=== PATIENT | male | born 1970 | race Caucasian/White ===

== ENCOUNTER 2018-01-11 11:47 | Emergency (ER) | payer SELFPAY ==
[2018-01-11] MEDS ORDERED: METHYLPREDNISOLONE INJ 125 MG/2 ML SDV IV ONE (12:13)
[2018-01-11] MEDS ORDERED: IPRATROPIUM/ALBUTEROL 0.5-2.5 MG/3 ML AMPUL NEB ONE (12:13)
--- NOTE | 2018-01-11 12:19 | ER Document Report ---
ED General - General Chief Complaint: Breathing Difficulty Stated Complaint: DIFFICULTY BREATHING Time Seen by Provider: 01/11/18 12:01 Mode of Arrival: Ambulatory Information source: Patient Notes: 47-year-old male presents emergency department with complaints of shortness of breath. Patient has a history of COPD. Patient states that he just moved here from [place]. He states that the humidity has been causing his COPD to flareup. She does not have home oxygen. He states that his tank ran out and he was never able to get it refilled. Patient states that he was just discharged from the hospital 3 days ago after being admitted for respiratory failure and pneumonia. Patient states that he was intubated at the hospital. Patient was supposed to be taking Augmentin and doxycycline. Patient states that he did not fill his prescriptions. He states that he did fly from [place] to [place] yesterday and then drove from [place] to [place]. He states that he is not on any anticoagulants. TRAVEL OUTSIDE OF THE [place] IN LAST 30 DAYS: No - HPI Onset: Just prior to arrival Onset/Duration: Sudden Quality of pain: No pain Severity: None Pain Level: Denies Associated symptoms: Shortness of breath Exacerbated by: Denies Relieved by: Denies Similar symptoms previously: Yes Recently seen / treated by doctor: Yes - Related Data Allergies/Adverse Reactions: No Known Allergies Allergy (Verified 01/11/18 11:59) Past Medical History - General Information source: Patient - Social History Smoking Status: Former Smoker Family History: Reviewed & Not Pertinent Review of Systems - Review of Systems Constitutional: No symptoms reported EENT: No symptoms reported Cardiovascular: No symptoms reported Respiratory: Short of breath Gastrointestinal: No symptoms reported Genitourinary: No symptoms reported Male Genitourinary: No symptoms reported Skin: No symptoms reported Hematologic/Lymphatic: No symptoms reported Neurological/Psychological: No symptoms reported -: Yes All other systems reviewed and negative Physical Exam - Vital signs Vitals: Temp Pulse BP Pulse Ox 98.1 F 117 H 150/92 H 83 L 01/11/18 11:53 01/11/18 11:53 01/11/18 11:53 01/11/18 11:53 - Notes Notes: PHYSICAL EXAMINATION: GENERAL: Well-appearing, well-nourished and in no acute distress. HEAD: Atraumatic, normocephalic. EYES: Pupils equal round and reactive to light, extraocular movements intact, sclera anicteric, conjunctiva are normal. ENT: Nares patent, oropharynx clear without exudates. Moist mucous membranes. NECK: Normal range of motion, supple without lymphadenopathy LUNGS: Decreased air movement diffusely. Mild wheezing appreciated. HEART: Regular rate and rhythm without murmurs ABDOMEN: Soft, nontender, nondistended abdomen. No guarding, no rebound. No masses appreciated. Musculoskeletal: Normal range of motion, 1+ lower extremity pitting edema bilaterally. No cyanosis. NEUROLOGICAL: Cranial nerves grossly intact. Normal speech, normal gait. Normal sensory, motor exams PSYCH: Normal mood, normal affect. SKIN: Warm, Dry, normal turgor, no rashes or lesions noted. Course - Re-evaluation Re-evalutation: 01/11/18 12:17 Patient has an oxygen saturation at 81% on room air on arrival. He is tachycardic. Recent travel from [place] to [place]. He is not on any blood thinners. CTA of the chest ordered to rule out PE. Patient started on BiPAP. Albuterol and Solu-Medrol ordered. 01/11/18 12:19 EKG: Ventricular rate 110, IA interval 144, castration 98, QTc 455, sinus tachycardia, no ischemic changes. 01/11/18 14:45 CTA of the chest was done. No pulmonary embolism was seen. No pneumonia. No effusion. Patient's troponin is elevated. I discussed admission with the patient. He refuses admission. He understands he may or his condition may worsen by leaving against medical advice. He also does not have home oxygen. Currently he's requiring 4L NC to keep his O2 saturation above 90%. We're unable to provide home O2. He understands the risks of leaving without home O2. Patient continues to decline admission. - Vital Signs Vital signs: Temp Pulse Resp BP Pulse Ox 98.1 F 117 H 31 H 150/92 H 96 01/11/18 11:53 01/11/18 11:53 01/11/18 12:20 01/11/18 11:53 01/11/18 12:20 - Laboratory Result Diagrams: 01/11/18 12:00 01/11/18 12:00 Laboratory results interpreted by me: 01/11/18 01/11/18 01/11/18 12:00 12:00 12:20 WBC 11.0 H Hgb 18.0 H Hct 54.0 H MCV 99 H RDW 15.5 H Plt Count 117 L Absolute Neutrophils 8.4 H Carbonic Acid 2.04 H ABG pCO2 67.8 H ABG pO2 64.8 L ABG HCO3 39.1 H ABG Total CO2 41.2 H ABG O2 Saturation 91.6 L Chloride 90 L Carbon Dioxide 42 H* BUN 29 H ALT 86 H Discharge - Discharge Clinical Impression: Hypoxia, Elevated troponin COPD (chronic obstructive pulmonary disease) Qualifiers: COPD type: COPD with acute exacerbation Qualified Code(s): J44.1 - Chronic obstructive pulmonary disease with (acute) exacerbation Condition: Serious Disposition: AGAINST MEDICAL ADVICE
[2018-01-11 12:34] LABS: ABSOLUTE EOSINOPHILS # (AUTO) 0.1 10^3/uL (0.0-0.6); ABSOLUTE LYMPHOCYTES (AUTO) 1.5 10^3/uL (0.5-4.7); ABSOLUTE MONOCYTES (AUTO) 0.9 10^3/uL (0.1-1.4); ABSOLUTE NEUT (AUTO) 8.4 10^3/uL (1.7-8.2); BASOPHILS % (AUTO) 0.3 % (0-2); EOSINOPHILS % (AUTO) 0.8 % (0-6); LYMPHOCYTES % (AUTO) 13.6 % (13-45); MEAN CORPUSCULAR HEMOGLOBIN 32.7 pg (27.0-33.4); MEAN CORPUSCULAR HGB CONC 33.2 g/dL (32.0-36.0); MEAN CORPUSCULAR VOLUME 99 fl (80-97); MONOCYTES % (AUTO) 8.6 % (3-13); PLATELET COUNT 117 10^3/uL (150-450); RED BLOOD COUNT 5.49 10^6/uL (4.35-5.55); RED CELL DISTRIBUTION WIDTH 15.5 % (11.5-14.0); SEGMENTED NEUTROPHILS % (AUTO) 76.7 % (42-78); TOTAL CELLS COUNTED % (AUTO) 100 %
[2018-01-11 12:36] LABS: ARTERIAL BLOOD BASE EXCESS 10.5 mmol/L; ARTERIAL BLOOD H2CO3 2.04 mmol/L (1.05-1.35); ARTERIAL BLOOD HCO3 39.1 mmol/L (20-24); ARTERIAL BLOOD O2 SATURATION 91.6 % (94-98); ARTERIAL BLOOD PCO2 67.8 mmHg (35-45); ARTERIAL BLOOD PH 7.38 (7.35-7.45); ARTERIAL BLOOD PO2 64.8 mmHg (80-100); ARTERIAL BLOOD TOTAL CO2 41.2 mmol/L (23-27)
[2018-01-11 12:39] LABS: ARTERIAL BLOOD FIO2 100%
[2018-01-11 13:27] LABS: BLOOD UREA NITROGEN 29 mg/dL (7-20); CHLORIDE 90 mmol/L (98-107); GLUCOSE 93 mg/dL (75-110); POTASSIUM 4.1 mmol/L (3.6-5.0)
[2018-01-11 13:28] LABS: ALANINE AMINOTRANSFERASE 86 U/L (21-72); ALBUMIN 4.2 g/dL (3.5-5.0); ALKALINE PHOSPHATASE 114 U/L (38-126); ANION GAP 10 (5-19); ASPARTATE AMINO TRANSFERASE 48 U/L (17-59); CARBON DIOXIDE 42 mmol/L (22-30); SODIUM 141.7 mmol/L (137-145)
[2018-01-11 13:29] LABS: BILIRUBIN,DIRECT 0.3 mg/dL (0.0-0.4); TOTAL PROTEIN 7.8 g/dL (6.3-8.2)
--- NOTE | 2018-01-11 14:00 | RADIOLOGY REPORT (SQ) ---
EXAM DESCRIPTION: CHEST SINGLE VIEW COMPLETED DATE/TIME: 01/11/2018 1:42 pm REASON FOR STUDY: shortness of breath COMPARISON: None. EXAM PARAMETERS: NUMBER OF VIEWS: One view. TECHNIQUE: Single frontal radiographic view of the chest acquired. RADIATION DOSE: NA LIMITATIONS: None. FINDINGS: LUNGS AND PLEURA: Hyperexpansion of the lungs with flattening of the diaphragms. MEDIASTINUM AND HILAR STRUCTURES: No masses. Contour normal. HEART AND VASCULAR STRUCTURES: Cardiomegaly with no pulmonary edema. BONES: No acute findings. HARDWARE: None in the chest. OTHER: No other significant finding. IMPRESSION: Cardiomegaly without CHF. Chronic lung changes. TECHNICAL DOCUMENTATION: JOB ID: [id number] [employer]- All Rights Reserved Reading location - IP/workstation name: [email or web address]
--- NOTE | 2018-01-11 14:15 | RADIOLOGY REPORT (SQ) ---
EXAM DESCRIPTION: CTA CHEST COMPLETED DATE/TIME: 01/11/2018 1:57 pm REASON FOR STUDY: shortness of breath COMPARISON: None. TECHNIQUE: CT scan of the chest performed using helical scanning technique with dynamic intravenous contrast injection. Images reviewed with lung, soft tissue and bone windows. Reconstructed coronal and sagittal MPR images reviewed. Additional 3 dimensional post-processing performed to develop Maximal Intensity Projection images (TX P). All images stored on PACS. All CT scanners at this facility use dose modulation, iterative reconstruction, and/or weight based d osing when appropriate to reduce radiation dose to as low as reasonably achievable (ALARA). [facility]: Dose Right [facility]: CareDose [facility]: Dose Right [facility]: Teradose 4D [facility]: Alea CONTRAST TYPE AND DOSE: contrast/concentration: Isovue 350.00 mg/ml; Total Contrast Delivered: 70.0 ml; Total Saline Delivered: 90.0 ml Contrast bolus optimized for the pulmonary arteries. Not diagnostic for the aorta. RENAL FUNCTION: None required. The patient is less than 50 years old. RADIATION DOSE: CT Rad equipment meets quality standard of care and radiation dose reduction techniq ues were employed. CTDIvol: 14.3 - 46.3 mGy. DLP: 656 mGy-cm. . LIMITATIONS: None. FINDINGS: LUNGS AND PLEURA: No masses, infiltrates, or pneumothorax. No pleural effusions or pleura l calcifications. Emphysematous and bullous changes are identified. AORTA AND GREAT VESSELS: No aneurysm. Contrast bolus not optimized for the aorta. HEART: No pericardial effusion. No significant coronary artery calcifications. PULMONARY ARTERIES: No emboli visualized in the main pulmonary arteries or the segmental branches. HILAR AND MEDIASTINAL STRUCTURES: No identified masses. Calcified left hilar nodes are identified. HARDWARE: None in the chest. UPPER ABDOMEN: No significant findings. Limited exam. THYROID AND OTHER SOFT TISSUES: No masses. No adenopathy. BONES: No acute or significant finding. 3D MIPS: Confirm above findings. OTHER: No other significant finding. IMPRESSION: No evidence for pulmonary embolic disease. No acute consolidations or pleural effusions are identified. Emphysematous and bullous changes are identified. Other findings as noted above COMMENT: Quality ID # [id number]: Final reports with documentation of one or more dose reduction techniques (e.g., Automated exposure control, adjustment of the mA and/or kV according to patient size, use of iterative reconstruction technique) TECHNICAL DOCUMENTATION: JOB ID: [id number] [employer]- All Rights Reserved Reading location - IP/workstation name: [email or web address]
--- NOTE | 2018-01-11 14:39 | EKG REPORT ---
SEVERITY:- ABNORMAL ECG - SINUS TACHYCARDIA CONSIDER RIGHT VENTRICULAR HYPERTROPHY NONSPECIFIC T ABNORMALITIES, INFERIOR LEADS : Confirmed by: Renetta Roth MD 11-Jan-2018 14:38:56
[2018-01-11 16:11] VITALS: BP 148/72
--- NOTE | 2018-01-11 17:40 | Progress Note ---
Provider Note Provider Note: HPI: Mr. Dean is a 47-year-old male with history of COPD. He was recently hospitalized in [place] for severe COPD exacerbation. He was intubated and was recently discharged 3 days ago. He moved to [place] yesterday. He says he was supposed to be on home O2 but there has been a delay procuring home oxygen. He says that he has been having increasing shortness of breath at home. He was given steroids and breathing treatments in the ER. Called by ER physician for admission. Upon encounter, patient is not in acute distress and is saturating at 94% on 2L of NC. Explained that this provider will be admitting him for his COPD exacerbation and he verbalized there is no reason for him to stay here. Patient inquired about his cardiac enzymes. Physical Exam: Patient not in acute distress on 2L of NC. Regular rhythm, no audible murmur. Symmetrical chest expansion. Occasional mild wheezes and rhonchi on the bases. No crackles. Soft abdomen, no palpable masses or tenderness. Grossly normal extremities. Unremarkable neuro exam. Assessment: Reviewed recent course and hospital notes from [facility]. Explained that he did have slightly elevated troponin at 0.12 last week which was deemed to be from demand ischemia. Explained that his troponin today is 0.118 and that although this could be from demand ischemia from his COPD exacerbation, I strongly recommended admission for appropriate treatment of his COPD exacerbation and reassessment of elevated troponin. Patient is coherent and verbalized that he is having his birthday in 2 days and that he has no plans of staying in the hospital for his birthday. Also offered social contact worker/ case management assistance to procure his home O2 but patient continues to refuse admission. He says he has already a pending script for oral steroids at home and that he will be fine. He says "You'll likely see me here again in the ER in the next few days or weeks". He says he appreciates the doctors' opinion and input but he is definitely going home soon. Discussed risks of going AMA including further morbidity. He verbalized understanding.
== END 2018-01-11 16:10 | disposition left against medical advice (07) ==
LOC: ER 11:47
DX: J44.1 Chronic obstructive pulmonary disease with (acute) exacerbation (principal); T41.5X6A Underdosing of therapeutic gases, initial encounter; Z91.128 Patient's intentional underdosing of medication regimen for other reason; Z91.14 Patient's other noncompliance with medication regimen; R09.02 Hypoxemia; R74.8 Abnormal levels of other serum enzymes; R06.02 Shortness of breath; R60.0 Localized edema; R00.0 Tachycardia, unspecified; Z53.20 Procedure and treatment not carried out because of patient's decision for unspecified reasons; Z87.891 Personal history of nicotine dependence
CPT/HCPCS: 93005; 94640; 99285; 96374; 36415; 82803; 85025; 80053; 84484; 71045; 71275; 93010; 36600; 94660; J2930; J7620

== ENCOUNTER 2018-01-14 | Observation (INO) | payer SELFPAY ==
[2018-01-14] MEDS ORDERED: ALBUTEROL SULFATE 0.083% NEB 2.5 MG/3 ML AMPUL NEB ONE (00:11)
--- NOTE | 2018-01-14 00:11 | ER Document Report ---
ED General - General Stated Complaint: SHORTNESS OF BREATH Time Seen by Provider: 01/14/18 00:10 Notes: Patient is a 48-year-old male who presents with complaint of difficulty breathing. He has history of COPD. He continues to smoke. She recently moved here from [place]. He did not bring any oxygen with him. Paramedics said they been called to his house several times over the last several days due to him feeling short of breath. At those times he just request oxygen but refuses to come to the hospital and eventually they leave and they have to come back again because he is short of breath again. This time he agreed to come to the hospital. He is out of his nebulizer treatments. Denies any fevers. No infections. He says he used to be on blood thinners for some sort of "clot. He thinks the clot was in his leg. Is not no other blood thinner was. He denies any chest pain. No fevers. He says in the past she has been seen at [facility] in [place] as well as at [facility] in [facility]. He says he feels much better after receiving the treatments and a months. In the ambulance he received several DuoNeb treatments, SoluMedrol, magnesium. TRAVEL OUTSIDE OF THE [place] IN LAST 30 DAYS: No - Related Data Allergies/Adverse Reactions: No Known Allergies Allergy (Verified 01/11/18 11:59) Past Medical History - Social History Smoking Status: Current Every Day Smoker Frequency of alcohol use: None Drug Abuse: None Family History: Reviewed & Not Pertinent Pulmonary Medical History: Reports: Hx Bronchitis, Hx COPD, Hx Pneumonia Renal/ Medical History: Denies: Hx Peritoneal Dialysis Musculoskeletal Medical History: Reports Hx Arthritis Past Surgical History: Reports: Hx Abdominal Surgery - peptic ulcer, unknown abd surgery Review of Systems - Review of Systems Notes: My Normal Review Basic REVIEW OF SYSTEMS: CONSTITUTIONAL : Denies fever, chills, or sweats. Denies recent illness. EENT: Denies eye, ear, throat, or mouth pain or symptoms. Denies nasal or sinus congestion. CARDIOVASCULAR: Denies chest pain. RESPIRATORY: Difficulty breathing GASTROINTESTINAL: Denies abdominal pain. Denies nausea, vomiting, or diarrhea. MUSCULOSKELETAL: Denies neck or back pain or joint pain or swelling. SKIN: Denies rash or skin lesions. NEUROLOGICAL: Denies altered mental status or loss of consciousness. Denies headache. Denies weakness or paralysis or loss of use of either side. Denies problems with gait or speech. Denies sensory or motor loss. ALL OTHER SYSTEMS REVIEWED AND NEGATIVE. Physical Exam - Notes Notes: General Appearance: Well nourished, alert, cooperative, no acute distress, no obvious discomfort. Vitals: reviewed, See vital signs table. Head: no swelling or tenderness to the head Eyes: PERRL, EOMI, Conjuctiva clear Mouth: No decreasd moisture Lungs: Scattered wheezing, No rales, No rhonci, No accessory muscle use, fair air exchange bilaterally. Heart: Normal rate, Regular rythm, No murmur, no rub Abdomen: Normal BS, soft, No rigidity, No abdominal tenderness, No guarding, no rebound, no abdominal masses, no organomegaly. Multiple subcutaneous bruises on abdomen. Extremities: strength 5/5 in all extremities, good pulses in all extremities, no swelling or tenderness in the extremities, 2+ edema bilateral lower extremities. Skin: warm, dry, appropriate color, no rash Neuro: speech clear, oriented x 3, normal affect, responds appropriately to questions. Course - Re-evaluation Re-evalutation: 01/14/18 01:26 Patient has hypercapnia with hypoxemia. His blood gas shows evidence of hypercapnia with respiratory acidosis. I therefore placed on the BiPAP. The history of whether or not he is post and blood thinners is unclear. I have requested records from [facility] which is where he said he was last seen and was placed on these medications. Currently his EKG looks okay. He is very comfortable on the BiPAP with only requiring an FiO2 of 35%. I did speak with the hospitalist, Dr. Hadley, who agrees to admit the patient. Dictation of this chart was performed using voice recognition software; therefore, there may be some unintended grammatical errors. - Laboratory Result Diagrams: 01/14/18 00:15 01/14/18 00:15 Laboratory results interpreted by me: 01/14/18 01/14/18 01/14/18 00:15 00:15 00:15 MCV 98 H RDW 15.4 H VBG pH 7.25 L VBG pCO2 99.1 H* VBG HCO3 42.4 H Chloride 91 L Carbon Dioxide 45 H* Anion Gap 2 L BUN 32 H Glucose 114 H ALT 87 H - EKG Interpretation by Me Additional EKG results interpreted by me: 01/14/18 00:22 EKG is reviewed and interpreted by me. EKG shows sinus tachycardia with a rate of [address] segment elevation or depression. No ischemic T wave inversions. [place] interval, QRS duration are within normal range. QT interval is borderline.
[2018-01-14 00:31] LABS: VENOUS BLOOD BASE EXCESS 10.1 mmol/L; VENOUS BLOOD HCO3 42.4 mmol/L (20-32); VENOUS BLOOD PH 7.25 (7.30-7.42)
[2018-01-14 00:33] LABS: ABSOLUTE LYMPHOCYTES (AUTO) 2.7 10^3/uL (0.5-4.7); ABSOLUTE MONOCYTES (AUTO) 1.2 10^3/uL (0.1-1.4); ABSOLUTE NEUT (AUTO) 6.2 10^3/uL (1.7-8.2); BASOPHILS % (AUTO) 0.4 % (0-2); EOSINOPHILS % (AUTO) 0.4 % (0-6); HEMATOCRIT 48.4 % (37.9-51.0); HEMOGLOBIN 16.3 g/dL (13.5-17.0); LYMPHOCYTES % (AUTO) 26.7 % (13-45); MEAN CORPUSCULAR HGB CONC 33.6 g/dL (32.0-36.0); MEAN CORPUSCULAR VOLUME 98 fl (80-97); MONOCYTES % (AUTO) 12.1 % (3-13); PLATELET COUNT 154 10^3/uL (150-450); RED BLOOD COUNT 4.94 10^6/uL (4.35-5.55); RED CELL DISTRIBUTION WIDTH 15.4 % (11.5-14.0); SEGMENTED NEUTROPHILS % (AUTO) 60.4 % (42-78); TOTAL CELLS COUNTED % (AUTO) 100 %; WHITE BLOOD COUNT 10.2 10^3/uL (4.0-10.5)
--- NOTE | 2018-01-14 00:44 | RADIOLOGY REPORT (SQ) ---
EXAM DESCRIPTION: XR CHEST 1 VIEW COMPLETED DATE/TME: 01/14/2018 00:10 CLINICAL HISTORY: 48 years Male, dyspnea COMPARISON: 3 days prior. NUMBER OF VIEWS/TECHNIQUE: 1/AP FINDINGS: Small bilateral costophrenic opacity-effusion, increased lung volume, normal cardiac silhouette. No pneumothorax. Stable bony thorax. IMPRESSION: No significant change.
[2018-01-14 00:49] LABS: ALANINE AMINOTRANSFERASE 87 U/L (21-72); ALBUMIN 3.8 g/dL (3.5-5.0); ALKALINE PHOSPHATASE 80 U/L (38-126); ASPARTATE AMINO TRANSFERASE 47 U/L (17-59); BILIRUBIN,DIRECT 0.4 mg/dL (0.0-0.4); BILIRUBIN,TOTAL 0.9 mg/dL (0.2-1.3); BLOOD UREA NITROGEN 32 mg/dL (7-20); CALCIUM 8.6 mg/dL (8.4-10.2); CHLORIDE 91 mmol/L (98-107); GLUCOSE 114 mg/dL (75-110); TOTAL PROTEIN 6.6 g/dL (6.3-8.2)
[2018-01-14 01:00] LABS: ANION GAP 2 (5-19); CARBON DIOXIDE 45 mmol/L (22-30); VENOUS BLOOD PCO2 99.1 mmHg (35-63)
[2018-01-14] MEDS ORDERED: HYDRALAZINE HCL INJ/PF 20 MG/1 ML SDV IV PRN (02:02)
[2018-01-14] MEDS ORDERED: IPRATROPIUM/ALBUTEROL 0.5-2.5 MG/3 ML AMPUL NEB PRN (02:03)
[2018-01-14] MEDS ORDERED: ACETAMINOPHEN 325 MG TABLET PO PRN (02:03)
[2018-01-14] MEDS ORDERED: GUAIFENESIN SYRP 200 MG/10 ML UDC PO PRN (02:03)
[2018-01-14] MEDS ORDERED: FLUTICASONE NASAL SPRAY 50 MCG/SPRY 120 SPRAY/16 GM NASL ONE (02:15)
[2018-01-14] MEDS ORDERED: METHYLPREDNISOLONE INJ 125 MG/2 ML SDV IV ONE (02:15)
[2018-01-14 02:56] LABS: CREATINE KINASE MB 8.45 ng/mL (<4.55)
[2018-01-14 02:59] LABS: TROPONIN I 0.077 ng/mL
[2018-01-14] MEDS ORDERED: LEVOFLOXACIN 750 MG/D5W RTU 750 MG/150 ML RTUPB IV ONE (03:00)
[2018-01-14 03:30] LABS: APPEARANCE,URINE SLIGHTLY-CLOUDY; BILIRUBIN,URINE NEGATIVE (NEGATIVE); COLOR,URINE AMBER; GLUCOSE, URINE NEGATIVE (NEGATIVE); KETONES,URINE NEGATIVE (NEGATIVE); LEUKOCYTE ESTERASE,URINE NEGATIVE (NEGATIVE); NITRITE,URINE NEGATIVE (NEGATIVE); PROTEIN,URINE >=500 mg/dL (NEGATIVE); URINE SPECIFIC GRAVITY 1.028
[2018-01-14 04:14] LABS: URINE BARBITURATES SCREEN NEGATIVE; URINE BENZODIAZEPINES SCREEN NEGATIVE; URINE COCAINE SCREEN NEGATIVE; URINE MARIJUANA (THC) SCREEN UNCONFIRMED POSITIVE; URINE METHADONE SCREEN NEGATIVE; URINE PHENCYCLIDINE SCREEN NEGATIVE
--- NOTE | 2018-01-14 04:27 | RADIOLOGY REPORT (SQ) ---
EXAM DESCRIPTION: CT CHEST ANGIOGRAPHY WITHOUT THEN WITH IV CONTRAST COMPLETED DATE/TME: 01/14/2018 00:00 CLINICAL HISTORY: 48 years, Male, r/o pe COMPARISON: 01/11/2018 TECHNIQUE: Axial CT images of the chest were obtained after the administration of IV contrast. MPR and MIP reconstructions were performed. DLP 587 Images stored on PACS. All CT scanners at this facility use dose modulation, iterative reconstruction, and/or weight based dosing when appropriate to reduce radiation dose to as low as reasonably achievable (ALARA). [facility]: Dose Right [facility]: CareDose [facility]: Dose Right [facility]: Teradose 4D [facility]: ReviewZAP LIMITATIONS: None. FINDINGS: Upper abdomen: Partially imaged. Thoracic aorta: Bovine arch Heart: No right atrial thrombus. RV/LV ratio: Within normal limits. Pulmonary arteries: Technical: Adequate opacification to the level of the segmental vessels. Pulmonary embolus: No low-density filling defect to suggest acute PE. Overall embolic burden: None. Mediastinum: No pathologic sized middle mediastinal lymphadenopathy. Tracheobronchial tree: Unremarkable. Lungs: Lobar consolidation: Negative. Pleural effusion: Negative. Pneumothorax: Negative. Other: Severe centrilobular emphysema particularly of the left upper lobe. Bones: Unremarkable. IMPRESSION: No CT evidence of acute PE. Severe emphysema. TECHNICAL DOCUMENTATION: Quality ID # [id number]: Final reports with documentation of one or more dose reduction techniques (e.g., Automated exposure control, adjustment of the mA and/or kV according to patient size, use of iterative reconstruction technique) 2010 [employer]- All Rights Reserved
[2018-01-14] MEDS ORDERED: HEPARIN SOD (PORCINE) 5,000 UNIT/ML 1 ML SYRINGE SUBCUT SCH (06:00)
[2018-01-14 06:17] LABS: CREATINE KINASE MB 8.22 ng/mL (<4.55)
[2018-01-14 06:21] LABS: TROPONIN I 0.061 ng/mL
--- NOTE | 2018-01-14 06:30 | PDOC H&P ---
History of Present Illness Admission Date/PCP: 01/14/18 01:44 Patient complains of: Shortness of breath History of Present Illness: SHARLENE LYNN is a 48 year old male with a past medical history of end-stage emphysema, recurrent pneumonia, deep vein thrombosis, congestive heart failure, hypertension, tobacco, chronic hypercapnic, hypoxic respiratory failure with recent intubation. Patient was discharged from [facility], 01/01/2018. Relocated to [facility] within that time, without discharge medications or supplemental oxygen. He presented 4 days ago with an acute exacerbation of respiratory failure however left the emergency room AGAINST MEDICAL ADVICE and returns in severe respiratory distress. He is found to have an angry affect, myoclonus and a PCO2 of 99. He started on BiPAP and referred to the hospitalist for admission. Patient admits to smoking, noncompliance with medication and lifestyle, denies chest pain nausea or vomiting. Past Medical History Cardiac Medical History: Reports: Congestive Heart Failure Pulmonary Medical History: Reports: Bronchitis, Chronic Obstructive Pulmonary Disease (COPD), Pneumonia Musculoskeltal Medical History: Reports: Arthritis Psychiatric Medical History: Reports: Substance Abuse, Tobacco Dependency Past Surgical History Past Surgical History: Reports: Other - Posttraumatic abdominal surgery remotely. Social History Information Source: Patient, Emergency Med Personnel, Outside Facility Records Smoking Status: Current Every Day Smoker Drugs: Marijuana Family History Family History: COPD Parental Family History Reviewed: Yes Children Family History Reviewed: Yes Sibling(s) Family History Reviewed.: Yes Medication/Allergy Home Medications: Albuterol Sulfate [Albuterol Sulfate 2.5mg/3 mL] 2.5 mg IH PRN PRN 01/14/18 Albuterol Sulfate [Proair HFA] 1 - 2 puff IH Q4 PRN 01/14/18 Furosemide [Lasix 40 mg Tablet] 40 mg PO QAM 01/14/18 Ipratropium [place] [Atrovent 0.02% Neb 0.5 mg/2.5 ml Ampul] 0.5 mg NEB PRN PRN 01/14/18 Prednisone 10 mg PO PRN PRN 01/14/18 Allergies/Adverse Reactions: No Known Allergies Allergy (Verified 01/11/18 11:59) Review of Systems Constitutional: PRESENT: as per HPI, fatigue, fever(s) Eyes: ABSENT: visual disturbances Ears: ABSENT: hearing changes Cardiovascular: PRESENT: dyspnea on exertion. ABSENT: chest pain, edema, orthropnea, palpitations Respiratory: PRESENT: as per HPI, cough, dyspnea. ABSENT: sputum Gastrointestinal: ABSENT: abdominal pain, constipation, diarrhea, hematemesis, hematochezia, nausea, vomiting Genitourinary: ABSENT: dysuria, hematuria Musculoskeletal: ABSENT: joint swelling Integumentary: ABSENT: rash, wounds Neurological: ABSENT: abnormal gait, abnormal speech, confusion, dizziness, focal weakness, syncope Psychiatric: ABSENT: anxiety, depression, homidical ideation, suicidal ideation Endocrine: ABSENT: cold intolerance, heat intolerance, polydipsia, polyuria Hematologic/Lymphatic: ABSENT: easy bleeding, easy bruising Physical Exam Vital Signs: Temp Pulse Resp BP Pulse Ox 97.3 F 87 19 131/90 H 100 01/14/18 05:38 01/14/18 05:38 01/14/18 05:38 01/14/18 05:38 01/14/18 05:38 Intake & Output 01/12/18 01/13/18 01/14/18 11:59 11:59 11:59 Intake Total 150 Balance 150 General appearance: PRESENT: disheveled, severe distress, thin. ABSENT: cooperative Head exam: PRESENT: atraumatic, normocephalic Eye exam: PRESENT: conjunctiva pink, EOMI, PERRLA. ABSENT: scleral icterus Ear exam: PRESENT: normal external ear exam Mouth exam: PRESENT: moist, tongue midline Neck exam: ABSENT: carotid bruit, JVD, lymphadenopathy, thyromegaly Respiratory exam: PRESENT: accessory muscle use, crackles, prolonged expiratory phas, retraction, symmetrical, tachypnea. ABSENT: rhonchi, stridor Cardiovascular exam: PRESENT: gallop, RRR, +S1, +S2, tachycardia Pulses: PRESENT: normal dorsalis pedis pul Vascular exam: PRESENT: normal capillary refill GI/Abdominal exam: PRESENT: normal bowel sounds, soft. ABSENT: distended, guarding, mass, organolmegaly, rebound, tenderness Rectal exam: PRESENT: deferred Extremities exam: PRESENT: +1 edema Neurological exam: PRESENT: alert, awake, oriented to person, oriented to place , oriented to time, oriented to situation, CN II-XII grossly intact. ABSENT: motor sensory deficit Psychiatric exam: PRESENT: agitated Skin exam: PRESENT: dry, erythema - Bilateral lower extremity dermatitis Results Laboratory Results: 01/14/18 03:16 Urine Color CORA Urine Appearance SLIGHTLY-CLOUDY Urine pH 5.0 Ur Specific [place] 1.028 Urine Protein >=500 H Urine Glucose (UA) NEGATIVE Urine Ketones NEGATIVE Urine Blood NEGATIVE Urine Nitrite NEGATIVE Ur Leukocyte Esterase NEGATIVE Urine WBC (Auto) 2 Urine RBC (Auto) 1 Impressions: Chest/Abdomen CTA 01/14/18 00:00 IMPRESSION: No CT evidence of acute PE. Severe emphysema. TECHNICAL DOCUMENTATION: Quality ID # 436: Final reports with documentation of one or more dose reduction techniques (e.g., Automated exposure control, adjustment of the mA and/or kV according to patient size, use of iterative reconstruction technique) 2010 [employer]- All Rights Reserved Chest X-Ray 01/14/18 00:10 IMPRESSION: No significant change. Assessment & Plan - Diagnosis (1) Acute and chronic respiratory failure Is this a current diagnosis for this admission?: Yes Plan: Complicated by history of end-stage emphysema, medication and lifestyle noncompliance. Supplemental oxygen, BiPAP, incentive spirometry, flutter valve , steroids. Recent hospitalization records requested, discharge planning consult, consider hospice consult (2) Pneumonia Is this a current diagnosis for this admission?: Yes Plan: Patient is diaphoretic, likely recurrent pneumonia, empiric antibiotics initiated. (3) Congestive heart failure Is this a current diagnosis for this admission?: Yes Plan: Unclear ejection fraction 2D echo ordered though likely increased pulmonary hypertension, prerenal at presentation, optimize vitals and oxygenation BiPAP support, (4) Tobacco abuse Is this a current diagnosis for this admission?: Yes Plan: Tobacco Dependence patient received tobacco cessation counseling and offered nicotine replacement options (5) DVT (deep venous thrombosis) Is this a current diagnosis for this admission?: Yes Plan: Eliquis - Time Time Spent: 30 to 50 Minutes - Inpatient Certification Medical Necessity: Need Close Monitoring Due to Risk of Patient Decompensation
[2018-01-14] MEDS ORDERED: IPRATROPIUM/ALBUTEROL 0.5-2.5 MG/3 ML AMPUL NEB SCH (08:00)
[2018-01-14 08:50] VITALS: BP 135/95
[2018-01-14] MEDS ORDERED: FLUTICASONE NASAL SPRAY 50 MCG/SPRY 120 SPRAY/16 GM NASL SCH (10:00)
[2018-01-14] MEDS ORDERED: APIXABAN 5 MG TABLET PO SCH (10:00)
[2018-01-14] MEDS ORDERED: METHYLPREDNISOLONE INJ 125 MG/2 ML SDV IV SCH (14:00)
--- NOTE | 2018-01-14 14:07 | PDOC DISCHARGE SUMMARY ---
General - Admit/Disc Date/PCP Admission Date/Primary Care Provider: 01/14/18 01:44 Discharge Date: 01/14/18 - Discharge Diagnosis (1) Acute and chronic respiratory failure Is this a current diagnosis for this admission?: Yes (3) DVT (deep venous thrombosis) Is this a current diagnosis for this admission?: Yes - Additional Information Home Medications: Albuterol Sulfate [Albuterol Sulfate 2.5mg/3 mL] 2.5 mg IH PRN PRN 01/14/18 Albuterol Sulfate [Proair HFA] 1 - 2 puff IH Q4 PRN 01/14/18 Furosemide [Lasix 40 mg Tablet] 40 mg PO QAM 01/14/18 Ipratropium [place] [Atrovent 0.02% Neb 0.5 mg/2.5 ml Ampul] 0.5 mg NEB PRN PRN 01/14/18 Prednisone 10 mg PO PRN PRN 01/14/18 History of Present Illness History of Present Illness: SHARLENE LYNN is a 48 year old male with a past medical history of end-stage emphysema, recurrent pneumonia, deep vein thrombosis, congestive heart failure, hypertension, tobacco, chronic hypercapnic, hypoxic respiratory failure with recent intubation. Patient was discharged from [facility], 01/01/2018. Relocated to [facility] within that time, without discharge medications or supplemental oxygen. He presented 4 days ago with an acute exacerbation of respiratory failure however left the emergency room AGAINST MEDICAL ADVICE and returns in severe respiratory distress. He is found to have an angry affect, myoclonus and a PCO2 of 99. He started on BiPAP and referred to the hospitalist for admission. Patient admits to smoking, noncompliance with medication and lifestyle, denies chest pain nausea or vomiting. Hospital Course Hospital Course: Patient was admitted placed on BiPAP. He weaned off BiPAP during the evening. The following morning patient stated he would sign out AMA. He was reminded that he does not have access to oxygen at home he said that he was meeting someone from a pharmacy who was going to deliver oxygen. It seems unlikely since patient has [place] Medicaid and not [place]. traffic and transport planner was consulted and discussed with patient that he needs to get into [place] Medicaid in order to get oxygen therapy. He has been borrowing tanks from the fire department and other sources. Patient additionally admits that he has been on and off his Eliquis since his diagnosis of DVT was made in [place]. He was vague as to whether he was taking it currently but he was told it is important that he comply with that or he could have a blood clot that goes to his lung and end his life. In the end the patient decided that he would leave AGAINST MEDICAL ADVICE and promptly left the hospital Physical Exam Vital Signs: Temp Pulse Resp BP Pulse Ox 98.2 F 99 19 135/95 H 93 01/14/18 08:22 01/14/18 08:22 01/14/18 08:22 01/14/18 08:22 01/14/18 08:22 Intake & Output 01/13/18 01/14/18 01/15/18 06:59 06:59 06:59 Intake Total 350 Output Total 400 Balance -50 Weight 83.9 kg Results Laboratory Results: 01/14/18 03:16 Urine Color CORA Urine Appearance SLIGHTLY-CLOUDY Urine pH 5.0 Ur Specific [place] 1.028 Urine Protein >=500 H Urine Glucose (UA) NEGATIVE Urine Ketones NEGATIVE Urine Blood NEGATIVE Urine Nitrite NEGATIVE Ur Leukocyte Esterase NEGATIVE Urine WBC (Auto) 2 Urine RBC (Auto) 1 01/14/18 01/14/18 05:45 05:45 Creatine Kinase 62 CK-MB (CK-2) 8.22 H Troponin I 0.061 Impressions: Chest/Abdomen CTA 01/14/18 00:00 IMPRESSION: No CT evidence of acute PE. Severe emphysema. TECHNICAL DOCUMENTATION: Quality ID # 436: Final reports with documentation of one or more dose reduction techniques (e.g., Automated exposure control, adjustment of the mA and/or kV according to patient size, use of iterative reconstruction technique) 2010 [employer]- All Rights Reserved Chest X-Ray 01/14/18 00:10 IMPRESSION: No significant change. Qualifiers - * PATIENT BEING DISCHARGED WITH ANY OF THE FOLLOWING DIAGNOSIS: No
--- NOTE | 2018-01-14 16:57 | EKG REPORT ---
SEVERITY:- ABNORMAL ECG - SINUS TACHYCARDIA PROBABLE RIGHT VENTRICULAR HYPERTROPHY BORDERLINE T ABNORMALITIES, INFERIOR LEADS BORDERLINE PROLONGED QT INTERVAL : Confirmed by: Renetta Roth MD 14-Jan-2018 16:57:04
[2018-01-14] MEDS ORDERED: LEVOFLOXACIN 750 MG/D5W RTU 750 MG/150 ML RTUPB IV SCH (22:00)
== END 2018-01-14 10:32 | disposition left against medical advice (07) ==
LOC: ER → EH 01:44 → INTOOBSV 01:44 → 5 05:09
PROVIDERS: ADMIT Internal Medicine; ATTEND Internal Medicine
DX: J96.21 Acute and chronic respiratory failure with hypoxia (principal); J96.22 Acute and chronic respiratory failure with hypercapnia; I82.409 Acute embolism and thrombosis of unspecified deep veins of unspecified lower extremity; J43.8 Other emphysema; J18.9 Pneumonia, unspecified organism; F17.200 Nicotine dependence, unspecified, uncomplicated; R45.1 Restlessness and agitation; L30.9 Dermatitis, unspecified; R00.0 Tachycardia, unspecified; I11.0 Hypertensive heart disease with heart failure; I50.9 Heart failure, unspecified; E87.2 Acidosis; Z53.21 Procedure and treatment not carried out due to patient leaving prior to being seen by health care provider; Z91.14 Patient's other noncompliance with medication regimen; Z82.5 Family history of asthma and other chronic lower respiratory diseases; Z87.01 Personal history of pneumonia (recurrent)
CPT/HCPCS: 93005; 99285; 36415; 87040; 82553; 82550; 85025; 80053; 81001; 84484; 80307; 82803; 83880; 71045; 71275; 94799; 93010; 94660; 94667; 94640; G0378 ×2; J1644; J1956; J7620

== ENCOUNTER 2018-01-16 13:11 | Emergency (ER) | payer SELFPAY ==
[2018-01-16] MEDS ORDERED: MAGNESIUM SULFATE/D5W 1 GM/100 ML RTUPB IV ONE (14:42)
[2018-01-16 14:56] LABS: VENOUS BLOOD BASE EXCESS 10.9 mmol/L; VENOUS BLOOD HCO3 42.6 mmol/L (20-32); VENOUS BLOOD PH 7.27 (7.30-7.42)
[2018-01-16 14:58] LABS: ABSOLUTE LYMPHOCYTES (AUTO) 0.8 10^3/uL (0.5-4.7); ABSOLUTE MONOCYTES (AUTO) 0.5 10^3/uL (0.1-1.4); ABSOLUTE NEUT (AUTO) 5.3 10^3/uL (1.7-8.2); BASOPHILS % (AUTO) 0.3 % (0-2); EOSINOPHILS % (AUTO) 0.3 % (0-6); HEMATOCRIT 45.2 % (37.9-51.0); HEMOGLOBIN 15.1 g/dL (13.5-17.0); LYMPHOCYTES % (AUTO) 11.8 % (13-45); MEAN CORPUSCULAR HEMOGLOBIN 32.8 pg (27.0-33.4); MEAN CORPUSCULAR HGB CONC 33.5 g/dL (32.0-36.0); MEAN CORPUSCULAR VOLUME 98 fl (80-97); MONOCYTES % (AUTO) 7.4 % (3-13); PLATELET COUNT 156 10^3/uL (150-450); RED BLOOD COUNT 4.61 10^6/uL (4.35-5.55); RED CELL DISTRIBUTION WIDTH 14.9 % (11.5-14.0); SEGMENTED NEUTROPHILS % (AUTO) 80.2 % (42-78); TOTAL CELLS COUNTED % (AUTO) 100 %; WHITE BLOOD COUNT 6.6 10^3/uL (4.0-10.5)
[2018-01-16 14:59] LABS: VENOUS BLOOD PCO2 94.1 mmHg (35-63)
[2018-01-16] MEDS ORDERED: NICOTINE 14 MG/24 HR PATCH.TD24 TD ONE (15:03)
[2018-01-16 15:18] LABS: BLOOD UREA NITROGEN 26 mg/dL (7-20); CALCIUM 8.6 mg/dL (8.4-10.2); GLUCOSE 91 mg/dL (75-110)
--- NOTE | 2018-01-16 15:24 | RADIOLOGY REPORT (SQ) ---
EXAM DESCRIPTION: CHEST 2 VIEWS COMPLETED DATE/TIME: 01/16/2018 3:11 pm REASON FOR STUDY: sob COMPARISON: CT chest examination dated 01/14/2018 EXAM PARAMETERS: NUMBER OF VIEWS: two views TECHNIQUE: Digital Frontal and Lateral radiographic views of the chest acquired. RADIATION DOSE: NA LIMITATIONS: none FINDINGS: LUNGS AND PLEURA: Hyperinflation of the lungs, attenuation of the vessels and flattening of the diaphragms, findings suggest COPD. Bibasilar and mid lung scar or atelectasis. No acute pulm onary consolidation. No pneumothorax or pleural effusion. MEDIASTINUM AND HILAR STRUCTURES: No masses or contour abnormalities. HEART AND VASCULAR STRUCTURES: Cardiomegaly. No evidence for failure. BONES: No acute findings. HARDWARE: None in the chest. OTHER: No other significant finding. IMPRESSION: 1. Findings of COPD. Bibasilar and mid lung scar or atelectasis. No acute findings. 2. Cardiomegaly. TECHNICAL DOCUMENTATION: JOB ID: [id number] [email or web address]- All Rights Reserved Reading location - IP/workstation name: [email or web address]
[2018-01-16 15:43] LABS: CHLORIDE 92 mmol/L (98-107); POTASSIUM 4.3 mmol/L (3.6-5.0); SODIUM 138.1 mmol/L (137-145)
[2018-01-16 15:59] LABS: ANION GAP 4 (5-19)
[2018-01-16] MEDS ORDERED: ACETAMINOPHEN 325 MG TABLET PO ONE (16:04)
[2018-01-16] MEDS ORDERED: KETOROLAC TROMETHAMINE INJ/PF 30 MG/1 ML SDV IV ONE (16:04)
[2018-01-16 16:07] LABS: CARBON DIOXIDE 42 mmol/L (22-30)
[2018-01-16 16:44] VITALS: BP 141/96
--- NOTE | 2018-01-16 16:56 | ER Document Report ---
ED General - General Chief Complaint: Respiratory Distress Stated Complaint: DIFFICULTY BREATHING Time Seen by Provider: 01/16/18 14:20 TRAVEL OUTSIDE OF THE [place] IN LAST 30 DAYS: No - HPI Patient complains to provider of: Difficulty breathing Notes: Patient brought in by EMS for difficulty breathing. According to the patient's previous visits patient recently moved to the area has end-stage COPDrequiring oxygen constantly. Patient states that he ran out of his oxygen however has some things in the house family members and not switch to take therefore oxygenation dropped family members became concerned therefore he agreed to be transferred to the ER patient states that he only wants magnesium but more likely he would not stay here in the hospital. Patient's last visits does show patient signing out AGAINST MEDICAL ADVICE. Patient denies any fevers chills nausea vomiting patient also complains of some left shoulder pain that is chronic also is complains of pain at the top of his gluteal cleft ongoing for the last 24-48 hours. Patient otherwise is resting comfortably no signs of any obvious distress. - Related Data Allergies/Adverse Reactions: No Known Allergies Allergy (Verified 01/11/18 11:59) Past Medical History - Social History Smoking Status: Current Every Day Smoker Frequency of alcohol use: None Drug Abuse: Marijuana Family History: COPD Patient has suicidal ideation: No Patient has homicidal ideation: No - Past Medical History Cardiac Medical History: Reports: Hx Congestive Heart Failure Pulmonary Medical History: Reports: Hx Bronchitis, Hx COPD, Hx Pneumonia Renal/ Medical History: Denies: Hx Peritoneal Dialysis Musculoskeletal Medical History: Reports Hx Arthritis Past Surgical History: Reports: Hx Abdominal Surgery - peptic ulcer, unknown abd surgery, Other - Posttraumatic abdominal surgery remotely. Review of Systems - Review of Systems Constitutional: No symptoms reported EENT: No symptoms reported Cardiovascular: No symptoms reported Respiratory: Short of breath Gastrointestinal: No symptoms reported Genitourinary: No symptoms reported Male Genitourinary: No symptoms reported Musculoskeletal: Other - Left shoulder buttocks pain Skin: No symptoms reported Hematologic/Lymphatic: No symptoms reported Neurological/Psychological: No symptoms reported Physical Exam - Vital signs Vitals: Pulse Resp BP Pulse Ox 97 16 158/111 H 97 01/16/18 13:22 01/16/18 13:22 01/16/18 13:22 01/16/18 13:22 Interpretation: Normal - General General appearance: Appears well, Alert - HEENT Head: Normocephalic, Atraumatic Eyes: Normal Pupils: PERRL - Respiratory Respiratory status: No respiratory distress Chest status: Nontender Breath sounds: Normal Chest palpation: Normal - Cardiovascular Rhythm: Regular Heart sounds: Normal auscultation Murmur: No - Abdominal Inspection: Normal Distension: No distension Bowel sounds: Normal Tenderness: Nontender Organomegaly: No organomegaly - Rectal Notes: Patient with signs of a pilonidal cyst there is no fluctuance no signs of an infection no need to I&D at this time - Back Back: Normal, Nontender - Extremities General upper extremity: Normal inspection, Nontender, Normal color, Normal ROM , Normal temperature General lower extremity: Normal inspection, Nontender, Normal color, Normal ROM , Normal temperature, Normal weight bearing. No: Andre's sign - Neurological Neuro grossly intact: Yes Cognition: Normal Orientation: AAOx4 [place] Coma Scale Eye Opening: Spontaneous [place] Coma Scale Verbal: Oriented [place] Coma Scale Motor: Obeys Commands [place] Coma Scale Total: 15 Speech: Normal Motor strength normal: LUE, RUE, LLE, RLE Sensory: Normal - Psychological Associated symptoms: Normal affect, Normal mood - Skin Skin Temperature: Warm Skin Moisture: Dry Skin Color: Normal Course - Re-evaluation Re-evalutation: 01/16/18 21:05 Laboratory studies showed the patient to have hypercapnia slight acidosis however this is similar to the patient's previous presentations chronic with the patient signed out AGAINST MEDICAL ADVICE. Long discussion with the patient offered BiPAP however patient refused offered admission to the hospital however patient refused. Patient states he only wants magnesium now we will leave the patient is a no x3 understands the risk and benefits of leaving versus staying here in the hospital to be admitted. Patient states that he understands that leaving can result in and/or disability. Patient understands the risk. I will sign out AGAINST MEDICAL ADVICE. - Vital Signs Vital signs: Temp Pulse Resp BP Pulse Ox 97 9 L 141/96 H 69 L 01/16/18 13:22 01/16/18 15:36 01/16/18 16:01 01/16/18 17:01 - Laboratory Result Diagrams: 01/16/18 14:47 01/16/18 14:47 Laboratory results interpreted by me: 01/16/18 01/16/18 01/16/18 14:47 14:47 14:47 MCV 98 H RDW 14.9 H Seg Neutrophils % 80.2 H Lymphocytes % 11.8 L VBG pH 7.27 L VBG pCO2 94.1 H* VBG HCO3 42.6 H Chloride 92 L Carbon Dioxide 42 H* Anion Gap 4 L BUN 26 H Discharge - Discharge Clinical Impression: Tobacco abuse, Left against medical advice, Pilonidal cyst COPD (chronic obstructive pulmonary disease) Qualifiers: COPD type: unspecified COPD Qualified Code(s): J44.9 - Chronic obstructive pulmonary disease, unspecified Condition: Good Disposition: AGAINST MEDICAL ADVICE Instructions: Chronic Obstructive Lung Disease ([facility]), Stop Smoking ([facility]) Additional Instructions: Laboratory studies today show signs of COPD with slight rest or acidosis. Did recommend that we start you on BiPAP to help out with your breathing however you made your plan is clear that you only came to the ER for IV magnesium and that she refused admission at this time along with application of BiPAP. Otherwise rest your laboratory studies not show any critical pathology. You have decided at this time to sign out AGAINST MEDICAL ADVICE. Your alert understand why you are at understand the risk and benefits of being discharged versus admitted understanding likelihood of possible or disability and he has voiced understanding of this. I recommend to stop smoking he can return to the ER at any time to complete your treatment.
== END 2018-01-16 17:00 | disposition left against medical advice (07) ==
LOC: ER 13:11
DX: J44.9 Chronic obstructive pulmonary disease, unspecified (principal); L05.91 Pilonidal cyst without abscess; R06.00 Dyspnea, unspecified; F17.210 Nicotine dependence, cigarettes, uncomplicated; I50.9 Heart failure, unspecified
CPT/HCPCS: 99285; 96375; 96365; 36415; 85025; 80048; 84484; 82803; 71046; J1885; J3475

== ENCOUNTER 2018-01-22 12:58 | Inpatient (IN) | payer MEDICAID ==
[2018-01-22] MEDS ORDERED: ETOMIDATE INJ/PF 20 MG/10 ML SDV IV ONE ×2 (13:04→13:05)
[2018-01-22] MEDS ORDERED: ROCURONIUM BROMIDE INJ 50 MG/5 ML VIAL IV ONE ×2 (13:05→19:38)
[2018-01-22] MEDS: PROPOFOL 1,000 MG/100 ML INFUS..BTL IV PRN ×3 (13:10→20:08)
[2018-01-22] MEDS ORDERED: IPRATROPIUM/ALBUTEROL 0.5-2.5 MG/3 ML AMPUL NEB ONE (13:21)
[2018-01-22] MEDS ORDERED: FENTANYL CITRATE INJ/PF 100 MCG/2 ML AMPUL IV ONE (13:23)
[2018-01-22 13:25] LABS: ABSOLUTE LYMPHOCYTES (AUTO) 0.7 10^3/uL (0.5-4.7); ABSOLUTE MONOCYTES (AUTO) 1.1 10^3/uL (0.1-1.4); BASOPHILS % (AUTO) 0.2 % (0-2); HEMATOCRIT 49.9 % (37.9-51.0); HEMOGLOBIN 16.3 g/dL (13.5-17.0); LYMPHOCYTES % (AUTO) 6.9 % (13-45); MEAN CORPUSCULAR HGB CONC 32.7 g/dL (32.0-36.0); MEAN CORPUSCULAR VOLUME 101 fl (80-97); MONOCYTES % (AUTO) 11.2 % (3-13); PLATELET COUNT 137 10^3/uL (150-450); RED BLOOD COUNT 4.95 10^6/uL (4.35-5.55); RED CELL DISTRIBUTION WIDTH 16.2 % (11.5-14.0); SEGMENTED NEUTROPHILS % (AUTO) 81.7 % (42-78); TOTAL CELLS COUNTED % (AUTO) 100 %; WHITE BLOOD COUNT 9.8 10^3/uL (4.0-10.5)
[2018-01-22 13:34] LABS: INTERNATIONAL RATION (INR) 0.98; PROTHROMBIN TIME 13.5 SEC (11.4-15.4)
--- NOTE | 2018-01-22 14:04 | RADIOLOGY REPORT (SQ) ---
EXAM DESCRIPTION: CHEST SINGLE VIEW COMPLETED DATE/TIME: 01/22/2018 1:39 pm REASON FOR STUDY: hypoxia, post intubation COMPARISON: 10 to 18 EXAM PARAMETERS: NUMBER OF VIEWS: One view. TECHNIQUE: Single frontal radiographic view of the chest acquired. RADIATION DOSE: NA LIMITATIONS: None. FINDINGS: LUNGS AND PLEURA: No opacities, masses or pneumothorax. No pleural effusion. MEDIASTINUM AND HILAR STRUCTURES: No masses. Contour normal. HEART AND VASCULAR STRUCTURES: Cardiomegaly. No pulmonary edema. BONES: No acute findings. HARDWARE: Endotracheal tube has its tip 6 cm above the jsoué. An NG tube extends to the stomach. OTHER: No other significant finding. IMPRESSION: Tube placement as described. Cardiomegaly without mago pulmonary edema. TECHNICAL DOCUMENTATION: JOB ID: [id number] [employer]- All Rights Reserved Reading location - IP/workstation name: [email or web address]
--- NOTE | 2018-01-22 14:10 | ER Document Report ---
ED General - General Chief Complaint: Breathing Difficulty Stated Complaint: DIFFICULTY BREATHING Time Seen by Provider: 01/22/18 13:04 Notes: Patient is a 48-year-old male with COPD that presents to the emergency department for chief complaint of respiratory distress. History provided by EMS and the patient's father. According to EMS the patient was found altered, and in respiratory distress at his father's home, they had a pulse ox of 73% on room air, increased work of breathing. He did provide 2 albuterol treatments which briefly seem to help him, and they placed him on CPAP with a pressure of 8 , and then increase that to 10 because they could not get a pulse ox above 88%. Patient has a known history of COPD, and apparently has been out of his medications since he is moved from [place] to [place]. He has been out of his medication since then as well. EMS did give him 125 mg of IV Solu- Medrol as well. At this time the patient is not able or capable to provide any further information as he has an altered mental status, and is currently on CPAP. Past Medical History: COPD, CHF Past Surgical History: Not obtainable at this time Social History: Positive for tobacco use, unknown alcohol or illicit drug use. Currently living with his parents Family History: Reviewed and noncontributory for presenting illness Allergies: Reviewed, see documented allergy list. REVIEW OF SYSTEMS: Unless otherwise stated in this report the patient's positive and negative responses for review of systems for constitutional, eyes, ENT, cardiovascular, respiratory, gastrointestinal, neurological, genitourinary, musculoskeletal, and integumentary systems and related systems to the presenting problem are either as stated in the HPI or were not pertinent or were negative for the symptoms and/or complaints related to the presenting medical problem. PHYSICAL EXAMINATION: Vital signs reviewed, nursing noted reviewed. GENERAL: Patient is in severe respiratory distress, on CPAP, will respond to name only, GCS 14 HEAD: Atraumatic, normocephalic. EYES: Eyes appear normal, extraocular movements intact, sclera anicteric, conjunctiva are normal. ENT: nares patent, oropharynx clear without exudates. Moist mucous membranes. NECK: supple without lymphadenopathy LUNGS: Severely diminished lung sounds throughout, severe respiratory distress, tachypnea, accessory muscle use HEART: Heart rate tachycardic, regular rhythm ABDOMEN: Soft, nontender, normoactive bowel sounds. No rebound, guarding, or rigidity. No masses appreciated. EXTREMITIES: Nontender, good range of motion, 1+ pitting edema bilaterally to the proximal tibias NEUROLOGICAL: GCS: 14, confused, not following commands, patient will localize all limbs, with noxious stimuli PSYCH: Altered mental status SKIN: Warm, Dry, normal turgor, no rashes or lesions noted on exposed skin TRAVEL OUTSIDE OF THE [place] IN LAST 30 DAYS: No - Related Data Allergies/Adverse Reactions: No Known Allergies Allergy (Verified 01/11/18 11:59) Past Medical History - Social History Smoking Status: Current Every Day Smoker Lives with: Family Family History: COPD - Past Medical History Cardiac Medical History: Reports: Hx Congestive Heart Failure Pulmonary Medical History: Reports: Hx Bronchitis, Hx COPD, Hx Pneumonia Renal/ Medical History: Denies: Hx Peritoneal Dialysis Musculoskeletal Medical History: Reports Hx Arthritis Past Surgical History: Reports: Hx Abdominal Surgery - peptic ulcer, unknown abd surgery, Other - Posttraumatic abdominal surgery remotely. Physical Exam - Vital signs Vitals: Pulse Ox 93 01/22/18 13:04 Course - Re-evaluation Re-evalutation: Patient seen and examined vital signs reviewed. Laboratory data and imaging were ordered as appropriate for the patient's presenting symptoms and complaint, with consideration of any critical or life threatening conditions that may be associated with their obtained history and exam as noted above. Patient was in respiratory distress, and in impending respiratory failure, while on CPAP, therefore decision was made to intubate the patient for acute respiratory failure with hypoxia, this was done so as noted in intubation note, without complications Patient was treated with DuoNeb breathing treatments, had received IV Solu- Medrol by EMS, and maintained on propofol infusion for sedation Results were reviewed when available and demonstrated negative chest x-ray for infiltrate, ET tube 6 cm above the josué, this was advanced 2 cm after reviewing the chest x-ray, no leukocytosis, mild hyponatremia, otherwise no significant lecture light abnormality, the patient was noted to be in respiratory acidosis, with metabolic compensation Patient was maintained on the ventilator, weaning oxygen down to 60% FiO2, case was discussed with the admitting hospitalist who graciously accept the patient under their service to the ICU. For acute on chronic respiratory failure with hypoxia, requiring mechanical ventilation Patient peripheral access became limited, multiple attempts to obtain a good peripheral IV were attempted, without success, at this point given that the patient had borderline hypotension, as well, a right internal jugular triple- lumen catheter was placed as described in the note. The patient was re-evaluated multiiple times and was stable on the ventilator, and propofol infusion for sedation Laboratory 01/22/18 01/22/18 01/22/18 12:30 12:30 12:30 WBC 9.8 RBC 4.95 Hgb 16.3 Hct 49.9 MCV 101 H MCH 33.0 MCHC 32.7 RDW 16.2 H Plt Count 137 L Seg Neutrophils % 81.7 H Lymphocytes % 6.9 L Monocytes % 11.2 Eosinophils % 0.0 Basophils % 0.2 Absolute Neutrophils 8.0 Absolute Lymphocytes 0.7 Absolute Monocytes 1.1 Absolute Eosinophils 0.0 Absolute Basophils 0.0 PT 13.5 INR 0.98 Carbonic Acid HCO3/H2CO3 Ratio ABG pH ABG pCO2 ABG pO2 ABG HCO3 ABG Total CO2 ABG O2 Saturation ABG Base Excess FiO2 Sodium Cancelled Potassium Cancelled Chloride Cancelled Carbon Dioxide Cancelled Anion Gap Cancelled BUN Cancelled Creatinine Cancelled Est GFR ( Amer) Cancelled Est GFR (Non-Af Amer) Cancelled Glucose Cancelled Lactic Acid Calcium Cancelled Total Bilirubin Cancelled Direct Bilirubin Cancelled Neonat Total Bilirubin Cancelled Neonat Direct Bilirubin Cancelled Neonat Indirect Bili Cancelled AST Cancelled ALT Cancelled Alkaline Phosphatase Cancelled Creatine Kinase CK-MB (CK-2) Troponin I Total Protein Cancelled Albumin Cancelled Urine Color Urine Appearance Urine pH Ur Specific [place] Urine Protein Urine Glucose (UA) Urine Ketones Urine Blood Urine Nitrite Urine Bilirubin Urine Urobilinogen Ur Leukocyte Esterase Urine RBC Urine WBC Ur Squamous Epith Cells Hyaline Casts Urine Ascorbic Acid 01/22/18 01/22/18 01/22/18 14:04 15:07 15:08 WBC RBC Hgb Hct MCV MCH MCHC RDW Plt Count Seg Neutrophils % Lymphocytes % Monocytes % Eosinophils % Basophils % Absolute Neutrophils Absolute Lymphocytes Absolute Monocytes Absolute Eosinophils Absolute Basophils PT INR Carbonic Acid 2.30 H HCO3/H2CO3 Ratio 18:1 ABG pH 7.35 ABG pCO2 76.5 H* ABG pO2 179.2 H ABG HCO3 41.4 H ABG Total CO2 43.7 H ABG O2 Saturation 99.1 H ABG Base Excess 12.0 FiO2 60% Sodium Potassium Chloride Carbon Dioxide Anion Gap BUN Creatinine Est GFR ( Amer) Est GFR (Non-Af Amer) Glucose Lactic Acid 0.9 Calcium Total Bilirubin Direct Bilirubin Neonat Total Bilirubin Neonat Direct Bilirubin Neonat Indirect Bili AST ALT Alkaline Phosphatase Creatine Kinase CK-MB (CK-2) Troponin I Total Protein Albumin Urine Color DARK YELLOW Urine Appearance HAZY Urine pH 6.0 Ur Specific [place] 1.023 Urine Protein >=500 H Urine Glucose (UA) NEGATIVE Urine Ketones 25 H Urine Blood LARGE H Urine Nitrite NEGATIVE Urine Bilirubin SMALL H Urine Urobilinogen 2.0 H Ur Leukocyte Esterase NEGATIVE Urine RBC RARE Urine WBC 1-5 Ur Squamous Epith Cells FEW Hyaline Casts 20-30 Urine Ascorbic Acid NEGATIVE 01/22/18 01/22/18 01/22/18 15:08 15:08 15:08 WBC RBC Hgb Hct MCV MCH MCHC RDW Plt Count Seg Neutrophils % Lymphocytes % Monocytes % Eosinophils % Basophils % Absolute Neutrophils Absolute Lymphocytes Absolute Monocytes Absolute Eosinophils Absolute Basophils PT INR Carbonic Acid HCO3/H2CO3 Ratio ABG pH ABG pCO2 ABG pO2 ABG HCO3 ABG Total CO2 ABG O2 Saturation ABG Base Excess FiO2 Sodium 136.3 L Potassium 4.6 Chloride 92 L Carbon Dioxide 43 H* Anion Gap 1 L BUN 32 H Creatinine 0.65 Est GFR ( Amer) > 60 Est GFR (Non-Af Amer) > 60 Glucose 116 H Lactic Acid Calcium 8.0 L Total Bilirubin 1.6 H Direct Bilirubin 0.7 H Neonat Total Bilirubin Not Reportable Neonat Direct Bilirubin Not Reportable Neonat Indirect Bili Not Reportable AST 345 H ALT 329 H Alkaline Phosphatase 66 Creatine Kinase 102 CK-MB (CK-2) 11.00 H Troponin I 0.080 Total Protein 4.8 L Albumin 2.6 L Urine Color Urine Appearance Urine pH Ur Specific [place] Urine Protein Urine Glucose (UA) Urine Ketones Urine Blood Urine Nitrite Urine Bilirubin Urine Urobilinogen Ur Leukocyte Esterase Urine RBC Urine WBC Ur Squamous Epith Cells Hyaline Casts Urine Ascorbic Acid 01/22/18 19:00 WBC RBC Hgb Hct MCV MCH MCHC RDW Plt Count Seg Neutrophils % Lymphocytes % Monocytes % Eosinophils % Basophils % Absolute Neutrophils Absolute Lymphocytes Absolute Monocytes Absolute Eosinophils Absolute Basophils PT INR Carbonic Acid 2.19 H HCO3/H2CO3 Ratio 18:1 ABG pH 7.37 ABG pCO2 72.9 H* ABG pO2 72.7 L ABG HCO3 40.7 H ABG Total CO2 43.0 H ABG O2 Saturation 93.5 L ABG Base Excess 11.7 FiO2 40% Sodium Potassium Chloride Carbon Dioxide Anion Gap BUN Creatinine Est GFR ( Amer) Est GFR (Non-Af Amer) Glucose Lactic Acid Calcium Total Bilirubin Direct Bilirubin Neonat Total Bilirubin Neonat Direct Bilirubin Neonat Indirect Bili AST ALT Alkaline Phosphatase Creatine Kinase CK-MB (CK-2) Troponin I Total Protein Albumin Urine Color Urine Appearance Urine pH Ur Specific [place] Urine Protein Urine Glucose (UA) Urine Ketones Urine Blood Urine Nitrite Urine Bilirubin Urine Urobilinogen Ur Leukocyte Esterase Urine RBC Urine WBC Ur Squamous Epith Cells Hyaline Casts Urine Ascorbic Acid Laboratory 01/22/18 01/22/18 01/22/18 12:30 12:30 12:30 WBC 9.8 RBC 4.95 Hgb 16.3 Hct 49.9 MCV 101 H MCH 33.0 MCHC 32.7 RDW 16.2 H Plt Count 137 L Seg Neutrophils % 81.7 H Lymphocytes % 6.9 L Monocytes % 11.2 Eosinophils % 0.0 Basophils % 0.2 Absolute Neutrophils 8.0 Absolute Lymphocytes 0.7 Absolute Monocytes 1.1 Absolute Eosinophils 0.0 Absolute Basophils 0.0 PT 13.5 INR 0.98 Sodium Cancelled Potassium Cancelled Chloride Cancelled Carbon Dioxide Cancelled Anion Gap Cancelled BUN Cancelled Creatinine Cancelled Est GFR ( Amer) Cancelled Est GFR (Non-Af Amer) Cancelled Glucose Cancelled Calcium Cancelled Total Bilirubin Cancelled Direct Bilirubin Cancelled Neonat Total Bilirubin Cancelled Neonat Direct Bilirubin Cancelled Neonat Indirect Bili Cancelled AST Cancelled ALT Cancelled Alkaline Phosphatase Cancelled Total Protein Cancelled Albumin Cancelled Chest X-Ray 01/22/18 13:22 IMPRESSION: Tube placement as described. Cardiomegaly without mago pulmonary edema. *Note is created using voice recognition software and may contain spelling, syntax or grammatical errors. - Vital Signs Vital signs: Temp Pulse Resp BP Pulse Ox 97.7 F 76 12 108/73 100 01/22/18 20:00 01/22/18 17:22 01/22/18 18:00 01/22/18 17:56 01/22/18 18:20 - Laboratory Result Diagrams: 01/22/18 12:30 01/22/18 15:08 Laboratory results interpreted by me: 01/22/18 01/22/18 12:30 14:04 MCV 101 H RDW 16.2 H Plt Count 137 L Seg Neutrophils % 81.7 H Lymphocytes % 6.9 L Urine Protein >=500 H Urine Ketones 25 H Urine Blood LARGE H Urine Bilirubin SMALL H Urine Urobilinogen 2.0 H - EKG Interpretation by Me Additional EKG results interpreted by me: EKG demonstrates sinus rhythm with a ventricular rate of 93 bpm, normal axis, normal intervals, QTC 448 ms, there is slight T wave inversions in leads II, III and aVF, this compared with prior EKG from 01/14/2018, without significant change. Procedures - Central Line Right Internal jugular Consent obtained: No - emergency need Central line pre-insertion: Sterile PPE donned, Chloraprep applied, Sterile drapes applied Central line size (Fr.): 7 Central line lumen type: Triple Anesthetic type: 1% Lidocaine mL's of anesthesia: 3 Ultrasound guided: Yes Line secured with sutures: Yes Central line post-insertion: Blood return from lumens, Biopatch applied, Sutured , Sterile dressing applied, Position confirmed w/ CXR Number of attempts: 1 Complications: No - Intubation Orotracheal Airway evaluation: Normal anatomy Mallampati Classification: Class 1 Medications: Etomidate - 20mg, Other - Rocuronium 100mg Intubation method: Orotracheal Blade size: 4 Equipment used: Glidescope ETT size: 8.0 ETT secured at: Teeth ETT secured at (cm): 23 Breath Sounds after Intubation: Equal End tidal CO2 confirmed: Yes Ventilator settings: SIMV Tidal volume: 500 FiO2: 70 Respirations: 12 Pressure support: 10 PEEP: 5 Critical Care Note - Critical Care Note Total time excluding time spent on procedures (mins): 80 Comments: Critical care time 80 minutes exclusive from separate billable procedures for a patient requiring complex medical decision making, and high potential for clinical deterioration. In a patient requiring mechanical ventilation and intubation, and close monitoring and titration of sedative medications. Time spent obtaining history from patient or surrogate, discussions with consultants , development of treatment plan with patient or surrogate, evaluation of patient 's response to treatment, examination of patient, ordering and performing treatments and interventions, ordering and review of laboratory studies, re- evaluation of patient's condition, ordering and review of radiographic studies and review of old charts Discharge - Discharge Clinical Impression: Hypoxia, Tachycardia, Respiratory acidosis, Hyponatremia Acute respiratory failure Qualifiers: Respiratory failure complication: hypoxia Qualified Code(s): J96.01 - Acute respiratory failure with hypoxia Hypotension Qualifiers: Hypotension type: unspecified hypotension type Qualified Code(s): I95.9 - Hypotension, unspecified Condition: Critical Disposition: ADMITTED INPATIENT Admitting Provider: Hospitalist - Dr. Thompson Unit Admitted: ICU
[2018-01-22] MEDS ORDERED: ACETAMINOPHEN 650 MG SUPP.RECT PR PRN (14:25)
[2018-01-22] MEDS ORDERED: METHYLPREDNISOLONE INJ 125 MG/2 ML SDV IV ONE (15:00)
[2018-01-22 15:23] LABS: ADD MANUAL MICROSCOPIC YES; APPEARANCE,URINE HAZY; BILIRUBIN,URINE SMALL (NEGATIVE); COLOR,URINE DARK YELLOW; GLUCOSE, URINE NEGATIVE (NEGATIVE); KETONES,URINE 25 mg/dL (NEGATIVE); LEUKOCYTE ESTERASE,URINE NEGATIVE (NEGATIVE); NITRITE,URINE NEGATIVE (NEGATIVE); PROTEIN,URINE >=500 mg/dL (NEGATIVE); URINE SPECIFIC GRAVITY 1.023
[2018-01-22 15:24] LABS: HYALINE CASTS, URINE 20-30 /LPF; RBC,URINE RARE /HPF
[2018-01-22] MEDS ORDERED: PROPOFOL 1,000 MG/100 ML INFUS..BTL IV ONE (15:31)
[2018-01-22 15:34] LABS: ARTERIAL BLOOD HCO3 41.4 mmol/L (20-24); ARTERIAL BLOOD O2 SATURATION 99.1 % (94-98); ARTERIAL BLOOD PH 7.35 (7.35-7.45); ARTERIAL BLOOD PO2 179.2 mmHg (80-100); ARTERIAL BLOOD TOTAL CO2 43.7 mmol/L (23-27)
[2018-01-22 15:43] LABS: ARTERIAL BLOOD FIO2 60%
[2018-01-22 15:45] LABS: ARTERIAL BLOOD PCO2 76.5 mmHg (35-45)
[2018-01-22 15:54] LABS: ALANINE AMINOTRANSFERASE 329 U/L (21-72); ALBUMIN 2.6 g/dL (3.5-5.0); ALKALINE PHOSPHATASE 66 U/L (38-126); ASPARTATE AMINO TRANSFERASE 345 U/L (17-59); BILIRUBIN,DIRECT 0.7 mg/dL (0.0-0.4); BILIRUBIN,TOTAL 1.6 mg/dL (0.2-1.3); BLOOD UREA NITROGEN 32 mg/dL (7-20); GLUCOSE 116 mg/dL (75-110); TOTAL PROTEIN 4.8 g/dL (6.3-8.2)
[2018-01-22 16:11] LABS: CHLORIDE 92 mmol/L (98-107); POTASSIUM 4.6 mmol/L (3.6-5.0); SODIUM 136.3 mmol/L (137-145)
[2018-01-22 16:13] LABS: ANION GAP 1 (5-19)
[2018-01-22 16:15] LABS: CARBON DIOXIDE 43 mmol/L (22-30)
[2018-01-22 16:16] LABS: TROPONIN I 0.08 ng/mL
--- NOTE | 2018-01-22 16:44 | RADIOLOGY REPORT (SQ) ---
EXAM DESCRIPTION: CHEST SINGLE VIEW COMPLETED DATE/TIME: 01/22/2018 4:29 pm REASON FOR STUDY: central line placement. COMPARISON: Earlier the same day. NUMBER OF VIEWS: One view. TECHNIQUE: Single frontal radiographic image of the chest acquired. LIMITATIONS: None. FINDINGS: Interval placement of right IJ central line with tip overlying SVC. Nasogastric tube and endotracheal tube position not significantly changed. No pneumothorax. IMPRESSION: Right side central line placement. No pneumothorax. Reading location - IP/workstation name: [email or web address]
[2018-01-22] MEDS: LEVALBUTEROL HCL NEB 1.25 MG/3 ML AMPUL NEB SCH (16:45)
[2018-01-22] MEDS: IPRATROPIUM BROMIDE 0.02% NEB 0.5 MG/2.5 ML AMPUL NEB SCH (16:45)
[2018-01-22] MEDS ORDERED: LEVOFLOXACIN 750 MG/D5W RTU 750 MG/150 ML RTUPB IV ONE (17:00)
[2018-01-22] MEDS ORDERED: NOREPINEPHRINE BITARTRATE INJ/PF 4 MG/4 ML SDV IV ONE (17:00)
--- NOTE | 2018-01-22 17:50 | PDOC H&P ---
History of Present Illness Admission Date/PCP: 01/22/18 14:28 Patient complains of: Dyspnea History of Present Illness: CURT LYNN is a 48-year-old male who presented to the emergency department with respiratory distress worsening over the last 24 hours. All history was provided by ERP, EMS and the patient's father. EMS found Curt with altered mental status, and severe hypoxic (pulse ox of 73%) respiratory distress when they were summoned to his father's homethis morning. EMS also noted a markedly increased work of breathing, cyanosis and use of accessory muscles. EMS gave the patient 2 albuterol treatments which provided modest transient relief of his respiratory distress prior to placing him on CPAP with a pressure of 8. Despite this treatment the patient's O2 sat would not rise above 88% and therefore they increased his CPAP pressure to 10 and administered 125 mg of Solu -Medrol IV while they were in route to the emergency room. Mr. Lynn has a history of severe COPD and has recently moved from [place] to [facility] where he lives with his father. His father admits numerous similar episodes requiring hospitalization for chronic obstructive pulmonary disease exacerbations in the past. Additionally Curt did not bring any of his medication with him and has no oxygen for use at his current residence according to information provided by his father. Mr. Lynn is intubated and on a ventilator at the time of my evaluation and subsequently cannot provide any historical information. His father is able to provide only limited information about Curt's medical history. Upon arrival in the emergency room patient was noted to be in severe respiratory distress and was still not responding well to CPAP at the pressure of 10. The emergency room made the decision to intubate and ventilate the patient based on his poor response to CPAP therapy. After intubation and has been of ventilatory support the patient was turned over to the hospitalist service for further care in the ICU. 01/22/18: I personally reviewed the patient's EKG and it shows a normal sinus rhythm with a right bundle branch block. I have also personally reviewed the patient's chest x-ray which shows hyperinflation of the bilateral lung esteban with a normal-sized cardiac shadow however there is some prominence of the right ventricle, which may be due to positional/rotational distortion. No acute cardiopulmonary disease is identified. Patient is admitted to the intensive care unit where he will be continued on ventilatory support. Pulmonology consultation is obtained with Dr. Das. I have ordered propofol and midazolam for intravenous administration to maintain the patient's sedation on the ventilator. Additionally I have ordered IV fentanyl 100 mcg every 4 hours as needed agitation or anxiety that would be reflective of some breakthrough pain or discomfort. IV Solu-Medrol, scheduled albuterol and ipratropium nebulizers and as needed albuterol nebulizers are ordered as part of an aggressive pulmonary toilet. Budesonide will be given every 12 hours via nebulizer and he will be started on empiric antibiotic therapy utilizing Levaquin 750 mg daily. Daily chest x-rays, VBGs, CBCs, serum magnesium and BMPs have been ordered for ongoing monitoring of the patient's condition. Maintenance IV fluids, VT E prophylaxis and GI prophylaxis orders have been placed by myself. Past Medical History Past Medical History: Past medical history is obtained from available sources and may not be complete or reliable but it is the best that can be obtained at this time as the patient is intubated, sedated and ventilated Cardiac Medical History: Reports: Congestive Heart Failure, Pulmonary Embolism Pulmonary Medical History: Reports: Bronchitis, Chronic Obstructive Pulmonary Disease (COPD), Pneumonia, Respiratory Failure EENT Medical History: Reports: None Neurological Medical History: Reports: None Endocrine Medical History: Reports: None Renal/ Medical History: Reports: None Malignancy Medical History: Reports: None GI Medical History: Reports: Peptic Ulcer Disease Musculoskeltal Medical History: Reports: Arthritis Skin Medical History: Reports: None Psychiatric Medical History: Reports: Substance Abuse, Tobacco Dependency Traumatic Medical History: Reports: Other - Unknown trauma resulting in abdominal surgery in the remote past Hematology: Reports: None Infectious Medical History: Reports: None Past Surgical History Past Surgical History: Reports: Other - Posttraumatic abdominal surgery in remote past Social History Information Source: Relative, Emergency Med Personnel Lives with: Parents - Currently living with his father Smoking Status: Smoker,Current Status Unk Frequency of Alcohol Use: None Hx Recreational Drug Use: Yes Drugs: Marijuana Hx Prescription Drug Abuse: No - Advance Directive Resuscitation Status: Full Code Surrogate healthcare decision maker:: Father Family History Family History: COPD Parental Family History Reviewed: Yes Children Family History Reviewed: Yes Sibling(s) Family History Reviewed.: Yes Medication/Allergy Allergies/Adverse Reactions: No Known Allergies Allergy (Verified 01/11/18 11:59) Review of Systems ROS unobtainable: Due to endotracheal tube Physical Exam Vital Signs: Temp Pulse Resp BP Pulse Ox 100 01/22/18 13:32 General appearance: PRESENT: well-nourished, other - Patient is intubated and sedated for mechanical ventilation at the time my evaluation. Head exam: PRESENT: atraumatic, normocephalic Eye exam: PRESENT: conjunctiva pink. ABSENT: conjunctival injection, periorbital swelling, scleral icterus Ear exam: PRESENT: normal external ear exam. ABSENT: bleeding, drainage Mouth exam: PRESENT: neck supple, tongue midline Neck exam: ABSENT: JVD, thyromegaly, tracheal deviation Respiratory exam: PRESENT: decreased breath sounds, prolonged expiratory phas, symmetrical, other - Intubated sedated and ventilated with very poor air movement in the chest and a very prolonged expiratory phase with virtually no sound of air exchange Cardiovascular exam: PRESENT: RRR. ABSENT: clicks, diastolic murmur, gallop, rubs, systolic murmur Vascular exam: PRESENT: other - Poor capillary refill delayed to greater than 4 seconds, acrocyanosis noted, bilateral pretibial edema present. GI/Abdominal exam: PRESENT: normal bowel sounds, soft. ABSENT: organolmegaly Rectal exam: PRESENT: deferred Extremities exam: PRESENT: +2 edema - Bilateral pretibial. ABSENT: joint swelling Musculoskeletal exam: ABSENT: deformity, dislocation Neurological exam: PRESENT: other - Sedated and intubated for mechanical ventilation limiting exam Psychiatric exam: PRESENT: other - Sedated and intubated for mechanical ventilation precluding exam Skin exam: PRESENT: cyanosis - Bilateral acrocyanosis feet and hands, other - Feces noted on multiple skin surfaces during exam.. ABSENT: jaundice, rash, urticaria Results Impressions: Chest X-Ray 01/22/18 13:22 IMPRESSION: Tube placement as described. Cardiomegaly without mago pulmonary edema. Assessment & Plan - Diagnosis (1) Acute and chronic respiratory failure Qualifiers: Respiratory failure complication: hypoxia and hypercapnia Qualified Code(s) : J96.21 - Acute and chronic respiratory failure with hypoxia; J96.22 - Acute and chronic respiratory failure with hypercapnia; J96.22 - Acute and chronic respiratory failure with hypercapnia; J96.22 - Acute and chronic respiratory failure with hypercapnia Is this a current diagnosis for this admission?: Yes Plan: Mr. Lynn is admitted to the ICU. He was placed on mechanical ventilation in the emergency room and this is continued in the ICU however his FiO2 will be decreased to 40% by my order because his PO2 on his last blood gas at an FiO2 of 60% was 179 He is placed on aggressive pulmonary toilet utilizing Xopenex, Atrovent, Pulmicort, Mucomyst and as needed albuterol nebulizer treatments. He is started on scheduled Solu-Medrol 40 mg IV every 6 hours I have ordered intravenous propofol and midazolam infusions for sedation while he is ventilated and I have also included fentanyl 100 mcg IV push every 4 hours as needed agitation or apparent pain. Daily chest x-rays, CBCs, BMPs, VBG's/ABGs have been ordered to monitor therapy. (2) Chronic obstructive pulmonary disease with acute exacerbation Is this a current diagnosis for this admission?: Yes Plan: Intensive pulmonary toilet and IV steroids will be used as outlined in problem # 1. Patient will be empirically treated with Levaquin 750 mg IV daily to cover any community-acquired potential infectious etiology. (3) Congestive heart failure Qualifiers: Heart failure type: unspecified Heart failure chronicity: chronic Qualified Code(s): I50.9 - Heart failure, unspecified Is this a current diagnosis for this admission?: Yes Plan: The patient does have a history of congestive heart failure and is noted to have bilateral pretibial edema however this will be observed for any clinical change and due to his severe pulmonary problem and his requirement for mechanical ventilation at this time his cardiac status will need to be evaluated on an ongoing basis. (4) Hypotension Qualifiers: Hypotension type: unspecified hypotension type Qualified Code(s): I95.9 - Hypotension, unspecified Is this a current diagnosis for this admission?: Yes Plan: Patient was somewhat hypotensive in the emergency room after he shortly after he arrived and was intubated. The hypotension was transient and resolved with a brief treatment with Levophed and therefore was felt to be most likely due to a combination of hypovolemia and medications administered for sedation/ paralysis needed for endotracheal intubation. Patient's blood pressure be monitored closely throughout the remainder of his hospital course, especially the period of time in which he is on ventilatory support. - Time Time Spent: Greater than 70 Minutes Critical Time spent with patient: 35 or more minutes Medications reviewed and adjusted accordingly: Yes Anticipated discharge: Home
--- NOTE | 2018-01-22 18:11 | Progress Note ---
Provider Note Provider Note: Critical care note for 01/22/2018 Start time: 1658 History of critical problem: Mr. Hoffman was seen in his ICU room with due to reported hypotension upon his arrival in the ICU. He apparently had been given a bolus of propofol shortly before he left the emergency room and in the ICU his blood pressures have ranged in the 60-80 range systolic. Physical exam shows: Pulmonary: Patient is intubated and mechanically ventilated with minimal air movement/exchange in extremely decreased breath sounds in all peripheral esteban. Cardiovascular: Heart shows a regular rate and rhythm without murmurs clicks gallops or rubs on auscultation. Heart rate is in the 70s and is normal sinus on the pvc monitor. Peripheral vascular exam shows nonpalpable radial or brachial pulses bilaterally. Lower extremities show 2+ pretibial pitting edema bilaterally. There is significant acrocyanosis noted and a refill is greater than 5 seconds. Vital signs show a blood pressure of 60 /26 per mechanical cuff which is double checked by manual pressure and a systolic pressure of approximately 70 is noted. Assessment: Acute severe hypotension/shock probably secondary to medication. Plan: An IV fluid bolus of 1 L of normal saline will be given over approximately 1 hour. Levophed infusion will be initiated at 5 mcg/min and titrated to obtain a systolic blood pressure of greater than 90. Patient's urine output will be observed closely over the next 24-48 hours. Reevaluation: After initiation of Levophed drip patient's blood pressure responded well and at the time of this dictation his blood pressure is now 106/ 73. Heart rate remains regular at 79 and he continues to be intubated and ventilated on a Versed drip with his propofol currently being held. His respiratory rate is 12 on the ventilator and his FiO2 was decreased to 40% but he still continues to have a oxygen saturation of 100%. Plan: ABGs will be obtained and changes to the ventilator settings will be made as needed. Stop time: 1750 Total time spent in critical care: 52 minutes.
--- NOTE | 2018-01-22 18:11 | EKG REPORT ---
SEVERITY:- ABNORMAL ECG - SINUS RHYTHM NONSPECIFIC INTRAVENTRICULAR CONDUCTION DELAY : Confirmed by: Renetta Roth MD 22-Jan-2018 18:11:22
[2018-01-22] MEDS: POTASSI CL 20 MEQ/D5-1/2NS 1L 1,000 ML IV PRN (18:47)
[2018-01-22] MEDS: PANTOPRAZOLE SODIUM 40 MG VIAL IV SCH (18:47)
[2018-01-22] MEDS: DEXTROSE 5%-WATER 250 ML with NOREPINEPHRINE BITARTRATE 4 MG IV PRN ×4 (18:48→23:59)
[2018-01-22] MEDS: MIDAZOLAM HCL 50 MG/100 ML RTUINJ IV-INFUSE PRN ×2 (18:49→22:13)
[2018-01-22 19:07] LABS: ARTERIAL BLOOD BASE EXCESS 11.7 mmol/L; ARTERIAL BLOOD H2CO3 2.19 mmol/L (1.05-1.35); ARTERIAL BLOOD HCO3 40.7 mmol/L (20-24); ARTERIAL BLOOD O2 SATURATION 93.5 % (94-98); ARTERIAL BLOOD PH 7.37 (7.35-7.45); ARTERIAL BLOOD PO2 72.7 mmHg (80-100)
[2018-01-22 19:08] LABS: ARTERIAL BLOOD FIO2 40%
[2018-01-22 19:10] LABS: ARTERIAL BLOOD PCO2 72.9 mmHg (35-45)
[2018-01-22] MEDS: ALBUTEROL SULFATE 0.083% NEB 2.5 MG/3 ML AMPUL NEB PRN (20:28)
[2018-01-22] MEDS: BUDESONIDE NEB 0.5 MG/2 ML AMPUL NEB SCH (20:28)
[2018-01-22] MEDS: ACETYLCYSTEINE 20% SOLN 800 MG/4 ML VIAL.NEB NEB SCH ×2 (20:29→20:30)
[2018-01-22] MEDS: METHYLPREDNISOLONE INJ 40 MG/1 ML SDV IV SCH (22:14)
[2018-01-22 22:20] LABS: CREATINE KINASE MB 7.71 ng/mL (<4.55); TROPONIN I 0.062 ng/mL
[2018-01-23] MEDS: IPRATROPIUM BROMIDE 0.02% NEB 0.5 MG/2.5 ML AMPUL NEB SCH ×3 (00:43→16:10)
[2018-01-23] MEDS: LEVALBUTEROL HCL NEB 1.25 MG/3 ML AMPUL NEB SCH ×3 (00:43→16:10)
[2018-01-23] MEDS: PROPOFOL 1,000 MG/100 ML INFUS..BTL IV PRN ×4 (02:23→17:18)
[2018-01-23] MEDS: METHYLPREDNISOLONE INJ 40 MG/1 ML SDV IV SCH ×2 (02:59→08:39)
[2018-01-23 04:59] LABS: ARTERIAL BLOOD HCO3 41.4 mmol/L (20-24); ARTERIAL BLOOD PH 7.37 (7.35-7.45); ARTERIAL BLOOD PO2 64.1 mmHg (80-100); ARTERIAL BLOOD TOTAL CO2 43.6 mmol/L (23-27); HEMATOCRIT 41.4 % (37.9-51.0); MEAN CORPUSCULAR HEMOGLOBIN 32.8 pg (27.0-33.4); MEAN CORPUSCULAR HGB CONC 33.2 g/dL (32.0-36.0); MEAN CORPUSCULAR VOLUME 99 fl (80-97); PLATELET COUNT 100 10^3/uL (150-450); RED CELL DISTRIBUTION WIDTH 15.8 % (11.5-14.0); WHITE BLOOD COUNT 7.8 10^3/uL (4.0-10.5)
[2018-01-23 05:00] LABS: ARTERIAL BLOOD BASE EXCESS 12.5 mmol/L; ARTERIAL BLOOD FIO2 40%; ARTERIAL BLOOD O2 SATURATION 90.9 % (94-98)
[2018-01-23 05:02] LABS: ARTERIAL BLOOD PCO2 73.2 mmHg (35-45)
[2018-01-23 05:12] LABS: BLOOD UREA NITROGEN 32 mg/dL (7-20); CALCIUM 7.6 mg/dL (8.4-10.2); CHLORIDE 92 mmol/L (98-107); CREATINE KINASE 42 U/L (55-170); GLUCOSE 190 mg/dL (75-110); POTASSIUM 4.7 mmol/L (3.6-5.0); SODIUM 135.5 mmol/L (137-145)
[2018-01-23 05:14] LABS: HEMOGLOBIN 13.7 g/dL (13.5-17.0)
[2018-01-23 05:21] LABS: ABSOLUTE LYMPHOCYTES# (MANUAL) 0.6 10^3/uL (0.5-4.7); ABSOLUTE MONOCYTES # (MANUAL) 0.1 10^3/uL (0.1-1.4); ABSOLUTE NEUTROPHILS# (MANUAL) 7.1 10^3/uL (1.7-8.2); BASOPHILS % (MANUAL) 0 % (0-2); EOSINOPHILS % (MANUAL) 0 % (0-6); LYMPHOCYTES % (MANUAL) 6 % (13-45); MONOCYTES % (MANUAL) 1 % (3-13); SEGMENTED NEUTROPHILS % (MAN) 91 % (42-78); TOTAL CELLS COUNTED 100
[2018-01-23 05:22] LABS: POLYCHROMASIA SLIGHT
[2018-01-23 05:23] LABS: CARBON DIOXIDE 45 mmol/L (22-30); PLATELET CLUMPS PRESENT; PLATELET COMMENT DECREASED; POIKILOCYTOSIS SLIGHT; STOMATOCYTES SLIGHT
[2018-01-23 05:24] LABS: ANION GAP -2 (5-19); CREATINE KINASE MB 6.42 ng/mL (<4.55)
[2018-01-23] MEDS: MIDAZOLAM HCL 50 MG/100 ML RTUINJ IV-INFUSE PRN ×3 (05:36→22:33)
[2018-01-23] MEDS: PANTOPRAZOLE SODIUM 40 MG VIAL IV SCH ×2 (05:36→17:23)
[2018-01-23] MEDS: POTASSI CL 20 MEQ/D5-1/2NS 1L 1,000 ML IV PRN ×3 (05:37→22:31)
[2018-01-23 05:58] LABS: TROPONIN I 0.06 ng/mL
--- NOTE | 2018-01-23 06:20 | RADIOLOGY REPORT (SQ) ---
EXAM DESCRIPTION: XR CHEST 1 VIEW COMPLETED DATE/TME: 01/23/2018 06:00 CLINICAL HISTORY: 48 years Male, mech vent COMPARISON: One day prior. NUMBER OF VIEWS/TECHNIQUE: 1/AP FINDINGS: Prominent interstitium, mildly enlarged cardiac silhouette, tip of an endotracheal tube is 5.2 cm from the josué, likely adequate enteric tube obscured distally, right jugular central line tip at the SVC. No pneumothorax. Stable bony thorax. IMPRESSION: No significant change.
[2018-01-23] MEDS: BUDESONIDE NEB 0.5 MG/2 ML AMPUL NEB SCH ×2 (08:20→20:02)
[2018-01-23] MEDS: ACETYLCYSTEINE 20% SOLN 800 MG/4 ML VIAL.NEB NEB SCH ×2 (08:22→20:02)
[2018-01-23] MEDS ORDERED: ENOXAPARIN SODIUM INJ 40 MG/0.4 ML DISP.SYRIN SUBCUT SCH ×2 (10:00→22:00)
[2018-01-23] MEDS ORDERED: NORMAL SALINE 500 ML IV ONE (10:39)
[2018-01-23] MEDS: DEXTROSE 5%-WATER 250 ML with NOREPINEPHRINE BITARTRATE 4 MG IV PRN ×2 (11:20)
[2018-01-23] MEDS: ACETAZOLAMIDE SODIUM INJ 500 MG VIAL IV SCH ×2 (12:48→22:30)
--- NOTE | 2018-01-23 13:01 | PDOC CONSULTATION ---
Consultation Consult Date: 01/22/18 Attending physician:: HARJINDER HANDY Consult reason:: Acute/chronic respiratory failure History of Present Illness Admission Date/PCP: 01/22/18 14:28 History of Present Illness: SHARLENE LYNN is a 48 year old male To the emergency room by EMS where he after being found confused with altered mental status and hypoxic they were unable to raise his saturations despite CPAP and BiPAP and some intravenous Solu-Medrol and so he subsequently has been intubated and is currently in ICU he is a long history of COPD and multiple admissions in the past for this however he is recently moved to [place] from [facility] no additional history is available and no record of his current or past medications available apparently at one time he was on home oxygen but currently none at this time Past Medical History Cardiac Medical History: Reports: Congestive Heart Failure, Coronary Artery Disease, Pulmonary Embolism Denies: Atrial Fibrillation, DVT Pulmonary Medical History: Reports: Bronchitis, Chronic Obstructive Pulmonary Disease (COPD), Intubation, Pneumonia, Respiratory Failure EENT Medical History: Reports: None Neurological Medical History: Reports: None Denies: Hemorrhagic CVA, Ischemic CVA, Seizures Endocrine Medical History: Reports: None Denies: Diabetes Mellitus Type 1, Diabetes Mellitus Type 2 Renal/ Medical History: Reports: None Denies: Chronic Kidney Disease, Nephrolithiasis Malignancy Medical History: Reports: None GI Medical History: Reports: Peptic Ulcer Disease Denies: Crohn's Disease, Ulcerative Colitis Musculoskeltal Medical History: Reports: Arthritis Denies: Gout Skin Medical History: Reports: None Denies: Eczema, Psoriasis Psychiatric Medical History: Reports: Substance Abuse, Tobacco Dependency Denies: Alcohol Dependency Traumatic Medical History: Reports: Other - Unknown trauma resulting in abdominal surgery in the remote past Hematology: Reports: None Infectious Medical History: Reports: None Past Surgical History Past Surgical History: Reports: Other - Posttraumatic abdominal surgery remotely. Social History Information Source: [facility] Records Lives with: Family Smoking Status: Current Every Day Smoker Frequency of Alcohol Use: None Hx Recreational Drug Use: Yes Drugs: Marijuana Hx Prescription Drug Abuse: No - Advance Directive Resuscitation Status: Full Code Family History Family History: COPD Parental Family History Reviewed: No Children Family History Reviewed: No Sibling(s) Family History Reviewed.: No Medication/Allergy Home Medications: Albuterol Sulfate [Albuterol Sulfate 2.5mg/3 mL] 1 vial IH RTQ6HP PRN 10/08/18 Albuterol Sulfate [Ventolin Hfa] 2 puff IH Q4HP PRN 01/22/18 Fluticasone Propionate [Flonase Nasal Barton 50 Mcg/Barton 16 gm] 1 spray NAREB QHS 01/22/18 Furosemide [Lasix 20 mg Tablet] 20 mg PO QAM 01/22/18 Ipratropium/Albuterol Sulfate [Duoneb 3 ml Ampul] 3 ml NEB RTQ4HP PRN 01/22/18 Umeclidinium Wren [Incruse Ellipta] 1 puff IH DAILY 01/22/18 Allergies/Adverse Reactions: No Known Allergies Allergy (Verified 01/11/18 11:59) Review of Systems ROS unobtainable: Due to endotracheal tube, Due to mental status Physical Exam Vital Signs: Temp Pulse Resp BP Pulse Ox 97.0 F 69 7 L 102/72 96 01/23/18 10:00 01/23/18 10:30 01/23/18 10:26 01/23/18 10:26 01/23/18 12:36 Intake & Output 01/22/18 01/23/18 01/24/18 06:59 06:59 06:59 Intake Total 1527 1419 Output Total 655 145 Balance 872 1274 Weight 90.7 kg General appearance: PRESENT: no acute distress, disheveled, well-developed, well -nourished. ABSENT: cooperative Head exam: PRESENT: atraumatic, normocephalic Eye exam: PRESENT: conjunctiva pale. ABSENT: nystagmus, periorbital swelling, scleral icterus Mouth exam: PRESENT: dry mucosa, neck supple, tongue midline, other - ET tube Neck exam: ABSENT: carotid bruit, JVD, lymphadenopathy, thyromegaly, tracheal deviation, tracheostomy Respiratory exam: PRESENT: decreased breath sounds, prolonged expiratory phas, rales, rhonchi. ABSENT: retraction, stridor Cardiovascular exam: PRESENT: RRR, +S1, +S2 Pulses: PRESENT: normal radial pulses GI/Abdominal exam: PRESENT: soft. ABSENT: tenderness Extremities exam: PRESENT: pedal edema. ABSENT: calf tenderness, clubbing, joint swelling Musculoskeletal exam: ABSENT: deformity, dislocation Neurological exam: ABSENT: awake Skin exam: PRESENT: dry, warm Results Laboratory Results: 01/23/18 04:45 01/23/18 04:45 01/22/18 01/22/18 01/22/18 15:07 15:08 15:08 WBC RBC Hgb Hct MCV MCH MCHC RDW Plt Count Seg Neutrophils % Lymphocytes % Monocytes % Eosinophils % Basophils % Absolute Neutrophils Absolute Lymphocytes Absolute Monocytes Absolute Eosinophils Absolute Basophils Carbonic Acid 2.30 H HCO3/H2CO3 Ratio 18:1 ABG pH 7.35 ABG pCO2 76.5 H* ABG pO2 179.2 H ABG HCO3 41.4 H ABG O2 Saturation 99.1 H ABG Base Excess 12.0 FiO2 60% Sodium 136.3 L Potassium 4.6 Chloride 92 L Carbon Dioxide 43 H* Anion Gap 1 L BUN 32 H Creatinine 0.65 Est GFR ( Amer) > 60 Est GFR (Non-Af Amer) > 60 Glucose 116 H Lactic Acid 0.9 Calcium 8.0 L Magnesium Total Bilirubin 1.6 H AST 345 H ALT 329 H Alkaline Phosphatase 66 Total Protein 4.8 L Albumin 2.6 L TSH 01/22/18 01/23/18 01/23/18 19:00 04:45 04:45 WBC 7.8 RBC 4.20 L Hgb 13.7 D Hct 41.4 MCV 99 H MCH 32.8 MCHC 33.2 RDW 15.8 H Plt Count 100 L Seg Neutrophils % Not Reportable Lymphocytes % Not Reportable Monocytes % Not Reportable Eosinophils % Not Reportable Basophils % Not Reportable Absolute Neutrophils Not Reportable Absolute Lymphocytes Not Reportable Absolute Monocytes Not Reportable Absolute Eosinophils Not Reportable Absolute Basophils Not Reportable Carbonic Acid 2.19 H HCO3/H2CO3 Ratio 18:1 ABG pH 7.37 ABG pCO2 72.9 H* ABG pO2 72.7 L ABG HCO3 40.7 H ABG O2 Saturation 93.5 L ABG Base Excess 11.7 FiO2 40% Sodium 135.5 L Potassium 4.7 Chloride 92 L Carbon Dioxide 45 H* Anion Gap -2 L BUN 32 H Creatinine 0.75 Est GFR ( Amer) > 60 Est GFR (Non-Af Amer) > 60 Glucose 190 H Lactic Acid Calcium 7.6 L Magnesium 1.6 Total Bilirubin AST ALT Alkaline Phosphatase Total Protein Albumin TSH 01/23/18 01/23/18 04:45 04:45 WBC RBC Hgb Hct MCV MCH MCHC RDW Plt Count Seg Neutrophils % Lymphocytes % Monocytes % Eosinophils % Basophils % Absolute Neutrophils Absolute Lymphocytes Absolute Monocytes Absolute Eosinophils Absolute Basophils Carbonic Acid 2.20 H HCO3/H2CO3 Ratio 18:1 ABG pH 7.37 ABG pCO2 73.2 H* ABG pO2 64.1 L ABG HCO3 41.4 H ABG O2 Saturation 90.9 L ABG Base Excess 12.5 FiO2 40% Sodium Potassium Chloride Carbon Dioxide Anion Gap BUN Creatinine Est GFR ( Amer) Est GFR (Non-Af Amer) Glucose Lactic Acid Calcium Magnesium Total Bilirubin AST ALT Alkaline Phosphatase Total Protein Albumin TSH 0.67 01/22/18 01/22/18 01/22/18 15:08 15:08 21:50 Creatine Kinase 102 59 CK-MB (CK-2) 11.00 H Troponin I 0.080 01/22/18 01/23/18 01/23/18 21:50 04:45 04:45 Creatine Kinase 42 L CK-MB (CK-2) 7.71 H 6.42 H Troponin I 0.062 0.060 Impressions: Chest X-Ray 01/23/18 06:00 IMPRESSION: No significant change. Assessment & Plan - Diagnosis (1) Acute respiratory failure Qualifiers: Respiratory failure complication: hypoxia and hypercapnia Qualified Code(s) : J96.01 - Acute respiratory failure with hypoxia; J96.02 - Acute respiratory failure with hypercapnia; J96.02 - Acute respiratory failure with hypercapnia; J96.02 - Acute respiratory failure with hypercapnia Is this a current diagnosis for this admission?: Yes Plan: Maintain adequate minute ventilation to protect pH and adequate FiO2 to keep saturation between 90-94% (2) Chronic obstructive pulmonary disease with acute exacerbation Is this a current diagnosis for this admission?: Yes Plan: Plus long acting muscarinic agent plus inhaled corticosteroid (3) Acute and chronic respiratory failure Qualifiers: Respiratory failure complication: hypoxia and hypercapnia Qualified Code(s) : J96.21 - Acute and chronic respiratory failure with hypoxia; J96.22 - Acute and chronic respiratory failure with hypercapnia; J96.22 - Acute and chronic respiratory failure with hypercapnia; J96.22 - Acute and chronic respiratory failure with hypercapnia Is this a current diagnosis for this admission?: Yes Plan: Permissive hypercapnia and pH is acceptable at 7.37 despite PCO2 of 70s (4) Pneumonia Is this a current diagnosis for this admission?: Yes Plan: Empiric therapy for community-acquired pneumonia (5) Tobacco abuse Is this a current diagnosis for this admission?: Yes Plan: Smoking consider transdermal nicotine patch
--- NOTE | 2018-01-23 13:04 | PDOC PROGRESS REPORT ---
Subjective Progress Note for:: 01/23/18 Subjective:: intubated and sedated Reason For Visit: ACUTE ON CHRONIC RESPIRATORY FAILURE WITH HYPOXIA Physical Exam Vital Signs: Temp Pulse Resp BP Pulse Ox 97.2 F 70 12 106/74 100 01/23/18 08:00 01/23/18 08:20 01/23/18 08:20 01/23/18 08:11 01/23/18 08:20 Intake & Output 01/22/18 01/23/18 01/24/18 06:59 06:59 06:59 Intake Total 1527 Output Total 655 45 Balance 872 -45 Weight 90.7 kg General appearance: PRESENT: no acute distress, disheveled. ABSENT: cooperative Head exam: PRESENT: atraumatic, normocephalic Eye exam: PRESENT: conjunctiva pale. ABSENT: nystagmus, scleral icterus Mouth exam: PRESENT: dry mucosa, neck supple, tongue midline, other - ET tube in place Neck exam: ABSENT: carotid bruit, JVD, lymphadenopathy, thyromegaly, tracheal deviation, tracheostomy Respiratory exam: PRESENT: rales, rhonchi, unlabored, wheezes. ABSENT: retraction, stridor, tachypnea Cardiovascular exam: PRESENT: RRR, +S1, +S2 Pulses: PRESENT: normal radial pulses GI/Abdominal exam: PRESENT: soft. ABSENT: tenderness Gentrourinary exam: PRESENT: indwelling catheter Extremities exam: ABSENT: calf tenderness, clubbing, joint swelling Musculoskeletal exam: ABSENT: ambulatory, deformity, dislocation Neurological exam: ABSENT: awake Skin exam: PRESENT: dry, warm Results Laboratory Results: 01/23/18 04:45 01/23/18 04:45 01/22/18 01/22/18 01/22/18 15:07 15:08 15:08 WBC RBC Hgb Hct MCV MCH MCHC RDW Plt Count Seg Neutrophils % Lymphocytes % Monocytes % Eosinophils % Basophils % Absolute Neutrophils Absolute Lymphocytes Absolute Monocytes Absolute Eosinophils Absolute Basophils Carbonic Acid 2.30 H HCO3/H2CO3 Ratio 18:1 ABG pH 7.35 ABG pCO2 76.5 H* ABG pO2 179.2 H ABG HCO3 41.4 H ABG O2 Saturation 99.1 H ABG Base Excess 12.0 FiO2 60% Sodium 136.3 L Potassium 4.6 Chloride 92 L Carbon Dioxide 43 H* Anion Gap 1 L BUN 32 H Creatinine 0.65 Est GFR ( Amer) > 60 Est GFR (Non-Af Amer) > 60 Glucose 116 H Lactic Acid 0.9 Calcium 8.0 L Magnesium Total Bilirubin 1.6 H AST 345 H ALT 329 H Alkaline Phosphatase 66 Total Protein 4.8 L Albumin 2.6 L TSH 01/22/18 01/23/18 01/23/18 19:00 04:45 04:45 WBC 7.8 RBC 4.20 L Hgb 13.7 D Hct 41.4 MCV 99 H MCH 32.8 MCHC 33.2 RDW 15.8 H Plt Count 100 L Seg Neutrophils % Not Reportable Lymphocytes % Not Reportable Monocytes % Not Reportable Eosinophils % Not Reportable Basophils % Not Reportable Absolute Neutrophils Not Reportable Absolute Lymphocytes Not Reportable Absolute Monocytes Not Reportable Absolute Eosinophils Not Reportable Absolute Basophils Not Reportable Carbonic Acid 2.19 H HCO3/H2CO3 Ratio 18:1 ABG pH 7.37 ABG pCO2 72.9 H* ABG pO2 72.7 L ABG HCO3 40.7 H ABG O2 Saturation 93.5 L ABG Base Excess 11.7 FiO2 40% Sodium 135.5 L Potassium 4.7 Chloride 92 L Carbon Dioxide 45 H* Anion Gap -2 L BUN 32 H Creatinine 0.75 Est GFR ( Amer) > 60 Est GFR (Non-Af Amer) > 60 Glucose 190 H Lactic Acid Calcium 7.6 L Magnesium 1.6 Total Bilirubin AST ALT Alkaline Phosphatase Total Protein Albumin TSH 01/23/18 01/23/18 04:45 04:45 WBC RBC Hgb Hct MCV MCH MCHC RDW Plt Count Seg Neutrophils % Lymphocytes % Monocytes % Eosinophils % Basophils % Absolute Neutrophils Absolute Lymphocytes Absolute Monocytes Absolute Eosinophils Absolute Basophils Carbonic Acid 2.20 H HCO3/H2CO3 Ratio 18:1 ABG pH 7.37 ABG pCO2 73.2 H* ABG pO2 64.1 L ABG HCO3 41.4 H ABG O2 Saturation 90.9 L ABG Base Excess 12.5 FiO2 40% Sodium Potassium Chloride Carbon Dioxide Anion Gap BUN Creatinine Est GFR ( Amer) Est GFR (Non-Af Amer) Glucose Lactic Acid Calcium Magnesium Total Bilirubin AST ALT Alkaline Phosphatase Total Protein Albumin TSH 0.67 01/22/18 01/22/18 01/22/18 15:08 15:08 21:50 Creatine Kinase 102 59 CK-MB (CK-2) 11.00 H Troponin I 0.080 01/22/18 01/23/18 01/23/18 21:50 04:45 04:45 Creatine Kinase 42 L CK-MB (CK-2) 7.71 H 6.42 H Troponin I 0.062 0.060 Impressions: Chest X-Ray 01/23/18 06:00 IMPRESSION: No significant change. Assessment & Plan - Diagnosis (1) Chronic obstructive pulmonary disease with acute exacerbation Is this a current diagnosis for this admission?: Yes Plan: Plus long acting muscarinic agent plus inhaled corticosteroid (2) Acute and chronic respiratory failure Qualifiers: Respiratory failure complication: hypoxia and hypercapnia Qualified Code(s) : J96.21 - Acute and chronic respiratory failure with hypoxia; J96.22 - Acute and chronic respiratory failure with hypercapnia; J96.22 - Acute and chronic respiratory failure with hypercapnia; J96.22 - Acute and chronic respiratory failure with hypercapnia Is this a current diagnosis for this admission?: Yes Plan: Permissive hypercapnia and pH is acceptable at 7.37 despite PCO2 of 70s (3) Pneumonia Is this a current diagnosis for this admission?: Yes Plan: Empiric therapy for community-acquired pneumonia (4) Tobacco abuse Is this a current diagnosis for this admission?: Yes - Time Total Critical Time (Minutes): 40
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
[2018-01-23] MEDS: ENOXAPARIN SODIUM INJ 100 MG/1 ML DISP.SYRIN SUBCUT SCH (15:43)
[2018-01-23] MEDS: LEVOFLOXACIN 750 MG/D5W RTU 750 MG/150 ML RTUPB IV SCH (17:23)
--- NOTE | 2018-01-23 17:28 | RADIOLOGY REPORT (SQ) ---
EXAM DESCRIPTION: CTA CHEST COMPLETED DATE/TIME: 01/23/2018 5:11 pm REASON FOR STUDY: Hypoxia history of recent DVT COMPARISON: None. TECHNIQUE: CT scan of the chest performed using helical scanning technique with dynamic intravenous contrast injection. Images reviewed with lung, soft tissue and bone windows. Reconstructed coronal and sagittal MPR images reviewed. Additional 3 dimensional post-processing performed to develop Maximal Intensity Projection images (WI P). All images stored on PACS. All CT scanners at this facility use dose modulation, iterative reconstruction, and/or weight based d osing when appropriate to reduce radiation dose to as low as reasonably achievable (ALARA). [facility]: Dose Right [facility]: CareDose [facility]: Dose Right [facility]: Teradose 4D [facility]: ArmorText CONTRAST TYPE AND DOSE: contrast/concentration: Isovue 350.00 mg/ml; Total Contrast Delivered: 76.0 ml; Total Saline Delivered: 100.0 ml Contrast bolus optimized for the pulmonary arteries. Not diagnostic for the aorta. RENAL FUNCTION: BUN 32 creatinine 0.75 RADIATION DOSE: CT Rad equipment meets quality standard of care and radiation dose reduction techniq ues were employed. CTDIvol: 24.1 - 46.3 mGy. DLP: 979 mGy-cm. . LIMITATIONS: None. FINDINGS: LUNGS AND PLEURA: Marked emphysematous changes in the left upper lobe. Small bilateral pl eural effusions. Subsegmental dependent airspace disease right lower lobe. No pneumothorax. AORTA AND GREAT VESSELS: No aneurysm. Contrast bolus not optimized for the aorta. HEART: No pericardial effusion. No significant coronary artery calcifications. PULMONARY ARTERIES: No emboli visualized in the main pulmonary arteries or the segmental branches. HILAR AND MEDIASTINAL STRUCTURES: No identified masses or abnormal nodes. HARDWARE: None in the chest. UPPER ABDOMEN: Nasogastric tube in the stomach. THYROID AND OTHER SOFT TISSUES: Body wall edema. BONES: No acute or significant finding. 3D MIPS: Confirm above findings. OTHER: Endotracheal tube position appropriate. Right-sided central line tip in the SVC. IMPRESSION: 1. No evidence of pulmonary embolus. 2. COPD. Right lower lobe airspace disease consistent with atelectasis or pneumonia. Clinical corre lation is needed. COMMENT: Quality ID # [id number]: Final reports with documentation of one or more dose reduction techniques (e.g., Automated exposure control, adjustment of the mA and/or kV according to patient size, use of iterative reconstruction technique) TECHNICAL DOCUMENTATION: JOB ID: [id number] [employer]- All Rights Reserved Reading location - IP/workstation name: [email or web address]
--- NOTE | 2018-01-23 19:26 | XCELERA REPORT ---
[address] [facility] [address] Lower Extremity Venous Evaluation Procedure: Color flow and duplex imaging bilaterally of the veins of the lower extremities as well as the Common Femoral veins. Right Sided Venous Evaluation Normal vessel filling wall to wall, compression and augmentation as well as Colour flow down to the infrageniculate veins. Left Sided Venous Evaluation Normal vessel filling wall to wall, compression and augmentation as well as Colour flow down to the infrageniculate veins. Interpretation Summary No duplex evidence of DVT or obstruction in the bilateral lower extremities. Name: SHARLENE LYNN Age: 48 yrs Gender: Male : 1970 Patient Status: Inpatient Patient Location: ICU^[id number] Study Date: 01/23/2018 03:21 PM Reason For Study: DVT by history noncompliance Ordering Physician: ALEN LEHMAN Performed By: Lanre Newman : ALEN LEHMAN > Tavo Edge
[2018-01-23] MEDS: ALBUTEROL SULFATE 0.083% NEB 2.5 MG/3 ML AMPUL NEB PRN (20:02)
[2018-01-24] MEDS: IPRATROPIUM BROMIDE 0.02% NEB 0.5 MG/2.5 ML AMPUL NEB SCH ×3 (00:06→16:02)
[2018-01-24] MEDS: LEVALBUTEROL HCL NEB 1.25 MG/3 ML AMPUL NEB SCH ×3 (00:06→16:02)
[2018-01-24] MEDS: PROPOFOL 1,000 MG/100 ML INFUS..BTL IV PRN ×2 (01:59→07:55)
[2018-01-24] MEDS: DEXTROSE 5%-WATER 250 ML with NOREPINEPHRINE BITARTRATE 4 MG IV PRN ×2 (02:00)
[2018-01-24] MEDS: MIDAZOLAM HCL 50 MG/100 ML RTUINJ IV-INFUSE PRN ×2 (04:29→18:12)
[2018-01-24 06:13] LABS: ARTERIAL BLOOD BASE EXCESS 9.7 mmol/L; ARTERIAL BLOOD H2CO3 2.02 mmol/L (1.05-1.35); ARTERIAL BLOOD HCO3 37.8 mmol/L (20-24); ARTERIAL BLOOD O2 SATURATION 94.2 % (94-98); ARTERIAL BLOOD PCO2 67.1 mmHg (35-45); ARTERIAL BLOOD PH 7.37 (7.35-7.45); ARTERIAL BLOOD PO2 75.2 mmHg (80-100); ARTERIAL BLOOD TOTAL CO2 39.9 mmol/L (23-27)
[2018-01-24 06:16] LABS: ABSOLUTE LYMPHOCYTES (AUTO) 0.5 10^3/uL (0.5-4.7); ABSOLUTE MONOCYTES (AUTO) 0.9 10^3/uL (0.1-1.4); ABSOLUTE NEUT (AUTO) 8.5 10^3/uL (1.7-8.2); ARTERIAL BLOOD FIO2 40%; BASOPHILS % (AUTO) 0.2 % (0-2); HEMATOCRIT 40.6 % (37.9-51.0); HEMOGLOBIN 13.4 g/dL (13.5-17.0); LYMPHOCYTES % (AUTO) 5.3 % (13-45); MEAN CORPUSCULAR HEMOGLOBIN 32.7 pg (27.0-33.4); MEAN CORPUSCULAR HGB CONC 33.1 g/dL (32.0-36.0); MEAN CORPUSCULAR VOLUME 99 fl (80-97); MONOCYTES % (AUTO) 8.8 % (3-13); PLATELET COUNT 124 10^3/uL (150-450); RED CELL DISTRIBUTION WIDTH 16.2 % (11.5-14.0); SEGMENTED NEUTROPHILS % (AUTO) 85.7 % (42-78); TOTAL CELLS COUNTED % (AUTO) 100 %; WHITE BLOOD COUNT 9.9 10^3/uL (4.0-10.5)
[2018-01-24 06:25] LABS: BLOOD UREA NITROGEN 24 mg/dL (7-20); CALCIUM 7.9 mg/dL (8.4-10.2); CHLORIDE 94 mmol/L (98-107); GLUCOSE 138 mg/dL (75-110); POTASSIUM 4.6 mmol/L (3.6-5.0); SODIUM 135.8 mmol/L (137-145)
[2018-01-24] MEDS: ENOXAPARIN SODIUM INJ 100 MG/1 ML DISP.SYRIN SUBCUT SCH (06:28)
[2018-01-24] MEDS: PANTOPRAZOLE SODIUM 40 MG VIAL IV SCH ×2 (06:28→18:36)
--- NOTE | 2018-01-24 06:32 | RADIOLOGY REPORT (SQ) ---
EXAM DESCRIPTION: XR CHEST 1 VIEW COMPLETED DATE/TME: 01/24/2018 06:00 CLINICAL HISTORY: 48 years Male, resp failure COMPARISON: One day prior. NUMBER OF VIEWS/TECHNIQUE: 1/AP FINDINGS: Mild septal lines of the left lower lung field time, small right pleural effusion, small right medial basilar opacity, mildly enlarged cardiac silhouette, endotracheal tube tip is 5.3 cm from the josué, likely adequate enteric tube obscured distally, right jugular central line tip at the cavoatrial junction. No pneumothorax. Stable bony thorax. IMPRESSION: No significant change.
[2018-01-24 06:34] LABS: ANION GAP 3 (5-19); CARBON DIOXIDE 39 mmol/L (22-30)
[2018-01-24] MEDS: ACETYLCYSTEINE 20% SOLN 800 MG/4 ML VIAL.NEB NEB SCH ×2 (08:04→20:37)
[2018-01-24] MEDS: BUDESONIDE NEB 0.5 MG/2 ML AMPUL NEB SCH ×2 (08:04→20:30)
[2018-01-24] MEDS: POTASSI CL 20 MEQ/D5-1/2NS 1L 1,000 ML IV PRN ×2 (10:00→18:43)
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
[2018-01-24] MEDS: FENTANYL CITRATE INJ/PF 100 MCG/2 ML AMPUL IV PRN ×2 (11:44→16:24)
--- NOTE | 2018-01-24 18:13 | PDOC PROGRESS REPORT ---
Subjective Progress Note for:: 01/24/18 Subjective:: intubated and sedated Reason For Visit: ACUTE ON CHRONIC RESPIRATORY FAILURE WITH HYPOXIA Physical Exam Vital Signs: Temp Pulse Resp BP Pulse Ox 97.3 F 73 16 112/77 93 01/24/18 08:00 01/24/18 08:00 01/24/18 08:00 01/24/18 08:00 01/24/18 08:00 Intake & Output 01/23/18 01/24/18 01/25/18 06:59 06:59 06:59 Intake Total 1527 2947 135 Output Total 655 2095 400 Balance 872 852 -265 Weight 90.7 kg 95.3 kg General appearance: PRESENT: no acute distress, disheveled Head exam: PRESENT: atraumatic, normocephalic Eye exam: PRESENT: conjunctiva pale. ABSENT: nystagmus, scleral icterus Mouth exam: PRESENT: dry mucosa, neck supple, tongue midline, other - ET tube in place Neck exam: ABSENT: carotid bruit, JVD, lymphadenopathy, thyromegaly, tracheal deviation, tracheostomy Respiratory exam: PRESENT: decreased breath sounds, prolonged expiratory phas, rhonchi, unlabored, wheezes. ABSENT: retraction, stridor Cardiovascular exam: PRESENT: RRR, +S1, +S2 Pulses: PRESENT: normal radial pulses GI/Abdominal exam: PRESENT: soft. ABSENT: tenderness Gentrourinary exam: PRESENT: indwelling catheter Extremities exam: ABSENT: calf tenderness, clubbing, joint swelling Musculoskeletal exam: ABSENT: deformity, dislocation Neurological exam: ABSENT: awake Skin exam: PRESENT: dry, warm Results Laboratory Results: 01/24/18 06:05 01/24/18 06:05 01/24/18 01/24/18 01/24/18 06:05 06:05 06:05 WBC 9.9 RBC 4.10 L Hgb 13.4 L Hct 40.6 MCV 99 H MCH 32.7 MCHC 33.1 RDW 16.2 H Plt Count 124 L Seg Neutrophils % 85.7 H Lymphocytes % 5.3 L Monocytes % 8.8 Eosinophils % 0.0 Basophils % 0.2 Absolute Neutrophils 8.5 H Absolute Lymphocytes 0.5 Absolute Monocytes 0.9 Absolute Eosinophils 0.0 Absolute Basophils 0.0 Carbonic Acid 2.02 H HCO3/H2CO3 Ratio 18:1 ABG pH 7.37 ABG pCO2 67.1 H ABG pO2 75.2 L ABG HCO3 37.8 H ABG O2 Saturation 94.2 ABG Base Excess 9.7 FiO2 40% Sodium 135.8 L Potassium 4.6 Chloride 94 L Carbon Dioxide 39 H Anion Gap 3 L BUN 24 H Creatinine 0.81 Est GFR ( Amer) > 60 Est GFR (Non-Af Amer) > 60 Glucose 138 H Calcium 7.9 L Magnesium 1.6 01/22/18 01/22/18 01/22/18 15:08 15:08 21:50 Creatine Kinase 102 59 CK-MB (CK-2) 11.00 H Troponin I 0.080 01/22/18 01/23/18 01/23/18 21:50 04:45 04:45 Creatine Kinase 42 L CK-MB (CK-2) 7.71 H 6.42 H Troponin I 0.062 0.060 Impressions: Chest/Abdomen CTA 01/23/18 00:00 IMPRESSION: 1. No evidence of pulmonary embolus. 2. COPD. Right lower lobe airspace disease consistent with atelectasis or pneumonia. Clinical correlation is needed. Chest X-Ray 01/24/18 06:00 IMPRESSION: No significant change. Assessment & Plan - Diagnosis (1) Chronic obstructive pulmonary disease with acute exacerbation Is this a current diagnosis for this admission?: Yes (2) Acute and chronic respiratory failure Qualifiers: Respiratory failure complication: hypoxia and hypercapnia Qualified Code(s) : J96.21 - Acute and chronic respiratory failure with hypoxia; J96.22 - Acute and chronic respiratory failure with hypercapnia; J96.22 - Acute and chronic respiratory failure with hypercapnia; J96.22 - Acute and chronic respiratory failure with hypercapnia Is this a current diagnosis for this admission?: Yes Plan: Permissive hypercapnia and pH is acceptable at 7.37 despite PCO2 of 70s (3) Pneumonia Is this a current diagnosis for this admission?: Yes Plan: Empiric therapy for community-acquired pneumonia (4) Tobacco abuse Is this a current diagnosis for this admission?: Yes - Time Total Critical Time (Minutes): 45
--- NOTE | 2018-01-24 18:15 | XCELERA REPORT ---
[address] [address] Transthoracic Echocardiogram Report Name: SHARLENE LYNN Age: 48 yrs Gender: Male : 1970 Patient Status: Inpatient Patient Location: ICU^[id number]^A Study Date: 01/24/2018 03:30 PM Height: 71 in Weight: 210 lb BSA: 2.2 m2 Procedure: A complete two-dimensional transthoracic echocardiogram was performed (2D, M-mode, spectral and color flow Doppler). The study was technically adequate with some images being suboptimal in quality. Reason For Study: Elevated troponin history CHF Ordering Physician: ALEN LEHMAN Performed By: Celina Graham Interpretation Summary Borderline depressed LVEF with best estimate being at 50-55%. RV is moderately dilated. Moderate RVH noted. Severe pulmonary hypertension noted with best estimated RVSP at approximately 90 mmHg. Right atrium and left atrium are mildly dilated. Mild mitral regurgitation, mild tricuspid regurgitation noted. No aortic stenosis or aortic incompetence noted. MMode/2D Measurements & Calculations RVDd: 5.6 cm LVIDd: 4.1 cm FS: 32.4 % Ao root diam: 3.6 cm IVSd: 1.1 cm LVIDs: 2.8 cm EDV(Teich): 72.9 ml Ao root area: 10.2 cm2 LVPWd: 1.1 cm ESV(Teich): 28.3 ml EF(Teich): 61.2 % Doppler Measurements & Calculations MV E max naveen: MV dec slope: Ao V2 max: LV V1 max P.9 cm/sec 319.4 cm/sec2 94.6 cm/sec 2.0 mmHg MV A max naveen: MV dec time: 0.15 sec Ao max PG: LV V1 max: 61.5 cm/sec 3.6 mmHg 71.1 cm/sec MV E/A: 0.79 PA V2 max: TR max naveen: 91.6 cm/sec 483.5 cm/sec PA max P.4 mmHg TR max P.5 mmHg Left Ventricle The left ventricle is grossly normal size. There is mild concentric left ventricular hypertrophy. Left ventricular systolic function is borderline reduced. Doppler measurements suggest pseudonormalized left ventricular relaxation, which is associated with grade II/IV or mild to moderate diastolic dysfunction. There is borderline global hypokinesis of the left ventricle. Right Ventricle The right ventricle is moderately dilated. There is moderate right ventricular hypertrophy. The right ventricular systolic function is moderately reduced. Atria The right atrium is mildly dilated. The left atrium is mildly dilated. Interarterial septum not well visualized and not well dopplered. Cannot comment on ASD/PFO presence. Mitral Valve The mitral valve leaflets are sclerotic, but show no functional abnormalities. There is no mitral valve stenosis. There is a mild amount of mitral regurgitation. Aortic Valve The aortic valve is grossly normal. There is no aortic valve stenosis. No aortic regurgitation is present. Tricuspid Valve The tricuspid valve is not well visualized, but is grossly normal. There is no tricuspid stenosis. There is a mild amount of tricuspid regurgitation. There is servere pulmonary hypertension by echo. Best estimated RVSP is approximately Approximately 90 mm/Hg. Great Vessels The aortic root is not well visualized but is probably normal size. The inferior vena cava was not well visualized. Effusions Minimal pericardial effusion. : ALEN LEHMAN Shyamal
[2018-01-24] MEDS: LEVOFLOXACIN 750 MG/D5W RTU 750 MG/150 ML RTUPB IV SCH (18:41)
[2018-01-24] MEDS: ALBUTEROL SULFATE 0.083% NEB 2.5 MG/3 ML AMPUL NEB PRN (20:37)
[2018-01-25] MEDS: MIDAZOLAM HCL 50 MG/100 ML RTUINJ IV-INFUSE PRN (00:24)
[2018-01-25] MEDS: LEVALBUTEROL HCL NEB 1.25 MG/3 ML AMPUL NEB SCH ×3 (00:45→15:53)
[2018-01-25] MEDS: IPRATROPIUM BROMIDE 0.02% NEB 0.5 MG/2.5 ML AMPUL NEB SCH ×3 (00:45→15:54)
[2018-01-25] MEDS: PANTOPRAZOLE SODIUM 40 MG VIAL IV SCH (05:25)
[2018-01-25 05:27] LABS: ARTERIAL BLOOD BASE EXCESS 11.4 mmol/L; ARTERIAL BLOOD H2CO3 2.13 mmol/L (1.05-1.35); ARTERIAL BLOOD HCO3 39.8 mmol/L (20-24); ARTERIAL BLOOD O2 SATURATION 97.7 % (94-98); ARTERIAL BLOOD PH 7.37 (7.35-7.45); ARTERIAL BLOOD PO2 109.4 mmHg (80-100)
[2018-01-25 05:28] LABS: ARTERIAL BLOOD FIO2 45%
[2018-01-25 05:29] LABS: ARTERIAL BLOOD PCO2 70.6 mmHg (35-45)
[2018-01-25 05:38] LABS: ABSOLUTE LYMPHOCYTES (AUTO) 0.5 10^3/uL (0.5-4.7); ABSOLUTE MONOCYTES (AUTO) 0.6 10^3/uL (0.1-1.4); ABSOLUTE NEUT (AUTO) 3.4 10^3/uL (1.7-8.2); BASOPHILS % (AUTO) 0.2 % (0-2); EOSINOPHILS % (AUTO) 0.3 % (0-6); HEMATOCRIT 39.5 % (37.9-51.0); LYMPHOCYTES % (AUTO) 10.7 % (13-45); MEAN CORPUSCULAR HEMOGLOBIN 32.3 pg (27.0-33.4); MEAN CORPUSCULAR HGB CONC 32.9 g/dL (32.0-36.0); MEAN CORPUSCULAR VOLUME 98 fl (80-97); MONOCYTES % (AUTO) 14.1 % (3-13); RED BLOOD COUNT 4.03 10^6/uL (4.35-5.55); RED CELL DISTRIBUTION WIDTH 16.8 % (11.5-14.0); SEGMENTED NEUTROPHILS % (AUTO) 74.7 % (42-78); TOTAL CELLS COUNTED % (AUTO) 100 %; WHITE BLOOD COUNT 4.5 10^3/uL (4.0-10.5)
[2018-01-25 05:39] LABS: BLOOD UREA NITROGEN 18 mg/dL (7-20); CALCIUM 7.6 mg/dL (8.4-10.2); CARBON DIOXIDE 39 mmol/L (22-30); CHLORIDE 96 mmol/L (98-107); GLUCOSE 89 mg/dL (75-110); POTASSIUM 4.3 mmol/L (3.6-5.0)
[2018-01-25 05:44] LABS: SODIUM 134.6 mmol/L (137-145)
[2018-01-25 05:46] LABS: ANION GAP 0 (5-19)
[2018-01-25 05:54] LABS: PLATELET COUNT 98 10^3/uL (150-450)
[2018-01-25] MEDS: POTASSI CL 20 MEQ/D5-1/2NS 1L 1,000 ML IV PRN ×2 (06:26→17:45)
--- NOTE | 2018-01-25 06:29 | RADIOLOGY REPORT (SQ) ---
EXAM DESCRIPTION: XR CHEST 1 VIEW COMPLETED DATE/TME: 01/25/2018 06:00 CLINICAL HISTORY: 48 years Male, resp failure COMPARISON: One day prior. NUMBER OF VIEWS/TECHNIQUE: 1/AP FINDINGS: Small bibasilar effusion-opacity, small streaky and patchy opacity of bilateral lower lung esteban medially, prominent cardiac silhouette, likely adequate enteric tube obscured distally, endotracheal tube tip is 5.4 cm from the josué, right jugular central line tip at the cavoatrial junction. No pneumothorax. Stable bony thorax. IMPRESSION: No significant change.
[2018-01-25] MEDS: ACETYLCYSTEINE 20% SOLN 800 MG/4 ML VIAL.NEB NEB SCH ×2 (07:32→20:49)
[2018-01-25] MEDS: BUDESONIDE NEB 0.5 MG/2 ML AMPUL NEB SCH ×2 (07:32→20:49)
[2018-01-25] MEDS: ENOXAPARIN SODIUM INJ 40 MG/0.4 ML DISP.SYRIN SUBCUT SCH (10:02)
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
[2018-01-25] MEDS ORDERED: DEXAMETHASONE SOD PHOSPHATE INJ 4 MG/1 ML VIAL ONE (10:36)
--- NOTE | 2018-01-25 11:58 | PDOC PROGRESS REPORT ---
Subjective Progress Note for:: 01/25/18 Subjective:: intubated slightly arousable Reason For Visit: ACUTE ON CHRONIC RESPIRATORY FAILURE WITH HYPOXIA Physical Exam Vital Signs: Temp Pulse Resp BP Pulse Ox 97.5 F 82 13 101/69 96 01/25/18 05:00 01/25/18 07:37 01/25/18 07:37 01/25/18 06:07 01/25/18 07:37 Intake & Output 01/24/18 01/25/18 01/26/18 06:59 06:59 06:59 Intake Total 3097 3292 35 Output Total 2095 8495 250 Balance 1002 1017 -215 Weight 95.3 kg 94.6 kg General appearance: PRESENT: no acute distress, disheveled Head exam: PRESENT: atraumatic, normocephalic Eye exam: PRESENT: conjunctiva pale, EOMI. ABSENT: nystagmus, scleral icterus Mouth exam: PRESENT: dry mucosa, neck supple, tongue midline, other - ET tube in place Neck exam: ABSENT: carotid bruit, JVD, lymphadenopathy, thyromegaly, tracheal deviation, tracheostomy Respiratory exam: PRESENT: decreased breath sounds, prolonged expiratory phas, rhonchi, symmetrical, unlabored. ABSENT: retraction, stridor Cardiovascular exam: PRESENT: RRR, +S1, +S2 Pulses: PRESENT: normal radial pulses GI/Abdominal exam: PRESENT: soft. ABSENT: tenderness Gentrourinary exam: PRESENT: indwelling catheter Extremities exam: PRESENT: pedal edema. ABSENT: calf tenderness, clubbing, joint swelling Musculoskeletal exam: ABSENT: deformity, dislocation Neurological exam: PRESENT: awake Psychiatric exam: PRESENT: homicidal ideation Skin exam: PRESENT: dry, warm Results Laboratory Results: 01/25/18 05:20 01/25/18 05:20 01/24/18 01/25/18 01/25/18 08:09 05:20 05:20 WBC RBC Hgb Hct MCV MCH MCHC RDW Plt Count Seg Neutrophils % Lymphocytes % Monocytes % Eosinophils % Basophils % Absolute Neutrophils Absolute Lymphocytes Absolute Monocytes Absolute Eosinophils Absolute Basophils Carbonic Acid 2.13 H HCO3/H2CO3 Ratio 18:1 ABG pH 7.37 ABG pCO2 70.6 H* ABG pO2 109.4 H ABG HCO3 39.8 H ABG O2 Saturation 97.7 ABG Base Excess 11.4 FiO2 45% Sodium 134.6 L Potassium 4.3 Chloride 96 L Carbon Dioxide 39 H Anion Gap 0 L BUN 18 Creatinine 0.68 Est GFR ( Amer) > 60 Est GFR (Non-Af Amer) > 60 Glucose 89 Calcium 7.6 L Phosphorus 3.5 Magnesium 1.6 01/25/18 05:20 WBC 4.5 RBC 4.03 L Hgb 13.0 L Hct 39.5 MCV 98 H MCH 32.3 MCHC 32.9 RDW 16.8 H Plt Count 98 L Seg Neutrophils % 74.7 Lymphocytes % 10.7 L Monocytes % 14.1 H Eosinophils % 0.3 Basophils % 0.2 Absolute Neutrophils 3.4 Absolute Lymphocytes 0.5 Absolute Monocytes 0.6 Absolute Eosinophils 0.0 Absolute Basophils 0.0 Carbonic Acid HCO3/H2CO3 Ratio ABG pH ABG pCO2 ABG pO2 ABG HCO3 ABG O2 Saturation ABG Base Excess FiO2 Sodium Potassium Chloride Carbon Dioxide Anion Gap BUN Creatinine Est GFR ( Amer) Est GFR (Non-Af Amer) Glucose Calcium Phosphorus Magnesium 01/22/18 01/22/18 01/22/18 15:08 15:08 21:50 Creatine Kinase 102 59 CK-MB (CK-2) 11.00 H Troponin I 0.080 01/22/18 01/23/18 01/23/18 21:50 04:45 04:45 Creatine Kinase 42 L CK-MB (CK-2) 7.71 H 6.42 H Troponin I 0.062 0.060 Impressions: Chest/Abdomen CTA 01/23/18 00:00 IMPRESSION: 1. No evidence of pulmonary embolus. 2. COPD. Right lower lobe airspace disease consistent with atelectasis or pneumonia. Clinical correlation is needed. Chest X-Ray 01/25/18 06:00 IMPRESSION: No significant change. Assessment & Plan - Diagnosis (1) Chronic obstructive pulmonary disease with acute exacerbation Is this a current diagnosis for this admission?: Yes Plan: improving (2) Acute and chronic respiratory failure Qualifiers: Respiratory failure complication: hypoxia and hypercapnia Qualified Code(s) : J96.21 - Acute and chronic respiratory failure with hypoxia; J96.22 - Acute and chronic respiratory failure with hypercapnia; J96.22 - Acute and chronic respiratory failure with hypercapnia; J96.22 - Acute and chronic respiratory failure with hypercapnia Is this a current diagnosis for this admission?: Yes Plan: Volume, respiratory rate, FiO2, airway pressures all suggest successful extubation will proceed with extubation to BiPAP (3) Pneumonia Qualifiers: Pneumonia type: due to unspecified organism Laterality: right Lung location: lower lobe of lung Qualified Code(s): J18.1 - Lobar pneumonia, unspecified organism Is this a current diagnosis for this admission?: Yes Plan: Empiric therapy for community-acquired pneumonia (4) Tobacco abuse Is this a current diagnosis for this admission?: Yes - Time Total Critical Time (Minutes): 55
[2018-01-25 12:26] LABS: ARTERIAL BLOOD H2CO3 2.56 mmol/L (1.05-1.35); ARTERIAL BLOOD HCO3 39.4 mmol/L (20-24); ARTERIAL BLOOD O2 SATURATION 97.3 % (94-98); ARTERIAL BLOOD PH 7.28 (7.35-7.45); ARTERIAL BLOOD PO2 112.6 mmHg (80-100)
[2018-01-25 12:27] LABS: ARTERIAL BLOOD FIO2 50%; ARTERIAL BLOOD PCO2 85.1 mmHg (35-45)
[2018-01-25 13:52] LABS: ARTERIAL BLOOD BASE EXCESS 9.3 mmol/L; ARTERIAL BLOOD FIO2 30%; ARTERIAL BLOOD H2CO3 2.47 mmol/L (1.05-1.35); ARTERIAL BLOOD HCO3 39.4 mmol/L (20-24); ARTERIAL BLOOD O2 SATURATION 88.5 % (94-98); ARTERIAL BLOOD PO2 62.8 mmHg (80-100)
[2018-01-25] MEDS: LEVOFLOXACIN 750 MG/D5W RTU 750 MG/150 ML RTUPB IV SCH (17:44)
[2018-01-25] MEDS: FENTANYL CITRATE INJ/PF 100 MCG/2 ML AMPUL IV PRN ×2 (17:51→22:52)
[2018-01-25] MEDS: ALBUTEROL SULFATE 0.083% NEB 2.5 MG/3 ML AMPUL NEB PRN (20:49)
[2018-01-26] MEDS: LEVALBUTEROL HCL NEB 1.25 MG/3 ML AMPUL NEB SCH ×3 (00:41→16:55)
[2018-01-26] MEDS: IPRATROPIUM BROMIDE 0.02% NEB 0.5 MG/2.5 ML AMPUL NEB SCH ×3 (00:41→16:55)
[2018-01-26] MEDS: FENTANYL CITRATE INJ/PF 100 MCG/2 ML AMPUL IV PRN (02:57)
[2018-01-26] MEDS: POTASSI CL 20 MEQ/D5-1/2NS 1L 1,000 ML IV PRN (05:27)
--- NOTE | 2018-01-26 06:27 | RADIOLOGY REPORT (SQ) ---
EXAM DESCRIPTION: XR CHEST 1 VIEW COMPLETED DATE/TME: 01/26/2018 06:00 CLINICAL HISTORY: 48 years Male, resp failure COMPARISON: One day prior. NUMBER OF VIEWS/TECHNIQUE: 1/AP FINDINGS: Moderate hazy opacity-layered effusion of bilateral lower hemithoraces, right more than left, mildly enlarged cardiac silhouette. No pneumothorax. Stable bony thorax. IMPRESSION: Interval extubation.
[2018-01-26 06:29] LABS: ABSOLUTE LYMPHOCYTES (AUTO) 0.7 10^3/uL (0.5-4.7); ABSOLUTE MONOCYTES (AUTO) 0.7 10^3/uL (0.1-1.4); ABSOLUTE NEUT (AUTO) 3.6 10^3/uL (1.7-8.2); BASOPHILS % (AUTO) 0.3 % (0-2); HEMATOCRIT 45.7 % (37.9-51.0); HEMOGLOBIN 14.9 g/dL (13.5-17.0); LYMPHOCYTES % (AUTO) 14.8 % (13-45); MEAN CORPUSCULAR HEMOGLOBIN 32.5 pg (27.0-33.4); MEAN CORPUSCULAR HGB CONC 32.7 g/dL (32.0-36.0); MEAN CORPUSCULAR VOLUME 99 fl (80-97); MONOCYTES % (AUTO) 12.9 % (3-13); PLATELET COUNT 116 10^3/uL (150-450); TOTAL CELLS COUNTED % (AUTO) 100 %; WHITE BLOOD COUNT 5.1 10^3/uL (4.0-10.5)
[2018-01-26 06:32] LABS: ARTERIAL BLOOD BASE EXCESS 7.5 mmol/L; ARTERIAL BLOOD H2CO3 2.82 mmol/L (1.05-1.35); ARTERIAL BLOOD HCO3 39.3 mmol/L (20-24); ARTERIAL BLOOD O2 SATURATION 93.5 % (94-98); ARTERIAL BLOOD PH 7.24 (7.35-7.45); ARTERIAL BLOOD PO2 82.5 mmHg (80-100); ARTERIAL BLOOD TOTAL CO2 42.1 mmol/L (23-27)
[2018-01-26 06:33] LABS: ARTERIAL BLOOD FIO2 35%; ARTERIAL BLOOD PCO2 93.7 mmHg (35-45)
[2018-01-26 06:43] LABS: BLOOD UREA NITROGEN 15 mg/dL (7-20); CALCIUM 8.5 mg/dL (8.4-10.2); CHLORIDE 96 mmol/L (98-107); GLUCOSE 108 mg/dL (75-110); POTASSIUM 4.8 mmol/L (3.6-5.0)
[2018-01-26 06:49] LABS: SODIUM 136.7 mmol/L (137-145)
[2018-01-26 06:54] LABS: ANION GAP 2 (5-19); CARBON DIOXIDE 39 mmol/L (22-30)
[2018-01-26] MEDS: ACETYLCYSTEINE 20% SOLN 800 MG/4 ML VIAL.NEB NEB SCH ×2 (07:47→20:15)
[2018-01-26] MEDS: BUDESONIDE NEB 0.5 MG/2 ML AMPUL NEB SCH ×2 (07:47→20:16)
[2018-01-26] MEDS ORDERED: FUROSEMIDE INJ/PF 20 MG/2 ML SDV IV ONE (10:15)
[2018-01-26 10:16] LABS: ARTERIAL BLOOD BASE EXCESS 10.3 mmol/L; ARTERIAL BLOOD FIO2 35%; ARTERIAL BLOOD H2CO3 2.25 mmol/L (1.05-1.35); ARTERIAL BLOOD HCO3 39.4 mmol/L (20-24); ARTERIAL BLOOD O2 SATURATION 98.6 % (94-98); ARTERIAL BLOOD PH 7.34 (7.35-7.45); ARTERIAL BLOOD PO2 144.5 mmHg (80-100); ARTERIAL BLOOD TOTAL CO2 41.7 mmol/L (23-27)
[2018-01-26 10:19] LABS: ARTERIAL BLOOD PCO2 74.6 mmHg (35-45)
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
[2018-01-26] MEDS: ENOXAPARIN SODIUM INJ 40 MG/0.4 ML DISP.SYRIN SUBCUT SCH (12:26)
[2018-01-26] MEDS ORDERED: INSULIN LISPRO 100 UNIT/ML 3 ML VIAL ONE (16:55)
[2018-01-26] MEDS: LEVOFLOXACIN 750 MG/D5W RTU 750 MG/150 ML RTUPB IV SCH (17:33)
[2018-01-26] MEDS: ALBUTEROL SULFATE 0.083% NEB 2.5 MG/3 ML AMPUL NEB PRN (20:16)
[2018-01-26] MEDS: TRAMADOL HCL 50 MG TABLET PO PRN (20:54)
[2018-01-27] MEDS: IPRATROPIUM BROMIDE 0.02% NEB 0.5 MG/2.5 ML AMPUL NEB SCH ×3 (00:20→15:47)
[2018-01-27] MEDS: LEVALBUTEROL HCL NEB 1.25 MG/3 ML AMPUL NEB SCH ×3 (00:20→15:47)
[2018-01-27 05:48] LABS: ARTERIAL BLOOD BASE EXCESS 12.4 mmol/L; ARTERIAL BLOOD H2CO3 2.71 mmol/L (1.05-1.35); ARTERIAL BLOOD HCO3 43.1 mmol/L (20-24); ARTERIAL BLOOD O2 SATURATION 99.6 % (94-98); ARTERIAL BLOOD PO2 298.6 mmHg (80-100); ARTERIAL BLOOD TOTAL CO2 45.9 mmol/L (23-27)
[2018-01-27 05:49] LABS: ARTERIAL BLOOD FIO2 70%; ARTERIAL BLOOD PCO2 89.9 mmHg (35-45)
[2018-01-27 06:00] LABS: ALANINE AMINOTRANSFERASE 157 U/L (21-72); ALBUMIN 2.3 g/dL (3.5-5.0); ALKALINE PHOSPHATASE 69 U/L (38-126); ASPARTATE AMINO TRANSFERASE 49 U/L (17-59); BILIRUBIN,DIRECT 0.1 mg/dL (0.0-0.4); BILIRUBIN,TOTAL 0.5 mg/dL (0.2-1.3); BLOOD UREA NITROGEN 13 mg/dL (7-20); CALCIUM 8.5 mg/dL (8.4-10.2); CHLORIDE 94 mmol/L (98-107); GLUCOSE 78 mg/dL (75-110); POTASSIUM 4.2 mmol/L (3.6-5.0); SODIUM 138.4 mmol/L (137-145); TOTAL PROTEIN 4.4 g/dL (6.3-8.2)
[2018-01-27 06:02] LABS: ABSOLUTE LYMPHOCYTES (AUTO) 0.5 10^3/uL (0.5-4.7); ABSOLUTE MONOCYTES (AUTO) 0.6 10^3/uL (0.1-1.4); ABSOLUTE NEUT (AUTO) 2.5 10^3/uL (1.7-8.2); BASOPHILS % (AUTO) 0.1 % (0-2); EOSINOPHILS % (AUTO) 0.7 % (0-6); HEMATOCRIT 40.5 % (37.9-51.0); HEMOGLOBIN 13.3 g/dL (13.5-17.0); LYMPHOCYTES % (AUTO) 13.5 % (13-45); MEAN CORPUSCULAR HEMOGLOBIN 32.6 pg (27.0-33.4); MEAN CORPUSCULAR HGB CONC 32.9 g/dL (32.0-36.0); MEAN CORPUSCULAR VOLUME 99 fl (80-97); PLATELET COUNT 118 10^3/uL (150-450); RED BLOOD COUNT 4.09 10^6/uL (4.35-5.55); SEGMENTED NEUTROPHILS % (AUTO) 69.7 % (42-78); TOTAL CELLS COUNTED % (AUTO) 100 %; WHITE BLOOD COUNT 3.6 10^3/uL (4.0-10.5)
[2018-01-27] MEDS: POTASSI CL 20 MEQ/D5-1/2NS 1L 1,000 ML IV PRN (06:23)
[2018-01-27 06:35] LABS: ANION GAP 2 (5-19)
[2018-01-27 06:36] LABS: CARBON DIOXIDE 42 mmol/L (22-30)
--- NOTE | 2018-01-27 06:59 | RADIOLOGY REPORT (SQ) ---
EXAM DESCRIPTION: XR CHEST 1 VIEW COMPLETED DATE/TME: 01/27/2018 06:00 CLINICAL HISTORY: 48 years, Male, resp falure COMPARISON: 01/26/2018 NUMBER OF VIEWS: One TECHNIQUE: AP view the chest LIMITATIONS: None. FINDINGS: Lungs are hyperexpanded with flattening of the hemidiaphragms. There are bibasilar interstitial opacities. Blunting of the costophrenic angles be due to small effusions or pleural thickening. There is no pneumothorax. The right IJ line terminates within the SVC. IMPRESSION: No significant change compared to the prior exam. 2010 [employer]- All Rights Reserved
[2018-01-27] MEDS: ACETYLCYSTEINE 20% SOLN 800 MG/4 ML VIAL.NEB NEB SCH ×2 (07:24→20:32)
[2018-01-27] MEDS: BUDESONIDE NEB 0.5 MG/2 ML AMPUL NEB SCH ×2 (07:24→20:32)
[2018-01-27] MEDS: ENOXAPARIN SODIUM INJ 40 MG/0.4 ML DISP.SYRIN SUBCUT SCH (09:51)
[2018-01-27 10:41] LABS: ARTERIAL BLOOD BASE EXCESS 13.8 mmol/L; ARTERIAL BLOOD H2CO3 2.55 mmol/L (1.05-1.35); ARTERIAL BLOOD HCO3 44.1 mmol/L (20-24); ARTERIAL BLOOD O2 SATURATION 84.8 % (94-98); ARTERIAL BLOOD PH 7.34 (7.35-7.45); ARTERIAL BLOOD PO2 55.1 mmHg (80-100); ARTERIAL BLOOD TOTAL CO2 46.7 mmol/L (23-27)
[2018-01-27 10:42] LABS: ARTERIAL BLOOD FIO2 30%
[2018-01-27 10:43] LABS: ARTERIAL BLOOD PCO2 84.6 mmHg (35-45)
--- NOTE | 2018-01-27 13:17 | PDOC PROGRESS REPORT ---
Subjective Progress Note for:: 01/27/18 Subjective:: Patient has been off the vent for 48 hours. Had difficulty with his BiPAP night. CO2 is risen into the 80s. Patient still alert responsive to questions. Patient's PaO2 in excess of 200 contributing to worsening of his hypercapnia. Case discussed with Dr. Mccann and adjustments to his FiO2 and BiPAP are being made. No new complaints Reason For Visit: ACUTE ON CHRONIC RESPIRATORY FAILURE WITH HYPOXIA Physical Exam Vital Signs: Temp Pulse Resp BP Pulse Ox 98.1 F 121 H 22 H 113/71 92 01/27/18 12:00 01/27/18 12:00 01/27/18 12:00 01/27/18 12:00 01/27/18 12:00 Intake & Output 01/26/18 01/27/18 01/28/18 06:59 06:59 06:59 Intake Total 2185 1150 Output Total 4075 5600 970 Balance -1890 -4450 -970 Weight 90.8 kg 89.2 kg General appearance: PRESENT: no acute distress, well-developed, well-nourished Neck exam: PRESENT: other - Right IJ access. ABSENT: carotid bruit, JVD, lymphadenopathy, thyromegaly Respiratory exam: PRESENT: clear to auscultation kevon, decreased breath sounds. ABSENT: rales, rhonchi, wheezes Cardiovascular exam: PRESENT: RRR. ABSENT: diastolic murmur, rubs, systolic murmur GI/Abdominal exam: PRESENT: normal bowel sounds, soft. ABSENT: distended, guarding, mass, organolmegaly, rebound, tenderness Extremities exam: PRESENT: full ROM. ABSENT: calf tenderness, clubbing, pedal edema Psychiatric exam: PRESENT: anxious Skin exam: PRESENT: dry, intact, warm. ABSENT: cyanosis, rash Results Laboratory Results: 01/27/18 05:20 01/27/18 05:20 01/27/18 01/27/18 01/27/18 05:20 05:20 05:34 WBC 3.6 L RBC 4.09 L Hgb 13.3 L Hct 40.5 MCV 99 H MCH 32.6 MCHC 32.9 RDW 16.0 H Plt Count 118 L Seg Neutrophils % 69.7 Lymphocytes % 13.5 Monocytes % 16.0 H Eosinophils % 0.7 Basophils % 0.1 Absolute Neutrophils 2.5 Absolute Lymphocytes 0.5 Absolute Monocytes 0.6 Absolute Eosinophils 0.0 Absolute Basophils 0.0 Carbonic Acid 2.71 H HCO3/H2CO3 Ratio 15:1 ABG pH 7.30 L ABG pCO2 89.9 H* ABG pO2 298.6 H ABG HCO3 43.1 H ABG O2 Saturation 99.6 H ABG Base Excess 12.4 FiO2 70% Sodium 138.4 Potassium 4.2 Chloride 94 L Carbon Dioxide 42 H* Anion Gap 2 L BUN 13 Creatinine 0.67 Est GFR ( Amer) > 60 Est GFR (Non-Af Amer) > 60 Glucose 78 Calcium 8.5 Magnesium 1.5 L Total Bilirubin 0.5 AST 49 ALT 157 H Alkaline Phosphatase 69 Total Protein 4.4 L Albumin 2.3 L 01/27/18 10:25 WBC RBC Hgb Hct MCV MCH MCHC RDW Plt Count Seg Neutrophils % Lymphocytes % Monocytes % Eosinophils % Basophils % Absolute Neutrophils Absolute Lymphocytes Absolute Monocytes Absolute Eosinophils Absolute Basophils Carbonic Acid 2.55 H HCO3/H2CO3 Ratio 17:1 ABG pH 7.34 L ABG pCO2 84.6 H* ABG pO2 55.1 L ABG HCO3 44.1 H ABG O2 Saturation 84.8 L ABG Base Excess 13.8 FiO2 30% Sodium Potassium Chloride Carbon Dioxide Anion Gap BUN Creatinine Est GFR ( Amer) Est GFR (Non-Af Amer) Glucose Calcium Magnesium Total Bilirubin AST ALT Alkaline Phosphatase Total Protein Albumin 01/22/18 01/22/18 01/22/18 15:08 15:08 21:50 Creatine Kinase 102 59 CK-MB (CK-2) 11.00 H Troponin I 0.080 01/22/18 01/23/18 01/23/18 21:50 04:45 04:45 Creatine Kinase 42 L CK-MB (CK-2) 7.71 H 6.42 H Troponin I 0.062 0.060 Impressions: Chest/Abdomen CTA 01/23/18 00:00 IMPRESSION: 1. No evidence of pulmonary embolus. 2. COPD. Right lower lobe airspace disease consistent with atelectasis or pneumonia. Clinical correlation is needed. Chest X-Ray 01/27/18 06:00 IMPRESSION: No significant change compared to the prior exam. 2010 [employer]- All Rights Reserved Assessment & Plan - Diagnosis (1) Acute on chronic respiratory failure with hypoxia and hypercapnia Is this a current diagnosis for this admission?: Yes Plan: Patient with chronic hypoxemic hypercapnic respiratory failure who moved from [place] after being discharged from [facility] 01/01/2018. He has been in the ER and admitted to the hospital for exacerbations and pneumonia and he has signed out AGAINST MEDICAL ADVICE. He presents again with significant hypoxemia. As well as his chronic hypercapnia. Patient has significant pulmonary hypertension contributing to his hypoxemia. Suspect the severity has been exacerbated by his lack of oxygen. He is maintaining saturations on BiPAP he has some chronic retention still but overall improving clinically. We will continue to monitor continue current pulmonary treatment case discussed with Dr. Mccann. We will continue to adjust BiPAP to maintain minimal oxygenation in an effort to improve ventilation. (2) Chronic obstructive pulmonary disease with acute exacerbation Is this a current diagnosis for this admission?: Yes Plan: Oxygen dependent and extremely noncompliant and continues to smoke. Overall poor prognosis (3) DVT (deep venous thrombosis) Qualifiers: Affected thrombotic vein of extremity: femoral Laterality: left Is this a current diagnosis for this admission?: Yes Plan: Patient has a history of DVT during his last brief stay he admitted that he was diagnosed diagnosed September 2017. Patient completed 3-1/2 months of Eliquis. Both CTA and venous duplex failed to show pulmonary embolism or evidence of the left femoral DVT which was diagnosed. Patient to be weaned from the ventilator today. We will discontinue Lovenox. Resume DVT prophylaxis at 40 mg daily (4) Pneumonia Qualifiers: Pneumonia type: due to unspecified organism Laterality: right Lung location: lower lobe of lung Qualified Code(s): J18.1 - Lobar pneumonia, unspecified organism Is this a current diagnosis for this admission?: Yes Plan: Continue to treat for community-acquired pneumonia. Continue Levaquin on day 5. Plan 7 days of treatment cultures remain negative (5) Tobacco abuse Is this a current diagnosis for this admission?: Yes Plan: Patient continues to smoke despite being on oxygen therapy (6) Pulmonary hypertension Is this a current diagnosis for this admission?: Yes Plan: 90mmHg RVSP by echocardiography. Likely overstated due to the degree of hypercapnia the patient has had in his extended periods of oxygen deprivation due to his noncompliance since leaving [place]. Should be reassessed when patient achieves baseline and consideration for right heart cath should be made. - Time Time Spent with patient: 25-34 minutes
[2018-01-27] MEDS: ALBUTEROL SULFATE 0.083% NEB 2.5 MG/3 ML AMPUL NEB PRN ×2 (13:26→20:32)
[2018-01-27 13:43] LABS: ARTERIAL BLOOD BASE EXCESS 12.2 mmol/L; ARTERIAL BLOOD H2CO3 2.37 mmol/L (1.05-1.35); ARTERIAL BLOOD HCO3 41.8 mmol/L (20-24); ARTERIAL BLOOD O2 SATURATION 93.2 % (94-98); ARTERIAL BLOOD PH 7.34 (7.35-7.45); ARTERIAL BLOOD PO2 73.2 mmHg (80-100); ARTERIAL BLOOD TOTAL CO2 44.3 mmol/L (23-27)
[2018-01-27 13:45] LABS: ARTERIAL BLOOD FIO2 35%
[2018-01-27 13:47] LABS: ARTERIAL BLOOD PCO2 78.6 mmHg (35-45)
[2018-01-27] MEDS: LEVOFLOXACIN 750 MG/D5W RTU 750 MG/150 ML RTUPB IV SCH (17:13)
[2018-01-27] MEDS: TRAMADOL HCL 50 MG TABLET PO PRN ×2 (17:39→21:34)
[2018-01-28] MEDS: IPRATROPIUM BROMIDE 0.02% NEB 0.5 MG/2.5 ML AMPUL NEB SCH ×3 (00:01→15:18)
[2018-01-28] MEDS: LEVALBUTEROL HCL NEB 1.25 MG/3 ML AMPUL NEB SCH ×3 (00:01→15:18)
[2018-01-28 05:18] LABS: ARTERIAL BLOOD BASE EXCESS 16.1 mmol/L; ARTERIAL BLOOD H2CO3 2.76 mmol/L (1.05-1.35); ARTERIAL BLOOD HCO3 46.9 mmol/L (20-24); ARTERIAL BLOOD O2 SATURATION 91.6 % (94-98); ARTERIAL BLOOD PH 7.33 (7.35-7.45); ARTERIAL BLOOD PO2 70.1 mmHg (80-100); ARTERIAL BLOOD TOTAL CO2 49.7 mmol/L (23-27)
[2018-01-28 05:19] LABS: ARTERIAL BLOOD FIO2 35%
[2018-01-28 05:20] LABS: ARTERIAL BLOOD PCO2 91.8 mmHg (35-45)
[2018-01-28 05:35] LABS: ABSOLUTE LYMPHOCYTES (AUTO) 0.5 10^3/uL (0.5-4.7); ABSOLUTE MONOCYTES (AUTO) 0.7 10^3/uL (0.1-1.4); ABSOLUTE NEUT (AUTO) 2.8 10^3/uL (1.7-8.2); BASOPHILS % (AUTO) 0.3 % (0-2); EOSINOPHILS % (AUTO) 0.9 % (0-6); HEMATOCRIT 39.3 % (37.9-51.0); HEMOGLOBIN 13.2 g/dL (13.5-17.0); LYMPHOCYTES % (AUTO) 13.3 % (13-45); MEAN CORPUSCULAR HGB CONC 33.6 g/dL (32.0-36.0); MEAN CORPUSCULAR VOLUME 98 fl (80-97); MONOCYTES % (AUTO) 16.9 % (3-13); PLATELET COUNT 114 10^3/uL (150-450); RED BLOOD COUNT 4.01 10^6/uL (4.35-5.55); RED CELL DISTRIBUTION WIDTH 16.3 % (11.5-14.0); SEGMENTED NEUTROPHILS % (AUTO) 68.6 % (42-78); TOTAL CELLS COUNTED % (AUTO) 100 %; WHITE BLOOD COUNT 4.1 10^3/uL (4.0-10.5)
[2018-01-28 05:41] LABS: BLOOD UREA NITROGEN 10 mg/dL (7-20); CALCIUM 8.1 mg/dL (8.4-10.2); CHLORIDE 90 mmol/L (98-107); GLUCOSE 69 mg/dL (75-110); POTASSIUM 3.8 mmol/L (3.6-5.0)
[2018-01-28 06:16] LABS: SODIUM 135.7 mmol/L (137-145)
[2018-01-28 06:29] LABS: ANION GAP 4 (5-19)
[2018-01-28 06:30] LABS: CARBON DIOXIDE 42 mmol/L (22-30)
--- NOTE | 2018-01-28 06:49 | RADIOLOGY REPORT (SQ) ---
EXAM DESCRIPTION: XR CHEST 1 VIEW COMPLETED DATE/TME: 01/28/2018 06:00 CLINICAL HISTORY: 48 years, Male, resp failure COMPARISON: 01/27/2018 NUMBER OF VIEWS: One TECHNIQUE: AP view of the chest LIMITATIONS: None. FINDINGS: Lungs are emphysematous. There are right basilar interstitial opacities. Blunting of the costophrenic angles may be due to pleural thickening or small effusions. There is no pneumothorax. The heart size is stable. The right IJ line terminates within the SVC. IMPRESSION: Emphysematous lungs with right basilar interstitial opacities, similar to the prior 2010 [facility]- All Rights Reserved
[2018-01-28] MEDS: BUDESONIDE NEB 0.5 MG/2 ML AMPUL NEB SCH ×2 (07:13→20:49)
[2018-01-28] MEDS: ACETYLCYSTEINE 20% SOLN 800 MG/4 ML VIAL.NEB NEB SCH ×2 (07:13→20:49)
[2018-01-28] MEDS: ENOXAPARIN SODIUM INJ 40 MG/0.4 ML DISP.SYRIN SUBCUT SCH (09:57)
--- NOTE | 2018-01-28 12:30 | PDOC PROGRESS REPORT ---
Subjective Progress Note for:: 01/28/18 Subjective:: Patient has been off the vent for 48 hours. Had difficulty with his BiPAP night. CO2 is risen into the 80s. Patient still alert responsive to questions. Patient's PaO2 in excess of 200 contributing to worsening of his hypercapnia. Patient has completed his Levaquin for his right lower lobe pneumonia. Sitting in chair conversive on BiPAP CO2 90 on ABG Reason For Visit: ACUTE ON CHRONIC RESPIRATORY FAILURE WITH HYPOXIA Physical Exam Vital Signs: Temp Pulse Resp BP Pulse Ox 98.6 F 104 H 21 H 123/84 94 01/28/18 12:00 01/28/18 12:00 01/28/18 12:00 01/28/18 12:00 01/28/18 12:00 Intake & Output 01/27/18 01/28/18 01/29/18 06:59 06:59 06:59 Intake Total 1150 300 450 Output Total 5600 3405 1275 Balance -4450 -3105 -825 Weight 89.2 kg 91.2 kg General appearance: PRESENT: no acute distress, well-developed, well-nourished Neck exam: ABSENT: carotid bruit, JVD, lymphadenopathy, thyromegaly Respiratory exam: PRESENT: clear to auscultation kevon, decreased breath sounds. ABSENT: rales, rhonchi, wheezes Cardiovascular exam: PRESENT: RRR. ABSENT: diastolic murmur, rubs, systolic murmur GI/Abdominal exam: PRESENT: normal bowel sounds, soft. ABSENT: distended, guarding, mass, organolmegaly, rebound, tenderness Neurological exam: PRESENT: alert, awake, oriented to person, oriented to place , oriented to time, oriented to situation, CN II-XII grossly intact. ABSENT: motor sensory deficit Results Laboratory Results: 01/28/18 05:18 01/28/18 04:48 01/27/18 01/28/18 01/28/18 13:05 04:48 04:48 WBC RBC Hgb Hct MCV MCH MCHC RDW Plt Count Seg Neutrophils % Lymphocytes % Monocytes % Eosinophils % Basophils % Absolute Neutrophils Absolute Lymphocytes Absolute Monocytes Absolute Eosinophils Absolute Basophils Carbonic Acid 2.37 H 2.76 H HCO3/H2CO3 Ratio 17:1 16:1 ABG pH 7.34 L 7.33 L ABG pCO2 78.6 H* 91.8 H* ABG pO2 73.2 L 70.1 L ABG HCO3 41.8 H 46.9 H ABG O2 Saturation 93.2 L 91.6 L ABG Base Excess 12.2 16.1 FiO2 35% 35% Sodium 135.7 L Potassium 3.8 Chloride 90 L Carbon Dioxide 42 H* Anion Gap 4 L BUN 10 Creatinine 0.48 L Est GFR ( Amer) > 60 Est GFR (Non-Af Amer) > 60 Glucose 69 L Calcium 8.1 L Magnesium 1.4 L 01/28/18 05:18 WBC 4.1 RBC 4.01 L Hgb 13.2 L Hct 39.3 MCV 98 H MCH 33.0 MCHC 33.6 RDW 16.3 H Plt Count 114 L Seg Neutrophils % 68.6 Lymphocytes % 13.3 Monocytes % 16.9 H Eosinophils % 0.9 Basophils % 0.3 Absolute Neutrophils 2.8 Absolute Lymphocytes 0.5 Absolute Monocytes 0.7 Absolute Eosinophils 0.0 Absolute Basophils 0.0 Carbonic Acid HCO3/H2CO3 Ratio ABG pH ABG pCO2 ABG pO2 ABG HCO3 ABG O2 Saturation ABG Base Excess FiO2 Sodium Potassium Chloride Carbon Dioxide Anion Gap BUN Creatinine Est GFR ( Amer) Est GFR (Non-Af Amer) Glucose Calcium Magnesium 01/22/18 15:08 Blood Blood Culture - Final NO GROWTH IN 5 DAYS 01/22/18 01/22/18 01/22/18 15:08 15:08 21:50 Creatine Kinase 102 59 CK-MB (CK-2) 11.00 H Troponin I 0.080 01/22/18 01/23/18 01/23/18 21:50 04:45 04:45 Creatine Kinase 42 L CK-MB (CK-2) 7.71 H 6.42 H Troponin I 0.062 0.060 Impressions: Chest/Abdomen CTA 01/23/18 00:00 IMPRESSION: 1. No evidence of pulmonary embolus. 2. COPD. Right lower lobe airspace disease consistent with atelectasis or pneumonia. Clinical correlation is needed. Chest X-Ray 01/28/18 06:00 IMPRESSION: Emphysematous lungs with right basilar interstitial opacities, similar to the prior 2010 [employer]- All Rights Reserved Assessment & Plan - Diagnosis (1) Acute on chronic respiratory failure with hypoxia and hypercapnia Is this a current diagnosis for this admission?: Yes Plan: Persistent hypercapnia in the high 90s. This appears to be patient's baseline however he is unable to come off the BiPAP. Maintain on BiPAP for the present. Given the deteriorated state of patient's pulmonary status he may require tracheotomy and long-term ventilation if he is unable to wean from the BiPAP (2) Chronic obstructive pulmonary disease with acute exacerbation Is this a current diagnosis for this admission?: Yes (3) DVT (deep venous thrombosis) Qualifiers: Affected thrombotic vein of extremity: femoral Laterality: left Is this a current diagnosis for this admission?: Yes Plan: DVT ruled out as well as PE patient on prophylactic Lovenox Eliquis has been discontinued. (4) Pneumonia Qualifiers: Pneumonia type: due to unspecified organism Laterality: right Lung location: lower lobe of lung Qualified Code(s): J18.1 - Lobar pneumonia, unspecified organism Is this a current diagnosis for this admission?: Yes Plan: Completed Levaquin for 7 days no further antibiotics (5) Tobacco abuse Is this a current diagnosis for this admission?: Yes Plan: Patient states he has quit smoking (6) Pulmonary hypertension Is this a current diagnosis for this admission?: Yes Plan: 90 mmHg by echocardiography - Time Time Spent with patient: 25-34 minutes
[2018-01-28] MEDS: MAGNESIUM SULFATE/D5W 1 GM/100 ML RTUPB IV SCH ×3 (13:27→22:06)
[2018-01-28 14:10] LABS: ARTERIAL BLOOD BASE EXCESS 14.7 mmol/L; ARTERIAL BLOOD H2CO3 2.59 mmol/L (1.05-1.35); ARTERIAL BLOOD O2 SATURATION 83.7 % (94-98); ARTERIAL BLOOD PH 7.34 (7.35-7.45); ARTERIAL BLOOD PO2 53.6 mmHg (80-100); ARTERIAL BLOOD TOTAL CO2 47.7 mmol/L (23-27)
[2018-01-28 14:13] LABS: ARTERIAL BLOOD FIO2 30%
[2018-01-28 14:15] LABS: ARTERIAL BLOOD PCO2 86.2 mmHg (35-45)
[2018-01-28] MEDS: POTASSI CL 20 MEQ/D5-1/2NS 1L 1,000 ML IV PRN (16:54)
[2018-01-28] MEDS: TRAMADOL HCL 50 MG TABLET PO PRN (20:23)
[2018-01-28] MEDS: ALBUTEROL SULFATE 0.083% NEB 2.5 MG/3 ML AMPUL NEB PRN (20:49)
[2018-01-29] MEDS: IPRATROPIUM BROMIDE 0.02% NEB 0.5 MG/2.5 ML AMPUL NEB SCH ×4 (01:48→23:38)
[2018-01-29] MEDS: LEVALBUTEROL HCL NEB 1.25 MG/3 ML AMPUL NEB SCH ×4 (01:48→23:38)
[2018-01-29 05:20] LABS: ABSOLUTE LYMPHOCYTES (AUTO) 0.6 10^3/uL (0.5-4.7); ABSOLUTE MONOCYTES (AUTO) 0.7 10^3/uL (0.1-1.4); ABSOLUTE NEUT (AUTO) 2.7 10^3/uL (1.7-8.2); BASOPHILS % (AUTO) 0.2 % (0-2); EOSINOPHILS % (AUTO) 0.7 % (0-6); HEMATOCRIT 39.4 % (37.9-51.0); HEMOGLOBIN 13.1 g/dL (13.5-17.0); LYMPHOCYTES % (AUTO) 13.7 % (13-45); MEAN CORPUSCULAR HEMOGLOBIN 32.8 pg (27.0-33.4); MEAN CORPUSCULAR HGB CONC 33.3 g/dL (32.0-36.0); MEAN CORPUSCULAR VOLUME 99 fl (80-97); MONOCYTES % (AUTO) 17.6 % (3-13); PLATELET COUNT 128 10^3/uL (150-450); RED CELL DISTRIBUTION WIDTH 15.6 % (11.5-14.0); SEGMENTED NEUTROPHILS % (AUTO) 67.8 % (42-78); TOTAL CELLS COUNTED % (AUTO) 100 %
[2018-01-29 05:25] LABS: ARTERIAL BLOOD BASE EXCESS 19.7 mmol/L; ARTERIAL BLOOD H2CO3 2.48 mmol/L (1.05-1.35); ARTERIAL BLOOD HCO3 49.3 mmol/L (20-24); ARTERIAL BLOOD O2 SATURATION 95.1 % (94-98); ARTERIAL BLOOD TOTAL CO2 51.8 mmol/L (23-27)
[2018-01-29 05:28] LABS: ARTERIAL BLOOD FIO2 30%
[2018-01-29 05:30] LABS: ARTERIAL BLOOD PCO2 82.3 mmHg (35-45)
[2018-01-29 05:43] LABS: BLOOD UREA NITROGEN 7 mg/dL (7-20); CALCIUM 8.1 mg/dL (8.4-10.2); CHLORIDE 88 mmol/L (98-107); GLUCOSE 81 mg/dL (75-110); POTASSIUM 3.8 mmol/L (3.6-5.0); SODIUM 136.7 mmol/L (137-145)
[2018-01-29 06:35] LABS: ANION GAP 1 (5-19)
[2018-01-29 06:37] LABS: CARBON DIOXIDE 48 mmol/L (22-30)
--- NOTE | 2018-01-29 07:25 | RADIOLOGY REPORT (SQ) ---
EXAM DESCRIPTION: XR CHEST 1 VIEW COMPLETED DATE/TME: 01/29/2018 06:00 CLINICAL HISTORY: 48 years Male, resp failure COMPARISON: One day prior. NUMBER OF VIEWS/TECHNIQUE: 1/AP FINDINGS: Moderate bibasilar opacity-effusion, mild interstitial markings, increased lung volume, mildly enlarged cardiac silhouette, right jugular central line tip at the SVC. No pneumothorax. Stable bony thorax. IMPRESSION: No significant change.
[2018-01-29] MEDS: BUDESONIDE NEB 0.5 MG/2 ML AMPUL NEB SCH ×2 (08:13→20:08)
[2018-01-29] MEDS: ACETYLCYSTEINE 20% SOLN 800 MG/4 ML VIAL.NEB NEB SCH ×2 (08:13→20:08)
[2018-01-29] MEDS: TRAMADOL HCL 50 MG TABLET PO PRN ×3 (09:50→23:18)
[2018-01-29] MEDS: ENOXAPARIN SODIUM INJ 40 MG/0.4 ML DISP.SYRIN SUBCUT SCH (09:50)
--- NOTE | 2018-01-29 11:59 | PDOC PROGRESS REPORT ---
Subjective Progress Note for:: 01/26/18 Subjective:: intubated slightly arousable Reason For Visit: ACUTE ON CHRONIC RESPIRATORY FAILURE WITH HYPOXIA Physical Exam Vital Signs: Temp Pulse Resp BP Pulse Ox 97.5 F 73 16 128/81 H 100 01/26/18 08:00 01/26/18 08:00 01/26/18 08:00 01/26/18 08:00 01/26/18 08:00 Intake & Output 01/25/18 01/26/18 01/27/18 06:59 06:59 06:59 Intake Total 3442 2035 Output Total 2275 8795 150 Balance 1167 -2039 -150 Weight 94.6 kg 90.8 kg General appearance: PRESENT: no acute distress, disheveled, well-developed, well -nourished Head exam: PRESENT: atraumatic, normocephalic Eye exam: PRESENT: conjunctiva pale. ABSENT: nystagmus, periorbital swelling, scleral icterus Mouth exam: PRESENT: dry mucosa, neck supple, tongue midline, other - ET tube intact Neck exam: ABSENT: carotid bruit, JVD, lymphadenopathy, thyromegaly, tracheal deviation, tracheostomy Respiratory exam: PRESENT: decreased breath sounds, prolonged expiratory phas, rhonchi, unlabored, wheezes. ABSENT: retraction Cardiovascular exam: PRESENT: RRR, +S1, +S2 Pulses: PRESENT: normal radial pulses GI/Abdominal exam: PRESENT: soft. ABSENT: tenderness Gentrourinary exam: PRESENT: indwelling catheter Extremities exam: ABSENT: calf tenderness, clubbing, joint swelling Musculoskeletal exam: ABSENT: ambulatory, deformity, dislocation Neurological exam: ABSENT: awake Skin exam: PRESENT: dry, warm Results Laboratory Results: 01/26/18 06:20 01/26/18 06:20 01/25/18 01/25/18 01/26/18 12:00 13:35 06:20 WBC RBC Hgb Hct MCV MCH MCHC RDW Plt Count Seg Neutrophils % Lymphocytes % Monocytes % Eosinophils % Basophils % Absolute Neutrophils Absolute Lymphocytes Absolute Monocytes Absolute Eosinophils Absolute Basophils Carbonic Acid 2.56 H 2.47 H 2.82 H HCO3/H2CO3 Ratio 15:1 15:1 13:1 ABG pH 7.28 L 7.30 L 7.24 L ABG pCO2 85.1 H* 82.0 H* 93.7 H* ABG pO2 112.6 H 62.8 L 82.5 ABG HCO3 39.4 H 39.4 H 39.3 H ABG O2 Saturation 97.3 88.5 L 93.5 L ABG Base Excess 9.0 9.3 7.5 FiO2 50% 30% 35% Sodium Potassium Chloride Carbon Dioxide Anion Gap BUN Creatinine Est GFR ( Amer) Est GFR (Non-Af Amer) Glucose Calcium 01/26/18 01/26/18 06:20 06:20 WBC 5.1 RBC 4.60 Hgb 14.9 Hct 45.7 MCV 99 H MCH 32.5 MCHC 32.7 RDW 17.0 H Plt Count 116 L Seg Neutrophils % 72.0 Lymphocytes % 14.8 Monocytes % 12.9 Eosinophils % 0.0 Basophils % 0.3 Absolute Neutrophils 3.6 Absolute Lymphocytes 0.7 Absolute Monocytes 0.7 Absolute Eosinophils 0.0 Absolute Basophils 0.0 Carbonic Acid HCO3/H2CO3 Ratio ABG pH ABG pCO2 ABG pO2 ABG HCO3 ABG O2 Saturation ABG Base Excess FiO2 Sodium 136.7 L Potassium 4.8 Chloride 96 L Carbon Dioxide 39 H Anion Gap 2 L BUN 15 Creatinine 0.73 Est GFR ( Amer) > 60 Est GFR (Non-Af Amer) > 60 Glucose 108 Calcium 8.5 01/22/18 01/22/18 01/22/18 15:08 15:08 21:50 Creatine Kinase 102 59 CK-MB (CK-2) 11.00 H Troponin I 0.080 01/22/18 01/23/18 01/23/18 21:50 04:45 04:45 Creatine Kinase 42 L CK-MB (CK-2) 7.71 H 6.42 H Troponin I 0.062 0.060 Impressions: Chest/Abdomen CTA 01/23/18 00:00 IMPRESSION: 1. No evidence of pulmonary embolus. 2. COPD. Right lower lobe airspace disease consistent with atelectasis or pneumonia. Clinical correlation is needed. Chest X-Ray 01/26/18 06:00 IMPRESSION: Interval extubation. Assessment & Plan - Diagnosis (1) Chronic obstructive pulmonary disease with acute exacerbation Is this a current diagnosis for this admission?: Yes Plan: improving (2) Acute and chronic respiratory failure Qualifiers: Respiratory failure complication: hypoxia and hypercapnia Qualified Code(s) : J96.21 - Acute and chronic respiratory failure with hypoxia; J96.22 - Acute and chronic respiratory failure with hypercapnia; J96.22 - Acute and chronic respiratory failure with hypercapnia; J96.22 - Acute and chronic respiratory failure with hypercapnia Is this a current diagnosis for this admission?: Yes Plan: Volume, respiratory rate, FiO2, airway pressures all suggest successful extubation will proceed with extubation to BiPAP (3) Pneumonia Qualifiers: Pneumonia type: due to unspecified organism Laterality: right Lung location: lower lobe of lung Qualified Code(s): J18.1 - Lobar pneumonia, unspecified organism Is this a current diagnosis for this admission?: Yes Plan: Empiric therapy for community-acquired pneumonia - Time Total Critical Time (Minutes): 45
--- NOTE | 2018-01-29 12:03 | PDOC PROGRESS REPORT ---
Subjective Progress Note for:: 01/27/18 Subjective:: is post extubation confused Reason For Visit: ACUTE ON CHRONIC RESPIRATORY FAILURE WITH HYPOXIA Physical Exam Vital Signs: Temp Pulse Resp BP Pulse Ox 97.3 F 78 19 135/90 H 100 01/27/18 08:00 01/27/18 08:00 01/27/18 08:00 01/27/18 08:00 01/27/18 08:00 Intake & Output 01/26/18 01/27/18 01/28/18 06:59 06:59 06:59 Intake Total 2185 1150 Output Total 4075 5600 150 Balance -1890 -4450 -150 Weight 90.8 kg 89.2 kg General appearance: PRESENT: no acute distress, disheveled Head exam: PRESENT: atraumatic, normocephalic Eye exam: PRESENT: conjunctiva pale, EOMI. ABSENT: nystagmus, periorbital swelling, scleral icterus Mouth exam: PRESENT: dry mucosa, neck supple, tongue midline Neck exam: ABSENT: carotid bruit, JVD, lymphadenopathy, thyromegaly, tracheal deviation, tracheostomy Respiratory exam: PRESENT: decreased breath sounds, prolonged expiratory phas, rales, rhonchi, unlabored, wheezes. ABSENT: retraction, stridor Cardiovascular exam: PRESENT: RRR, +S1, +S2, tachycardia Pulses: PRESENT: normal radial pulses GI/Abdominal exam: PRESENT: soft. ABSENT: tenderness Gentrourinary exam: PRESENT: indwelling catheter Extremities exam: ABSENT: calf tenderness, clubbing, joint swelling, tenderness Musculoskeletal exam: ABSENT: deformity, dislocation Neurological exam: PRESENT: altered, awake Psychiatric exam: PRESENT: anxious Skin exam: PRESENT: dry, warm Results Laboratory Results: 01/27/18 05:20 01/27/18 05:20 01/26/18 01/27/18 01/27/18 08:13 05:20 05:20 WBC 3.6 L RBC 4.09 L Hgb 13.3 L Hct 40.5 MCV 99 H MCH 32.6 MCHC 32.9 RDW 16.0 H Plt Count 118 L Seg Neutrophils % 69.7 Lymphocytes % 13.5 Monocytes % 16.0 H Eosinophils % 0.7 Basophils % 0.1 Absolute Neutrophils 2.5 Absolute Lymphocytes 0.5 Absolute Monocytes 0.6 Absolute Eosinophils 0.0 Absolute Basophils 0.0 Carbonic Acid 2.25 H HCO3/H2CO3 Ratio 17:1 ABG pH 7.34 L ABG pCO2 74.6 H* ABG pO2 144.5 H ABG HCO3 39.4 H ABG O2 Saturation 98.6 H ABG Base Excess 10.3 FiO2 35% Sodium 138.4 Potassium 4.2 Chloride 94 L Carbon Dioxide 42 H* Anion Gap 2 L BUN 13 Creatinine 0.67 Est GFR ( Amer) > 60 Est GFR (Non-Af Amer) > 60 Glucose 78 Calcium 8.5 Magnesium 1.5 L Total Bilirubin 0.5 AST 49 ALT 157 H Alkaline Phosphatase 69 Total Protein 4.4 L Albumin 2.3 L 01/27/18 05:34 WBC RBC Hgb Hct MCV MCH MCHC RDW Plt Count Seg Neutrophils % Lymphocytes % Monocytes % Eosinophils % Basophils % Absolute Neutrophils Absolute Lymphocytes Absolute Monocytes Absolute Eosinophils Absolute Basophils Carbonic Acid 2.71 H HCO3/H2CO3 Ratio 15:1 ABG pH 7.30 L ABG pCO2 89.9 H* ABG pO2 298.6 H ABG HCO3 43.1 H ABG O2 Saturation 99.6 H ABG Base Excess 12.4 FiO2 70% Sodium Potassium Chloride Carbon Dioxide Anion Gap BUN Creatinine Est GFR ( Amer) Est GFR (Non-Af Amer) Glucose Calcium Magnesium Total Bilirubin AST ALT Alkaline Phosphatase Total Protein Albumin 01/22/18 01/22/18 01/22/18 15:08 15:08 21:50 Creatine Kinase 102 59 CK-MB (CK-2) 11.00 H Troponin I 0.080 01/22/18 01/23/18 01/23/18 21:50 04:45 04:45 Creatine Kinase 42 L CK-MB (CK-2) 7.71 H 6.42 H Troponin I 0.062 0.060 Impressions: Chest/Abdomen CTA 01/23/18 00:00 IMPRESSION: 1. No evidence of pulmonary embolus. 2. COPD. Right lower lobe airspace disease consistent with atelectasis or pneumonia. Clinical correlation is needed. Chest X-Ray 01/27/18 06:00 IMPRESSION: No significant change compared to the prior exam. 2010 [employer]- All Rights Reserved Assessment & Plan - Diagnosis (1) Chronic obstructive pulmonary disease with acute exacerbation Is this a current diagnosis for this admission?: Yes Plan: PCO2 remains variable based on respiratory effort and FiO2 (2) Acute and chronic respiratory failure Qualifiers: Respiratory failure complication: hypoxia and hypercapnia Qualified Code(s) : J96.21 - Acute and chronic respiratory failure with hypoxia; J96.22 - Acute and chronic respiratory failure with hypercapnia; J96.22 - Acute and chronic respiratory failure with hypercapnia; J96.22 - Acute and chronic respiratory failure with hypercapnia Is this a current diagnosis for this admission?: Yes Plan: successful extubation x24h (3) Pneumonia Qualifiers: Pneumonia type: due to unspecified organism Laterality: right Lung location: lower lobe of lung Qualified Code(s): J18.1 - Lobar pneumonia, unspecified organism Is this a current diagnosis for this admission?: Yes Plan: Empiric therapy for community-acquired pneumonia - Time Total Critical Time (Minutes): 50
--- NOTE | 2018-01-29 12:06 | PDOC PROGRESS REPORT ---
Subjective Progress Note for:: 01/28/18 Subjective:: intubated slightly arousable Reason For Visit: ACUTE ON CHRONIC RESPIRATORY FAILURE WITH HYPOXIA Physical Exam Vital Signs: Temp Pulse Resp BP Pulse Ox 98.6 F 110 H 22 H 137/91 H 92 01/28/18 10:00 01/28/18 10:00 01/28/18 11:30 01/28/18 10:00 01/28/18 11:30 Intake & Output 01/27/18 01/28/18 01/29/18 06:59 06:59 06:59 Intake Total 1150 300 450 Output Total 5600 3405 1000 Balance -4450 -3105 -550 Weight 89.2 kg 91.2 kg General appearance: PRESENT: no acute distress, cooperative, disheveled, well- developed, well-nourished Head exam: PRESENT: atraumatic, normocephalic Eye exam: PRESENT: conjunctiva pale, EOMI. ABSENT: nystagmus, periorbital swelling, PERRLA Mouth exam: PRESENT: dry mucosa, neck supple, tongue midline Neck exam: ABSENT: carotid bruit, JVD, lymphadenopathy, thyromegaly, tracheal deviation, tracheostomy Respiratory exam: PRESENT: decreased breath sounds, prolonged expiratory phas, rhonchi, unlabored, wheezes. ABSENT: retraction, stridor Cardiovascular exam: PRESENT: RRR, +S1, +S2 Pulses: PRESENT: normal radial pulses GI/Abdominal exam: PRESENT: soft. ABSENT: tenderness Gentrourinary exam: PRESENT: indwelling catheter Extremities exam: ABSENT: calf tenderness, clubbing, joint swelling Musculoskeletal exam: ABSENT: deformity, dislocation Neurological exam: PRESENT: awake, oriented to person, oriented to place Psychiatric exam: PRESENT: anxious Skin exam: PRESENT: dry, warm Results Laboratory Results: 01/28/18 05:18 01/28/18 04:48 01/27/18 01/28/18 01/28/18 13:05 04:48 04:48 WBC RBC Hgb Hct MCV MCH MCHC RDW Plt Count Seg Neutrophils % Lymphocytes % Monocytes % Eosinophils % Basophils % Absolute Neutrophils Absolute Lymphocytes Absolute Monocytes Absolute Eosinophils Absolute Basophils Carbonic Acid 2.37 H 2.76 H HCO3/H2CO3 Ratio 17:1 16:1 ABG pH 7.34 L 7.33 L ABG pCO2 78.6 H* 91.8 H* ABG pO2 73.2 L 70.1 L ABG HCO3 41.8 H 46.9 H ABG O2 Saturation 93.2 L 91.6 L ABG Base Excess 12.2 16.1 FiO2 35% 35% Sodium 135.7 L Potassium 3.8 Chloride 90 L Carbon Dioxide 42 H* Anion Gap 4 L BUN 10 Creatinine 0.48 L Est GFR ( Amer) > 60 Est GFR (Non-Af Amer) > 60 Glucose 69 L Calcium 8.1 L Magnesium 1.4 L 01/28/18 05:18 WBC 4.1 RBC 4.01 L Hgb 13.2 L Hct 39.3 MCV 98 H MCH 33.0 MCHC 33.6 RDW 16.3 H Plt Count 114 L Seg Neutrophils % 68.6 Lymphocytes % 13.3 Monocytes % 16.9 H Eosinophils % 0.9 Basophils % 0.3 Absolute Neutrophils 2.8 Absolute Lymphocytes 0.5 Absolute Monocytes 0.7 Absolute Eosinophils 0.0 Absolute Basophils 0.0 Carbonic Acid HCO3/H2CO3 Ratio ABG pH ABG pCO2 ABG pO2 ABG HCO3 ABG O2 Saturation ABG Base Excess FiO2 Sodium Potassium Chloride Carbon Dioxide Anion Gap BUN Creatinine Est GFR ( Amer) Est GFR (Non-Af Amer) Glucose Calcium Magnesium 01/22/18 15:08 Blood Blood Culture - Final NO GROWTH IN 5 DAYS 01/22/18 01/22/18 01/22/18 15:08 15:08 21:50 Creatine Kinase 102 59 CK-MB (CK-2) 11.00 H Troponin I 0.080 01/22/18 01/23/18 01/23/18 21:50 04:45 04:45 Creatine Kinase 42 L CK-MB (CK-2) 7.71 H 6.42 H Troponin I 0.062 0.060 Impressions: Chest/Abdomen CTA 01/23/18 00:00 IMPRESSION: 1. No evidence of pulmonary embolus. 2. COPD. Right lower lobe airspace disease consistent with atelectasis or pneumonia. Clinical correlation is needed. Chest X-Ray 01/28/18 06:00 IMPRESSION: Emphysematous lungs with right basilar interstitial opacities, similar to the prior 2010 [employer]- All Rights Reserved Assessment & Plan - Diagnosis (1) Chronic obstructive pulmonary disease with acute exacerbation Is this a current diagnosis for this admission?: Yes Plan: improving slowly (2) Acute and chronic respiratory failure Qualifiers: Respiratory failure complication: hypoxia and hypercapnia Qualified Code(s) : J96.21 - Acute and chronic respiratory failure with hypoxia; J96.22 - Acute and chronic respiratory failure with hypercapnia; J96.22 - Acute and chronic respiratory failure with hypercapnia; J96.22 - Acute and chronic respiratory failure with hypercapnia Is this a current diagnosis for this admission?: Yes Plan: Variable PCO2 and FiO2 requirements (3) Pneumonia Qualifiers: Pneumonia type: due to unspecified organism Laterality: right Lung location: lower lobe of lung Qualified Code(s): J18.1 - Lobar pneumonia, unspecified organism Is this a current diagnosis for this admission?: Yes Plan: Empiric therapy for community-acquired pneumonia - Time Total Critical Time (Minutes): 45
--- NOTE | 2018-01-29 12:08 | PDOC PROGRESS REPORT ---
Subjective Progress Note for:: 01/29/18 Subjective:: 4 less confused may be at or near his baseline Reason For Visit: ACUTE ON CHRONIC RESPIRATORY FAILURE WITH HYPOXIA Physical Exam Vital Signs: Temp Pulse Resp BP Pulse Ox 98.8 F 83 21 H 128/79 H 94 01/29/18 05:17 01/29/18 05:17 01/29/18 06:18 01/29/18 06:19 01/29/18 06:19 Intake & Output 01/28/18 01/29/18 01/30/18 06:59 06:59 06:59 Intake Total 300 1950 Output Total 3405 2070 Balance -3100 -1520 Weight 91.2 kg 85 kg General appearance: PRESENT: no acute distress, cooperative, disheveled, well- developed, well-nourished Head exam: PRESENT: atraumatic, normocephalic Eye exam: PRESENT: conjunctiva pale, EOMI. ABSENT: nystagmus, periorbital swelling, scleral icterus Mouth exam: PRESENT: moist, neck supple, tongue midline Neck exam: ABSENT: carotid bruit, JVD, lymphadenopathy, thyromegaly, tracheal deviation Respiratory exam: PRESENT: crackles, decreased breath sounds, prolonged expiratory phas, rhonchi, unlabored, wheezes. ABSENT: retraction, stridor Cardiovascular exam: PRESENT: RRR, +S1, +S2, tachycardia Pulses: PRESENT: normal radial pulses GI/Abdominal exam: PRESENT: soft. ABSENT: tenderness Gentrourinary exam: PRESENT: indwelling catheter Extremities exam: ABSENT: calf tenderness, clubbing, joint swelling Musculoskeletal exam: ABSENT: deformity, dislocation Neurological exam: PRESENT: awake Psychiatric exam: PRESENT: anxious Skin exam: PRESENT: dry, warm Results Laboratory Results: 01/29/18 04:50 01/29/18 04:50 01/28/18 01/29/18 01/29/18 13:30 04:50 04:50 WBC RBC Hgb Hct MCV MCH MCHC RDW Plt Count Seg Neutrophils % Lymphocytes % Monocytes % Eosinophils % Basophils % Absolute Neutrophils Absolute Lymphocytes Absolute Monocytes Absolute Eosinophils Absolute Basophils Carbonic Acid 2.59 H 2.48 H HCO3/H2CO3 Ratio 17:1 19:1 ABG pH 7.34 L 7.40 ABG pCO2 86.2 H* 82.3 H* ABG pO2 53.6 L 80.0 ABG HCO3 45.0 H 49.3 H ABG O2 Saturation 83.7 L 95.1 ABG Base Excess 14.7 19.7 FiO2 30% 30% Sodium 136.7 L Potassium 3.8 Chloride 88 L Carbon Dioxide 48 H* Anion Gap 1 L BUN 7 Creatinine 0.45 L Est GFR ( Amer) > 60 Est GFR (Non-Af Amer) > 60 Glucose 81 Calcium 8.1 L Magnesium 1.7 01/29/18 04:50 WBC 4.0 RBC 4.00 L Hgb 13.1 L Hct 39.4 MCV 99 H MCH 32.8 MCHC 33.3 RDW 15.6 H Plt Count 128 L Seg Neutrophils % 67.8 Lymphocytes % 13.7 Monocytes % 17.6 H Eosinophils % 0.7 Basophils % 0.2 Absolute Neutrophils 2.7 Absolute Lymphocytes 0.6 Absolute Monocytes 0.7 Absolute Eosinophils 0.0 Absolute Basophils 0.0 Carbonic Acid HCO3/H2CO3 Ratio ABG pH ABG pCO2 ABG pO2 ABG HCO3 ABG O2 Saturation ABG Base Excess FiO2 Sodium Potassium Chloride Carbon Dioxide Anion Gap BUN Creatinine Est GFR ( Amer) Est GFR (Non-Af Amer) Glucose Calcium Magnesium 01/22/18 01/22/18 01/22/18 15:08 15:08 21:50 Creatine Kinase 102 59 CK-MB (CK-2) 11.00 H Troponin I 0.080 01/22/18 01/23/18 01/23/18 21:50 04:45 04:45 Creatine Kinase 42 L CK-MB (CK-2) 7.71 H 6.42 H Troponin I 0.062 0.060 Impressions: Chest/Abdomen CTA 01/23/18 00:00 IMPRESSION: 1. No evidence of pulmonary embolus. 2. COPD. Right lower lobe airspace disease consistent with atelectasis or pneumonia. Clinical correlation is needed. Chest X-Ray 01/29/18 06:00 IMPRESSION: No significant change. Assessment & Plan - Diagnosis (1) Chronic obstructive pulmonary disease with acute exacerbation Is this a current diagnosis for this admission?: Yes Plan: improving slowly (2) Acute and chronic respiratory failure Qualifiers: Respiratory failure complication: hypoxia and hypercapnia Qualified Code(s) : J96.21 - Acute and chronic respiratory failure with hypoxia; J96.22 - Acute and chronic respiratory failure with hypercapnia; J96.22 - Acute and chronic respiratory failure with hypercapnia; J96.22 - Acute and chronic respiratory failure with hypercapnia Is this a current diagnosis for this admission?: Yes Plan: Variable PCO2 and FiO2 requirements (3) Pneumonia Qualifiers: Pneumonia type: due to unspecified organism Laterality: right Lung location: lower lobe of lung Qualified Code(s): J18.1 - Lobar pneumonia, unspecified organism Is this a current diagnosis for this admission?: Yes Plan: Empiric therapy for community-acquired pneumonia - Time Total Critical Time (Minutes): 40
--- NOTE | 2018-01-29 13:27 | PDOC PROGRESS REPORT ---
Subjective Progress Note for:: 01/29/18 Subjective:: Patient has been off the vent for 48 hours. Had difficulty with his BiPAP night. CO2 is risen into the 80s. Patient still alert responsive to questions. Patient's PaO2 in excess of 200 contributing to worsening of his hypercapnia. Patient has completed his Levaquin for his right lower lobe pneumonia. Sitting in chair conversive on O2 nasal cannula able to eat. Is awake and alert. Showing slow gradual improvement. Reason For Visit: ACUTE ON CHRONIC RESPIRATORY FAILURE WITH HYPOXIA Physical Exam Vital Signs: Temp Pulse Resp BP Pulse Ox 98.8 F 81 20 115/71 100 01/29/18 05:17 01/29/18 08:13 01/29/18 10:18 01/29/18 10:18 01/29/18 10:18 Intake & Output 01/28/18 01/29/18 01/30/18 06:59 06:59 06:59 Intake Total 300 1950 Output Total 3405 3470 800 Balance -3105 -1520 -800 Weight 91.2 kg 85 kg General appearance: PRESENT: no acute distress, well-developed, well-nourished Eye exam: PRESENT: conjunctiva pink, EOMI, PERRLA. ABSENT: scleral icterus Neck exam: ABSENT: carotid bruit, JVD, lymphadenopathy, thyromegaly Respiratory exam: PRESENT: clear to auscultation kevon, decreased breath sounds. ABSENT: rales, rhonchi, wheezes Cardiovascular exam: PRESENT: RRR. ABSENT: diastolic murmur, rubs, systolic murmur GI/Abdominal exam: PRESENT: normal bowel sounds, soft. ABSENT: distended, guarding, mass, organolmegaly, rebound, tenderness Extremities exam: PRESENT: full ROM. ABSENT: calf tenderness, clubbing, pedal edema Results Laboratory Results: 01/29/18 04:50 01/29/18 04:50 01/28/18 01/29/18 01/29/18 13:30 04:50 04:50 WBC RBC Hgb Hct MCV MCH MCHC RDW Plt Count Seg Neutrophils % Lymphocytes % Monocytes % Eosinophils % Basophils % Absolute Neutrophils Absolute Lymphocytes Absolute Monocytes Absolute Eosinophils Absolute Basophils Carbonic Acid 2.59 H 2.48 H HCO3/H2CO3 Ratio 17:1 19:1 ABG pH 7.34 L 7.40 ABG pCO2 86.2 H* 82.3 H* ABG pO2 53.6 L 80.0 ABG HCO3 45.0 H 49.3 H ABG O2 Saturation 83.7 L 95.1 ABG Base Excess 14.7 19.7 FiO2 30% 30% Sodium 136.7 L Potassium 3.8 Chloride 88 L Carbon Dioxide 48 H* Anion Gap 1 L BUN 7 Creatinine 0.45 L Est GFR ( Amer) > 60 Est GFR (Non-Af Amer) > 60 Glucose 81 Calcium 8.1 L Magnesium 1.7 01/29/18 04:50 WBC 4.0 RBC 4.00 L Hgb 13.1 L Hct 39.4 MCV 99 H MCH 32.8 MCHC 33.3 RDW 15.6 H Plt Count 128 L Seg Neutrophils % 67.8 Lymphocytes % 13.7 Monocytes % 17.6 H Eosinophils % 0.7 Basophils % 0.2 Absolute Neutrophils 2.7 Absolute Lymphocytes 0.6 Absolute Monocytes 0.7 Absolute Eosinophils 0.0 Absolute Basophils 0.0 Carbonic Acid HCO3/H2CO3 Ratio ABG pH ABG pCO2 ABG pO2 ABG HCO3 ABG O2 Saturation ABG Base Excess FiO2 Sodium Potassium Chloride Carbon Dioxide Anion Gap BUN Creatinine Est GFR ( Amer) Est GFR (Non-Af Amer) Glucose Calcium Magnesium 01/22/18 01/22/18 01/22/18 15:08 15:08 21:50 Creatine Kinase 102 59 CK-MB (CK-2) 11.00 H Troponin I 0.080 01/22/18 01/23/18 01/23/18 21:50 04:45 04:45 Creatine Kinase 42 L CK-MB (CK-2) 7.71 H 6.42 H Troponin I 0.062 0.060 Impressions: Chest/Abdomen CTA 01/23/18 00:00 IMPRESSION: 1. No evidence of pulmonary embolus. 2. COPD. Right lower lobe airspace disease consistent with atelectasis or pneumonia. Clinical correlation is needed. Chest X-Ray 01/29/18 06:00 IMPRESSION: No significant change. Assessment & Plan - Diagnosis (1) Acute on chronic respiratory failure with hypoxia and hypercapnia Is this a current diagnosis for this admission?: Yes Plan: Persistent hypercapnia in the high 90s. This appears to be patient's baseline however he is unable to come off the BiPAP. Maintain on BiPAP for the present. Given the deteriorated state of patient's pulmonary status he may require tracheotomy and long-term ventilation if he is unable to wean from the BiPAP. At this point patient can be transferred to a telemetry bed. He can be on nasal cannula when ambulating and eating if resting or sleeping needs to be on BiPAP. (2) Chronic obstructive pulmonary disease with acute exacerbation Is this a current diagnosis for this admission?: Yes Plan: Oxygen dependent and extremely noncompliant and continues to smoke although now says he will no longer smoke.. Overall poor prognosis (3) DVT (deep venous thrombosis) Qualifiers: Affected thrombotic vein of extremity: femoral Laterality: left Is this a current diagnosis for this admission?: Yes Plan: DVT ruled out as well as PE patient on prophylactic Lovenox Eliquis has been discontinued. (4) Pneumonia Qualifiers: Pneumonia type: due to unspecified organism Laterality: right Lung location: lower lobe of lung Qualified Code(s): J18.1 - Lobar pneumonia, unspecified organism Is this a current diagnosis for this admission?: Yes Plan: Completed 7-day course of Levaquin (5) Tobacco abuse Is this a current diagnosis for this admission?: Yes Plan: Patient states he has quit smoking (6) Pulmonary hypertension Is this a current diagnosis for this admission?: Yes - Time Time Spent with patient: 25-34 minutes
[2018-01-29] MEDS: ALBUTEROL SULFATE 0.083% NEB 2.5 MG/3 ML AMPUL NEB PRN (20:08)
[2018-01-30 06:08] LABS: HEMATOCRIT 37.4 % (37.9-51.0); HEMOGLOBIN 12.5 g/dL (13.5-17.0); MEAN CORPUSCULAR HGB CONC 33.5 g/dL (32.0-36.0); MEAN CORPUSCULAR VOLUME 99 fl (80-97); PLATELET COUNT 149 10^3/uL (150-450); RED CELL DISTRIBUTION WIDTH 16.1 % (11.5-14.0); WHITE BLOOD COUNT 4.7 10^3/uL (4.0-10.5)
[2018-01-30 06:25] LABS: BLOOD UREA NITROGEN 9 mg/dL (7-20); CALCIUM 7.9 mg/dL (8.4-10.2); GLUCOSE 79 mg/dL (75-110)
[2018-01-30 06:29] LABS: ABSOLUTE LYMPHOCYTES# (MANUAL) 0.6 10^3/uL (0.5-4.7); ABSOLUTE MONOCYTES # (MANUAL) 1.1 10^3/uL (0.1-1.4); ABSOLUTE NEUTROPHILS# (MANUAL) 2.9 10^3/uL (1.7-8.2); BASOPHILS % (MANUAL) 0 % (0-2); EOSINOPHILS % (MANUAL) 1 % (0-6); LYMPHOCYTES % (MANUAL) 10 % (13-45); MONOCYTES % (MANUAL) 24 % (3-13); SEGMENTED NEUTROPHILS % (MAN) 62 % (42-78); TOTAL CELLS COUNTED 100
[2018-01-30 06:30] LABS: ANISOCYTOSIS SLIGHT; PLATELET CLUMPS PRESENT; PLATELET COMMENT DECREASED; POIKILOCYTOSIS 1+; STOMATOCYTES 1+
[2018-01-30 06:39] LABS: ARTERIAL BLOOD BASE EXCESS 21.5 mmol/L; ARTERIAL BLOOD H2CO3 3.06 mmol/L (1.05-1.35); ARTERIAL BLOOD O2 SATURATION 91.6 % (94-98); ARTERIAL BLOOD PH 7.33 (7.35-7.45); ARTERIAL BLOOD PO2 70.5 mmHg (80-100); ARTERIAL BLOOD TOTAL CO2 56.1 mmol/L (23-27)
[2018-01-30 06:45] LABS: ARTERIAL BLOOD FIO2 40%; ARTERIAL BLOOD PCO2 101.8 mmHg (35-45)
[2018-01-30 07:07] LABS: CHLORIDE 85 mmol/L (98-107); POTASSIUM 3.8 mmol/L (3.6-5.0); SODIUM 136.6 mmol/L (137-145)
[2018-01-30 07:16] LABS: ANION GAP 2 (5-19)
[2018-01-30 07:17] LABS: CARBON DIOXIDE 50 mmol/L (22-30)
[2018-01-30] MEDS: BUDESONIDE NEB 0.5 MG/2 ML AMPUL NEB SCH ×2 (07:38→20:28)
[2018-01-30] MEDS: ACETYLCYSTEINE 20% SOLN 800 MG/4 ML VIAL.NEB NEB SCH ×2 (07:38→20:28)
[2018-01-30] MEDS: IPRATROPIUM BROMIDE 0.02% NEB 0.5 MG/2.5 ML AMPUL NEB SCH ×2 (07:39→16:02)
[2018-01-30] MEDS: LEVALBUTEROL HCL NEB 1.25 MG/3 ML AMPUL NEB SCH ×2 (07:39→16:02)
[2018-01-30] MEDS: ENOXAPARIN SODIUM INJ 40 MG/0.4 ML DISP.SYRIN SUBCUT SCH (09:30)
[2018-01-30] MEDS: MONTELUKAST SODIUM 10 MG TABLET PO SCH (09:30)
--- NOTE | 2018-01-30 09:56 | RADIOLOGY REPORT (SQ) ---
EXAM DESCRIPTION: CHEST SINGLE VIEW COMPLETED DATE/TIME: 01/30/2018 9:45 am REASON FOR STUDY: resp failure COMPARISON: 01/29/2018 EXAM PARAMETERS: NUMBER OF VIEWS: One view. TECHNIQUE: Single frontal radiographic view of the chest acquired. RADIATION DOSE: NA LIMITATIONS: None. FINDINGS: LUNGS AND PLEURA: Bibasilar airspace disease remains. The effusions are slightly smaller. Right-sided central line remains in place. The lung esteban remain hyperexpanded. MEDIASTINUM AND HILAR STRUCTURES: No masses. Contour normal. HEART AND VASCULAR STRUCTURES: Heart normal in size. Normal vasculature. BONES: No acute findings. HARDWARE: None in the chest. OTHER: No other significant finding. IMPRESSION: Bibasilar airspace disease consistent with pneumonia. Effusions are slightly smaller wh en compared to prior study. TECHNICAL DOCUMENTATION: JOB ID: [id number] [employer]- All Rights Reserved Reading location - IP/workstation name: [email or web address]
[2018-01-30] MEDS: TRAMADOL HCL 50 MG TABLET PO PRN ×2 (10:56→18:09)
--- NOTE | 2018-01-30 11:08 | PDOC PROGRESS REPORT ---
Subjective Progress Note for:: 01/30/18 Subjective:: CURT LYNN is a 48-year-old male who presented to the emergency department with respiratory distress worsening over the last 24 hours. All history was provided by ERP, EMS and the patient's father. EMS found Curt with altered mental status, and severe hypoxic (pulse ox of 73%) respiratory distress when they were summoned to his father's homethis morning. EMS also noted a markedly increased work of breathing, cyanosis and use of accessory muscles. EMS gave the patient 2 albuterol treatments which provided modest transient relief of his respiratory distress prior to placing him on CPAP with a pressure of 8. Despite this treatment the patient's O2 sat would not rise above 88% and therefore they increased his CPAP pressure to 10 and administered 125 mg of Solu -Medrol IV while they were in route to the emergency room. Mr. Lynn has a history of severe COPD and has recently moved from [place] to [facility] where he lives with his father. His father admits numerous similar episodes requiring hospitalization for chronic obstructive pulmonary disease exacerbations in the past. Additionally Curt did not bring any of his medication with him and has no oxygen for use at his current residence according to information provided by his father. Mr. Lynn is intubated and on a ventilator at the time of my evaluation and subsequently cannot provide any historical information. His father is able to provide only limited information about Curt's medical history. Upon arrival in the emergency room patient was noted to be in severe respiratory distress and was still not responding well to CPAP at the pressure of 10. The emergency room made the decision to intubate and ventilate the patient based on his poor response to CPAP therapy. After intubation and has been of ventilatory support the patient was turned over to the hospitalist service for further care in the ICU. 01/22/18: I personally reviewed the patient's EKG and it shows a normal sinus rhythm with a right bundle branch block. I have also personally reviewed the patient's chest x-ray which shows hyperinflation of the bilateral lung esteban with a normal-sized cardiac shadow however there is some prominence of the right ventricle, which may be due to positional/rotational distortion. No acute cardiopulmonary disease is identified. Patient is admitted to the intensive care unit where he will be continued on ventilatory support. Pulmonology consultation is obtained with Dr. Desuyo. I have ordered propofol and midazolam for intravenous administration to maintain the patient's sedation on the ventilator. Additionally I have ordered IV fentanyl 100 mcg every 4 hours as needed agitation or anxiety that would be reflective of some breakthrough pain or discomfort. IV Solu-Medrol, scheduled albuterol and ipratropium nebulizers and as needed albuterol nebulizers are ordered as part of an aggressive pulmonary toilet. Budesonide will be given every 12 hours via nebulizer and he will be started on empiric antibiotic therapy utilizing Levaquin 750 mg daily. Daily chest x-rays, VBGs, CBCs, serum magnesium and BMPs have been ordered for ongoing monitoring of the patient's condition. Maintenance IV fluids, VT E prophylaxis and GI prophylaxis orders have been placed by myself. 01/30/18: In the interim Mr. Lynn has been progressing well and was taken off of the ventilator 3 days ago. However this morning his PCO2 dramatically onel from his usual level of approximately 80 up to 102 and he became symptomatic with confusion and combativeness. He was refusing to wear his BiPAP and was being somewhat verbally abusive to the nursing staff. Additionally he complains of his chronic back pain is considerably worse today and he wants some narcotic medicine for it. He is advised that due to his respiratory difficulty treatment with narcotic medications at this time would be somewhat risky and unwarranted however other analgesics and treatments for pain will be provided. I have again personally reviewed the patient's chest x-rays and have noted that the hyperinflation of the bilateral lung esteban persists as does the possible bibasilar infiltrates. Because of his significant clinical change he was transferred back to the ICU as a precautionary measure where the staff is much more likely to be able to provide the attention to his BiPAP setting adjustments to achieve the desired O2 sat of 90-95% which should yield a PCO2 level between 75 and 85. Patient is advised to continue using his BiPAP as directed by the nursing staff and respiratory therapy. I have ordered daily lab work to include a CBC, BMP, venous blood gas and magnesium level. He will be continued on his aggressive nebulizer therapeutic regiment and monitored closely. He will be continued on his current orders for deep venous thrombosis prophylaxis and gastrointestinal prophylaxis as well as daily chest x-rays. Reason For Visit: ACUTE ON CHRONIC RESPIRATORY FAILURE WITH HYPOXIA Physical Exam Vital Signs: Temp Pulse Resp BP Pulse Ox 97.6 F 81 20 127/72 H 99 01/30/18 08:53 01/30/18 08:53 01/30/18 09:58 01/30/18 08:53 01/30/18 09:58 Intake & Output 01/28/18 01/29/18 01/30/18 23:59 23:59 23:59 Intake Total 1750 1105 340 Output Total 3320 1625 600 Balance -1570 -520 -260 Weight 91.2 kg 85 kg 84.2 kg General appearance: PRESENT: cooperative, mild distress - Respiratory distress Head exam: PRESENT: atraumatic, normocephalic Eye exam: ABSENT: conjunctival injection, scleral icterus Ear exam: PRESENT: normal external ear exam. ABSENT: drainage Mouth exam: PRESENT: moist, tongue midline Neck exam: ABSENT: thyromegaly, tracheal deviation Respiratory exam: PRESENT: prolonged expiratory phas - Moderate to severely prolonged expiratory phase, symmetrical, wheezes - Minimal end expiratory wheezes noted Cardiovascular exam: PRESENT: RRR. ABSENT: clicks, gallop, rubs Vascular exam: PRESENT: normal capillary refill. ABSENT: pallor GI/Abdominal exam: PRESENT: normal bowel sounds, soft Rectal exam: PRESENT: deferred Extremities exam: ABSENT: joint swelling, pedal edema Musculoskeletal exam: ABSENT: deformity, dislocation Neurological exam: PRESENT: alert, awake, oriented to person, oriented to place , oriented to time, oriented to situation. ABSENT: motor sensory deficit Psychiatric exam: PRESENT: agitated - Mildly agitated and slightly confused, other - Mildly to moderately hostile mood Skin exam: ABSENT: jaundice, rash, urticaria Results Laboratory Results: 01/30/18 05:28 01/30/18 05:28 01/30/18 01/30/18 01/30/18 05:28 05:28 06:20 WBC 4.7 RBC 3.80 L Hgb 12.5 L Hct 37.4 L MCV 99 H MCH 33.0 MCHC 33.5 RDW 16.1 H Plt Count 149 L Seg Neutrophils % Not Reportable Lymphocytes % Not Reportable Monocytes % Not Reportable Eosinophils % Not Reportable Basophils % Not Reportable Absolute Neutrophils Not Reportable Absolute Lymphocytes Not Reportable Absolute Monocytes Not Reportable Absolute Eosinophils Not Reportable Absolute Basophils Not Reportable Carbonic Acid 3.06 H HCO3/H2CO3 Ratio 17:1 ABG pH 7.33 L ABG pCO2 101.8 H* ABG pO2 70.5 L ABG HCO3 53.0 H ABG O2 Saturation 91.6 L ABG Base Excess 21.5 FiO2 40% Sodium 136.6 L Potassium 3.8 Chloride 85 L Carbon Dioxide 50 H* Anion Gap 2 L BUN 9 Creatinine 0.37 L Est GFR ( Amer) > 60 Est GFR (Non-Af Amer) > 60 Glucose 79 Calcium 7.9 L Magnesium 1.5 L 01/22/18 01/22/18 01/22/18 15:08 15:08 21:50 Creatine Kinase 102 59 CK-MB (CK-2) 11.00 H Troponin I 0.080 01/22/18 01/23/18 01/23/18 21:50 04:45 04:45 Creatine Kinase 42 L CK-MB (CK-2) 7.71 H 6.42 H Troponin I 0.062 0.060 Impressions: Chest/Abdomen CTA 01/23/18 00:00 IMPRESSION: 1. No evidence of pulmonary embolus. 2. COPD. Right lower lobe airspace disease consistent with atelectasis or pneumonia. Clinical correlation is needed. Chest X-Ray 01/30/18 06:00 IMPRESSION: Bibasilar airspace disease consistent with pneumonia. Effusions are slightly smaller when compared to prior study. Assessment & Plan - Diagnosis (1) Acute and chronic respiratory failure Qualifiers: Respiratory failure complication: hypoxia and hypercapnia Qualified Code(s) : J96.21 - Acute and chronic respiratory failure with hypoxia; J96.22 - Acute and chronic respiratory failure with hypercapnia; J96.22 - Acute and chronic respiratory failure with hypercapnia; J96.22 - Acute and chronic respiratory failure with hypercapnia Is this a current diagnosis for this admission?: Yes Plan: Mr. Lynn is admitted to the ICU. He was placed on mechanical ventilation in the emergency room and this is continued in the ICU however his FiO2 will be decreased to 40% by my order because his PO2 on his last blood gas at an FiO2 of 60% was 179 He is placed on aggressive pulmonary toilet utilizing Xopenex, Atrovent, Pulmicort, Mucomyst and as needed albuterol nebulizer treatments. He is started on scheduled Solu-Medrol 40 mg IV every 6 hours I have ordered intravenous propofol and midazolam infusions for sedation while he is ventilated and I have also included fentanyl 100 mcg IV push every 4 hours as needed agitation or apparent pain. Daily chest x-rays, CBCs, BMPs, VBG's/ABGs have been ordered to monitor therapy. 01/30/18: Mr. Dean was transferred back to the ICU where his BiPAP will be adjusted to decrease his FiO2 and maintain a oxygen saturation of 90-95%. His arterial blood gases will be reevaluated @1800. He will have a chest x-ray daily as well as daily labs of complete blood count, basic metabolic profile, venous blood gases and a magnesium level. (2) Chronic obstructive pulmonary disease with acute exacerbation Is this a current diagnosis for this admission?: Yes Plan: Intensive pulmonary toilet and IV steroids will be used as outlined in problem # 1. Patient will be empirically treated with Levaquin 750 mg IV daily to cover any community-acquired potential infectious etiology. 02/01/18: Patient will be continued with his BiPAP therapy with reduction in FiO2 to maintain an O2 sat of 90-95%. Singulair has been added to his regimen in hopes of reducing any inflammatory component but may be impeding his recovery. He will be continued on his nebulizer therapy regiment and receive further therapy as required. (3) Congestive heart failure Qualifiers: Heart failure type: unspecified Heart failure chronicity: chronic Qualified Code(s): I50.9 - Heart failure, unspecified Is this a current diagnosis for this admission?: Yes Plan: The patient does have a history of congestive heart failure and is noted to have bilateral pretibial edema however this will be observed for any clinical change and due to his severe pulmonary problem and his requirement for mechanical ventilation at this time his cardiac status will need to be evaluated on an ongoing basis. Medical treatment for his congestive heart failure will be reinstituted after reviewing the results of the echocardiogram done on 01/24/2018 which also demonstrated significant right heart ventricular hypertrophy and pulmonary hypertension. A BNP is ordered for the morning. Therapy will be initiated utilizing metoprolol XL 25 mg p.o. daily, lisinopril 10 mg p.o. daily, atorvastatin 20 mg p.o. daily and spironolactone 12.5 mg p.o. daily. (4) Hypotension Qualifiers: Hypotension type: unspecified hypotension type Qualified Code(s): I95.9 - Hypotension, unspecified Is this a current diagnosis for this admission?: Yes Plan: Patient was somewhat hypotensive in the emergency room after he shortly after he arrived and was intubated. The hypotension was transient and resolved with a brief treatment with Levophed and therefore was felt to be most likely due to a combination of hypovolemia and medications administered for sedation/ paralysis needed for endotracheal intubation. Patient's blood pressure be monitored closely throughout the remainder of his hospital course, especially the period of time in which he is on ventilatory support. 01/30/18: Mr. Lynn has had no difficulty with hypotension since his initial hospitalization when he suffered a transitive. Of hypertension due to hypovolemia and excessive sedation. - Time Time Spent with patient: 35 or more minutes Medications reviewed and adjusted accordingly: Yes
[2018-01-30] MEDS ORDERED: SPIRONOLACTONE 25 MG TABLET PO SCH (11:15)
[2018-01-30] MEDS ORDERED: LISINOPRIL 10 MG TABLET PO SCH (11:15)
[2018-01-30] MEDS ORDERED: METOPROLOL SUCCINATE 25 MG TAB.SR.24H PO SCH (11:15)
[2018-01-30] MEDS ORDERED: MAGNESIUM SULFATE/D5W 1 GM/100 ML RTUPB IV ONE (12:30)
[2018-01-30] MEDS: ALBUTEROL SULFATE 0.083% NEB 2.5 MG/3 ML AMPUL NEB PRN (20:28)
[2018-01-30] MEDS ORDERED: ATORVASTATIN CALCIUM 20 MG TABLET PO SCH (22:00)
[2018-01-31] MEDS: IPRATROPIUM BROMIDE 0.02% NEB 0.5 MG/2.5 ML AMPUL NEB SCH ×4 (00:36→23:54)
[2018-01-31] MEDS: LEVALBUTEROL HCL NEB 1.25 MG/3 ML AMPUL NEB SCH ×4 (00:36→23:54)
[2018-01-31] MEDS: TRAMADOL HCL 50 MG TABLET PO PRN ×3 (01:05→22:26)
[2018-01-31 04:30] LABS: HEMATOCRIT 37.8 % (37.9-51.0); HEMOGLOBIN 12.6 g/dL (13.5-17.0); MEAN CORPUSCULAR HEMOGLOBIN 32.8 pg (27.0-33.4); MEAN CORPUSCULAR HGB CONC 33.4 g/dL (32.0-36.0); MEAN CORPUSCULAR VOLUME 98 fl (80-97); PLATELET COUNT 156 10^3/uL (150-450); RED BLOOD COUNT 3.85 10^6/uL (4.35-5.55); RED CELL DISTRIBUTION WIDTH 15.8 % (11.5-14.0); VENOUS BLOOD HCO3 50.7 mmol/L (20-32); VENOUS BLOOD PH 7.35 (7.30-7.42); WHITE BLOOD COUNT 4.7 10^3/uL (4.0-10.5)
[2018-01-31 04:31] LABS: VENOUS BLOOD PCO2 93.3 mmHg (35-63)
[2018-01-31 04:51] LABS: BLOOD UREA NITROGEN 10 mg/dL (7-20); CHLORIDE 88 mmol/L (98-107); GLUCOSE 97 mg/dL (75-110); POTASSIUM 4.3 mmol/L (3.6-5.0); SODIUM 135.5 mmol/L (137-145)
[2018-01-31 05:26] LABS: ANION GAP 3 (5-19)
[2018-01-31 05:27] LABS: CARBON DIOXIDE 45 mmol/L (22-30)
[2018-01-31 06:35] LABS: ARTERIAL BLOOD BASE EXCESS 18.2 mmol/L; ARTERIAL BLOOD FIO2 30%; ARTERIAL BLOOD HCO3 48.2 mmol/L (20-24); ARTERIAL BLOOD O2 SATURATION 91.9 % (94-98); ARTERIAL BLOOD PH 7.36 (7.35-7.45); ARTERIAL BLOOD PO2 68.4 mmHg (80-100); ARTERIAL BLOOD TOTAL CO2 50.9 mmol/L (23-27)
[2018-01-31 06:36] LABS: ARTERIAL BLOOD PCO2 86.5 mmHg (35-45)
[2018-01-31] MEDS: BUDESONIDE NEB 0.5 MG/2 ML AMPUL NEB SCH ×2 (07:54→20:11)
[2018-01-31] MEDS: ACETYLCYSTEINE 20% SOLN 800 MG/4 ML VIAL.NEB NEB SCH ×2 (07:54→20:11)
[2018-01-31] MEDS: ENOXAPARIN SODIUM INJ 40 MG/0.4 ML DISP.SYRIN SUBCUT SCH (10:25)
--- NOTE | 2018-01-31 10:41 | PDOC PROGRESS REPORT ---
Subjective Progress Note for:: 01/30/18 Subjective:: Awake and cooperative Reason For Visit: ACUTE ON CHRONIC RESPIRATORY FAILURE WITH HYPOXIA Physical Exam Vital Signs: Temp Pulse Resp BP Pulse Ox 97.6 F 81 18 127/72 H 99 01/30/18 08:53 01/30/18 08:53 01/30/18 08:53 01/30/18 08:53 01/30/18 08:53 Intake & Output 01/29/18 01/30/18 01/31/18 06:59 06:59 06:59 Intake Total 1950 1045 Output Total 3470 1400 Balance -1520 -355 Weight 85 kg 84.2 kg General appearance: PRESENT: no acute distress, cooperative, disheveled, well- developed, well-nourished Head exam: PRESENT: atraumatic, normocephalic Eye exam: PRESENT: conjunctiva pale, EOMI, PERRLA. ABSENT: nystagmus, periorbital swelling, scleral icterus Mouth exam: PRESENT: dry mucosa, neck supple, tongue midline Neck exam: ABSENT: carotid bruit, JVD, lymphadenopathy, thyromegaly, tracheal deviation, tracheostomy Respiratory exam: PRESENT: decreased breath sounds, prolonged expiratory phas, rhonchi, symmetrical, unlabored. ABSENT: retraction, stridor Cardiovascular exam: PRESENT: RRR, +S1, +S2 Pulses: PRESENT: normal radial pulses GI/Abdominal exam: PRESENT: soft. ABSENT: tenderness Extremities exam: ABSENT: calf tenderness, clubbing, joint swelling Musculoskeletal exam: ABSENT: deformity, dislocation Neurological exam: PRESENT: alert, awake Psychiatric exam: PRESENT: anxious Skin exam: PRESENT: dry, warm Results Laboratory Results: 01/30/18 05:28 01/30/18 05:28 01/30/18 01/30/18 01/30/18 05:28 05:28 06:20 WBC 4.7 RBC 3.80 L Hgb 12.5 L Hct 37.4 L MCV 99 H MCH 33.0 MCHC 33.5 RDW 16.1 H Plt Count 149 L Seg Neutrophils % Not Reportable Lymphocytes % Not Reportable Monocytes % Not Reportable Eosinophils % Not Reportable Basophils % Not Reportable Absolute Neutrophils Not Reportable Absolute Lymphocytes Not Reportable Absolute Monocytes Not Reportable Absolute Eosinophils Not Reportable Absolute Basophils Not Reportable Carbonic Acid 3.06 H HCO3/H2CO3 Ratio 17:1 ABG pH 7.33 L ABG pCO2 101.8 H* ABG pO2 70.5 L ABG HCO3 53.0 H ABG O2 Saturation 91.6 L ABG Base Excess 21.5 FiO2 40% Sodium 136.6 L Potassium 3.8 Chloride 85 L Carbon Dioxide 50 H* Anion Gap 2 L BUN 9 Creatinine 0.37 L Est GFR ( Amer) > 60 Est GFR (Non-Af Amer) > 60 Glucose 79 Calcium 7.9 L Magnesium 1.5 L 01/22/18 01/22/18 01/22/18 15:08 15:08 21:50 Creatine Kinase 102 59 CK-MB (CK-2) 11.00 H Troponin I 0.080 01/22/18 01/23/18 01/23/18 21:50 04:45 04:45 Creatine Kinase 42 L CK-MB (CK-2) 7.71 H 6.42 H Troponin I 0.062 0.060 Impressions: Chest/Abdomen CTA 01/23/18 00:00 IMPRESSION: 1. No evidence of pulmonary embolus. 2. COPD. Right lower lobe airspace disease consistent with atelectasis or pneumonia. Clinical correlation is needed. Chest X-Ray 01/29/18 06:00 IMPRESSION: No significant change. Assessment & Plan - Diagnosis (1) Chronic obstructive pulmonary disease with acute exacerbation Is this a current diagnosis for this admission?: Yes Plan: unchanged (2) Acute and chronic respiratory failure Qualifiers: Respiratory failure complication: hypoxia and hypercapnia Qualified Code(s) : J96.21 - Acute and chronic respiratory failure with hypoxia; J96.22 - Acute and chronic respiratory failure with hypercapnia; J96.22 - Acute and chronic respiratory failure with hypercapnia; J96.22 - Acute and chronic respiratory failure with hypercapnia Is this a current diagnosis for this admission?: Yes Plan: Variable PCO2 and FiO2 requirements (3) Pneumonia Qualifiers: Pneumonia type: due to unspecified organism Laterality: right Lung location: lower lobe of lung Qualified Code(s): J18.1 - Lobar pneumonia, unspecified organism Is this a current diagnosis for this admission?: Yes Plan: Empiric therapy appropriate thus far - Time Total Critical Time (Minutes): 45
--- NOTE | 2018-01-31 10:43 | PDOC PROGRESS REPORT ---
Subjective Progress Note for:: 01/31/18 Subjective:: 4 less confused may be at or near his baseline Reason For Visit: ACUTE ON CHRONIC RESPIRATORY FAILURE WITH HYPOXIA Physical Exam Vital Signs: Temp Pulse Resp BP Pulse Ox 97.9 F 107 H 20 132/98 H 99 01/31/18 08:00 01/31/18 08:00 01/31/18 08:00 01/31/18 08:00 01/31/18 08:00 Intake & Output 01/30/18 01/31/18 02/01/18 06:59 06:59 06:59 Intake Total 1045 1100 Output Total 1400 3150 825 Balance -355 -2050 -825 Weight 84.2 kg 82.8 kg General appearance: PRESENT: no acute distress, cooperative, disheveled, well- developed, well-nourished Head exam: PRESENT: atraumatic, normocephalic Eye exam: PRESENT: conjunctiva pale, EOMI. ABSENT: nystagmus, periorbital swelling, scleral icterus Mouth exam: PRESENT: dry mucosa, neck supple, tongue midline Neck exam: ABSENT: carotid bruit, JVD, lymphadenopathy, thyromegaly, tracheal deviation, tracheostomy Respiratory exam: PRESENT: decreased breath sounds, prolonged expiratory phas, rhonchi, unlabored, wheezes. ABSENT: retraction, stridor Cardiovascular exam: PRESENT: RRR, +S1, +S2 Pulses: PRESENT: normal radial pulses GI/Abdominal exam: PRESENT: soft. ABSENT: tenderness Gentrourinary exam: PRESENT: indwelling catheter Extremities exam: ABSENT: calf tenderness, clubbing, joint swelling Musculoskeletal exam: ABSENT: deformity, dislocation Neurological exam: PRESENT: alert, awake Psychiatric exam: PRESENT: normal mood Skin exam: PRESENT: dry, warm Results Laboratory Results: 01/31/18 04:11 01/31/18 04:11 01/31/18 01/31/18 01/31/18 04:11 04:11 04:11 WBC 4.7 RBC 3.85 L Hgb 12.6 L Hct 37.8 L MCV 98 H MCH 32.8 MCHC 33.4 RDW 15.8 H Plt Count 156 Carbonic Acid HCO3/H2CO3 Ratio ABG pH ABG pCO2 ABG pO2 ABG HCO3 ABG O2 Saturation ABG Base Excess VBG pH 7.35 VBG pCO2 93.3 H* VBG HCO3 50.7 H VBG Base Excess 20.0 FiO2 Sodium 135.5 L Potassium 4.3 Chloride 88 L Carbon Dioxide 45 H* Anion Gap 3 L BUN 10 Creatinine 0.38 L Est GFR ( Amer) > 60 Est GFR (Non-Af Amer) > 60 Glucose 97 Calcium 8.0 L Magnesium 1.7 01/31/18 06:30 WBC RBC Hgb Hct MCV MCH MCHC RDW Plt Count Carbonic Acid 2.60 H HCO3/H2CO3 Ratio 18:1 ABG pH 7.36 ABG pCO2 86.5 H* ABG pO2 68.4 L ABG HCO3 48.2 H ABG O2 Saturation 91.9 L ABG Base Excess 18.2 VBG pH VBG pCO2 VBG HCO3 VBG Base Excess FiO2 30% Sodium Potassium Chloride Carbon Dioxide Anion Gap BUN Creatinine Est GFR ( Amer) Est GFR (Non-Af Amer) Glucose Calcium Magnesium 01/22/18 01/22/18 01/22/18 15:08 15:08 21:50 Creatine Kinase 102 59 CK-MB (CK-2) 11.00 H Troponin I 0.080 NT-Pro-B Natriuret Pep 01/22/18 01/23/18 01/23/18 21:50 04:45 04:45 Creatine Kinase 42 L CK-MB (CK-2) 7.71 H 6.42 H Troponin I 0.062 0.060 NT-Pro-B Natriuret Pep 01/31/18 04:11 Creatine Kinase CK-MB (CK-2) Troponin I NT-Pro-B Natriuret Pep 3520 H Impressions: Chest/Abdomen CTA 01/23/18 00:00 IMPRESSION: 1. No evidence of pulmonary embolus. 2. COPD. Right lower lobe airspace disease consistent with atelectasis or pneumonia. Clinical correlation is needed. Chest X-Ray 01/30/18 06:00 IMPRESSION: Bibasilar airspace disease consistent with pneumonia. Effusions are slightly smaller when compared to prior study. Assessment & Plan - Diagnosis (1) Chronic obstructive pulmonary disease with acute exacerbation Is this a current diagnosis for this admission?: Yes Plan: unchanged (2) Acute and chronic respiratory failure Qualifiers: Respiratory failure complication: hypoxia and hypercapnia Qualified Code(s) : J96.21 - Acute and chronic respiratory failure with hypoxia; J96.22 - Acute and chronic respiratory failure with hypercapnia; J96.22 - Acute and chronic respiratory failure with hypercapnia; J96.22 - Acute and chronic respiratory failure with hypercapnia Is this a current diagnosis for this admission?: Yes Plan: The above patient has failed BiPAP. This patient would benefit from noninvasive mechanical ventilation via the trilogy AVAPS/AE and faster responding AVAPS rates. The trilogy is able to provide a target tidal volume and also adjusting the EPAP pressures to maintain a patent airway as well as an oral backup rate this machine will help improve PaCO2 levels. The severity of the patient's condition will lead to future hospitalizations and readmissions as well as life-threatening situations without the use of this device trilogy home vent needed for hypercapnic respiratory failure. [facility] or [facility] to follow for trilogy set up. (3) Pneumonia Qualifiers: Pneumonia type: due to unspecified organism Laterality: right Lung location: lower lobe of lung Qualified Code(s): J18.1 - Lobar pneumonia, unspecified organism Is this a current diagnosis for this admission?: Yes - Time Total Critical Time (Minutes): 40
--- NOTE | 2018-01-31 14:43 | PDOC PROGRESS REPORT ---
Subjective Progress Note for:: 01/31/18 Subjective:: CURT LYNN is a 48-year-old male who presented to the emergency department with respiratory distress worsening over the last 24 hours. All history was provided by ERP, EMS and the patient's father. EMS found Curt with altered mental status, and severe hypoxic (pulse ox of 73%) respiratory distress when they were summoned to his father's homethis morning. EMS also noted a markedly increased work of breathing, cyanosis and use of accessory muscles. EMS gave the patient 2 albuterol treatments which provided modest transient relief of his respiratory distress prior to placing him on CPAP with a pressure of 8. Despite this treatment the patient's O2 sat would not rise above 88% and therefore they increased his CPAP pressure to 10 and administered 125 mg of Solu -Medrol IV while they were in route to the emergency room. Mr. Lynn has a history of severe COPD and has recently moved from [place] to [facility] where he lives with his father. His father admits numerous similar episodes requiring hospitalization for chronic obstructive pulmonary disease exacerbations in the past. Additionally Curt did not bring any of his medication with him and has no oxygen for use at his current residence according to information provided by his father. Mr. Lynn is intubated and on a ventilator at the time of my evaluation and subsequently cannot provide any historical information. His father is able to provide only limited information about Curt's medical history. Upon arrival in the emergency room patient was noted to be in severe respiratory distress and was still not responding well to CPAP at the pressure of 10. The emergency room made the decision to intubate and ventilate the patient based on his poor response to CPAP therapy. After intubation and has been of ventilatory support the patient was turned over to the hospitalist service for further care in the ICU. 01/22/18: I personally reviewed the patient's EKG and it shows a normal sinus rhythm with a right bundle branch block. I have also personally reviewed the patient's chest x-ray which shows hyperinflation of the bilateral lung esteban with a normal-sized cardiac shadow however there is some prominence of the right ventricle, which may be due to positional/rotational distortion. No acute cardiopulmonary disease is identified. Patient is admitted to the intensive care unit where he will be continued on ventilatory support. Pulmonology consultation is obtained with Dr. Desuyo. I have ordered propofol and midazolam for intravenous administration to maintain the patient's sedation on the ventilator. Additionally I have ordered IV fentanyl 100 mcg every 4 hours as needed agitation or anxiety that would be reflective of some breakthrough pain or discomfort. IV Solu-Medrol, scheduled albuterol and ipratropium nebulizers and as needed albuterol nebulizers are ordered as part of an aggressive pulmonary toilet. Budesonide will be given every 12 hours via nebulizer and he will be started on empiric antibiotic therapy utilizing Levaquin 750 mg daily. Daily chest x-rays, VBGs, CBCs, serum magnesium and BMPs have been ordered for ongoing monitoring of the patient's condition. Maintenance IV fluids, VT E prophylaxis and GI prophylaxis orders have been placed by myself. 01/30/18: In the interim Mr. Lynn has been progressing well and was taken off of the ventilator 3 days ago. However this morning his PCO2 dramatically onel from his usual level of approximately 80 up to 102 and he became symptomatic with confusion and combativeness. He was refusing to wear his BiPAP and was being somewhat verbally abusive to the nursing staff. Additionally he complains of his chronic back pain is considerably worse today and he wants some narcotic medicine for it. He is advised that due to his respiratory difficulty treatment with narcotic medications at this time would be somewhat risky and unwarranted however other analgesics and treatments for pain will be provided. I have again personally reviewed the patient's chest x-rays and have noted that the hyperinflation of the bilateral lung esteban persists as does the possible bibasilar infiltrates. Because of his significant clinical change he was transferred back to the ICU as a precautionary measure where the staff is much more likely to be able to provide the attention to his BiPAP setting adjustments to achieve the desired O2 sat of 90-95% which should yield a PCO2 level between 75 and 85. Patient is advised to continue using his BiPAP as directed by the nursing staff and respiratory therapy. I have ordered daily lab work to include a CBC, BMP, venous blood gas and magnesium level. He will be continued on his aggressive nebulizer therapeutic regiment and monitored closely. He will be continued on his current orders for deep venous thrombosis prophylaxis and gastrointestinal prophylaxis as well as daily chest x-rays. 01/31/18: Curt states that he is feeling significantly better today. His back pain is only moderate and he feels like he has been resting better. He believes he is feeling more alert and mentally sharper today than he was yesterday. Not been noted to have any further episodes of confusion and combativeness by the nursing staff. He has been able to sit up and eat his meals and ambulate short distances in the room with the assistance of physical therapy. He continues to require BiPAP most of the time but he is able to tolerate being off BiPAP for an hour or 2 at a time and being able to be minimally active while off BiPAP. We have discussed the possibility of his imminent discharge within the next 24- 48 hours with his significantly improved capabilities. Reason For Visit: ACUTE ON CHRONIC RESPIRATORY FAILURE WITH HYPOXIA Physical Exam Vital Signs: Temp Pulse Resp BP Pulse Ox 98.4 F 73 10 L 113/72 99 01/31/18 11:59 01/31/18 13:59 01/31/18 13:59 01/31/18 13:59 01/31/18 13:59 Intake & Output 01/29/18 01/30/18 01/31/18 23:59 23:59 23:59 Intake Total 1105 1440 422 Output Total 1625 2150 3575 Balance -520 -561 -4866 Weight 85 kg 84.2 kg 82.8 kg General appearance: PRESENT: no acute distress, cooperative Head exam: PRESENT: atraumatic, normocephalic Eye exam: ABSENT: conjunctival injection, scleral icterus Ear exam: PRESENT: normal external ear exam. ABSENT: drainage Mouth exam: PRESENT: moist, tongue midline Neck exam: ABSENT: thyromegaly, tracheal deviation Respiratory exam: PRESENT: prolonged expiratory phas - Dramatically improved but still slightly prolonged expiratory phase, symmetrical, unlabored, wheezes - Dramatically improved but still present minimal expiratory wheezes in all esteban Cardiovascular exam: PRESENT: RRR. ABSENT: clicks, gallop, rubs Vascular exam: PRESENT: normal capillary refill. ABSENT: pallor GI/Abdominal exam: PRESENT: normal bowel sounds, soft Rectal exam: PRESENT: deferred Extremities exam: ABSENT: joint swelling, pedal edema Musculoskeletal exam: PRESENT: full ROM, normal inspection - [address] Neurological exam: PRESENT: alert, awake, oriented to person, oriented to place , oriented to time, oriented to situation, CN II-XII grossly intact. ABSENT: motor sensory deficit - [address] Psychiatric exam: PRESENT: appropriate affect, normal mood Skin exam: ABSENT: jaundice, rash, urticaria Results Laboratory Results: 01/31/18 04:11 01/31/18 04:11 01/31/18 01/31/18 01/31/18 04:11 04:11 04:11 WBC 4.7 RBC 3.85 L Hgb 12.6 L Hct 37.8 L MCV 98 H MCH 32.8 MCHC 33.4 RDW 15.8 H Plt Count 156 Carbonic Acid HCO3/H2CO3 Ratio ABG pH ABG pCO2 ABG pO2 ABG HCO3 ABG O2 Saturation ABG Base Excess VBG pH 7.35 VBG pCO2 93.3 H* VBG HCO3 50.7 H VBG Base Excess 20.0 FiO2 Sodium 135.5 L Potassium 4.3 Chloride 88 L Carbon Dioxide 45 H* Anion Gap 3 L BUN 10 Creatinine 0.38 L Est GFR ( Amer) > 60 Est GFR (Non-Af Amer) > 60 Glucose 97 Calcium 8.0 L Magnesium 1.7 01/31/18 06:30 WBC RBC Hgb Hct MCV MCH MCHC RDW Plt Count Carbonic Acid 2.60 H HCO3/H2CO3 Ratio 18:1 ABG pH 7.36 ABG pCO2 86.5 H* ABG pO2 68.4 L ABG HCO3 48.2 H ABG O2 Saturation 91.9 L ABG Base Excess 18.2 VBG pH VBG pCO2 VBG HCO3 VBG Base Excess FiO2 30% Sodium Potassium Chloride Carbon Dioxide Anion Gap BUN Creatinine Est GFR ( Amer) Est GFR (Non-Af Amer) Glucose Calcium Magnesium 01/22/18 01/22/18 01/22/18 15:08 15:08 21:50 Creatine Kinase 102 59 CK-MB (CK-2) 11.00 H Troponin I 0.080 NT-Pro-B Natriuret Pep 01/22/18 01/23/18 01/23/18 21:50 04:45 04:45 Creatine Kinase 42 L CK-MB (CK-2) 7.71 H 6.42 H Troponin I 0.062 0.060 NT-Pro-B Natriuret Pep 01/31/18 04:11 Creatine Kinase CK-MB (CK-2) Troponin I NT-Pro-B Natriuret Pep 3520 H Impressions: Chest/Abdomen CTA 01/23/18 00:00 IMPRESSION: 1. No evidence of pulmonary embolus. 2. COPD. Right lower lobe airspace disease consistent with atelectasis or pneumonia. Clinical correlation is needed. Chest X-Ray 01/30/18 06:00 IMPRESSION: Bibasilar airspace disease consistent with pneumonia. Effusions are slightly smaller when compared to prior study. Assessment & Plan - Diagnosis (1) Acute and chronic respiratory failure Qualifiers: Respiratory failure complication: hypoxia and hypercapnia Qualified Code(s) : J96.21 - Acute and chronic respiratory failure with hypoxia; J96.22 - Acute and chronic respiratory failure with hypercapnia; J96.22 - Acute and chronic respiratory failure with hypercapnia; J96.22 - Acute and chronic respiratory failure with hypercapnia Is this a current diagnosis for this admission?: Yes Plan: Mr. Lynn is admitted to the ICU. He was placed on mechanical ventilation in the emergency room and this is continued in the ICU however his FiO2 will be decreased to 40% by my order because his PO2 on his last blood gas at an FiO2 of 60% was 179 He is placed on aggressive pulmonary toilet utilizing Xopenex, Atrovent, Pulmicort, Mucomyst and as needed albuterol nebulizer treatments. He is started on scheduled Solu-Medrol 40 mg IV every 6 hours I have ordered intravenous propofol and midazolam infusions for sedation while he is ventilated and I have also included fentanyl 100 mcg IV push every 4 hours as needed agitation or apparent pain. Daily chest x-rays, CBCs, BMPs, VBG's/ABGs have been ordered to monitor therapy. 01/30/18: Mr. Dean was transferred back to the ICU where his BiPAP will be adjusted to decrease his FiO2 and maintain a oxygen saturation of 90-95%. His arterial blood gases will be reevaluated @1800. He will have a chest x-ray daily as well as daily labs of complete blood count, basic metabolic profile, venous blood gases and a magnesium level. 01/31/18: Curt is significantly improved on his evaluation today and his blood gases are also significantly improved with his PCO2 down to its baseline at 80. Nursing staff is been careful to keep his FiO2 controlled to maintain his oxygen saturation at 90-95% and this is dramatically improved his overall course. Patient should be ready for discharge tomorrow and this is been discussed with him and an order will be placed with discharge planning to help make arrangements for his oxygen at home and ongoing home health with intermediate and physical therapy. (2) Chronic obstructive pulmonary disease with acute exacerbation Is this a current diagnosis for this admission?: Yes Plan: 01/30/18: Patient will be continued with his BiPAP therapy with reduction in FiO2 to maintain an O2 sat of 90-95%. Singulair has been added to his regimen in hopes of reducing any inflammatory component but may be impeding his recovery. He will be continued on his nebulizer therapy regiment and receive further therapy as required. 01/31/18; Curt has done very well with use of appropriate settings for his BiPAP and has tolerated his addition of Singulair to his regimen well. Plans will be made for the patient be discharged home with home nebulizer therapy using Pulmicort and Brovana twice daily and emergency use of albuterol. Additionally he will need to have Singulair and Spiriva as part of his home regimen. These needs will be conveyed to discharge planning for his home requirements in addition to his BiPAP and oxygen needs. (3) Congestive heart failure Qualifiers: Heart failure type: unspecified Heart failure chronicity: chronic Qualified Code(s): I50.9 - Heart failure, unspecified Is this a current diagnosis for this admission?: Yes Plan: Admission: The patient does have a history of congestive heart failure and is noted to have bilateral pretibial edema however this will be observed for any clinical change and due to his severe pulmonary problem and his requirement for mechanical ventilation at this time his cardiac status will need to be evaluated on an ongoing basis. Medical treatment for his congestive heart failure will be reinstituted after reviewing the results of the echocardiogram done on 01/24/2018 which also demonstrated significant right heart ventricular hypertrophy and pulmonary hypertension. 01/30/18: A BNP is ordered for the morning. Therapy will be initiated utilizing metoprolol XL 25 mg p.o. daily, lisinopril 10 mg p.o. daily, atorvastatin 20 mg p.o. daily and spironolactone 12.5 mg p.o. daily. 01/31/18: Reintroduction of medications for control of his congestive heart failure has seemed to improve his overall respiratory status. Patient will be continued on his medication as initiated yesterday and listed just above this line in this note. BNP was noted to be 3250 today. (4) Hypotension Qualifiers: Hypotension type: unspecified hypotension type Qualified Code(s): I95.9 - Hypotension, unspecified Is this a current diagnosis for this admission?: Yes Plan: Patient was somewhat hypotensive in the emergency room after he shortly after he arrived and was intubated. The hypotension was transient and resolved with a brief treatment with Levophed and therefore was felt to be most likely due to a combination of hypovolemia and medications administered for sedation/ paralysis needed for endotracheal intubation. Patient's blood pressure be monitored closely throughout the remainder of his hospital course, especially the period of time in which he is on ventilatory support. 01/30/18: Mr. Lynn has had no difficulty with hypotension since his initial hospitalization when he suffered a transitive episode of hypotension due to hypovolemia and excessive sedation. - Time Time Spent with patient: 35 or more minutes Medications reviewed and adjusted accordingly: Yes Anticipated discharge: Home with Homehealth Within: within 48 hours
[2018-01-31] MEDS: ALBUTEROL SULFATE 0.083% NEB 2.5 MG/3 ML AMPUL NEB PRN (20:11)
[2018-01-31] MEDS: MONTELUKAST SODIUM 10 MG TABLET PO SCH (22:26)
[2018-02-01] MEDS: TRAMADOL HCL 50 MG TABLET PO PRN ×2 (03:26→15:37)
[2018-02-01 04:19] LABS: VENOUS BLOOD BASE EXCESS 12.1 mmol/L; VENOUS BLOOD HCO3 44.1 mmol/L (20-32); VENOUS BLOOD PH 7.24 (7.30-7.42)
[2018-02-01 04:22] LABS: HEMATOCRIT 40.2 % (37.9-51.0); HEMOGLOBIN 13.1 g/dL (13.5-17.0); MEAN CORPUSCULAR HEMOGLOBIN 32.1 pg (27.0-33.4); MEAN CORPUSCULAR HGB CONC 32.7 g/dL (32.0-36.0); MEAN CORPUSCULAR VOLUME 98 fl (80-97); PLATELET COUNT 185 10^3/uL (150-450); RED BLOOD COUNT 4.09 10^6/uL (4.35-5.55); RED CELL DISTRIBUTION WIDTH 15.5 % (11.5-14.0); VENOUS BLOOD PCO2 104.2 mmHg (35-63); WHITE BLOOD COUNT 5.1 10^3/uL (4.0-10.5)
[2018-02-01 04:35] LABS: BLOOD UREA NITROGEN 15 mg/dL (7-20); CALCIUM 8.3 mg/dL (8.4-10.2); CHLORIDE 87 mmol/L (98-107); GLUCOSE 88 mg/dL (75-110); POTASSIUM 4.4 mmol/L (3.6-5.0); SODIUM 136.3 mmol/L (137-145)
[2018-02-01 04:43] LABS: ANION GAP 4 (5-19)
[2018-02-01 04:44] LABS: CARBON DIOXIDE 45 mmol/L (22-30)
[2018-02-01 06:48] LABS: ARTERIAL BLOOD H2CO3 2.73 mmol/L (1.05-1.35); ARTERIAL BLOOD HCO3 48.8 mmol/L (20-24); ARTERIAL BLOOD PH 7.35 (7.35-7.45); ARTERIAL BLOOD PO2 73.2 mmHg (80-100); ARTERIAL BLOOD TOTAL CO2 51.6 mmol/L (23-27)
[2018-02-01 06:50] LABS: ARTERIAL BLOOD FIO2 30%; ARTERIAL BLOOD PCO2 90.7 mmHg (35-45)
[2018-02-01] MEDS: BUDESONIDE NEB 0.5 MG/2 ML AMPUL NEB SCH ×2 (07:42→20:17)
[2018-02-01] MEDS: LEVALBUTEROL HCL NEB 1.25 MG/3 ML AMPUL NEB SCH ×2 (07:42→15:35)
[2018-02-01] MEDS: ACETYLCYSTEINE 20% SOLN 800 MG/4 ML VIAL.NEB NEB SCH ×2 (07:42→20:17)
[2018-02-01] MEDS: IPRATROPIUM BROMIDE 0.02% NEB 0.5 MG/2.5 ML AMPUL NEB SCH ×2 (07:42→15:35)
--- NOTE | 2018-02-01 07:47 | RADIOLOGY REPORT (SQ) ---
EXAM DESCRIPTION: CHEST SINGLE VIEW COMPLETED DATE/TIME: 02/01/2018 7:30 am REASON FOR STUDY: respiratory failure COMPARISON: CT angio chest 01/23/2018 Chest films 01/16/2018, 01/24/2018, 01/26/2018, 01/29/2018 EXAM PARAMETERS: NUMBER OF VIEWS: One view. TECHNIQUE: Single frontal radiographic view of the chest acquired. RADIATION DOSE: NA LIMITATIONS: 2 films FINDINGS: LUNGS AND PLEURA: Lungs are hyperinflated and hyperlucent from obstructive disease. No acute infiltrates. No pleural effusion or pneumothorax. MEDIASTINUM AND HILAR STRUCTURES: No masses. Contour normal. HEART AND VASCULAR STRUCTURES: Borderline cardiomegaly BONES: No acute findings. HARDWARE: None in the chest. OTHER: No other significant finding. IMPRESSION: Obstructive lung disease. No acute infiltrates TECHNICAL DOCUMENTATION: JOB ID: [id number] [employer]- All Rights Reserved Reading location - IP/workstation name: [email or web address]
--- NOTE | 2018-02-01 13:13 | PDOC PROGRESS REPORT ---
Subjective Progress Note for:: 02/01/18 Subjective:: CURT LYNN is a 48-year-old male who presented to the emergency department with respiratory distress worsening over the last 24 hours. All history was provided by ERP, EMS and the patient's father. EMS found Curt with altered mental status, and severe hypoxic (pulse ox of 73%) respiratory distress when they were summoned to his father's homethis morning. EMS also noted a markedly increased work of breathing, cyanosis and use of accessory muscles. EMS gave the patient 2 albuterol treatments which provided modest transient relief of his respiratory distress prior to placing him on CPAP with a pressure of 8. Despite this treatment the patient's O2 sat would not rise above 88% and therefore they increased his CPAP pressure to 10 and administered 125 mg of Solu -Medrol IV while they were in route to the emergency room. Mr. Lynn has a history of severe COPD and has recently moved from [place] to [facility] where he lives with his father. His father admits numerous similar episodes requiring hospitalization for chronic obstructive pulmonary disease exacerbations in the past. Additionally Curt did not bring any of his medication with him and has no oxygen for use at his current residence according to information provided by his father. Mr. Lynn is intubated and on a ventilator at the time of my evaluation and subsequently cannot provide any historical information. His father is able to provide only limited information about Curt's medical history. Upon arrival in the emergency room patient was noted to be in severe respiratory distress and was still not responding well to CPAP at the pressure of 10. The emergency room made the decision to intubate and ventilate the patient based on his poor response to CPAP therapy. After intubation and has been of ventilatory support the patient was turned over to the hospitalist service for further care in the ICU. 01/22/18: I personally reviewed the patient's EKG and it shows a normal sinus rhythm with a right bundle branch block. I have also personally reviewed the patient's chest x-ray which shows hyperinflation of the bilateral lung esteban with a normal-sized cardiac shadow however there is some prominence of the right ventricle, which may be due to positional/rotational distortion. No acute cardiopulmonary disease is identified. Patient is admitted to the intensive care unit where he will be continued on ventilatory support. Pulmonology consultation is obtained with Dr. Desuyo. I have ordered propofol and midazolam for intravenous administration to maintain the patient's sedation on the ventilator. Additionally I have ordered IV fentanyl 100 mcg every 4 hours as needed agitation or anxiety that would be reflective of some breakthrough pain or discomfort. IV Solu-Medrol, scheduled albuterol and ipratropium nebulizers and as needed albuterol nebulizers are ordered as part of an aggressive pulmonary toilet. Budesonide will be given every 12 hours via nebulizer and he will be started on empiric antibiotic therapy utilizing Levaquin 750 mg daily. Daily chest x-rays, VBGs, CBCs, serum magnesium and BMPs have been ordered for ongoing monitoring of the patient's condition. Maintenance IV fluids, VT E prophylaxis and GI prophylaxis orders have been placed by myself. 01/30/18: In the interim Mr. Lynn has been progressing well and was taken off of the ventilator 3 days ago. However this morning his PCO2 dramatically onel from his usual level of approximately 80 up to 102 and he became symptomatic with confusion and combativeness. He was refusing to wear his BiPAP and was being somewhat verbally abusive to the nursing staff. Additionally he complains of his chronic back pain is considerably worse today and he wants some narcotic medicine for it. He is advised that due to his respiratory difficulty treatment with narcotic medications at this time would be somewhat risky and unwarranted however other analgesics and treatments for pain will be provided. I have again personally reviewed the patient's chest x-rays and have noted that the hyperinflation of the bilateral lung esteban persists as does the possible bibasilar infiltrates. Because of his significant clinical change he was transferred back to the ICU as a precautionary measure where the staff is much more likely to be able to provide the attention to his BiPAP setting adjustments to achieve the desired O2 sat of 90-95% which should yield a PCO2 level between 75 and 85. Patient is advised to continue using his BiPAP as directed by the nursing staff and respiratory therapy. I have ordered daily lab work to include a CBC, BMP, venous blood gas and magnesium level. He will be continued on his aggressive nebulizer therapeutic regiment and monitored closely. He will be continued on his current orders for deep venous thrombosis prophylaxis and gastrointestinal prophylaxis as well as daily chest x-rays. 01/31/18: Curt states that he is feeling significantly better today. His back pain is only moderate and he feels like he has been resting better. He believes he is feeling more alert and mentally sharper today than he was yesterday. Not been noted to have any further episodes of confusion and combativeness by the nursing staff. He has been able to sit up and eat his meals and ambulate short distances in the room with the assistance of physical therapy. He continues to require BiPAP most of the time but he is able to tolerate being off BiPAP for an hour or 2 at a time and being able to be minimally active while off BiPAP. We have discussed the possibility of his imminent discharge within the next 24- 48 hours with his significantly improved capabilities. 02/01/18: Curt says that he is feeling about as good as he gets. He would like to be discharged home if possible however he understands it we are waiting to have the support equipment and medications plus oxygen that he will need when he gets back to his residence with his parents. He has not had any further mental confusion and combative behavior and he continues to have the feeling of mental clarity. He has been more active in his room sitting up to eat and continuing to ambulate short distances using just 4 L of oxygen by nasal cannula. He is hopeful that his discharge can be arranged soon as he is looking forward to being home and spending some time with his family. Reason For Visit: ACUTE ON CHRONIC RESPIRATORY FAILURE WITH HYPOXIA Physical Exam Vital Signs: Temp Pulse Resp BP Pulse Ox 98.2 F 90 18 146/87 H 99 02/01/18 09:34 02/01/18 08:56 02/01/18 12:00 02/01/18 09:58 02/01/18 12:00 Intake & Output 01/30/18 01/31/18 02/01/18 23:59 23:59 23:59 Intake Total 1440 922 Output Total 5255 5609 9148 Balance -710 -4728 -1950 Weight 84.2 kg 82.8 kg General appearance: PRESENT: no acute distress, cooperative, well-developed, well-nourished Head exam: PRESENT: atraumatic, normocephalic Eye exam: PRESENT: conjunctiva pink. ABSENT: scleral icterus Ear exam: ABSENT: drainage Neck exam: ABSENT: thyromegaly, tracheal deviation Respiratory exam: PRESENT: prolonged expiratory phas - Very minimally prolonged expiration phase, symmetrical, unlabored, wheezes - Very minimal end expiratory wheezes Cardiovascular exam: PRESENT: RRR. ABSENT: clicks, gallop, rubs Vascular exam: PRESENT: normal capillary refill. ABSENT: pallor GI/Abdominal exam: PRESENT: normal bowel sounds, soft Extremities exam: ABSENT: joint swelling, pedal edema Musculoskeletal exam: PRESENT: full ROM, normal inspection Neurological exam: PRESENT: alert, oriented to person, oriented to place, oriented to time, oriented to situation, CN II-XII grossly intact. ABSENT: motor sensory deficit Psychiatric exam: PRESENT: appropriate affect, normal mood - [id number] Skin exam: ABSENT: jaundice, rash, urticaria Results Laboratory Results: 02/01/18 03:55 02/01/18 03:55 02/01/18 02/01/18 02/01/18 03:55 03:55 03:55 WBC 5.1 RBC 4.09 L Hgb 13.1 L Hct 40.2 MCV 98 H MCH 32.1 MCHC 32.7 RDW 15.5 H Plt Count 185 Carbonic Acid HCO3/H2CO3 Ratio ABG pH ABG pCO2 ABG pO2 ABG HCO3 ABG O2 Saturation ABG Base Excess VBG pH 7.24 L VBG pCO2 104.2 H* VBG HCO3 44.1 H VBG Base Excess 12.1 FiO2 Sodium 136.3 L Potassium 4.4 Chloride 87 L Carbon Dioxide 45 H* Anion Gap 4 L BUN 15 Creatinine 0.48 L Est GFR ( Amer) > 60 Est GFR (Non-Af Amer) > 60 Glucose 88 Calcium 8.3 L Magnesium 1.8 02/01/18 06:15 WBC RBC Hgb Hct MCV MCH MCHC RDW Plt Count Carbonic Acid 2.73 H HCO3/H2CO3 Ratio 17:1 ABG pH 7.35 ABG pCO2 90.7 H* ABG pO2 73.2 L ABG HCO3 48.8 H ABG O2 Saturation 93.0 L ABG Base Excess 18.0 VBG pH VBG pCO2 VBG HCO3 VBG Base Excess FiO2 30% Sodium Potassium Chloride Carbon Dioxide Anion Gap BUN Creatinine Est GFR ( Amer) Est GFR (Non-Af Amer) Glucose Calcium Magnesium 01/22/18 01/22/18 01/22/18 15:08 15:08 21:50 Creatine Kinase 102 59 CK-MB (CK-2) 11.00 H Troponin I 0.080 NT-Pro-B Natriuret Pep 01/22/18 01/23/18 01/23/18 21:50 04:45 04:45 Creatine Kinase 42 L CK-MB (CK-2) 7.71 H 6.42 H Troponin I 0.062 0.060 NT-Pro-B Natriuret Pep 01/31/18 04:11 Creatine Kinase CK-MB (CK-2) Troponin I NT-Pro-B Natriuret Pep 3520 H Impressions: Chest/Abdomen CTA 01/23/18 00:00 IMPRESSION: 1. No evidence of pulmonary embolus. 2. COPD. Right lower lobe airspace disease consistent with atelectasis or pneumonia. Clinical correlation is needed. Chest X-Ray 02/01/18 06:00 IMPRESSION: Obstructive lung disease. No acute infiltrates Assessment & Plan - Diagnosis (1) Acute and chronic respiratory failure Qualifiers: Respiratory failure complication: hypoxia and hypercapnia Qualified Code(s) : J96.21 - Acute and chronic respiratory failure with hypoxia; J96.22 - Acute and chronic respiratory failure with hypercapnia; J96.22 - Acute and chronic respiratory failure with hypercapnia; J96.22 - Acute and chronic respiratory failure with hypercapnia Is this a current diagnosis for this admission?: Yes Plan: Mr. Lynn is admitted to the ICU. He was placed on mechanical ventilation in the emergency room and this is continued in the ICU however his FiO2 will be decreased to 40% by my order because his PO2 on his last blood gas at an FiO2 of 60% was 179 He is placed on aggressive pulmonary toilet utilizing Xopenex, Atrovent, Pulmicort, Mucomyst and as needed albuterol nebulizer treatments. He is started on scheduled Solu-Medrol 40 mg IV every 6 hours I have ordered intravenous propofol and midazolam infusions for sedation while he is ventilated and I have also included fentanyl 100 mcg IV push every 4 hours as needed agitation or apparent pain. Daily chest x-rays, CBCs, BMPs, VBG's/ABGs have been ordered to monitor therapy. 01/30/18: Mr. Dean was transferred back to the ICU where his BiPAP will be adjusted to decrease his FiO2 and maintain a oxygen saturation of 90-95%. His arterial blood gases will be reevaluated @1800. He will have a chest x-ray daily as well as daily labs of complete blood count, basic metabolic profile, venous blood gases and a magnesium level. 01/31/18: Curt is significantly improved on his evaluation today and his blood gases are also significantly improved with his PCO2 down to its baseline at 80. Nursing staff is been careful to keep his FiO2 controlled to maintain his oxygen saturation at 90-95% and this is dramatically improved his overall course. Patient should be ready for discharge tomorrow and this is been discussed with him and an order will be placed with discharge planning to help make arrangements for his oxygen at home and ongoing home health with [facility] and physical therapy. 02/01/18: Dr. Mccann has made arrangements for the patient to get a trilogy machine at home. Discharge planning is working to arrange for him to have home nebulizers with nebulizer medications and the rest of his medications plus home oxygen available at the time of his discharge. Discharge is being delayed only by the inability to obtain those services and treatments necessary for his home care. (2) Chronic obstructive pulmonary disease with acute exacerbation Is this a current diagnosis for this admission?: Yes Plan: 01/30/18: Patient will be continued with his BiPAP therapy with reduction in FiO2 to maintain an O2 sat of 90-95%. Singulair has been added to his regimen in hopes of reducing any inflammatory component but may be impeding his recovery. He will be continued on his nebulizer therapy regiment and receive further therapy as required. 01/31/18; Curt has done very well with use of appropriate settings for his BiPAP and has tolerated his addition of Singulair to his regimen well. Plans will be made for the patient be discharged home with home nebulizer therapy using Pulmicort and Brovana twice daily and emergency use of albuterol. Additionally he will need to have Singulair and Spiriva as part of his home regimen. These needs will be conveyed to discharge planning for his home requirements in addition to his BiPAP and oxygen needs. 02/01/18: Curt continues to do well with the BiPAP using AVAPS at the current settings ( R 12/EPAP 6/Min P 10/MAX P 40/Rise 5/I time 0.90/30% FiO2. Arrangements are being made for his discharge to home including a trilogy machine and home nebulizers, home oxygen and medications as required for nebulizer therapy as well as medical therapy for COPD, hypertension and congestive heart failure. (3) Congestive heart failure Qualifiers: Heart failure type: unspecified Heart failure chronicity: chronic Qualified Code(s): I50.9 - Heart failure, unspecified Is this a current diagnosis for this admission?: Yes Plan: Admission: The patient does have a history of congestive heart failure and is noted to have bilateral pretibial edema however this will be observed for any clinical change and due to his severe pulmonary problem and his requirement for mechanical ventilation at this time his cardiac status will need to be evaluated on an ongoing basis. Medical treatment for his congestive heart failure will be reinstituted after reviewing the results of the echocardiogram done on 01/24/2018 which also demonstrated significant right heart ventricular hypertrophy and pulmonary hypertension. 01/30/18: A BNP is ordered for the morning. Therapy will be initiated utilizing metoprolol XL 25 mg p.o. daily, lisinopril 10 mg p.o. daily, atorvastatin 20 mg p.o. daily and spironolactone 12.5 mg p.o. daily. 01/31/18: Reintroduction of medications for control of his congestive heart failure has seemed to improve his overall respiratory status. Patient will be continued on his medication as initiated yesterday and listed just above this line in this note. BNP was noted to be 3250 today. 02/01/18: Curt vital signs have remained stable with excellent blood pressure control on his current medical regiment. Plans will be made to continue his current therapy at the time of discharge. (4) Hypotension Qualifiers: Hypotension type: unspecified hypotension type Qualified Code(s): I95.9 - Hypotension, unspecified Is this a current diagnosis for this admission?: Yes Plan: Patient was somewhat hypotensive in the emergency room after he shortly after he arrived and was intubated. The hypotension was transient and resolved with a brief treatment with Levophed and therefore was felt to be most likely due to a combination of hypovolemia and medications administered for sedation/ paralysis needed for endotracheal intubation. Patient's blood pressure be monitored closely throughout the remainder of his hospital course, especially the period of time in which he is on ventilatory support. 01/30/18: Mr. Lynn has had no difficulty with hypotension since his initial hospitalization when he suffered a transitive episode of hypotension due to hypovolemia and excessive sedation. - Time Time Spent with patient: 35 or more minutes Anticipated discharge: Home with Homehealth Within: Other - When the patient's equipment has been delivered and set up and his medications have been obtained for him to be treated at home safely.
[2018-02-01] MEDS: ENOXAPARIN SODIUM INJ 40 MG/0.4 ML DISP.SYRIN SUBCUT SCH (15:37)
[2018-02-01] MEDS: ALBUTEROL SULFATE 0.083% NEB 2.5 MG/3 ML AMPUL NEB PRN (20:17)
[2018-02-01] MEDS: MONTELUKAST SODIUM 10 MG TABLET PO SCH (21:24)
[2018-02-02] MEDS: IPRATROPIUM BROMIDE 0.02% NEB 0.5 MG/2.5 ML AMPUL NEB SCH ×3 (00:06→15:32)
[2018-02-02] MEDS: LEVALBUTEROL HCL NEB 1.25 MG/3 ML AMPUL NEB SCH ×3 (00:06→15:32)
[2018-02-02 04:15] LABS: HEMATOCRIT 37.7 % (37.9-51.0); HEMOGLOBIN 12.5 g/dL (13.5-17.0); MEAN CORPUSCULAR HEMOGLOBIN 32.1 pg (27.0-33.4); MEAN CORPUSCULAR HGB CONC 33.1 g/dL (32.0-36.0); MEAN CORPUSCULAR VOLUME 97 fl (80-97); PLATELET COUNT 151 10^3/uL (150-450); RED CELL DISTRIBUTION WIDTH 15.8 % (11.5-14.0); WHITE BLOOD COUNT 8.2 10^3/uL (4.0-10.5)
[2018-02-02 04:35] LABS: BLOOD UREA NITROGEN 13 mg/dL (7-20); CALCIUM 7.9 mg/dL (8.4-10.2); CHLORIDE 89 mmol/L (98-107); GLUCOSE 140 mg/dL (75-110); POTASSIUM 4.6 mmol/L (3.6-5.0); SODIUM 135.5 mmol/L (137-145)
[2018-02-02 04:46] LABS: ANION GAP 4 (5-19); CARBON DIOXIDE 43 mmol/L (22-30)
[2018-02-02] MEDS ORDERED: MAG HYDROX/AL HYDROX/SIMETH SUSP 30 ML UDCUP PO PRN (05:55)
[2018-02-02 06:16] LABS: ARTERIAL BLOOD BASE EXCESS 17.9 mmol/L; ARTERIAL BLOOD O2 SATURATION 93.6 % (94-98); ARTERIAL BLOOD PO2 79.9 mmHg (80-100); ARTERIAL BLOOD TOTAL CO2 53.2 mmol/L (23-27)
[2018-02-02 06:19] LABS: ARTERIAL BLOOD FIO2 4L
[2018-02-02 06:20] LABS: ARTERIAL BLOOD PCO2 103.1 mmHg (35-45)
--- NOTE | 2018-02-02 06:56 | RADIOLOGY REPORT (SQ) ---
CLINICAL HISTORY: resp failure COMPARISON: None. TECHNIQUE: XR CHEST 1 VIEW 02/02/2018 6:00 AM CDT FINDINGS: Cardiac silhouette is mildly enlarged. There is upper lung emphysema. There are bilateral small pleural effusions. There is no pneumothorax. There are no acute osseous findings. IMPRESSION: No significant change.
[2018-02-02] MEDS: ACETYLCYSTEINE 20% SOLN 800 MG/4 ML VIAL.NEB NEB SCH (08:09)
[2018-02-02] MEDS: BUDESONIDE NEB 0.5 MG/2 ML AMPUL NEB SCH (08:09)
[2018-02-02] MEDS: TRAMADOL HCL 50 MG TABLET PO PRN (13:53)
[2018-02-02] MEDS: ENOXAPARIN SODIUM INJ 40 MG/0.4 ML DISP.SYRIN SUBCUT SCH (13:53)
[2018-02-02] MEDS ORDERED: TIOTROPIUM BROMIDE DPI 5 CAP/KIT (18 MCG/CAP) IH SCH (16:00)
[2018-02-02 16:41] VITALS: BP 106/56
--- NOTE | 2018-02-02 19:22 | PDOC DISCHARGE SUMMARY ---
General - Admit/Disc Date/PCP Admission Date/Primary Care Provider: 01/22/18 14:28 Discharge Date: 02/02/18 - Discharge Diagnosis (1) Acute and chronic respiratory failure Is this a current diagnosis for this admission?: Yes Summary: Mr. Lynn was admitted to the ICU. He was placed on mechanical ventilation in the emergency room and this is continued in the ICU however his FiO2 will be decreased to 40% by my order because his PO2 on his last blood gas at an FiO2 of 60% was 179 He is placed on aggressive pulmonary toilet utilizing Xopenex, Atrovent, Pulmicort, Mucomyst and as needed albuterol nebulizer treatments. He is started on scheduled Solu-Medrol 40 mg IV every 6 hours I have ordered intravenous propofol and midazolam infusions for sedation while he is ventilated and I have also included fentanyl 100 mcg IV push every 4 hours as needed agitation or apparent pain. Daily chest x-rays, CBCs, BMPs, VBG's/ABGs have been ordered to monitor therapy. 01/30/18: Mr. Dean was transferred back to the ICU where his BiPAP will be adjusted to decrease his FiO2 and maintain a oxygen saturation of 90-95%. His arterial blood gases will be reevaluated @1800. He will have a chest x-ray daily as well as daily labs of complete blood count, basic metabolic profile, venous blood gases and a magnesium level. 01/31/18: Curt is significantly improved on his evaluation today and his blood gases are also significantly improved with his PCO2 down to its baseline at 80. Nursing staff is been careful to keep his FiO2 controlled to maintain his oxygen saturation at 90-95% and this is dramatically improved his overall course. Patient should be ready for discharge tomorrow and this is been discussed with him and an order will be placed with discharge planning to help make arrangements for his oxygen at home and ongoing home health with jail and physical therapy. 02/01/18: Dr. Mccann has made arrangements for the patient to get a trilogy machine at home. Discharge planning is working to arrange for him to have home nebulizers with nebulizer medications and the rest of his medications plus home oxygen available at the time of his discharge. Discharge is being delayed only by the inability to obtain those services and treatments necessary for his home care. (2) Chronic obstructive pulmonary disease with acute exacerbation Is this a current diagnosis for this admission?: Yes Summary: 01/30/18: Patient will be continued with his BiPAP therapy with reduction in FiO2 to maintain an O2 sat of 90-95%. Singulair has been added to his regimen in hopes of reducing any inflammatory component but may be impeding his recovery. He will be continued on his nebulizer therapy regiment and receive further therapy as required. 01/31/18; Curt has done very well with use of appropriate settings for his BiPAP and has tolerated his addition of Singulair to his regimen well. Plans will be made for the patient be discharged home with home nebulizer therapy using Pulmicort and Brovana twice daily and emergency use of albuterol. Additionally he will need to have Singulair and Spiriva as part of his home regimen. These needs will be conveyed to discharge planning for his home requirements in addition to his BiPAP and oxygen needs. 02/01/18: Curt continues to do well with the BiPAP using AVAPS at the current settings ( R 12/EPAP 6/Min P 10/MAX P 40/Rise 5/I time 0.90/30% FiO2. Arrangements are being made for his discharge to home including a trilogy machine and home nebulizers, home oxygen and medications as required for nebulizer therapy as well as medical therapy for COPD, hypertension and congestive heart failure. (3) Congestive heart failure Is this a current diagnosis for this admission?: Yes Summary: The patient does have a history of congestive heart failure and is noted to have bilateral pretibial edema however this will be observed for any clinical change and due to his severe pulmonary problem and his requirement for mechanical ventilation at this time his cardiac status will need to be evaluated on an ongoing basis. Medical treatment for his congestive heart failure will be reinstituted after reviewing the results of the echocardiogram done on 01/24/2018 which also demonstrated significant right heart ventricular hypertrophy and pulmonary hypertension. 01/30/18: A BNP is ordered for the morning. Therapy will be initiated utilizing metoprolol XL 25 mg p.o. daily, lisinopril 10 mg p.o. daily, atorvastatin 20 mg p.o. daily and spironolactone 12.5 mg p.o. daily. 01/31/18: Reintroduction of medications for control of his congestive heart failure has seemed to improve his overall respiratory status. Patient will be continued on his medication as initiated yesterday and listed just above this line in this note. BNP was noted to be 3250 today. 02/01/18: Curt vital signs have remained stable with excellent blood pressure control on his current medical regiment. Plans will be made to continue his current therapy at the time of discharge. 02/02/18: Curt did not have funds to pay for his medications and thus these medications were discontinued. Available funds would only pay for life saving medications which essentially were his albuterol nebulizer treatments and his albuterol inhaler. (4) Hypotension Is this a current diagnosis for this admission?: Yes Summary: Patient was somewhat hypotensive in the emergency room after he shortly after he arrived and was intubated. The hypotension was transient and resolved with a brief treatment with Levophed and therefore was felt to be most likely due to a combination of hypovolemia and medications administered for sedation/ paralysis needed for endotracheal intubation. Patient's blood pressure be monitored closely throughout the remainder of his hospital course, especially the period of time in which he is on ventilatory support. 01/30/18: Mr. Lynn has had no difficulty with hypotension since his initial hospitalization when he suffered a transitive episode of hypotension due to hypovolemia and excessive sedation. - Additional Information Resuscitation Status: Full Code Discharge Diet: As Tolerated, Cardiac Discharge Activity: Activity As Tolerated, Balance Activity w/Rest, Walk Frequently Prescriptions: Albuterol Sulfate [Ventolin 0.083% Neb 2.5 mg/3 mL Ampul] 2.5 mg NEB RTQ1HP PRN 30 Days #100 vial.neb PRN Reason: Albuterol Sulfate [Ventolin Hfa] 2 puff IH Q4HP PRN 30 Days #1 [email or web address] PRN Reason: SOB,WHEEZING Arformoterol Tartrate [Brovana Inhalation Solution 15 mcg/2 mL] 15 mcg IH BID PRN 30 Days #60 vial PRN Reason: Budesonide [Pulmicort Neb 0.5 mg/2 ml Ampul] 0.5 mg NEB RTQ12 30 Days #60 ampul.neb Tiotropium [place] [Spiriva Handihaler 5 Cap/Kit (18 Mcg/Cap)] 1 cap IH DAILY 30 Days #1 kit Home Medications: Albuterol Sulfate [Ventolin 0.083% Neb 2.5 mg/3 mL Ampul] 2.5 mg NEB RTQ1HP PRN 30 Days #100 vial.neb 02/02/18 Albuterol Sulfate [Ventolin Hfa] 2 puff IH Q4HP PRN 30 Days #1 [email or web address] Tiotropium [place] [Spiriva Handihaler 5 Cap/Kit (18 Mcg/Cap)] 1 cap IH DAILY 30 Days #1 kit 02/02/18 History of Present Illness Patient complains of: Dyspnea History of Present Illness: CURT LYNN is a 48-year-old male who presented to the emergency department with respiratory distress worsening over the last 24 hours. All history was provided by ERP, EMS and the patient's father. EMS found Curt with altered mental status, and severe hypoxic (pulse ox of 73%) respiratory distress when they were summoned to his father's homethis morning. EMS also noted a markedly increased work of breathing, cyanosis and use of accessory muscles. EMS gave the patient 2 albuterol treatments which provided modest transient relief of his respiratory distress prior to placing him on CPAP with a pressure of 8. Despite this treatment the patient's O2 sat would not rise above 88% and therefore they increased his CPAP pressure to 10 and administered 125 mg of Solu -Medrol IV while they were in route to the emergency room. Mr. Lynn has a history of severe COPD and has recently moved from [place] to [facility] where he lives with his father. His father admits numerous similar episodes requiring hospitalization for chronic obstructive pulmonary disease exacerbations in the past. Additionally Curt did not bring any of his medication with him and has no oxygen for use at his current residence according to information provided by his father. Mr. Lynn is intubated and on a ventilator at the time of my evaluation and subsequently cannot provide any historical information. His father is able to provide only limited information about Curt's medical history. Upon arrival in the emergency room patient was noted to be in severe respiratory distress and was still not responding well to CPAP at the pressure of 10. The emergency room made the decision to intubate and ventilate the patient based on his poor response to CPAP therapy. After intubation and has been of ventilatory support the patient was turned over to the hospitalist service for further care in the ICU. 01/22/18: I personally reviewed the patient's EKG and it shows a normal sinus rhythm with a right bundle branch block. I have also personally reviewed the patient's chest x-ray which shows hyperinflation of the bilateral lung esteban with a normal-sized cardiac shadow however there is some prominence of the right ventricle, which may be due to positional/rotational distortion. No acute cardiopulmonary disease is identified. Patient is admitted to the intensive care unit where he will be continued on ventilatory support. Pulmonology consultation is obtained with Dr. Das. I have ordered propofol and midazolam for intravenous administration to maintain the patient's sedation on the ventilator. Additionally I have ordered IV fentanyl 100 mcg every 4 hours as needed agitation or anxiety that would be reflective of some breakthrough pain or discomfort. IV Solu-Medrol, scheduled albuterol and ipratropium nebulizers and as needed albuterol nebulizers are ordered as part of an aggressive pulmonary toilet. Budesonide will be given every 12 hours via nebulizer and he will be started on empiric antibiotic therapy utilizing Levaquin 750 mg daily. Daily chest x-rays, VBGs, CBCs, serum magnesium and BMPs have been ordered for ongoing monitoring of the patient's condition. Maintenance IV fluids, VT E prophylaxis and GI prophylaxis orders have been placed by myself. Hospital Course Hospital Course: 01/30/18: In the interim Mr. Lynn has been progressing well and was taken off of the ventilator 3 days ago. However this morning his PCO2 dramatically onel from his usual level of approximately 80 up to 102 and he became symptomatic with confusion and combativeness. He was refusing to wear his BiPAP and was being somewhat verbally abusive to the nursing staff. Additionally he complains of his chronic back pain is considerably worse today and he wants some narcotic medicine for it. He is advised that due to his respiratory difficulty treatment with narcotic medications at this time would be somewhat risky and unwarranted however other analgesics and treatments for pain will be provided. I have again personally reviewed the patient's chest x-rays and have noted that the hyperinflation of the bilateral lung esteban persists as does the possible bibasilar infiltrates. Because of his significant clinical change he was transferred back to the ICU as a precautionary measure where the staff is much more likely to be able to provide the attention to his BiPAP setting adjustments to achieve the desired O2 sat of 90-95% which should yield a PCO2 level between 75 and 85. Patient is advised to continue using his BiPAP as directed by the nursing staff and respiratory therapy. I have ordered daily lab work to include a CBC, BMP, venous blood gas and magnesium level. He will be continued on his aggressive nebulizer therapeutic regiment and monitored closely. He will be continued on his current orders for deep venous thrombosis prophylaxis and gastrointestinal prophylaxis as well as daily chest x-rays. 01/31/18: Curt states that he is feeling significantly better today. His back pain is only moderate and he feels like he has been resting better. He believes he is feeling more alert and mentally sharper today than he was yesterday. Not been noted to have any further episodes of confusion and combativeness by the nursing staff. He has been able to sit up and eat his meals and ambulate short distances in the room with the assistance of physical therapy. He continues to require BiPAP most of the time but he is able to tolerate being off BiPAP for an hour or 2 at a time and being able to be minimally active while off BiPAP. We have discussed the possibility of his imminent discharge within the next 24- 48 hours with his significantly improved capabilities. 02/01/18: Curt says that he is feeling about as good as he gets. He would like to be discharged home if possible however he understands it we are waiting to have the support equipment and medications plus oxygen that he will need when he gets back to his residence with his parents. He has not had any further mental confusion and combative behavior and he continues to have the feeling of mental clarity. He has been more active in his room sitting up to eat and continuing to ambulate short distances using just 4 L of oxygen by nasal cannula. He is hopeful that his discharge can be arranged soon as he is looking forward to being home and spending some time with his family. Physical Exam Vital Signs: Temp Pulse Resp BP Pulse Ox 98.6 F 110 H 18 106/56 L 100 02/02/18 16:23 02/02/18 16:23 02/02/18 16:23 02/02/18 16:23 02/02/18 16:23 Intake & Output 01/31/18 02/01/18 02/02/18 23:59 23:59 23:59 Intake Total 922 500 Output Total 9521 6007 743 Balance -5084 -3275 -255 Weight 82.8 kg General appearance: PRESENT: no acute distress, cooperative Head exam: PRESENT: atraumatic, normocephalic Respiratory exam: PRESENT: clear to auscultation kevon, decreased breath sounds - Mildly decreased breath sounds in all estbean, prolonged expiratory phas - Mildly prolonged expiratory phase, symmetrical, unlabored Cardiovascular exam: PRESENT: RRR. ABSENT: clicks, gallop, rubs Vascular exam: PRESENT: normal capillary refill. ABSENT: pallor GI/Abdominal exam: PRESENT: normal bowel sounds, soft Rectal exam: PRESENT: deferred Extremities exam: ABSENT: joint swelling, pedal edema Musculoskeletal exam: PRESENT: full ROM, normal inspection Neurological exam: PRESENT: alert, oriented to person, oriented to place, oriented to time, oriented to situation, CN II-XII grossly intact. ABSENT: motor sensory deficit Psychiatric exam: PRESENT: appropriate affect, normal mood Skin exam: ABSENT: jaundice, rash, urticaria Results Laboratory Results: 02/02/18 04:05 02/02/18 04:05 02/02/18 02/02/18 02/02/18 04:05 04:05 06:07 WBC 8.2 RBC 3.90 L Hgb 12.5 L Hct 37.7 L MCV 97 MCH 32.1 MCHC 33.1 RDW 15.8 H Plt Count 151 Carbonic Acid 3.10 H HCO3/H2CO3 Ratio 16:1 ABG pH 7.30 L ABG pCO2 103.1 H* ABG pO2 79.9 L ABG HCO3 50.0 H ABG O2 Saturation 93.6 L ABG Base Excess 17.9 FiO2 4L Sodium 135.5 L Potassium 4.6 Chloride 89 L Carbon Dioxide 43 H* Anion Gap 4 L BUN 13 Creatinine 0.44 L Est GFR ( Amer) > 60 Est GFR (Non-Af Amer) > 60 Glucose 140 H Calcium 7.9 L Magnesium 1.6 01/22/18 01/22/18 01/22/18 15:08 15:08 21:50 Creatine Kinase 102 59 CK-MB (CK-2) 11.00 H Troponin I 0.080 NT-Pro-B Natriuret Pep 01/22/18 01/23/18 01/23/18 21:50 04:45 04:45 Creatine Kinase 42 L CK-MB (CK-2) 7.71 H 6.42 H Troponin I 0.062 0.060 NT-Pro-B Natriuret Pep 01/31/18 04:11 Creatine Kinase CK-MB (CK-2) Troponin I NT-Pro-B Natriuret Pep 3520 H Impressions: Chest/Abdomen CTA 01/23/18 00:00 IMPRESSION: 1. No evidence of pulmonary embolus. 2. COPD. Right lower lobe airspace disease consistent with atelectasis or pneumonia. Clinical correlation is needed. Chest X-Ray 02/02/18 06:00 IMPRESSION: No significant change. Qualifiers - * PATIENT BEING DISCHARGED WITH ANY OF THE FOLLOWING DIAGNOSIS: No Plan Discharge Plan: Discharged home in improved and stable condition Time Spent: Greater than 30 Minutes
== END 2018-02-02 17:30 | disposition home health service (06) | DRG 208 ==
LOC: ER 12:58 → EH 14:28 → ICU 16:41 → 4N 01-29 16:39 → ICU 01-30 09:45
PROVIDERS: ADMIT Emergency Medicine; ATTEND Emergency Medicine
PROC: 5A1945Z Respiratory Ventilation, 24-96 Consecutive Hours (ICD-10-PCS; principal; 2018-01-22)
PROC: 0BH17EZ Insertion of Endotracheal Airway into Trachea, Via Natural or Artificial Opening (ICD-10-PCS; 2018-01-22)
PROC: 02HV33Z Insertion of Infusion Device into Superior Vena Cava, Percutaneous Approach (ICD-10-PCS; 2018-01-22)
PROC: 3E0F73Z Introduction of Anti-inflammatory into Respiratory Tract, Via Natural or Artificial Opening (ICD-10-PCS; 2018-01-22)
PROC: 5A09457 Assistance with Respiratory Ventilation, 24-96 Consecutive Hours, Continuous Positive Airway Pressure (ICD-10-PCS; 2018-01-25)
DX: J96.21 Acute and chronic respiratory failure with hypoxia (principal); J18.1 Lobar pneumonia, unspecified organism; J44.1 Chronic obstructive pulmonary disease with (acute) exacerbation; J44.0 Chronic obstructive pulmonary disease with (acute) lower respiratory infection; J96.22 Acute and chronic respiratory failure with hypercapnia; I27.20 Pulmonary hypertension, unspecified; I50.9 Heart failure, unspecified; I45.10 Unspecified right bundle-branch block; M19.90 Unspecified osteoarthritis, unspecified site; I25.10 Atherosclerotic heart disease of native coronary artery without angina pectoris; F17.210 Nicotine dependence, cigarettes, uncomplicated; I95.2 Hypotension due to drugs; T50.905A Adverse effect of unspecified drugs, medicaments and biological substances, initial encounter; Z78.1 Physical restraint status; Z91.19 Patient's noncompliance with other medical treatment and regimen; Z86.711 Personal history of pulmonary embolism; Z87.11 Personal history of peptic ulcer disease; Z99.81 Dependence on supplemental oxygen; Z83.6 Family history of other diseases of the respiratory system; Z86.718 Personal history of other venous thrombosis and embolism
CPT/HCPCS: 36415; 36600; 71045; 71275; 80048; 80053; 81001; 82550; 82553; 82803; 83605; 83735; 83880; 84100; 84443; 84484; 85025; 85027; 85610; 87040; 87086; 87088; 93005; 93010; 93306; 93970; 94002; 94003; 94640; 94660; 99291; 99292; C1751; J1100; J1120; J1650; J1940; J1956; J2250; J2704; J2920; J3010; J3475; J3480; J3490; J7040; J7060; J7620; S0164

== ENCOUNTER 2018-02-15 10:12 | Inpatient (IN) | payer MEDICAID ==
[2018-02-15] MEDS ORDERED: METHYLPREDNISOLONE INJ 125 MG/2 ML SDV IV ONE (10:14)
[2018-02-15] MEDS ORDERED: IPRATROPIUM/ALBUTEROL 0.5-2.5 MG/3 ML AMPUL NEB ONE (10:14)
[2018-02-15] MEDS ORDERED: FENTANYL CITRATE INJ/PF 100 MCG/2 ML AMPUL IV ONE (10:16)
[2018-02-15] MEDS ORDERED: FENTANYL CITRATE INJ/PF 100 MCG/2 ML AMPUL ONE (10:17)
[2018-02-15] MEDS ORDERED: DIPH/PERTUSS(ACELL)/TETANUS VAC/PF 0.5 ML SYR (>=10YO) IM ONE ×2 (10:22→12:43)
[2018-02-15] MEDS ORDERED: PROPOFOL 1,000 MG/100 ML INFUS..BTL IV PRN (10:23)
--- NOTE | 2018-02-15 10:29 | ER Document Report ---
ED General - General Stated Complaint: RESPIRATORY DISTRESS Time Seen by Provider: 02/15/18 10:21 Notes: Patient is a 48-year-old male that presents to the emergency department for chief complaint of respiratory failure. History provided by EMS. Apparently the patient was at home, having difficulty breathing, and he slumped down, and EMS was called by the patient's . Upon arrival the patient was cyanotic, his pulse ox was 50%, he had a GCS of 3 at that time and was unresponsive. The patient was subsequently intubated in the field with etomidate 24 mg succinyl choline 120 mg, and ketamine 160 mg. He has a 702. Patient is currently unresponsive, not following any commands currently. Patient has a prior history of respiratory failure and COPD. Recent admission for COPD with intubation as well. No other history obtainable at this time. Past Medical History: COPD, chronic respiratory failure Past Surgical History: Laparotomy Social History: Smokes cigarettes, lives at home with Family History: Reviewed and noncontributory for presenting illness Allergies: Reviewed, see documented allergy list. REVIEW OF SYSTEMS: Unless otherwise stated in this report the patient's positive and negative responses for review of systems for constitutional, eyes, ENT, cardiovascular, respiratory, gastrointestinal, neurological, genitourinary, musculoskeletal, and integumentary systems and related systems to the presenting problem are either as stated in the HPI or were not pertinent or were negative for the symptoms and/or complaints related to the presenting medical problem. PHYSICAL EXAMINATION: Vital signs reviewed, nursing noted reviewed. GENERAL: Chronically ill-appearing male, currently intubated and unresponsive HEAD: Atraumatic, normocephalic. EYES: Eyes appear normal, extraocular movements intact, sclera anicteric, conjunctiva are normal. ENT: nares patent, Moist mucous membranes. NECK: supple without lymphadenopathy LUNGS: Severely diminished lung sounds in the bilateral upper esteban, and left lower lung, right lower lung sounds are diminished but more noticeable than the other esteban. HEART: Regular rate and rhythm without murmurs ABDOMEN: Soft, normoactive bowel sounds. No rebound, guarding, or rigidity. No masses appreciated. EXTREMITIES: Left knee has an abrasion over the patella, normal range of motion with passive range of motion, no step-off or deformity . The left upper extremity does have mild generalized edema. No edema in the lower extremities noted. NEUROLOGICAL: GCS 3 on arrival. Patient did start moving all limbs, during his ED course. PSYCH: Intubated and sedated currently. SKIN: Warm, Dry, normal turgor, TRAVEL OUTSIDE OF THE [place] IN LAST 30 DAYS: No - Related Data Allergies/Adverse Reactions: No Known Allergies Allergy (Verified 01/11/18 11:59) Past Medical History - Social History Smoking Status: Current Every Day Smoker Family History: COPD - Past Medical History Cardiac Medical History: Reports: Hx Congestive Heart Failure, Hx Coronary Artery Disease, Hx Pulmonary Embolism Denies: Hx Atrial Fibrillation, Hx DVT Pulmonary Medical History: Reports: Hx Bronchitis, Hx COPD, Hx Pneumonia, Hx Intubation, Hx Respiratory Failure Neurological Medical History: Denies: Hx Seizures Endocrine Medical History: Denies: Hx Diabetes Mellitus Type 1, Hx Diabetes Mellitus Type 2 Renal/ Medical History: Denies: Hx Peritoneal Dialysis GI Medical History: Denies: Hx Crohn's Disease, Hx Ulcerative Colitis Musculoskeletal Medical History: Reports Hx Arthritis, Denies Hx Gout Skin Medical History: Denies Hx Eczema, Denies Hx Psoriasis Past Surgical History: Reports: Hx Abdominal Surgery - peptic ulcer, unknown abd surgery, Other - Posttraumatic abdominal surgery remotely. Physical Exam - Vital signs Vitals: Resp Pulse Ox 14 98 02/15/18 10:12 02/15/18 10:12 Course - Re-evaluation Re-evalutation: Patient seen and examined vital signs reviewed. Laboratory data and imaging were ordered as appropriate for the patient's presenting symptoms and complaint, with consideration of any critical or life threatening conditions that may be associated with their obtained history and exam as noted above. Patient was intubated on arrival, lung sounds severely diminished, patient was unresponsive, but breathing spontaneously, confirmed tube placement, chest x-ray , patient's ventilator settings were adjusted based on his blood gas. Patient was given IV steroids, DuoNeb breathing treatments through the ventilator. Results were reviewed when available and demonstrated severe leukocytosis, respiratory acidosis, patient did have an elevation his troponin of 0.9, type II end STEMI secondary to hypoxia, do not feel this is a coronary injury, but rather supply demand mismatch. Chest x-ray is negative for pneumonia, will treat for acute on chronic respiratory failure, as noted above with steroids and intubation and ventilator management The patient was re-evaluated was hypoxic, 87%, on 40% FiO2, he was increased to 60% FiO2, which improved his pulse ox, I increased the patient's tidal volume to 450 as well, he did develop transient hypotension secondary to propofol bolusing as the patient was starting to wake up and became agitated and was pulling at lines, we then switch the patient sedation to Versed, for better blood pressure management and sedation. Evaluation was most consistent with acute on chronic respiratory failure requiring positive pressure ventilation, leukocytosis, type II NSTEMI, A call was placed to the admitted physician, Dr. Singh who graciously accepted the patient onto their service. *Note is created using voice recognition software and may contain spelling, syntax or grammatical errors. Laboratory 02/15/18 02/15/18 02/15/18 10:26 10:26 10:26 WBC 29.1 H RBC 4.45 Hgb 13.8 Hct 42.0 MCV 94 MCH 30.9 MCHC 32.8 RDW 16.2 H Plt Count 129 L Total Counted 100 Seg Neutrophils % Not Reportable Seg Neuts % (Manual) 83 H Band Neutrophils % 10 H Lymphocytes % Not Reportable Lymphocytes % (Manual) 5 L Atypical Lymphs % 2 Monocytes % Not Reportable Monocytes % (Manual) 0 L Eosinophils % Not Reportable Eosinophils % (Manual) 0 Basophils % Not Reportable Basophils % (Manual) 0 Absolute Neutrophils Not Reportable Abs Neuts (Manual) 27.1 H Absolute Lymphocytes Not Reportable Abs Lymphs (Manual) 2.0 Absolute Monocytes Not Reportable Abs Monocytes (Manual) 0.0 L Absolute Eosinophils Not Reportable Absolute Eos (Manual) 0.0 Absolute Basophils Not Reportable Abs Basophils (Manual) 0.0 Toxic Granulation SLIGHT Toxic Vacuolation PRESENT Platelet Comment ADEQUATE Hypochromasia 2+ Poikilocytosis SLIGHT Basophilic Stippling PRESENT Anisocytosis 1+ Target Cells SLIGHT Stomatocytes SLIGHT PT 13.4 INR 0.97 Carbonic Acid HCO3/H2CO3 Ratio ABG pH ABG pCO2 ABG pO2 ABG HCO3 ABG Total CO2 ABG O2 Saturation ABG Base Excess FiO2 Sodium 131.6 L Potassium 4.1 Chloride 77 L Carbon Dioxide 46 H* Anion Gap 9 BUN 32 H Creatinine 0.77 Est GFR ( Amer) > 60 Est GFR (Non-Af Amer) > 60 Glucose 128 H Lactic Acid Calcium 8.3 L Total Bilirubin 0.7 Direct Bilirubin 0.3 Neonat Total Bilirubin Not Reportable Neonat Direct Bilirubin Not Reportable Neonat Indirect Bili Not Reportable AST 31 ALT 29 Alkaline Phosphatase 227 H Troponin I Total Protein 5.7 L Albumin 2.4 L Triglycerides Urine Color Urine Appearance Urine pH Ur Specific [employer] Mdl Urine Protein Urine Glucose (UA) Urine Ketones Urine Blood Urine Nitrite Urine Bilirubin Urine Urobilinogen Ur Leukocyte Esterase Urine WBC (Auto) Urine RBC (Auto) U Hyaline Cast (Auto) Urine Mucus (Auto) Urine Ascorbic Acid 02/15/18 02/15/18 02/15/18 10:26 10:26 11:24 WBC RBC Hgb Hct MCV MCH MCHC RDW Plt Count Total Counted Seg Neutrophils % Seg Neuts % (Manual) Band Neutrophils % Lymphocytes % Lymphocytes % (Manual) Atypical Lymphs % Monocytes % Monocytes % (Manual) Eosinophils % Eosinophils % (Manual) Basophils % Basophils % (Manual) Absolute Neutrophils Abs Neuts (Manual) Absolute Lymphocytes Abs Lymphs (Manual) Absolute Monocytes Abs Monocytes (Manual) Absolute Eosinophils Absolute Eos (Manual) Absolute Basophils Abs Basophils (Manual) Toxic Granulation Toxic Vacuolation Platelet Comment Hypochromasia Poikilocytosis Basophilic Stippling Anisocytosis Target Cells Stomatocytes PT INR Carbonic Acid HCO3/H2CO3 Ratio ABG pH ABG pCO2 ABG pO2 ABG HCO3 ABG Total CO2 ABG O2 Saturation ABG Base Excess FiO2 Sodium Potassium Chloride Carbon Dioxide Anion Gap BUN Creatinine Est GFR ( Amer) Est GFR (Non-Af Amer) Glucose Lactic Acid 1.9 Calcium Total Bilirubin Direct Bilirubin Neonat Total Bilirubin Neonat Direct Bilirubin Neonat Indirect Bili AST ALT Alkaline Phosphatase Troponin I Total Protein Albumin Triglycerides 284 H Urine Color YELLOW Urine Appearance SLIGHTLY-CLOUDY Urine pH 6.0 Ur Specific [employer] Mdl 1.014 Urine Protein 30 H Urine Glucose (UA) NEGATIVE Urine Ketones NEGATIVE Urine Blood MODERATE H Urine Nitrite NEGATIVE Urine Bilirubin NEGATIVE Urine Urobilinogen 4.0 H Ur Leukocyte Esterase SMALL H Urine WBC (Auto) 13 Urine RBC (Auto) 22 U Hyaline Cast (Auto) 23 Urine Mucus (Auto) RARE Urine Ascorbic Acid NEGATIVE 02/15/18 02/15/18 02/15/18 11:45 14:00 16:25 WBC RBC Hgb Hct MCV MCH MCHC RDW Plt Count Total Counted Seg Neutrophils % Seg Neuts % (Manual) Band Neutrophils % Lymphocytes % Lymphocytes % (Manual) Atypical Lymphs % Monocytes % Monocytes % (Manual) Eosinophils % Eosinophils % (Manual) Basophils % Basophils % (Manual) Absolute Neutrophils Abs Neuts (Manual) Absolute Lymphocytes Abs Lymphs (Manual) Absolute Monocytes Abs Monocytes (Manual) Absolute Eosinophils Absolute Eos (Manual) Absolute Basophils Abs Basophils (Manual) Toxic Granulation Toxic Vacuolation Platelet Comment Hypochromasia Poikilocytosis Basophilic Stippling Anisocytosis Target Cells Stomatocytes PT INR Carbonic Acid 2.48 H 2.62 H 2.72 H HCO3/H2CO3 Ratio 16:1 17:1 17:1 ABG pH 7.31 L 7.33 L 7.34 L ABG pCO2 82.5 H* 87.1 H* 90.5 H* ABG pO2 61.1 L 149.3 H 58.8 L ABG HCO3 40.6 H 44.6 H 47.9 H ABG Total CO2 43.1 H 47.3 H 50.7 H ABG O2 Saturation 87.8 L 98.6 H 87.1 L ABG Base Excess 10.9 14.6 17.8 FiO2 60% 60% 60% Sodium Potassium Chloride Carbon Dioxide Anion Gap BUN Creatinine Est GFR ( Amer) Est GFR (Non-Af Amer) Glucose Lactic Acid Calcium Total Bilirubin Direct Bilirubin Neonat Total Bilirubin Neonat Direct Bilirubin Neonat Indirect Bili AST ALT Alkaline Phosphatase Troponin I Total Protein Albumin Triglycerides Urine Color Urine Appearance Urine pH Ur Specific [employer] Mdl Urine Protein Urine Glucose (UA) Urine Ketones Urine Blood Urine Nitrite Urine Bilirubin Urine Urobilinogen Ur Leukocyte Esterase Urine WBC (Auto) Urine RBC (Auto) U Hyaline Cast (Auto) Urine Mucus (Auto) Urine Ascorbic Acid 02/15/18 16:29 WBC RBC Hgb Hct MCV MCH MCHC RDW Plt Count Total Counted Seg Neutrophils % Seg Neuts % (Manual) Band Neutrophils % Lymphocytes % Lymphocytes % (Manual) Atypical Lymphs % Monocytes % Monocytes % (Manual) Eosinophils % Eosinophils % (Manual) Basophils % Basophils % (Manual) Absolute Neutrophils Abs Neuts (Manual) Absolute Lymphocytes Abs Lymphs (Manual) Absolute Monocytes Abs Monocytes (Manual) Absolute Eosinophils Absolute Eos (Manual) Absolute Basophils Abs Basophils (Manual) Toxic Granulation Toxic Vacuolation Platelet Comment Hypochromasia Poikilocytosis Basophilic Stippling Anisocytosis Target Cells Stomatocytes PT INR Carbonic Acid HCO3/H2CO3 Ratio ABG pH ABG pCO2 ABG pO2 ABG HCO3 ABG Total CO2 ABG O2 Saturation ABG Base Excess FiO2 Sodium Potassium Chloride Carbon Dioxide Anion Gap BUN Creatinine Est GFR ( Amer) Est GFR (Non-Af Amer) Glucose Lactic Acid Calcium Total Bilirubin Direct Bilirubin Neonat Total Bilirubin Neonat Direct Bilirubin Neonat Indirect Bili AST ALT Alkaline Phosphatase Troponin I 0.968 Total Protein Albumin Triglycerides Urine Color Urine Appearance Urine pH Ur Specific [employer] Mdl Urine Protein Urine Glucose (UA) Urine Ketones Urine Blood Urine Nitrite Urine Bilirubin Urine Urobilinogen Ur Leukocyte Esterase Urine WBC (Auto) Urine RBC (Auto) U Hyaline Cast (Auto) Urine Mucus (Auto) Urine Ascorbic Acid Chest X-Ray 02/15/18 10:14 IMPRESSION: Cardiomegaly with pulmonary vascular congestion but no mago pulmonary edema. Endotracheal tube as described. - Vital Signs Vital signs: Temp Pulse Resp BP Pulse Ox 99.5 F 117 H 19 89/66 L 97 02/15/18 14:03 02/15/18 14:22 02/15/18 16:05 02/15/18 16:05 02/15/18 16:05 - Laboratory Result Diagrams: 02/15/18 10:26 02/15/18 10:26 Laboratory results interpreted by me: 02/15/18 02/15/18 02/15/18 10:26 10:26 10:26 WBC 29.1 H RDW 16.2 H Plt Count 129 L Seg Neuts % (Manual) 83 H Band Neutrophils % 10 H Lymphocytes % (Manual) 5 L Monocytes % (Manual) 0 L Abs Neuts (Manual) 27.1 H Abs Monocytes (Manual) 0.0 L Carbonic Acid ABG pH ABG pCO2 ABG pO2 ABG HCO3 ABG Total CO2 ABG O2 Saturation Sodium 131.6 L Chloride 77 L Carbon Dioxide 46 H* BUN 32 H Glucose 128 H Calcium 8.3 L Alkaline Phosphatase 227 H Total Protein 5.7 L Albumin 2.4 L Triglycerides 284 H Urine Protein Urine Blood Urine Urobilinogen Ur Leukocyte Esterase 02/15/18 02/15/18 11:24 11:45 WBC RDW Plt Count Seg Neuts % (Manual) Band Neutrophils % Lymphocytes % (Manual) Monocytes % (Manual) Abs Neuts (Manual) Abs Monocytes (Manual) Carbonic Acid 2.48 H ABG pH 7.31 L ABG pCO2 82.5 H* ABG pO2 61.1 L ABG HCO3 40.6 H ABG Total CO2 43.1 H ABG O2 Saturation 87.8 L Sodium Chloride Carbon Dioxide BUN Glucose Calcium Alkaline Phosphatase Total Protein Albumin Triglycerides Urine Protein 30 H Urine Blood MODERATE H Urine Urobilinogen 4.0 H Ur Leukocyte Esterase SMALL H - EKG Interpretation by Me Additional EKG results interpreted by me: EKG demonstrates sinus tachycardia with a ventricular rate of 120 bpm, normal axis, normal intervals, T wave inversions in leads II, III and aVF, Critical Care Note - Critical Care Note Total time excluding time spent on procedures (mins): 75 Comments: Critical care time 75 minutes exclusive from separate billable procedures for a patient requiring complex medical decision making, and high potential for clinical deterioration. Multiple re-evaluations, ventilator management, in a patient with acute respiratory failure. Time spent obtaining history from patient or surrogate, discussions with consultants, development of treatment plan with patient or surrogate, evaluation of patient's response to treatment, examination of patient, ordering and performing treatments and interventions, ordering and review of laboratory studies, re-evaluation of patient's condition , ordering and review of radiographic studies and review of old charts Discharge - Discharge Clinical Impression: Tachycardia, Respiratory acidosis, NSTEMI (non-ST elevated myocardial infarction), Hyponatremia Acute and chronic respiratory failure Qualifiers: Respiratory failure complication: hypoxia and hypercapnia Qualified Code(s): J96.21 - Acute and chronic respiratory failure with hypoxia Leukocytosis Qualifiers: Leukocytosis type: unspecified Qualified Code(s): D72.829 - Elevated white blood cell count, unspecified Condition: Serious Disposition: ADMITTED INPATIENT Admitting Provider: Hospitalist - Dr. Singh Unit Admitted: ICU
--- NOTE | 2018-02-15 10:42 | RADIOLOGY REPORT (SQ) ---
EXAM DESCRIPTION: CHEST SINGLE VIEW COMPLETED DATE/TIME: 02/15/2018 10:33 am REASON FOR STUDY: resp failure, intubated COMPARISON: 02/02/2018 EXAM PARAMETERS: NUMBER OF VIEWS: One view. TECHNIQUE: Single frontal radiographic view of the chest acquired. RADIATION DOSE: NA LIMITATIONS: None. FINDINGS: LUNGS AND PLEURA: Mild pulmonary vascular congestion. No mago pulmonary edema. MEDIASTINUM AND HILAR STRUCTURES: No masses. Contour normal. HEART AND VASCULAR STRUCTURES: Cardiomegaly. BONES: No acute findings. HARDWARE: An endotracheal tube has its tip 7 cm above the josué. OTHER: No other significant finding. IMPRESSION: Cardiomegaly with pulmonary vascular congestion but no mago pulmonary edema. Endotrach eal tube as described. TECHNICAL DOCUMENTATION: JOB ID: [id number] [employer]- All Rights Reserved Reading location - IP/workstation name: [email or web address]
[2018-02-15 10:48] LABS: HEMOGLOBIN 13.8 g/dL (13.5-17.0); MEAN CORPUSCULAR HEMOGLOBIN 30.9 pg (27.0-33.4); MEAN CORPUSCULAR HGB CONC 32.8 g/dL (32.0-36.0); MEAN CORPUSCULAR VOLUME 94 fl (80-97); PLATELET COUNT 129 10^3/uL (150-450); RED BLOOD COUNT 4.45 10^6/uL (4.35-5.55); RED CELL DISTRIBUTION WIDTH 16.2 % (11.5-14.0); WHITE BLOOD COUNT 29.1 10^3/uL (4.0-10.5)
[2018-02-15 10:54] LABS: INTERNATIONAL RATION (INR) 0.97; PROTHROMBIN TIME 13.4 SEC (11.4-15.4)
[2018-02-15 11:02] LABS: ALANINE AMINOTRANSFERASE 29 U/L (21-72); ALBUMIN 2.4 g/dL (3.5-5.0); ALKALINE PHOSPHATASE 227 U/L (38-126); ASPARTATE AMINO TRANSFERASE 31 U/L (17-59); BILIRUBIN,DIRECT 0.3 mg/dL (0.0-0.4); BILIRUBIN,TOTAL 0.7 mg/dL (0.2-1.3); BLOOD UREA NITROGEN 32 mg/dL (7-20); CALCIUM 8.3 mg/dL (8.4-10.2); CHLORIDE 77 mmol/L (98-107); GLUCOSE 128 mg/dL (75-110); POTASSIUM 4.1 mmol/L (3.6-5.0); SODIUM 131.6 mmol/L (137-145); TOTAL PROTEIN 5.7 g/dL (6.3-8.2)
[2018-02-15] MEDS ORDERED: MIDAZOLAM HCL 50 MG/100 ML RTUINJ ONE (11:15)
[2018-02-15 11:17] LABS: ANION GAP 9 (5-19)
[2018-02-15 11:18] LABS: CARBON DIOXIDE 46 mmol/L (22-30)
[2018-02-15 11:28] LABS: ABSOLUTE NEUTROPHILS# (MANUAL) 27.1 10^3/uL (1.7-8.2); BAND NEUTROPHILS % (MANUAL) 10 % (3-5); BASOPHILS % (MANUAL) 0 % (0-2); EOSINOPHILS % (MANUAL) 0 % (0-6); LYMPHOCYTES % (MANUAL) 5 % (13-45); MONOCYTES % (MANUAL) 0 % (3-13); SEGMENTED NEUTROPHILS % (MAN) 83 % (42-78); TOTAL CELLS COUNTED 100
[2018-02-15 11:29] LABS: PLATELET COMMENT ADEQUATE; TOXIC VACUOLATION PRESENT
[2018-02-15 11:30] LABS: TOXIC GRANULATION SLIGHT
[2018-02-15 11:32] LABS: ANISOCYTOSIS 1+; HYPOCHROMASIA 2+; POIKILOCYTOSIS SLIGHT; STOMATOCYTES SLIGHT; TARGET CELLS SLIGHT
[2018-02-15 11:49] LABS: APPEARANCE,URINE SLIGHTLY-CLOUDY; BILIRUBIN,URINE NEGATIVE (NEGATIVE); COLOR,URINE YELLOW; GLUCOSE, URINE NEGATIVE (NEGATIVE); KETONES,URINE NEGATIVE (NEGATIVE); LEUKOCYTE ESTERASE,URINE SMALL (NEGATIVE); NITRITE,URINE NEGATIVE (NEGATIVE); PROTEIN,URINE 30 mg/dL (NEGATIVE); URINE SPECIFIC GRAVITY 1.014
[2018-02-15 11:54] LABS: ARTERIAL BLOOD BASE EXCESS 10.9 mmol/L; ARTERIAL BLOOD H2CO3 2.48 mmol/L (1.05-1.35); ARTERIAL BLOOD HCO3 40.6 mmol/L (20-24); ARTERIAL BLOOD O2 SATURATION 87.8 % (94-98); ARTERIAL BLOOD PH 7.31 (7.35-7.45); ARTERIAL BLOOD PO2 61.1 mmHg (80-100); ARTERIAL BLOOD TOTAL CO2 43.1 mmol/L (23-27)
[2018-02-15 11:55] LABS: ARTERIAL BLOOD FIO2 60%
[2018-02-15 11:57] LABS: ARTERIAL BLOOD PCO2 82.5 mmHg (35-45)
[2018-02-15] MEDS ORDERED: MIDAZOLAM HCL 50 MG/100 ML RTUINJ IV PRN (12:21)
[2018-02-15] MEDS ORDERED: RINGERS SOLUTION,LACTATED 1,000 ML IV PRN (12:24)
[2018-02-15] MEDS ORDERED: ONDANSETRON HCL INJ/PF 4 MG/2 ML SDV IV PRN (12:24)
[2018-02-15] MEDS ORDERED: ACETAMINOPHEN SOLN 325 MG/10.15 ML UDCUP NG PRN (12:24)
[2018-02-15] MEDS ORDERED: IPRATROPIUM/ALBUTEROL 0.5-2.5 MG/3 ML AMPUL NEB PRN (12:24)
[2018-02-15] MEDS ORDERED: VANCOMYCIN HCL 0 MG in DEXTROSE 5%-WATER 250 ML IV NR (13:00)
[2018-02-15] MEDS: IPRATROPIUM/ALBUTEROL 0.5-2.5 MG/3 ML AMPUL NEB SCH ×2 (14:13→20:04)
[2018-02-15 14:21] LABS: ARTERIAL BLOOD BASE EXCESS 14.6 mmol/L; ARTERIAL BLOOD FIO2 60%; ARTERIAL BLOOD H2CO3 2.62 mmol/L (1.05-1.35); ARTERIAL BLOOD HCO3 44.6 mmol/L (20-24); ARTERIAL BLOOD O2 SATURATION 98.6 % (94-98); ARTERIAL BLOOD PH 7.33 (7.35-7.45); ARTERIAL BLOOD PO2 149.3 mmHg (80-100); ARTERIAL BLOOD TOTAL CO2 47.3 mmol/L (23-27)
[2018-02-15 14:22] LABS: ARTERIAL BLOOD PCO2 87.1 mmHg (35-45)
[2018-02-15] MEDS: VANCOMYCIN HCL 1,000 MG in DEXTROSE 5%-WATER 250 ML IV SCH ×2 (14:46→21:26)
[2018-02-15] MEDS: MIDAZOLAM HCL 50 MG/100 ML RTUINJ IV-INFUSE PRN ×2 (14:47→17:54)
[2018-02-15] MEDS: RINGERS SOLUTION,LACTATED 1,000 ML IV PRN ×2 (14:48→17:52)
[2018-02-15] MEDS: PROPOFOL 1,000 MG/100 ML INFUS..BTL IV PRN (14:48)
[2018-02-15] MEDS: HEPARIN SOD (PORCINE) 5,000 UNIT/ML 1 ML SYRINGE SUBCUT SCH ×2 (14:53→21:26)
--- NOTE | 2018-02-15 15:37 | PDOC H&P ---
History of Present Illness Admission Date/PCP: 02/15/18 12:31 Patient complains of: The patient presents with acute hypoxic hypercapnic respiratory failure. He in fact was intubated in the field. History of Present Illness: SHARLENE LYNN is a 48 year old male who was just discharged from this hospital on 01/30/2018. He is currently intubated and sedated so was not able to participate in this discussion. At that time he was intubated and on the ventilator as well. Evidently he has a history of multiple admissions with poor compliance. By report the patient evidently has been declining over the last several days. Past Medical History Past Medical History: Patient is unable to participate as he is currently intubated. Cardiac Medical History: Reports: Congestive Heart Failure, Coronary Artery Disease, Pulmonary Embolism Denies: Atrial Fibrillation, DVT Pulmonary Medical History: Reports: Bronchitis, Chronic Obstructive Pulmonary Disease (COPD), Intubation, Pneumonia, Respiratory Failure Neurological Medical History: Denies: Seizures Endocrine Medical History: Denies: Diabetes Mellitus Type 1, Diabetes Mellitus Type 2 GI Medical History: Denies: Crohn's Disease, Ulcerative Colitis Musculoskeltal Medical History: Reports: Arthritis Denies: Gout Skin Medical History: Denies: Eczema, Psoriasis Infectious Medical History: Denies: Clostridium Difficile, Hepatitis B, Hepatitis C Past Surgical History Past Surgical History: Reports: Other - Posttraumatic abdominal surgery remotely. Social History Information Source: Parent - Patient is unable to participate in this encounter due to intubation., [facility] Records Smoking Status: Current Some Day Smoker Frequency of Alcohol Use: None Hx Recreational Drug Use: Yes Drugs: Marijuana Hx Prescription Drug Abuse: Yes - Advance Directive Resuscitation Status: Full Code Family History Family History: CAD, COPD, Hypertension Parental Family History Reviewed: No - Patient unable to provide Children Family History Reviewed: Unknown Sibling(s) Family History Reviewed.: No - Patient unable to provide Medication/Allergy Home Medications: Albuterol Sulfate [Albuterol Sulfate 2.5mg/3 mL] 2.5 mg NEB RTQ6HP PRN 02/15/18 Albuterol Sulfate [Ventolin Hfa] 2 puff IH Q4HP PRN 02/15/18 Fluticasone Propionate [Flonase Nasal [place] 50 Mcg/[place] 16 gm] 1 spray NASL QHS 02/15/18 Furosemide [Lasix 20 mg Tablet] 20 mg PO QAM 02/15/18 Ipratropium/Albuterol Sulfate [Duoneb 3 ml Ampul] 3 ml NEB RTQ4HP PRN 02/15/18 Umeclidinium [place] [Incruse Ellipta] 1 puff IH DAILY 02/15/18 Allergies/Adverse Reactions: No Known Allergies Allergy (Verified 01/11/18 11:59) Review of Systems ROS unobtainable: Due to endotracheal tube Physical Exam Vital Signs: Temp Pulse Resp BP Pulse Ox 99.5 F 117 H 19 90/59 L 98 02/15/18 14:03 02/15/18 14:22 02/15/18 14:22 02/15/18 14:03 02/15/18 14:22 Intake & Output 02/14/18 02/15/18 02/16/18 06:59 06:59 06:59 Intake Total 7 Output Total 60 Balance -53 Weight 73.5 kg General appearance: PRESENT: mild distress - Somewhat restless, well-developed Head exam: PRESENT: atraumatic, normocephalic Eye exam: PRESENT: conjunctiva pink. ABSENT: scleral icterus Ear exam: PRESENT: normal external ear exam Mouth exam: PRESENT: other - Endotracheal tube and orogastric tube in place Teeth exam: PRESENT: other - Unable to assess Throat exam: PRESENT: other - Unable to assess Neck exam: ABSENT: JVD, thyromegaly Respiratory exam: PRESENT: clear to auscultation kevon, other - Currently on the ventilator. ABSENT: rales, rhonchi, wheezes Cardiovascular exam: PRESENT: tachycardia Pulses: PRESENT: normal radial pulses GI/Abdominal exam: PRESENT: normal bowel sounds, soft. ABSENT: distended, guarding, tenderness Rectal exam: PRESENT: deferred Gentrourinary exam: PRESENT: indwelling catheter Extremities exam: PRESENT: other - Bilateral soft wrist restraints. ABSENT: pedal edema Musculoskeletal exam: PRESENT: other. ABSENT: ambulatory Neurological exam: PRESENT: other - Currently sedated Psychiatric exam: PRESENT: other - Currently sedated Skin exam: PRESENT: other - Sacral ulcer not examined at this encounter. Will examine when patient more stable. Results Laboratory Results: 02/15/18 14:00 Carbonic Acid 2.62 H HCO3/H2CO3 Ratio 17:1 ABG pH 7.33 L ABG pCO2 87.1 H* ABG pO2 149.3 H ABG HCO3 44.6 H ABG O2 Saturation 98.6 H ABG Base Excess 14.6 FiO2 60% Impressions: Chest X-Ray 02/15/18 10:14 IMPRESSION: Cardiomegaly with pulmonary vascular congestion but no mago pulmonary edema. Endotracheal tube as described. Assessment & Plan - Diagnosis (1) Acute on chronic respiratory failure with hypoxia and hypercapnia Is this a current diagnosis for this admission?: Yes Plan: The patient is currently intubated. He was intubated in the field. He is currently on intermittent mandatory ventilation. His PCO2 still remains high and so I will increase the rate. His chest x-ray did not suggest an infiltrate but his white blood cell count was elevated at 20,000 and so antibiotic therapy has been initiated. We will repeat a chest x-ray tomorrow. Pulmonology has been consulted as well. The patient will be on scheduled as well as as needed nebulizer treatments. I have started intravenous Solu-Medrol. We will likely initiate nebulized steroid therapy as well. (2) Pneumonia Qualifiers: Pneumonia type: due to unspecified organism Laterality: unspecified laterality Lung location: unspecified part of lung Qualified Code(s): J18.9 - Pneumonia, unspecified organism Is this a current diagnosis for this admission?: Yes Plan: The patient's white blood cell count was 20,000 on admission. Because he was just in the hospital I have him on vancomycin and Zosyn as it is impossible to tell if this was hospital-acquired or community-acquired. Repeat chest x-rays have been ordered and may reveal more when the patient is hydrated. Continue mechanical ventilation. (3) Congestive heart failure Qualifiers: Heart failure type: unspecified Heart failure chronicity: chronic Qualified Code(s): I50.9 - Heart failure, unspecified Is this a current diagnosis for this admission?: Yes Plan: The patient does have a history of congestive heart failure. Because of his low blood pressure I have not initiated any diuretic therapy. We will continue to watch him closely and when his pressure stabilizes I will add intravenous furosemide. Have ordered serial troponin studies to rule out the possibility of infarction causing an exacerbation of congestive failure. In addition I will review medical records for more complete history. (4) Hypotension Qualifiers: Hypotension type: unspecified hypotension type Qualified Code(s): I95.9 - Hypotension, unspecified Is this a current diagnosis for this admission?: Yes Plan: The patient was hypotensive initially. This could be related to the propofol and Versed. We will continue IV fluids. His pressure is responding. If necessary we can use pressor therapy. - Time Critical Time spent with patient: 35 or more minutes Medications reviewed and adjusted accordingly: Yes
[2018-02-15 16:36] LABS: ARTERIAL BLOOD BASE EXCESS 17.8 mmol/L; ARTERIAL BLOOD FIO2 60%; ARTERIAL BLOOD H2CO3 2.72 mmol/L (1.05-1.35); ARTERIAL BLOOD HCO3 47.9 mmol/L (20-24); ARTERIAL BLOOD O2 SATURATION 87.1 % (94-98); ARTERIAL BLOOD PH 7.34 (7.35-7.45); ARTERIAL BLOOD PO2 58.8 mmHg (80-100); ARTERIAL BLOOD TOTAL CO2 50.7 mmol/L (23-27)
[2018-02-15 16:38] LABS: ARTERIAL BLOOD PCO2 90.5 mmHg (35-45)
[2018-02-15] MEDS: DOCUSATE SODIUM 100 MG/10 ML UDC NG SCH (17:38)
[2018-02-15] MEDS: PIPERACILLIN SODIUM/TAZOBACTAM 4.5 GM in NORMAL SALINE 100 ML IV SCH ×2 (17:50→23:06)
[2018-02-15] MEDS ORDERED: NOREPINEPHRINE BITARTRATE INJ/PF 4 MG/4 ML SDV IV ONE (18:12)
[2018-02-15 18:27] LABS: ARTERIAL BLOOD BASE EXCESS 18.1 mmol/L; ARTERIAL BLOOD HCO3 46.3 mmol/L (20-24); ARTERIAL BLOOD O2 SATURATION 99.2 % (94-98); ARTERIAL BLOOD PH 7.42 (7.35-7.45); ARTERIAL BLOOD PO2 187.3 mmHg (80-100); ARTERIAL BLOOD TOTAL CO2 48.6 mmol/L (23-27)
[2018-02-15 18:29] LABS: ARTERIAL BLOOD FIO2 60%; ARTERIAL BLOOD PCO2 73.2 mmHg (35-45)
[2018-02-15] MEDS: DEXTROSE 5%-WATER 250 ML with NOREPINEPHRINE BITARTRATE 4 MG IV PRN ×2 (18:30)
[2018-02-15] MEDS ORDERED: RINGERS SOLUTION,LACTATED 500 ML IV ONE (19:15)
[2018-02-15] MEDS: BUDESONIDE NEB 0.5 MG/2 ML AMPUL NEB SCH (20:04)
[2018-02-15] MEDS: ASPIRIN 81 MG TABLET, CHEWABLE NG SCH (20:10)
--- NOTE | 2018-02-15 20:45 | EKG REPORT ---
SEVERITY:- BORDERLINE ECG - SINUS TACHYCARDIA RIGHT AXIS DEVIATION BORDERLINE T ABNORMALITIES, INFERIOR LEADS : Confirmed by: Renetta Roth MD 15-Feb-2018 20:44:42
--- NOTE | 2018-02-15 20:45 | EKG REPORT ---
SEVERITY:- BORDERLINE ECG - SINUS TACHYCARDIA RIGHT AXIS DEVIATION BORDERLINE T ABNORMALITIES, INFERIOR LEADS : Confirmed by: Renetta Roth MD 15-Feb-2018 20:44:45
[2018-02-15] MEDS: METHYLPREDNISOLONE INJ 40 MG/1 ML SDV IV SCH (21:26)
[2018-02-16] MEDS: MIDAZOLAM HCL 50 MG/100 ML RTUINJ IV-INFUSE PRN ×4 (00:16→21:31)
[2018-02-16] MEDS: RINGERS SOLUTION,LACTATED 1,000 ML IV PRN ×2 (01:44→06:01)
[2018-02-16] MEDS: DEXTROSE 5%-WATER 250 ML with NOREPINEPHRINE BITARTRATE 4 MG IV PRN ×4 (01:57→10:33)
[2018-02-16] MEDS: IPRATROPIUM/ALBUTEROL 0.5-2.5 MG/3 ML AMPUL NEB SCH ×4 (02:19→21:24)
[2018-02-16 04:39] LABS: HEMATOCRIT 33.5 % (37.9-51.0); MEAN CORPUSCULAR HEMOGLOBIN 30.6 pg (27.0-33.4); MEAN CORPUSCULAR HGB CONC 33.6 g/dL (32.0-36.0); MEAN CORPUSCULAR VOLUME 91 fl (80-97); PLATELET COUNT 108 10^3/uL (150-450); RED BLOOD COUNT 3.67 10^6/uL (4.35-5.55); RED CELL DISTRIBUTION WIDTH 15.9 % (11.5-14.0); WHITE BLOOD COUNT 23.9 10^3/uL (4.0-10.5)
[2018-02-16 04:42] LABS: HEMOGLOBIN 11.2 g/dL (13.5-17.0)
[2018-02-16 05:01] LABS: ALANINE AMINOTRANSFERASE 22 U/L (21-72); ALKALINE PHOSPHATASE 135 U/L (38-126); ASPARTATE AMINO TRANSFERASE 27 U/L (17-59); BILIRUBIN,DIRECT 0.3 mg/dL (0.0-0.4); BILIRUBIN,TOTAL 0.6 mg/dL (0.2-1.3); BLOOD UREA NITROGEN 46 mg/dL (7-20); CALCIUM 7.7 mg/dL (8.4-10.2); CHLORIDE 82 mmol/L (98-107); GLUCOSE 174 mg/dL (75-110); PHOSPHORUS 4.3 mg/dL (2.5-4.5); POTASSIUM 4.3 mmol/L (3.6-5.0); SODIUM 129.8 mmol/L (137-145); TOTAL PROTEIN 4.6 g/dL (6.3-8.2)
[2018-02-16] MEDS: PIPERACILLIN SODIUM/TAZOBACTAM 4.5 GM in NORMAL SALINE 100 ML IV SCH ×3 (05:05→18:54)
[2018-02-16] MEDS: HEPARIN SOD (PORCINE) 5,000 UNIT/ML 1 ML SYRINGE SUBCUT SCH ×3 (05:06→21:32)
[2018-02-16] MEDS: METHYLPREDNISOLONE INJ 40 MG/1 ML SDV IV SCH (05:06)
[2018-02-16 05:07] LABS: ABSOLUTE NEUTROPHILS# (MANUAL) 22.9 10^3/uL (1.7-8.2); BAND NEUTROPHILS % (MANUAL) 6 % (3-5); BASOPHILS % (MANUAL) 0 % (0-2); EOSINOPHILS % (MANUAL) 0 % (0-6); LYMPHOCYTES % (MANUAL) 0 % (13-45); MONOCYTES % (MANUAL) 4 % (3-13); NUCLEATED RED BLOOD CELLS 1 /100 WBC (0); SEGMENTED NEUTROPHILS % (MAN) 90 % (42-78); TOTAL CELLS COUNTED 100
[2018-02-16 05:08] LABS: ANISOCYTOSIS SLIGHT; PLATELET COMMENT DECREASED; TOXIC GRANULATION SLIGHT; TOXIC VACUOLATION PRESENT
[2018-02-16 05:18] LABS: ANION GAP 8 (5-19)
[2018-02-16 05:22] LABS: CARBON DIOXIDE 40 mmol/L (22-30)
[2018-02-16] MEDS: VANCOMYCIN HCL 1,000 MG in DEXTROSE 5%-WATER 250 ML IV SCH ×3 (05:42→21:31)
[2018-02-16 06:08] LABS: ARTERIAL BLOOD BASE EXCESS 15.1 mmol/L; ARTERIAL BLOOD H2CO3 1.63 mmol/L (1.05-1.35); ARTERIAL BLOOD HCO3 40.7 mmol/L (20-24); ARTERIAL BLOOD O2 SATURATION 97.1 % (94-98); ARTERIAL BLOOD PCO2 54.2 mmHg (35-45); ARTERIAL BLOOD PH 7.49 (7.35-7.45); ARTERIAL BLOOD PO2 87.7 mmHg (80-100); ARTERIAL BLOOD TOTAL CO2 42.3 mmol/L (23-27)
[2018-02-16 06:09] LABS: ARTERIAL BLOOD FIO2 45%
--- NOTE | 2018-02-16 06:49 | RADIOLOGY REPORT (SQ) ---
EXAM DESCRIPTION: X-ray single view chest. CLINICAL HISTORY: 48 years Male, Acute respiratory failure COMPARISON: Portable chest performed on 02/15/2018 and 02/02/2018 TECHNIQUE: Single portable view of the chest performed on 02/16/2018 at 5:44 AM FINDINGS: The lungs are hyperinflated. There is improving aeration of the lungs when compared to the prior studies. There is faint interstitial prominence in the right inferior hemithorax. No dense airspace consolidation is identified. There is no evidence of a pneumothorax. There is grossly stable right paratracheal opacification. The cardiac silhouette is stable and mildly prominent. The cardiac silhouette is likely accentuated by the portable technique. The mediastinal contours are normal. No acute osseous abnormality is identified. No focal soft tissue abnormalities are seen. Lines and tubes: The tip of the endotracheal tube terminates below the level of the clavicular heads. A feeding tube extends below the diaphragm. There are multiple overlying bow maker machine tender leads. IMPRESSION: 1. Slightly improving aeration of the lungs when compared to the prior studies. 2. Otherwise, no significant change when compared to the prior studies.
[2018-02-16] MEDS: BUDESONIDE NEB 0.5 MG/2 ML AMPUL NEB SCH ×2 (07:57→21:24)
[2018-02-16 10:13] LABS: INTERNATIONAL RATION (INR) 0.91; PROTHROMBIN TIME 12.7 SEC (11.4-15.4)
[2018-02-16 10:14] LABS: PARTIAL THROMBOPLASTIN TIME 26.7 SEC (23.5-35.8)
[2018-02-16] MEDS: DOCUSATE SODIUM 100 MG/10 ML UDC NG SCH ×2 (10:29→18:54)
[2018-02-16] MEDS: ASPIRIN 81 MG TABLET, CHEWABLE NG SCH (10:29)
[2018-02-16] MEDS: ALBUMIN HUMAN 12.5 GM/50 ML RTUINJ IV SCH ×2 (10:29→10:32)
[2018-02-16] MEDS: PANTOPRAZOLE SODIUM 40 MG VIAL IV SCH (10:29)
[2018-02-16] MEDS: NORMAL SALINE 1000 ML 1,000 ML IV PRN ×3 (10:31→21:30)
--- NOTE | 2018-02-16 12:40 | EKG REPORT ---
SEVERITY:- ABNORMAL ECG - SINUS TACHYCARDIA CONSIDER RIGHT VENTRICULAR HYPERTROPHY NONSPECIFIC T ABNORMALITIES, INFERIOR LEADS : Confirmed by: Renetta Roth MD 16-Feb-2018 12:39:36
--- NOTE | 2018-02-16 13:36 | RADIOLOGY REPORT (SQ) ---
EXAM DESCRIPTION: CHEST SINGLE VIEW COMPLETED DATE/TIME: 02/16/2018 1:26 pm REASON FOR STUDY: central line placement COMPARISON: Earlier the same day. NUMBER OF VIEWS: One view. TECHNIQUE: Single frontal radiographic image of the chest acquired. LIMITATIONS: None. FINDINGS: LUNGS AND PLEURA: Stable appearance. No pneumothorax. MEDIASTINUM AND HEART: Stable heart size and mediastinal structures. SUPPORT DEVICES: Stable position of nasogastric tube and endotracheal tube. Placement of a right sub clavian central line with tip overlying SVC. BONY STRUCTURES: No acute findings. HARDWARE: None. OTHER: No other significant finding. IMPRESSION: Satisfactory position of central line. No pneumothorax. Reading location - IP/workstation name: [facility]-[email or web address]
--- NOTE | 2018-02-16 13:39 | PDOC PROGRESS REPORT ---
Subjective Progress Note for:: 02/16/18 Subjective:: The patient is stable this morning. He remains on levo fed as well as Versed. He appears comfortable. Propofol has been discontinued. Reason For Visit: ACUTE HYPOXIC HYPERCANEIC RESPIRATORY FAILURE Septic shock Physical Exam Vital Signs: Temp Pulse Resp BP Pulse Ox 99.5 F 94 20 93/63 L 95 02/16/18 05:44 02/16/18 08:00 02/16/18 07:57 02/16/18 11:02 02/16/18 11:47 Intake & Output 02/15/18 02/16/18 02/17/18 06:59 06:59 06:59 Intake Total 3925 1111 Output Total 540 200 Balance 3385 911 Weight 76.8 kg General appearance: PRESENT: other - Patient remains sedated and intubated. Eye exam: PRESENT: conjunctiva pink. ABSENT: scleral icterus Ear exam: PRESENT: normal external ear exam Mouth exam: PRESENT: dry mucosa, other - Limited exam due to endotracheal tube and orogastric tube Neck exam: ABSENT: carotid bruit, lymphadenopathy, tracheal deviation Respiratory exam: PRESENT: decreased breath sounds - Breath sounds diminished, rales - Fine rales at bases bilaterally. ABSENT: unlabored, wheezes Cardiovascular exam: PRESENT: RRR, +S1, +S2 Pulses: PRESENT: normal radial pulses GI/Abdominal exam: PRESENT: normal bowel sounds, soft. ABSENT: distended, tenderness Gentrourinary exam: PRESENT: indwelling catheter Extremities exam: PRESENT: pedal edema - Trace. Trace edema hands.. ABSENT: calf tenderness Musculoskeletal exam: PRESENT: other - Decreased muscle mass Neurological exam: PRESENT: other - Unable to assess. Sedated Psychiatric exam: PRESENT: other - Unable to assess. Sedated Skin exam: PRESENT: dry, warm, other - Fingers and toes remain warm and dry. No evidence of cyanosis/discoloration. Results Laboratory Results: 02/16/18 04:29 02/16/18 04:29 02/15/18 02/15/18 02/15/18 14:00 16:25 18:00 WBC RBC Hgb Hct MCV MCH MCHC RDW Plt Count Seg Neutrophils % Lymphocytes % Monocytes % Eosinophils % Basophils % Absolute Neutrophils Absolute Lymphocytes Absolute Monocytes Absolute Eosinophils Absolute Basophils Carbonic Acid 2.62 H 2.72 H 2.20 H HCO3/H2CO3 Ratio 17:1 17:1 21:1 ABG pH 7.33 L 7.34 L 7.42 ABG pCO2 87.1 H* 90.5 H* 73.2 H* ABG pO2 149.3 H 58.8 L 187.3 H ABG HCO3 44.6 H 47.9 H 46.3 H ABG O2 Saturation 98.6 H 87.1 L 99.2 H ABG Base Excess 14.6 17.8 18.1 FiO2 60% 60% 60% Sodium Potassium Chloride Carbon Dioxide Anion Gap BUN Creatinine Est GFR ( Amer) Est GFR (Non-Af Amer) Glucose Calcium Phosphorus Magnesium Total Bilirubin AST ALT Alkaline Phosphatase Total Protein Albumin 02/16/18 02/16/18 02/16/18 04:29 04:29 05:57 WBC 23.9 H RBC 3.67 L Hgb 11.2 L D Hct 33.5 L MCV 91 MCH 30.6 MCHC 33.6 RDW 15.9 H Plt Count 108 L Seg Neutrophils % Not Reportable Lymphocytes % Not Reportable Monocytes % Not Reportable Eosinophils % Not Reportable Basophils % Not Reportable Absolute Neutrophils Not Reportable Absolute Lymphocytes Not Reportable Absolute Monocytes Not Reportable Absolute Eosinophils Not Reportable Absolute Basophils Not Reportable Carbonic Acid 1.63 H HCO3/H2CO3 Ratio 24:1 ABG pH 7.49 H ABG pCO2 54.2 H ABG pO2 87.7 ABG HCO3 40.7 H ABG O2 Saturation 97.1 ABG Base Excess 15.1 FiO2 45% Sodium 129.8 L Potassium 4.3 Chloride 82 L Carbon Dioxide 40 H* Anion Gap 8 BUN 46 H Creatinine 0.77 Est GFR ( Amer) > 60 Est GFR (Non-Af Amer) > 60 Glucose 174 H Calcium 7.7 L Phosphorus 4.3 Magnesium 1.8 Total Bilirubin 0.6 AST 27 ALT 22 Alkaline Phosphatase 135 H Total Protein 4.6 L Albumin 2.0 L 02/15/18 02/15/18 02/16/18 16:29 22:13 04:29 Troponin I 0.968 1.370 1.600 Impressions: Chest X-Ray 02/16/18 06:00 IMPRESSION: 1. Slightly improving aeration of the lungs when compared to the prior studies. 2. Otherwise, no significant change when compared to the prior studies. Assessment & Plan - Diagnosis (1) Acute on chronic respiratory failure with hypoxia and hypercapnia Is this a current diagnosis for this admission?: Yes Plan: The patient is currently intubated. He was intubated in the field. He is currently on intermittent mandatory ventilation. His PCO2 still remains high and so I will increase the rate. His chest x-ray did not suggest an infiltrate but his white blood cell count was elevated at 20,000 and so antibiotic therapy has been initiated. We will repeat a chest x-ray tomorrow. Pulmonology has been consulted as well. The patient will be on scheduled as well as as needed nebulizer treatments. I have started intravenous Solu-Medrol. We will likely initiate nebulized steroid therapy as well. February 16, 2018-the patient is stable. He remains on ventilator. SIMV with a rate of 20, tidal volume of 450, PEEP 5 and pressure support 10. FiO2 is 45%. He is currently sedated and dependent on the ventilator. Dr. Mccann continues to follow the patient as well. (2) Pneumonia Qualifiers: Pneumonia type: due to unspecified organism Laterality: right Lung location: lower lobe of lung Qualified Code(s): J18.1 - Lobar pneumonia, unspecified organism Is this a current diagnosis for this admission?: Yes Plan: The patient's white blood cell count was 20,000 on admission. Because he was just in the hospital I have him on vancomycin and Zosyn as it is impossible to tell if this was hospital-acquired or community-acquired. Repeat chest x-rays have been ordered and may reveal more when the patient is hydrated. Continue mechanical ventilation. February 16, 2018-the patient's endotracheal aspirate specimen is positive for gram-positive cocci in clusters. In fact both blood cultures, urine culture and sputum specimen are positive for the gram-positive cocci. We will continue the vancomycin and Zosyn. If all cultures reveal single organism we will be able to taper the antibiotics to the final results. Continue mechanical ventilation at this time. (3) Congestive heart failure Qualifiers: Heart failure type: right-sided Heart failure chronicity: chronic Qualified Code(s): I50.812 - Chronic right heart failure Is this a current diagnosis for this admission?: Yes Plan: The patient does have a history of congestive heart failure. Because of his low blood pressure I have not initiated any diuretic therapy. We will continue to watch him closely and when his pressure stabilizes I will add intravenous furosemide. Have ordered serial troponin studies to rule out the possibility of infarction causing an exacerbation of congestive failure. In addition I will review medical records for more complete history. February 16, 2018-review with cardiology reveals marked pulmonary hypertension. This has caused an exacerbation of heart failure. At this point he is on levo fed for blood pressure. There is no overt pulmonary edema and so I am holding his furosemide at this time. He continues to have a positive fluid balance due to fluid resuscitation for sepsis. Review of the echocardiogram suggests systolic as well as diastolic failure involving the right and left. (4) Hypotension Qualifiers: Hypotension type: unspecified hypotension type Qualified Code(s): I95.9 - Hypotension, unspecified Is this a current diagnosis for this admission?: Yes Plan: The patient was hypotensive initially. This could be related to the propofol and Versed. We will continue IV fluids. His pressure is responding. If necessary we can use pressor therapy. February 16, 2018-patient remains on levo fed. With the medication his blood pressure has been stable. He continues to receive fluid resuscitation as well. I will likely need to resume low-dose furosemide for fluid overload. Taper IV pressor therapy as tolerated. There is no evidence of cyanosis in the fingers and toes. (5) Pulmonary hypertension Is this a current diagnosis for this admission?: Yes Plan: The patient had an echocardiogram earlier this month. Right ventricular systolic pressure was estimated at 90. Continue current management. (6) Hyponatremia Is this a current diagnosis for this admission?: Yes Plan: The patient's serum sodium is low today. I will change his ringer solution to normal saline. Continue to monitor electrolytes. (7) Code status needs review Is this a current diagnosis for this admission?: Yes Plan: I met with the patient's parents. His mother Rose Hoffman has been the point person for discussion over the last 2 days. I reviewed the patient's condition. Reviewed the aggressive treatment plan. We also touched base on the very poor prognosis. At this point the patient's mother was very specific with regard to not wanting her son to suffer. We discussed the reasonable plan to continue aggressive therapy 3-4 more days. If there is no evidence of recovery then she will consider moving to comfort only. As of today the patient will be DO NOT RESUSCITATE. Because he is already intubated the caveat will be when extubated there will be no reintubation. - Time Time Spent with patient: 35 or more minutes Medications reviewed and adjusted accordingly: Yes
--- NOTE | 2018-02-16 13:43 | Progress Note ---
Provider Note Provider Note: This is an addendum to today's progress note. #1) sepsis-in addition to the changes noted in the progress note, I have added intravenous albumin 25 g. I will administer this daily for several days. In addition I have changed the Solu-Medrol to Solu-Cortef. I will give 100 mg every 8 hours as a stress dose for the patient with this critical illness
--- NOTE | 2018-02-16 13:48 | OPERATIVE REPORT E ---
Operative Report NAME: SHARLENE LYNN : 1970 AGE: 48Y DATE OF SURGERY: 02/16/2018 ROOM: [id number] PREOPERATIVE DIAGNOSIS: Poor veins for IV access and needed central line also for pressors. POSTOPERATIVE DIAGNOSIS: Poor veins for IV access and needed central line also for pressors. PROCEDURE: Placement of right subclavian vein triple lumen catheter. SURGEON: FRIEDA KIRKLAND M.D. ANESTHESIA: Local. INDICATION: This is a 48-year-old male found unresponsive and noted to have hypotension and intubated in the intensive care unit and needed a central line. DESCRIPTION OF PROCEDURE: After adequate IV sedation for the respirator with propofol and Versed, the right infraclavicular area was then prepped and draped in the usual sterile fashion. The patient was also placed in the supine Trendelenburg position. The right infraclavicular area was then anesthetized with 1% Xylocaine and the right subclavian vein subsequently punctured and guidewire passed through the needle towards the area of the superior vena cava and the needle removed and the incision site dilated. A triple-lumen catheter was then inserted through the guidewire to a distance of about 17 cm. The catheter was then anchored to the skin with 3-0 silk and all the 3 ports aspirated of blood easily and infused saline easily. A Biopatch placed at the insertion site and a transparent sterile dressing placed around the Biopatch and catheter. A chest x-ray will be obtained for placement. DICTATING PHYSICIAN: FRIEDA KIRKLAND M.D. [id number] PHY#: [id number] ID: [id number] JOB#: [id number] ACCT: [id number] cc:FRIEDA KIRKLAND M.D. >
[2018-02-16] MEDS: HYDROCORTISONE SOD SUCCINATE INJ/PF 100 MG/2 ML SDV IV SCH ×2 (14:31→21:32)
[2018-02-16 16:45] LABS: BLOOD UREA NITROGEN 47 mg/dL (7-20); CALCIUM 7.9 mg/dL (8.4-10.2); CHLORIDE 83 mmol/L (98-107); GLUCOSE 164 mg/dL (75-110); SODIUM 130.7 mmol/L (137-145)
[2018-02-16 16:52] LABS: ANION GAP 10 (5-19); CARBON DIOXIDE 38 mmol/L (22-30)
[2018-02-17] MEDS: PIPERACILLIN SODIUM/TAZOBACTAM 4.5 GM in NORMAL SALINE 100 ML IV SCH ×2 (01:27→05:11)
[2018-02-17] MEDS: IPRATROPIUM/ALBUTEROL 0.5-2.5 MG/3 ML AMPUL NEB SCH ×4 (02:30→20:14)
[2018-02-17] MEDS: NORMAL SALINE 1000 ML 1,000 ML IV PRN ×5 (02:30→22:06)
[2018-02-17] MEDS: PROPOFOL 1,000 MG/100 ML INFUS..BTL IV PRN ×3 (04:00→20:55)
[2018-02-17] MEDS: HYDROCORTISONE SOD SUCCINATE INJ/PF 100 MG/2 ML SDV IV SCH ×4 (05:14→22:05)
[2018-02-17] MEDS: VANCOMYCIN HCL 1,000 MG in DEXTROSE 5%-WATER 250 ML IV SCH (05:15)
[2018-02-17 05:26] LABS: HEMATOCRIT 29.3 % (37.9-51.0); HEMOGLOBIN 10.3 g/dL (13.5-17.0); MEAN CORPUSCULAR HGB CONC 35.1 g/dL (32.0-36.0); MEAN CORPUSCULAR VOLUME 91 fl (80-97); PLATELET COUNT 106 10^3/uL (150-450); RED BLOOD COUNT 3.21 10^6/uL (4.35-5.55); RED CELL DISTRIBUTION WIDTH 16.3 % (11.5-14.0); WHITE BLOOD COUNT 15.3 10^3/uL (4.0-10.5)
[2018-02-17 05:32] LABS: ARTERIAL BLOOD BASE EXCESS 12.6 mmol/L; ARTERIAL BLOOD H2CO3 1.45 mmol/L (1.05-1.35); ARTERIAL BLOOD HCO3 37.2 mmol/L (20-24); ARTERIAL BLOOD O2 SATURATION 96.8 % (94-98); ARTERIAL BLOOD PCO2 48.3 mmHg (35-45); ARTERIAL BLOOD PH 7.51 (7.35-7.45); ARTERIAL BLOOD PO2 82.6 mmHg (80-100); ARTERIAL BLOOD TOTAL CO2 38.7 mmol/L (23-27)
[2018-02-17 05:33] LABS: ALBUMIN 2.1 g/dL (3.5-5.0); ANION GAP 9 (5-19); BLOOD UREA NITROGEN 43 mg/dL (7-20); CALCIUM 7.8 mg/dL (8.4-10.2); CARBON DIOXIDE 37 mmol/L (22-30); CHLORIDE 88 mmol/L (98-107); GLUCOSE 130 mg/dL (75-110); PHOSPHORUS 4.1 mg/dL (2.5-4.5); POTASSIUM 3.8 mmol/L (3.6-5.0); SODIUM 133.7 mmol/L (137-145)
[2018-02-17 05:34] LABS: ARTERIAL BLOOD FIO2 35%
[2018-02-17 05:36] LABS: CREATINE KINASE < 20 U/L (55-170)
[2018-02-17 05:38] LABS: VANCOMYCIN,TROUGH 22.1 ug/mL (5.0-20.0)
[2018-02-17 05:45] LABS: CREATINE KINASE MB 1.13 ng/mL (<4.55); TROPONIN I 0.788 ng/mL
[2018-02-17 06:04] LABS: ABSOLUTE LYMPHOCYTES# (MANUAL) 0.2 10^3/uL (0.5-4.7); ABSOLUTE MONOCYTES # (MANUAL) 0.6 10^3/uL (0.1-1.4); ABSOLUTE NEUTROPHILS# (MANUAL) 14.5 10^3/uL (1.7-8.2); ANISOCYTOSIS 1+; BAND NEUTROPHILS % (MANUAL) 3 % (3-5); BASOPHILS % (MANUAL) 0 % (0-2); EOSINOPHILS % (MANUAL) 0 % (0-6); LYMPHOCYTES % (MANUAL) 1 % (13-45); MONOCYTES % (MANUAL) 4 % (3-13); PLATELET COMMENT DECREASED; POIKILOCYTOSIS 1+; SEGMENTED NEUTROPHILS % (MAN) 92 % (42-78); TARGET CELLS 1+; TOTAL CELLS COUNTED 100; TOXIC GRANULATION SLIGHT; TOXIC VACUOLATION PRESENT
[2018-02-17] MEDS: HEPARIN SOD (PORCINE) 5,000 UNIT/ML 1 ML SYRINGE SUBCUT SCH ×3 (06:10→22:05)
--- NOTE | 2018-02-17 07:39 | RADIOLOGY REPORT (SQ) ---
EXAM DESCRIPTION: X-ray single view chest. CLINICAL HISTORY: 48 years Male, Acute respiratory failure COMPARISON: Prior chest x-rays performed on 02/16/2018 at 1:18 PM and 5:44 AM. TECHNIQUE: Single portable view of the chest performed on 02/17/2018 at 6:58 AM FINDINGS: The lungs are hyperinflated. There is blunting of the left lateral costophrenic sulcus. There is faint interstitial prominence in the right inferior hemithorax which may be related to compressive atelectasis due to emphysematous changes in the upper right lung. There may be subsegmental atelectatic changes in the left lung base. There is no evidence of a pneumothorax. The cardiac silhouette is normal in size and configuration. The mediastinal contours are normal. No acute osseous abnormality is identified. No focal soft tissue abnormalities are seen. Lines and tubes: The endotracheal tube and right subclavian central venous catheter are grossly stable in position. The feeding tube is not clearly demonstrated on this examination. IMPRESSION: There is new blunting of the left lateral costophrenic sulcus which may be due to a small effusion. Otherwise, grossly stable appearance of the chest when compared to the prior studies. There are probable atelectatic changes in the lung bases.
[2018-02-17] MEDS: BUDESONIDE NEB 0.5 MG/2 ML AMPUL NEB SCH ×2 (08:00→20:14)
--- NOTE | 2018-02-17 08:59 | PDOC PROGRESS REPORT ---
Subjective Progress Note for:: 02/17/18 Subjective:: The patient is stable this morning. He remains on levo fed as well as Versed. He appears comfortable. Propofol has been discontinued. 02/17/2018-the patient is off of his Versed and has some spontaneous limb movements. He does respond to painful stimuli. He does not respond to verbal stimuli. Nursing reports that he has weaned off of his Versed. He is on low- dose propofol. He appears comfortable this morning. No acute events overnight. Reason For Visit: ACUTE HYPOXIC HYPERCANEIC RESPIRATORY FAILURE Physical Exam Vital Signs: Temp Pulse Resp BP Pulse Ox 99.1 F 79 20 95/65 L 95 02/17/18 07:55 02/17/18 08:21 02/17/18 08:21 02/17/18 07:55 02/17/18 08:21 Intake & Output 02/16/18 02/17/18 02/18/18 06:59 06:59 05:59 Intake Total 3925 6766 Output Total 540 1235 105 Balance 3385 5531 -105 Weight 76.8 kg 80.6 kg General appearance: PRESENT: no acute distress, well-developed. ABSENT: obese Head exam: PRESENT: atraumatic, normocephalic Eye exam: PRESENT: conjunctiva pink. ABSENT: scleral icterus Ear exam: PRESENT: normal external ear exam Mouth exam: PRESENT: dry mucosa Neck exam: ABSENT: carotid bruit, JVD, lymphadenopathy Respiratory exam: PRESENT: rales - Faint rales at bases, symmetrical, unlabored - Dependent on ventilator for respirations.. ABSENT: wheezes - Patient just completed a nebulizer treatment Cardiovascular exam: PRESENT: RRR, +S1, +S2 Pulses: PRESENT: normal radial pulses, +1 pedal pulses bilateral GI/Abdominal exam: PRESENT: hypoactive bowel sounds, soft. ABSENT: distended, tenderness Gentrourinary exam: PRESENT: indwelling catheter Extremities exam: PRESENT: pedal edema, +1 edema - Bilateral hands. ABSENT: calf tenderness Musculoskeletal exam: PRESENT: normal inspection Neurological exam: PRESENT: other - Intermittent spontaneous movement of arms and legs. Psychiatric exam: ABSENT: agitated Skin exam: PRESENT: dry, normal color, warm Results Laboratory Results: 02/17/18 04:30 02/17/18 04:30 02/16/18 02/17/18 02/17/18 16:03 04:30 04:30 WBC 15.3 H RBC 3.21 L Hgb 10.3 L Hct 29.3 L MCV 91 MCH 32.0 MCHC 35.1 RDW 16.3 H Plt Count 106 L Seg Neutrophils % Not Reportable Lymphocytes % Not Reportable Monocytes % Not Reportable Eosinophils % Not Reportable Basophils % Not Reportable Absolute Neutrophils Not Reportable Absolute Lymphocytes Not Reportable Absolute Monocytes Not Reportable Absolute Eosinophils Not Reportable Absolute Basophils Not Reportable Carbonic Acid HCO3/H2CO3 Ratio ABG pH ABG pCO2 ABG pO2 ABG HCO3 ABG O2 Saturation ABG Base Excess FiO2 Sodium 130.7 L 133.7 L Potassium 4.0 3.8 Chloride 83 L 88 L Carbon Dioxide 38 H 37 H Anion Gap 10 9 BUN 47 H 43 H Creatinine 0.83 0.82 Est GFR ( Amer) > 60 > 60 Est GFR (Non-Af Amer) > 60 > 60 Glucose 164 H 130 H Calcium 7.9 L 7.8 L Phosphorus 4.1 Magnesium 1.9 Albumin 2.1 L 02/17/18 05:20 WBC RBC Hgb Hct MCV MCH MCHC RDW Plt Count Seg Neutrophils % Lymphocytes % Monocytes % Eosinophils % Basophils % Absolute Neutrophils Absolute Lymphocytes Absolute Monocytes Absolute Eosinophils Absolute Basophils Carbonic Acid 1.45 H HCO3/H2CO3 Ratio 25:1 ABG pH 7.51 H ABG pCO2 48.3 H ABG pO2 82.6 ABG HCO3 37.2 H ABG O2 Saturation 96.8 ABG Base Excess 12.6 FiO2 35% Sodium Potassium Chloride Carbon Dioxide Anion Gap BUN Creatinine Est GFR ( Amer) Est GFR (Non-Af Amer) Glucose Calcium Phosphorus Magnesium Albumin 02/15/18 02/15/18 02/16/18 16:29 22:13 04:29 Creatine Kinase CK-MB (CK-2) Troponin I 0.968 1.370 1.600 NT-Pro-B Natriuret Pep 02/17/18 02/17/18 04:30 04:30 Creatine Kinase < 20 L CK-MB (CK-2) 1.13 Troponin I 0.788 NT-Pro-B Natriuret Pep 1670 H Impressions: Chest X-Ray 02/17/18 06:00 IMPRESSION: There is new blunting of the left lateral costophrenic sulcus which may be due to a small effusion. Otherwise, grossly stable appearance of the chest when compared to the prior studies. There are probable atelectatic changes in the lung bases. Assessment & Plan - Diagnosis (1) Acute on chronic respiratory failure with hypoxia and hypercapnia Is this a current diagnosis for this admission?: Yes Plan: The patient is currently intubated. He was intubated in the field. He is currently on intermittent mandatory ventilation. His PCO2 still remains high and so I will increase the rate. His chest x-ray did not suggest an infiltrate but his white blood cell count was elevated at 20,000 and so antibiotic therapy has been initiated. We will repeat a chest x-ray tomorrow. Pulmonology has been consulted as well. The patient will be on scheduled as well as as needed nebulizer treatments. I have started intravenous Solu-Medrol. We will likely initiate nebulized steroid therapy as well. February 16, 2018-the patient is stable. He remains on ventilator. SIMV with a rate of 20, tidal volume of 450, PEEP 5 and pressure support 10. FiO2 is 45%. He is currently sedated and dependent on the ventilator. Dr. Mccann continues to follow the patient as well. 02/17/2018-the patient remains on SIMV. I was present for a pressure support trial. There were no spontaneous respirations by the patient. We will continue ventilator support with weaning as tolerated. (2) Pneumonia Qualifiers: Pneumonia type: due to unspecified organism Laterality: right Lung location: lower lobe of lung Qualified Code(s): J18.1 - Lobar pneumonia, unspecified organism Is this a current diagnosis for this admission?: Yes Plan: The patient's white blood cell count was 20,000 on admission. Because he was just in the hospital I have him on vancomycin and Zosyn as it is impossible to tell if this was hospital-acquired or community-acquired. Repeat chest x-rays have been ordered and may reveal more when the patient is hydrated. Continue mechanical ventilation. February 16, 2018-the patient's endotracheal aspirate specimen is positive for gram-positive cocci in clusters. In fact both blood cultures, urine culture and sputum specimen are positive for the gram-positive cocci. We will continue the vancomycin and Zosyn. If all cultures reveal single organism we will be able to taper the antibiotics to the final results. Continue mechanical ventilation at this time. 02/17/2018-microbiology results reveal gram-positive cocci growing from the endotracheal aspiration. Further results are pending. He remains on vancomycin and Zosyn. I have discontinued the azithromycin as vancomycin has excellent broad spectrum gram-positive coverage. Once the final results are pending I can modify his antibiotic therapy. His white count continues to come down with his antibiotic therapy. (3) Congestive heart failure Qualifiers: Heart failure type: right-sided Heart failure chronicity: chronic Qualified Code(s): I50.812 - Chronic right heart failure Is this a current diagnosis for this admission?: Yes Plan: The patient does have a history of congestive heart failure. Because of his low blood pressure I have not initiated any diuretic therapy. We will continue to watch him closely and when his pressure stabilizes I will add intravenous furosemide. Have ordered serial troponin studies to rule out the possibility of infarction causing an exacerbation of congestive failure. In addition I will review medical records for more complete history. February 16, 2018-review with cardiology reveals marked pulmonary hypertension. This has caused an exacerbation of heart failure. At this point he is on levo fed for blood pressure. There is no overt pulmonary edema and so I am holding his furosemide at this time. He continues to have a positive fluid balance due to fluid resuscitation for sepsis. Review of the echocardiogram suggests systolic as well as diastolic failure involving the right and left. 02/17/2018-the patient is beginning to develop a small effusion in the left sulcus. I am going to resume his furosemide therapy. He will get 20 mg of Lasix IV daily to start. He will receive another dose of IV albumin to improve oncotic pressure. As noted above echocardiogram revealed bilateral systolic and diastolic failure. He continues to need high volume fluid resuscitation. (4) Hypotension Qualifiers: Hypotension type: unspecified hypotension type Qualified Code(s): I95.9 - Hypotension, unspecified Is this a current diagnosis for this admission?: Yes Plan: The patient was hypotensive initially. This could be related to the propofol and Versed. We will continue IV fluids. His pressure is responding. If necessary we can use pressor therapy. February 16, 2018-patient remains on levo fed. With the medication his blood pressure has been stable. He continues to receive fluid resuscitation as well. I will likely need to resume low-dose furosemide for fluid overload. Taper IV pressor therapy as tolerated. There is no evidence of cyanosis in the fingers and toes. 02/17/2018-patient is currently off of Levophed. His map is approximately 70 at this time. He will continue on his volume repletion and furosemide is been started above. If need be we may resume low-dose levo fed to enable tolerance of the furosemide therapy. (5) Pulmonary hypertension Is this a current diagnosis for this admission?: Yes Plan: The patient had an echocardiogram earlier this month. Right ventricular systolic pressure was estimated at 90. Continue current management. 02/17/2018-this is chronic and appears to be progressing. We will continue his current regimen. (6) Hyponatremia Is this a current diagnosis for this admission?: Yes Plan: The patient's serum sodium is low today. I will change his ringer solution to normal saline. Continue to monitor electrolytes. 02/17/2018-with the change from ringer solution to normal saline his sodium is beginning to improve slowly. We will continue to monitor his electrolytes. (7) Code status needs review Is this a current diagnosis for this admission?: Yes Plan: I met with the patient's parents. His mother Rose Hoffman has been the point person for discussion over the last 2 days. I reviewed the patient's condition. Reviewed the aggressive treatment plan. We also touched base on the very poor prognosis. At this point the patient's mother was very specific with regard to not wanting her son to suffer. We discussed the reasonable plan to continue aggressive therapy 3-4 more days. If there is no evidence of recovery then she will consider moving to comfort only. As of today the patient will be DO NOT RESUSCITATE. Because he is already intubated the caveat will be when extubated there will be no reintubation. 02/17/2018-at this point we are continuing his DO NOT RESUSCITATE status. If he does not show evidence of recovery the family will consider comfort measures. We will continue his aggressive treatment at this time. - Time Time Spent with patient: 25-34 minutes Medications reviewed and adjusted accordingly: Yes
[2018-02-17] MEDS: ALBUMIN HUMAN 12.5 GM/50 ML RTUINJ IV SCH ×2 (09:15→09:40)
[2018-02-17] MEDS: DOCUSATE SODIUM 100 MG/10 ML UDC NG SCH ×2 (09:16→17:23)
[2018-02-17] MEDS: PANTOPRAZOLE SODIUM 40 MG VIAL IV SCH (09:16)
[2018-02-17] MEDS: ASPIRIN 81 MG TABLET, CHEWABLE NG SCH (09:16)
[2018-02-17] MEDS: FUROSEMIDE INJ/PF 20 MG/2 ML SDV IV SCH (09:17)
--- NOTE | 2018-02-17 16:14 | Progress Note ---
Provider Note Provider Note: This is an addendum/clarification to this morning's progress note. After review and further discussion with the patient's nurse the patient in fact is on low-dose Versed along with the low-dose propofol. He has tapered off of the Levophed.
[2018-02-17] MEDS: MIDAZOLAM HCL 50 MG/100 ML RTUINJ IV-INFUSE PRN (17:21)
[2018-02-17] MEDS: VANCOMYCIN HCL 1,500 MG in DEXTROSE 5%-WATER 250 ML IV SCH (22:06)
[2018-02-18] MEDS: IPRATROPIUM/ALBUTEROL 0.5-2.5 MG/3 ML AMPUL NEB SCH ×4 (01:18→20:47)
[2018-02-18] MEDS: PROPOFOL 1,000 MG/100 ML INFUS..BTL IV PRN ×5 (01:46→22:27)
[2018-02-18] MEDS: NORMAL SALINE 1000 ML 1,000 ML IV PRN ×5 (02:36→22:27)
[2018-02-18] MEDS: HYDROCORTISONE SOD SUCCINATE INJ/PF 100 MG/2 ML SDV IV SCH ×3 (05:14→22:25)
[2018-02-18] MEDS: HEPARIN SOD (PORCINE) 5,000 UNIT/ML 1 ML SYRINGE SUBCUT SCH ×3 (05:15→22:26)
[2018-02-18 05:38] LABS: ARTERIAL BLOOD BASE EXCESS 8.9 mmol/L; ARTERIAL BLOOD H2CO3 1.62 mmol/L (1.05-1.35); ARTERIAL BLOOD HCO3 34.7 mmol/L (20-24); ARTERIAL BLOOD O2 SATURATION 94.7 % (94-98); ARTERIAL BLOOD PCO2 53.7 mmHg (35-45); ARTERIAL BLOOD PH 7.43 (7.35-7.45); ARTERIAL BLOOD PO2 72.6 mmHg (80-100); ARTERIAL BLOOD TOTAL CO2 36.3 mmol/L (23-27)
[2018-02-18 05:40] LABS: ARTERIAL BLOOD FIO2 30%
[2018-02-18 05:56] LABS: BLOOD UREA NITROGEN 38 mg/dL (7-20); CALCIUM 8.1 mg/dL (8.4-10.2); GLUCOSE 138 mg/dL (75-110); POTASSIUM 3.4 mmol/L (3.6-5.0)
[2018-02-18 05:57] LABS: ANION GAP 7 (5-19); CARBON DIOXIDE 36 mmol/L (22-30); CHLORIDE 95 mmol/L (98-107); PHOSPHORUS 3.8 mg/dL (2.5-4.5); SODIUM 137.5 mmol/L (137-145); TRIGLYCERIDES 361 mg/dL (<150)
[2018-02-18 06:00] LABS: HEMATOCRIT 28.8 % (37.9-51.0); HEMOGLOBIN 10.1 g/dL (13.5-17.0); MEAN CORPUSCULAR VOLUME 92 fl (80-97); PLATELET COUNT 112 10^3/uL (150-450); RED BLOOD COUNT 3.14 10^6/uL (4.35-5.55); RED CELL DISTRIBUTION WIDTH 15.9 % (11.5-14.0); WHITE BLOOD COUNT 9.2 10^3/uL (4.0-10.5)
[2018-02-18 06:41] LABS: ABSOLUTE LYMPHOCYTES# (MANUAL) 0.1 10^3/uL (0.5-4.7); ABSOLUTE MONOCYTES # (MANUAL) 1.1 10^3/uL (0.1-1.4); ANISOCYTOSIS SLIGHT; BASOPHILS % (MANUAL) 0 % (0-2); EOSINOPHILS % (MANUAL) 0 % (0-6); LYMPHOCYTES % (MANUAL) 1 % (13-45); MONOCYTES % (MANUAL) 12 % (3-13); PLATELET COMMENT ADEQUATE; SEGMENTED NEUTROPHILS % (MAN) 87 % (42-78); STOMATOCYTES SLIGHT; TARGET CELLS 2+; TOTAL CELLS COUNTED 100
[2018-02-18] MEDS: BUDESONIDE NEB 0.5 MG/2 ML AMPUL NEB SCH ×2 (07:38→20:47)
--- NOTE | 2018-02-18 08:22 | RADIOLOGY REPORT (SQ) ---
EXAM DESCRIPTION: CHEST SINGLE VIEW COMPLETED DATE/TIME: 02/18/2018 7:19 am REASON FOR STUDY: Acute respiratory failure COMPARISON: None. EXAM PARAMETERS: NUMBER OF VIEWS: One view. TECHNIQUE: Single frontal radiographic view of the chest acquired. RADIATION DOSE: NA LIMITATIONS: None. FINDINGS: LUNGS AND PLEURA: Faint basilar densities, unchanged. Otherwise relatively clear. MEDIASTINUM AND HILAR STRUCTURES: No masses. Contour normal. HEART AND VASCULAR STRUCTURES: Heart normal in size. Normal vasculature. BONES: No acute findings. HARDWARE: Stable endotracheal tube, nasogastric tube, and central line. OTHER: No other significant finding. IMPRESSION: NO CHANGE IN APPEARANCE OF THE CHEST. TECHNICAL DOCUMENTATION: JOB ID: [id number] [employer]- All Rights Reserved Reading location - IP/workstation name: [email or web address]
--- NOTE | 2018-02-18 09:05 | PDOC PROGRESS REPORT ---
Subjective Progress Note for:: 02/18/18 Subjective:: The patient is stable this morning. He remains on levo fed as well as Versed. He appears comfortable. Propofol has been discontinued. 02/17/2018-the patient is off of his Versed and has some spontaneous limb movements. He does respond to painful stimuli. He does not respond to verbal stimuli. Nursing reports that he has weaned off of his Versed. He is on low- dose propofol. He appears comfortable this morning. No acute events overnight. 02/18/2018-the patient remains completely off of Levophed. He is still on propofol and a small amount of Versed has been resumed due to some agitation. He remains on SIMV. He failed a pressure support trial yesterday. Reason For Visit: ACUTE HYPOXIC HYPERCANEIC RESPIRATORY FAILURE Physical Exam Vital Signs: Temp Pulse Resp BP Pulse Ox 97.7 F 80 25 H 105/75 93 02/18/18 08:00 02/18/18 08:00 02/18/18 08:00 02/18/18 08:00 02/18/18 08:00 Intake & Output 02/17/18 02/18/18 02/19/18 07:59 06:59 06:59 Intake Total Output Total 175 Balance -175 Weight General appearance: PRESENT: no acute distress, other - Intubated and with orogastric tube in place. Head exam: PRESENT: atraumatic, normocephalic Eye exam: PRESENT: conjunctiva pale. ABSENT: scleral icterus Ear exam: PRESENT: normal external ear exam Neck exam: ABSENT: carotid bruit, JVD, lymphadenopathy Respiratory exam: PRESENT: rales - Faint rales at bases., other - Currently not breathing above the set rate of the ventilator.. ABSENT: wheezes Cardiovascular exam: PRESENT: RRR, +S1, +S2 Pulses: PRESENT: normal radial pulses, normal dorsalis pedis pul GI/Abdominal exam: PRESENT: normal bowel sounds, soft. ABSENT: distended, tenderness Extremities exam: PRESENT: pedal edema, other - Bilateral hand edema Neurological exam: PRESENT: other - The patient has spontaneous movement of his arms and legs. He did not squeeze my hand on command but I was in the room with his mother. He did close his fingers around her hand on her command. Focused psych exam: PRESENT: restlessness - Restless went off of Versed despite propofol. Skin exam: PRESENT: dry, normal color, warm Results Laboratory Results: 02/18/18 05:15 02/18/18 05:15 02/18/18 02/18/18 02/18/18 05:15 05:15 05:20 WBC 9.2 RBC 3.14 L Hgb 10.1 L Hct 28.8 L MCV 92 MCH 32.0 MCHC 35.0 RDW 15.9 H Plt Count 112 L Seg Neutrophils % Not Reportable Lymphocytes % Not Reportable Monocytes % Not Reportable Eosinophils % Not Reportable Basophils % Not Reportable Absolute Neutrophils Not Reportable Absolute Lymphocytes Not Reportable Absolute Monocytes Not Reportable Absolute Eosinophils Not Reportable Absolute Basophils Not Reportable Carbonic Acid 1.62 H HCO3/H2CO3 Ratio 21:1 ABG pH 7.43 ABG pCO2 53.7 H ABG pO2 72.6 L ABG HCO3 34.7 H ABG O2 Saturation 94.7 ABG Base Excess 8.9 FiO2 30% Sodium 137.5 Potassium 3.4 L Chloride 95 L Carbon Dioxide 36 H Anion Gap 7 BUN 38 H Creatinine 0.72 Est GFR ( Amer) > 60 Est GFR (Non-Af Amer) > 60 Glucose 138 H Calcium 8.1 L Phosphorus 3.8 Triglycerides 361 H 02/15/18 13:40 Tracheal Aspirate Gram Stain - Final 02/15/18 13:40 Tracheal Aspirate Sputum Culture - Final NORMAL ANASTASIIA 02/15/18 02/15/18 02/16/18 16:29 22:13 04:29 Creatine Kinase CK-MB (CK-2) Troponin I 0.968 1.370 1.600 NT-Pro-B Natriuret Pep 02/17/18 02/17/18 04:30 04:30 Creatine Kinase < 20 L CK-MB (CK-2) 1.13 Troponin I 0.788 NT-Pro-B Natriuret Pep 1670 H Impressions: Chest X-Ray 02/18/18 06:00 IMPRESSION: NO CHANGE IN APPEARANCE OF THE CHEST. Assessment & Plan - Diagnosis (1) Acute on chronic respiratory failure with hypoxia and hypercapnia Is this a current diagnosis for this admission?: Yes Plan: The patient is currently intubated. He was intubated in the field. He is currently on intermittent mandatory ventilation. His PCO2 still remains high and so I will increase the rate. His chest x-ray did not suggest an infiltrate but his white blood cell count was elevated at 20,000 and so antibiotic therapy has been initiated. We will repeat a chest x-ray tomorrow. Pulmonology has been consulted as well. The patient will be on scheduled as well as as needed nebulizer treatments. I have started intravenous Solu-Medrol. We will likely initiate nebulized steroid therapy as well. February 16, 2018-the patient is stable. He remains on ventilator. SIMV with a rate of 20, tidal volume of 450, PEEP 5 and pressure support 10. FiO2 is 45%. He is currently sedated and dependent on the ventilator. Dr. Mccann continues to follow the patient as well. 02/17/2018-the patient remains on SIMV. I was present for a pressure support trial. There were no spontaneous respirations by the patient. We will continue ventilator support with weaning as tolerated. 02/18/2018-the patient is still intubated on SIMV. Yesterday's pressure support trial revealed no spontaneous respirations. We will continue trials today. (2) Pneumonia Qualifiers: Pneumonia type: due to unspecified organism Laterality: right Lung location: lower lobe of lung Qualified Code(s): J18.1 - Lobar pneumonia, unspecified organism Is this a current diagnosis for this admission?: Yes Plan: The patient's white blood cell count was 20,000 on admission. Because he was just in the hospital I have him on vancomycin and Zosyn as it is impossible to tell if this was hospital-acquired or community-acquired. Repeat chest x-rays have been ordered and may reveal more when the patient is hydrated. Continue mechanical ventilation. February 16, 2018-the patient's endotracheal aspirate specimen is positive for gram-positive cocci in clusters. In fact both blood cultures, urine culture and sputum specimen are positive for the gram-positive cocci. We will continue the vancomycin and Zosyn. If all cultures reveal single organism we will be able to taper the antibiotics to the final results. Continue mechanical ventilation at this time. 02/17/2018-microbiology results reveal gram-positive cocci growing from the endotracheal aspiration. Further results are pending. He remains on vancomycin and Zosyn. I have discontinued the azithromycin as vancomycin has excellent broad spectrum gram-positive coverage. Once the final results are pending I can modify his antibiotic therapy. His white count continues to come down with his antibiotic therapy. 02/18/2018-sputum culture revealed normal anastasiia. Despite this based on x-ray and clinical presentation we will continue his vancomycin. I would discontinue the Zosyn since all of the currently identified bacteria are staph. (3) Congestive heart failure Qualifiers: Heart failure type: right-sided Heart failure chronicity: chronic Qualified Code(s): I50.812 - Chronic right heart failure Is this a current diagnosis for this admission?: Yes Plan: The patient does have a history of congestive heart failure. Because of his low blood pressure I have not initiated any diuretic therapy. We will continue to watch him closely and when his pressure stabilizes I will add intravenous furosemide. Have ordered serial troponin studies to rule out the possibility of infarction causing an exacerbation of congestive failure. In addition I will review medical records for more complete history. February 16, 2018-review with cardiology reveals marked pulmonary hypertension. This has caused an exacerbation of heart failure. At this point he is on levo fed for blood pressure. There is no overt pulmonary edema and so I am holding his furosemide at this time. He continues to have a positive fluid balance due to fluid resuscitation for sepsis. Review of the echocardiogram suggests systolic as well as diastolic failure involving the right and left. 02/17/2018-the patient is beginning to develop a small effusion in the left sulcus. I am going to resume his furosemide therapy. He will get 20 mg of Lasix IV daily to start. He will receive another dose of IV albumin to improve oncotic pressure. As noted above echocardiogram revealed bilateral systolic and diastolic failure. He continues to need high volume fluid resuscitation. 02/18/2018-the addition of furosemide has had a noticeable improvement in his urine output. His fluid balance is still quite positive. I will lower the IV normal saline to 150 mL an hour. We will continue to monitor his fluid balance. I will see if his blood pressure maintains with the drop in volume. His lungs had faint rales at the bases but without deep inspiration it is hard to fully assess. (4) Hypotension Qualifiers: Hypotension type: unspecified hypotension type Qualified Code(s): I95.9 - Hypotension, unspecified Is this a current diagnosis for this admission?: Yes Plan: The patient was hypotensive initially. This could be related to the propofol and Versed. We will continue IV fluids. His pressure is responding. If necessary we can use pressor therapy. February 16, 2018-patient remains on levo fed. With the medication his blood pressure has been stable. He continues to receive fluid resuscitation as well. I will likely need to resume low-dose furosemide for fluid overload. Taper IV pressor therapy as tolerated. There is no evidence of cyanosis in the fingers and toes. 02/17/2018-patient is currently off of Levophed. His map is approximately 70 at this time. He will continue on his volume repletion and furosemide is been started above. If need be we may resume low-dose levo fed to enable tolerance of the furosemide therapy. 02/18/2018-currently off of Levophed and maintaining reasonable blood pressure. Reduce his IV fluids today and not give him albumin and see if he can maintain his progress. (5) Pulmonary hypertension Is this a current diagnosis for this admission?: Yes Plan: The patient had an echocardiogram earlier this month. Right ventricular systolic pressure was estimated at 90. Continue current management. 02/17/2018-this is chronic and appears to be progressing. We will continue his current regimen. 02/18/2018-unfortunately this is a chronic and progressive reality. We will try to compensate with good blood pressure and volume control. (6) Hyponatremia Is this a current diagnosis for this admission?: Yes Plan: The patient's serum sodium is low today. I will change his ringer solution to normal saline. Continue to monitor electrolytes. 02/17/2018-with the change from ringer solution to normal saline his sodium is beginning to improve slowly. We will continue to monitor his electrolytes. 02/18/2018-with the change from Ringer's to normal saline his serum sodium has corrected. We will see if he maintains with a decrease in the rate. In addition he is on tube feeds which would also provide some electrolyte support. (7) Hypokalemia Is this a current diagnosis for this admission?: Yes Plan: 02/18/2018-patient's serum potassium has been decreasing and is now below the lower limit of normal. Correction will be made per the ICU potassium replacement protocol. 2 feedings should also provide some potassium. (8) Malnutrition Is this a current diagnosis for this admission?: Yes Plan: 02/18/2018-likely due to his acute and chronic illnesses. We have initiated tube feeds. Appreciate the dietitian's input. (9) Code status needs review Is this a current diagnosis for this admission?: Yes Plan: I met with the patient's parents. His mother Rose Hoffman has been the point person for discussion over the last 2 days. I reviewed the patient's condition. Reviewed the aggressive treatment plan. We also touched base on the very poor prognosis. At this point the patient's mother was very specific with regard to not wanting her son to suffer. We discussed the reasonable plan to continue aggressive therapy 3-4 more days. If there is no evidence of recovery then she will consider moving to comfort only. As of today the patient will be DO NOT RESUSCITATE. Because he is already intubated the caveat will be when extubated there will be no reintubation. 02/17/2018-at this point we are continuing his DO NOT RESUSCITATE status. If he does not show evidence of recovery the family will consider comfort measures. We will continue his aggressive treatment at this time. 02/18/2018-I did visit with the patient's mother today at the bedside. Informed her of the changes made to the treatment plan. At this point there is not been a marked change in his condition. I also told her that the pressure support trials would help us with regard to his respiratory prognosis. 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 Patient's mother has recognized a change in his behavior consistent with possible repetitive hypoxic injury and substance abuse. - Time Time Spent with patient: 35 or more minutes Medications reviewed and adjusted accordingly: Yes
[2018-02-18] MEDS: VANCOMYCIN HCL 1,500 MG in DEXTROSE 5%-WATER 250 ML IV SCH ×2 (09:38→22:29)
[2018-02-18] MEDS: ASPIRIN 81 MG TABLET, CHEWABLE NG SCH (09:38)
[2018-02-18] MEDS: PANTOPRAZOLE SODIUM 40 MG VIAL IV SCH (09:38)
[2018-02-18] MEDS: DOCUSATE SODIUM 100 MG/10 ML UDC NG SCH ×2 (09:38→16:59)
[2018-02-18] MEDS: FUROSEMIDE INJ/PF 20 MG/2 ML SDV IV SCH (09:38)
[2018-02-18] MEDS ORDERED: POTASSIUM CHLORIDE 20 MEQ/15 ML UDCUP ONE (13:04)
--- NOTE | 2018-02-18 13:05 | PDOC CONSULTATION ---
Consultation Consult Date: 02/15/18 Attending physician:: ELIANE BOLTON Consult reason:: Acute/chronic respiratory failure History of Present Illness Admission Date/PCP: 02/15/18 12:31 History of Present Illness: SHARLENE LYNN is a 48 year old male,well-known to [facility] for his hypoxic hypercapnic hypoxic respiratory failure a long history of noncompliance reportedly came to the emergency room after being intubated in the field where he was found to have a saturation of 50% and was unresponsive subsequently was transferred to the ICU Past Medical History Cardiac Medical History: Reports: Congestive Heart Failure, Coronary Artery Disease, Pulmonary Embolism Denies: Atrial Fibrillation, DVT Pulmonary Medical History: Reports: Bronchitis, Chronic Obstructive Pulmonary Disease (COPD), Intubation, Pneumonia, Respiratory Failure Neurological Medical History: Denies: Seizures Endocrine Medical History: Denies: Diabetes Mellitus Type 1, Diabetes Mellitus Type 2 GI Medical History: Denies: Crohn's Disease, Ulcerative Colitis Musculoskeltal Medical History: Reports: Arthritis Denies: Gout Skin Medical History: Denies: Eczema, Psoriasis Infectious Medical History: Denies: Clostridium Difficile, Hepatitis B, Hepatitis C Past Surgical History Past Surgical History: Reports: Other - Posttraumatic abdominal surgery remotely. Social History Information Source: [facility] Records Smoking Status: Current Some Day Smoker Passive smoke exposure as: Both Frequency of Alcohol Use: None Hx Recreational Drug Use: Yes Drugs: Marijuana Hx Prescription Drug Abuse: Yes - Advance Directive Resuscitation Status: Full Code Family History Family History: CAD, COPD, Hypertension Parental Family History Reviewed: No Children Family History Reviewed: No Sibling(s) Family History Reviewed.: No Medication/Allergy Home Medications: Albuterol Sulfate [Albuterol Sulfate 2.5mg/3 mL] 2.5 mg NEB RTQ6HP PRN 02/15/18 Albuterol Sulfate [Ventolin Hfa] 2 puff IH Q4HP PRN 02/15/18 Fluticasone Propionate [Flonase Nasal [place] 50 Mcg/Cuttyhunk 16 gm] 1 spray NASL QHS 02/15/18 Furosemide [Lasix 20 mg Tablet] 20 mg PO QAM 02/15/18 Ipratropium/Albuterol Sulfate [Duoneb 3 ml Ampul] 3 ml NEB RTQ4HP PRN 02/15/18 Umeclidinium [place] [Incruse Ellipta] 1 puff IH DAILY 02/15/18 Allergies/Adverse Reactions: No Known Allergies Allergy (Verified 01/11/18 11:59) Review of Systems ROS unobtainable: Due to endotracheal tube, Due to mental status Physical Exam Vital Signs: Temp Pulse Resp BP Pulse Ox 99.5 F 117 H 19 90/59 L 98 02/15/18 14:03 02/15/18 14:22 02/15/18 14:22 02/15/18 14:03 02/15/18 14:22 Intake & Output 02/14/18 02/15/18 02/16/18 06:59 06:59 06:59 Intake Total 7 Output Total 60 Balance -53 Weight 73.5 kg General appearance: PRESENT: no acute distress, disheveled, thin, well-developed , well-nourished. ABSENT: cooperative Head exam: PRESENT: atraumatic, normocephalic Eye exam: PRESENT: conjunctiva pale. ABSENT: EOMI, nystagmus, periorbital swelling, scleral icterus Mouth exam: PRESENT: dry mucosa, neck supple, tongue midline, other - ET tube in place Neck exam: ABSENT: carotid bruit, JVD, lymphadenopathy, thyromegaly, tracheal deviation, tracheostomy Respiratory exam: PRESENT: decreased breath sounds, prolonged expiratory phas, rales, rhonchi, unlabored, wheezes. ABSENT: retraction, stridor Cardiovascular exam: PRESENT: RRR, +S1, +S2, tachycardia Pulses: PRESENT: normal radial pulses GI/Abdominal exam: PRESENT: soft Gentrourinary exam: PRESENT: indwelling catheter Extremities exam: ABSENT: calf tenderness, clubbing, joint swelling Musculoskeletal exam: ABSENT: ambulatory, deformity, dislocation Neurological exam: ABSENT: awake Skin exam: PRESENT: dry, warm Results Laboratory Results: 02/15/18 14:00 Carbonic Acid 2.62 H HCO3/H2CO3 Ratio 17:1 ABG pH 7.33 L ABG pCO2 87.1 H* ABG pO2 149.3 H ABG HCO3 44.6 H ABG O2 Saturation 98.6 H ABG Base Excess 14.6 FiO2 60% Impressions: Chest X-Ray 02/15/18 10:14 IMPRESSION: Cardiomegaly with pulmonary vascular congestion but no mago pulmonary edema. Endotracheal tube as described. Assessment & Plan - Diagnosis (1) Acute on chronic respiratory failure with hypoxia and hypercapnia Is this a current diagnosis for this admission?: Yes Plan: Oxygenate keep saturation greater than or equal to 90% ventilate to approximate baseline (2) Congestive heart failure Qualifiers: Heart failure type: unspecified Heart failure chronicity: chronic Qualified Code(s): I50.9 - Heart failure, unspecified Is this a current diagnosis for this admission?: Yes (3) Pneumonia Qualifiers: Pneumonia type: due to unspecified organism Laterality: right Lung location: lower lobe of lung Qualified Code(s): J18.1 - Lobar pneumonia, unspecified organism Is this a current diagnosis for this admission?: Yes Plan: Labs- All tests 24 hr 02/15/18 10:26 WBC 29.1 H Seg Neuts % (Manual) 83 H Band Neutrophils % 10 H Lymphocytes % (Manual) 5 L Atypical Lymphs % 2 (4) Pulmonary hypertension Is this a current diagnosis for this admission?: Yes - Time Total Critical Time (Minutes): 50
[2018-02-18] MEDS ORDERED: POTASSIUM CHLORIDE 20 MEQ/15 ML UDCUP NG ONE (15:00)
[2018-02-18] MEDS: MIDAZOLAM HCL 50 MG/100 ML RTUINJ IV-INFUSE PRN ×2 (15:40→22:26)
[2018-02-19] MEDS: IPRATROPIUM/ALBUTEROL 0.5-2.5 MG/3 ML AMPUL NEB SCH ×4 (02:20→20:01)
[2018-02-19] MEDS ORDERED: FENTANYL CITRATE INJ/PF 100 MCG/2 ML AMPUL ONE (04:49)
[2018-02-19] MEDS: HYDROCORTISONE SOD SUCCINATE INJ/PF 100 MG/2 ML SDV IV SCH ×3 (05:04→21:49)
[2018-02-19] MEDS: FENTANYL CITRATE INJ/PF 100 MCG/2 ML AMPUL IV PRN (05:05)
[2018-02-19] MEDS: HEPARIN SOD (PORCINE) 5,000 UNIT/ML 1 ML SYRINGE SUBCUT SCH ×3 (05:05→21:49)
[2018-02-19] MEDS: PANTOPRAZOLE SODIUM 40 MG VIAL IV SCH (05:10)
[2018-02-19 05:32] LABS: HEMOGLOBIN 10.1 g/dL (13.5-17.0); MEAN CORPUSCULAR HEMOGLOBIN 31.9 pg (27.0-33.4); MEAN CORPUSCULAR HGB CONC 34.8 g/dL (32.0-36.0); MEAN CORPUSCULAR VOLUME 92 fl (80-97); PLATELET COUNT 121 10^3/uL (150-450); RED BLOOD COUNT 3.16 10^6/uL (4.35-5.55); RED CELL DISTRIBUTION WIDTH 16.1 % (11.5-14.0); WHITE BLOOD COUNT 13.8 10^3/uL (4.0-10.5)
[2018-02-19] MEDS: PROPOFOL 1,000 MG/100 ML INFUS..BTL IV PRN ×6 (05:37→22:50)
[2018-02-19] MEDS: NORMAL SALINE 1000 ML 1,000 ML IV PRN ×2 (05:38→14:12)
[2018-02-19 05:39] LABS: ARTERIAL BLOOD BASE EXCESS 7.6 mmol/L; ARTERIAL BLOOD FIO2 30%; ARTERIAL BLOOD H2CO3 1.47 mmol/L (1.05-1.35); ARTERIAL BLOOD HCO3 32.8 mmol/L (20-24); ARTERIAL BLOOD PH 7.44 (7.35-7.45); ARTERIAL BLOOD PO2 79.3 mmHg (80-100); ARTERIAL BLOOD TOTAL CO2 34.3 mmol/L (23-27)
--- NOTE | 2018-02-19 05:51 | OPERATIVE REPORT E ---
Operative Report NAME: SHARLENE LYNN : 1970 AGE: 48Y DATE OF SURGERY: 02/18/2018 ROOM: 612 PREOPERATIVE DIAGNOSIS: Sacral decubitus ulcer. POSTOPERATIVE DIAGNOSIS: Sacral decubitus ulcer, stage IV. Ulcer roughly measuring about 2.5 cm in diameter, but down to the bone. SURGEON: FRIEDA KIRKLAND M.D. DESCRIPTION OF PROCEDURE: The patient was placed in the left lateral decubitus position and the sacral decubitus, which has some fluctuation, was sharply debrided using scissors. This was debrided down to the bone. Cultures were obtained. The patient will have wet-to-dry dressing of the sacral ulcer q. 12 hours. Continue with the IV antibiotics. DICTATING PHYSICIAN: FRIEDA KIRKLAND M.D. [id number] PHY#: [id number] ID: [id number] JOB#: [id number] ACCT: [id number] cc:FRIEDA KIRKLAND M.D. >
[2018-02-19 05:55] LABS: ALANINE AMINOTRANSFERASE 22 U/L (21-72); ALBUMIN 2.3 g/dL (3.5-5.0); ALKALINE PHOSPHATASE 104 U/L (38-126); ANION GAP 6 (5-19); ASPARTATE AMINO TRANSFERASE 20 U/L (17-59); BILIRUBIN,DIRECT 0.3 mg/dL (0.0-0.4); BILIRUBIN,TOTAL 0.6 mg/dL (0.2-1.3); BLOOD UREA NITROGEN 29 mg/dL (7-20); CALCIUM 8.2 mg/dL (8.4-10.2); CARBON DIOXIDE 36 mmol/L (22-30); CHLORIDE 98 mmol/L (98-107); GLUCOSE 136 mg/dL (75-110); PHOSPHORUS 3.5 mg/dL (2.5-4.5); POTASSIUM 3.6 mmol/L (3.6-5.0); SODIUM 140.1 mmol/L (137-145); TOTAL PROTEIN 5.1 g/dL (6.3-8.2)
--- NOTE | 2018-02-19 07:22 | RADIOLOGY REPORT (SQ) ---
EXAM DESCRIPTION: X-ray single view chest. CLINICAL HISTORY: 48 years Male, resp failure COMPARISON: Prior portable chest performed on 02/18/2018 and 02/17/2018 TECHNIQUE: Single portable view of the chest performed on 02/19/2018 at 6:37 AM FINDINGS: The lungs are mildly hyperinflated and are grossly clear. No new parenchymal abnormalities are identified. There is no evidence of a pneumothorax. The cardiac silhouette is stable and is mildly prominent. The mediastinal contours are normal. No acute osseous abnormality is identified. No focal soft tissue abnormalities are seen. Lines and tubes: The endotracheal tube and feeding tube are grossly stable. The right subclavian central venous catheter is stable as well. IMPRESSION: 1. No definite acute intrathoracic disease. 2. Life support lines and tubes grossly stable.
[2018-02-19] MEDS: BUDESONIDE NEB 0.5 MG/2 ML AMPUL NEB SCH ×2 (08:06→20:01)
--- NOTE | 2018-02-19 09:28 | PDOC PROGRESS REPORT ---
Subjective Progress Note for:: 02/19/18 Subjective:: The patient is stable this morning. He remains on levo fed as well as Versed. He appears comfortable. Propofol has been discontinued. 02/17/2018-the patient is off of his Versed and has some spontaneous limb movements. He does respond to painful stimuli. He does not respond to verbal stimuli. Nursing reports that he has weaned off of his Versed. He is on low- dose propofol. He appears comfortable this morning. No acute events overnight. 02/18/2018-the patient remains completely off of Levophed. He is still on propofol and a small amount of Versed has been resumed due to some agitation. He remains on SIMV. He failed a pressure support trial yesterday. 02/19/2018-patient has his eyes partly open today. He does not make eye contact. He has little spontaneous movement of the eyes. He is still somewhat restless. Remains on Versed and propofol. Reason For Visit: ACUTE HYPOXIC HYPERCANEIC RESPIRATORY FAILURE Physical Exam Vital Signs: Temp Pulse Resp BP Pulse Ox 98.2 F 62 20 121/85 97 02/19/18 08:00 02/19/18 08:07 02/19/18 08:07 02/19/18 05:41 02/19/18 08:07 Intake & Output 02/18/18 02/19/18 02/20/18 06:59 06:59 06:59 Intake Total 5492 67 Output Total 2385 100 Balance 3107 -33 Weight 87.1 kg General appearance: PRESENT: no acute distress Head exam: PRESENT: atraumatic, normocephalic Eye exam: PRESENT: conjunctiva pink, other - No spontaneous eye movement.. ABSENT: scleral icterus Ear exam: PRESENT: normal external ear exam Mouth exam: PRESENT: other - Intubated and unable to assess Teeth exam: PRESENT: other - Intubated and unable to assess Throat exam: PRESENT: other - Intubated and unable to assess Neck exam: ABSENT: carotid bruit, lymphadenopathy Respiratory exam: PRESENT: clear to auscultation kevon, decreased breath sounds - Patient is not triggering spontaneous respirations above the set vent rate., symmetrical. ABSENT: rales, rhonchi, wheezes Cardiovascular exam: PRESENT: RRR, +S1, +S2 Vascular exam: PRESENT: normal capillary refill GI/Abdominal exam: PRESENT: normal bowel sounds, soft. ABSENT: distended, tenderness - Patient did not grimace with palpation. Rectal exam: PRESENT: other - Rectal tube in place. Staff reports loose stool. Extremities exam: PRESENT: +1 edema - Upper extremities still puffy. Trace edema in the legs. Neurological exam: PRESENT: other - Spontaneous movement in all extremities. I could not elicit voluntary movements. The patient did not make eye contact. His eyes were slightly open but he did not respond to verbal stimulus. Psychiatric exam: ABSENT: agitated Focused psych exam: PRESENT: restlessness - Despite propofol and Versed. Skin exam: PRESENT: mottled - Slight mottling in feet but feet are warm to the touch., other - Coccyx ulcer not examined today Results Laboratory Results: 02/19/18 05:15 02/19/18 05:15 02/18/18 02/18/18 02/19/18 05:15 17:50 05:15 WBC RBC Hgb Hct MCV MCH MCHC RDW Plt Count Carbonic Acid HCO3/H2CO3 Ratio ABG pH ABG pCO2 ABG pO2 ABG HCO3 ABG O2 Saturation ABG Base Excess FiO2 Sodium 140.1 Potassium 3.5 L 3.6 Chloride 98 Carbon Dioxide 36 H Anion Gap 6 BUN 29 H Creatinine 0.53 Est GFR ( Amer) > 60 Est GFR (Non-Af Amer) > 60 Glucose 136 H Calcium 8.2 L Phosphorus Cancelled 3.5 Magnesium 2.1 2.1 Total Bilirubin 0.6 AST 20 ALT 22 Alkaline Phosphatase 104 Total Protein 5.1 L Albumin 2.3 L 02/19/18 02/19/18 05:15 05:15 WBC 13.8 H RBC 3.16 L Hgb 10.1 L Hct 29.0 L MCV 92 MCH 31.9 MCHC 34.8 RDW 16.1 H Plt Count 121 L Carbonic Acid 1.47 H HCO3/H2CO3 Ratio 22:1 ABG pH 7.44 ABG pCO2 49.0 H ABG pO2 79.3 L ABG HCO3 32.8 H ABG O2 Saturation 96.0 ABG Base Excess 7.6 FiO2 30% Sodium Potassium Chloride Carbon Dioxide Anion Gap BUN Creatinine Est GFR ( Amer) Est GFR (Non-Af Amer) Glucose Calcium Phosphorus Magnesium Total Bilirubin AST ALT Alkaline Phosphatase Total Protein Albumin 02/15/18 02/15/18 02/16/18 16:29 22:13 04:29 Creatine Kinase CK-MB (CK-2) Troponin I 0.968 1.370 1.600 NT-Pro-B Natriuret Pep 02/17/18 02/17/18 04:30 04:30 Creatine Kinase < 20 L CK-MB (CK-2) 1.13 Troponin I 0.788 NT-Pro-B Natriuret Pep 1670 H Impressions: Chest X-Ray 02/19/18 06:00 IMPRESSION: 1. No definite acute intrathoracic disease. 2. Life support lines and tubes grossly stable. Assessment & Plan - Diagnosis (1) Acute on chronic respiratory failure with hypoxia and hypercapnia Is this a current diagnosis for this admission?: Yes Plan: The patient is currently intubated. He was intubated in the field. He is currently on intermittent mandatory ventilation. His PCO2 still remains high and so I will increase the rate. His chest x-ray did not suggest an infiltrate but his white blood cell count was elevated at 20,000 and so antibiotic therapy has been initiated. We will repeat a chest x-ray tomorrow. Pulmonology has been consulted as well. The patient will be on scheduled as well as as needed nebulizer treatments. I have started intravenous Solu-Medrol. We will likely initiate nebulized steroid therapy as well. February 16, 2018-the patient is stable. He remains on ventilator. SIMV with a rate of 20, tidal volume of 450, PEEP 5 and pressure support 10. FiO2 is 45%. He is currently sedated and dependent on the ventilator. Dr. Mccann continues to follow the patient as well. 02/17/2018-the patient remains on SIMV. I was present for a pressure support trial. There were no spontaneous respirations by the patient. We will continue ventilator support with weaning as tolerated. 02/18/2018-the patient is still intubated on SIMV. Yesterday's pressure support trial revealed no spontaneous respirations. We will continue trials today. 02/19/2018-the patient appears comfortable. A pressure support trial was attempted earlier today. Patient was placed on pressure support 03/21 with an FiO2 of 30%. His respiratory rate increased to 30 and his oxygen saturation dropped to 88. We will continue weaning attempts. See also pulmonology notes. Patient was comfortable when placed back on SIMV at previous settings. (2) Pneumonia Qualifiers: Pneumonia type: due to unspecified organism Laterality: right Lung location: lower lobe of lung Qualified Code(s): J18.1 - Lobar pneumonia, unspecified organism Is this a current diagnosis for this admission?: Yes Plan: The patient's white blood cell count was 20,000 on admission. Because he was just in the hospital I have him on vancomycin and Zosyn as it is impossible to tell if this was hospital-acquired or community-acquired. Repeat chest x-rays have been ordered and may reveal more when the patient is hydrated. Continue mechanical ventilation. February 16, 2018-the patient's endotracheal aspirate specimen is positive for gram-positive cocci in clusters. In fact both blood cultures, urine culture and sputum specimen are positive for the gram-positive cocci. We will continue the vancomycin and Zosyn. If all cultures reveal single organism we will be able to taper the antibiotics to the final results. Continue mechanical ventilation at this time. 02/17/2018-microbiology results reveal gram-positive cocci growing from the endotracheal aspiration. Further results are pending. He remains on vancomycin and Zosyn. I have discontinued the azithromycin as vancomycin has excellent broad spectrum gram-positive coverage. Once the final results are pending I can modify his antibiotic therapy. His white count continues to come down with his antibiotic therapy. 02/18/2018-sputum culture revealed normal anastasiia. Despite this based on x-ray and clinical presentation we will continue his vancomycin. I would discontinue the Zosyn since all of the currently identified bacteria are staph. 02/19/2018-as noted above the patient had sputum and blood cultures that have only gram-positive cocci identified. He is on vancomycin through February 24 and his antibiotic therapy will be completed. (3) Congestive heart failure Qualifiers: Heart failure type: right-sided Heart failure chronicity: chronic Qualified Code(s): I50.812 - Chronic right heart failure Is this a current diagnosis for this admission?: Yes Plan: The patient does have a history of congestive heart failure. Because of his low blood pressure I have not initiated any diuretic therapy. We will continue to watch him closely and when his pressure stabilizes I will add intravenous furosemide. Have ordered serial troponin studies to rule out the possibility of infarction causing an exacerbation of congestive failure. In addition I will review medical records for more complete history. February 16, 2018-review with cardiology reveals marked pulmonary hypertension. This has caused an exacerbation of heart failure. At this point he is on levo fed for blood pressure. There is no overt pulmonary edema and so I am holding his furosemide at this time. He continues to have a positive fluid balance due to fluid resuscitation for sepsis. Review of the echocardiogram suggests systolic as well as diastolic failure involving the right and left. 02/17/2018-the patient is beginning to develop a small effusion in the left sulcus. I am going to resume his furosemide therapy. He will get 20 mg of Lasix IV daily to start. He will receive another dose of IV albumin to improve oncotic pressure. As noted above echocardiogram revealed bilateral systolic and diastolic failure. He continues to need high volume fluid resuscitation. 02/18/2018-the addition of furosemide has had a noticeable improvement in his urine output. His fluid balance is still quite positive. I will lower the IV normal saline to 150 mL an hour. We will continue to monitor his fluid balance. I will see if his blood pressure maintains with the drop in volume. His lungs had faint rales at the bases but without deep inspiration it is hard to fully assess. 02/19/2018-the patient still has a marked positive fluid balance. I have resumed furosemide daily at 20 mg intravenous. We will decrease his IV saline to 100 mL/h and see how his blood pressure tolerates it. This will also help with his positive fluid balance. (4) Hypotension Qualifiers: Hypotension type: unspecified hypotension type Qualified Code(s): I95.9 - Hypotension, unspecified Is this a current diagnosis for this admission?: Yes Plan: The patient was hypotensive initially. This could be related to the propofol and Versed. We will continue IV fluids. His pressure is responding. If necessary we can use pressor therapy. February 16, 2018-patient remains on levo fed. With the medication his blood pressure has been stable. He continues to receive fluid resuscitation as well. I will likely need to resume low-dose furosemide for fluid overload. Taper IV pressor therapy as tolerated. There is no evidence of cyanosis in the fingers and toes. 02/17/2018-patient is currently off of Levophed. His map is approximately 70 at this time. He will continue on his volume repletion and furosemide is been started above. If need be we may resume low-dose levo fed to enable tolerance of the furosemide therapy. 02/18/2018-currently off of Levophed and maintaining reasonable blood pressure. Reduce his IV fluids today and not give him albumin and see if he can maintain his progress. 02/19/2018-see above. He is currently off of levo fed. Hypotension resolved. He is at high risk for recurrence. (5) Pulmonary hypertension Is this a current diagnosis for this admission?: Yes Plan: The patient had an echocardiogram earlier this month. Right ventricular systolic pressure was estimated at 90. Continue current management. 02/17/2018-this is chronic and appears to be progressing. We will continue his current regimen. 02/18/2018-unfortunately this is a chronic and progressive reality. We will try to compensate with good blood pressure and volume control. 02/19/2018-blood pressure is at goal. I will slowly work back to his prior cardiac regimen. Medications will be added as tolerated. (6) Hyponatremia Is this a current diagnosis for this admission?: Yes Plan: The patient's serum sodium is low today. I will change his ringer solution to normal saline. Continue to monitor electrolytes. 02/17/2018-with the change from ringer solution to normal saline his sodium is beginning to improve slowly. We will continue to monitor his electrolytes. 02/18/2018-with the change from Ringer's to normal saline his serum sodium has corrected. We will see if he maintains with a decrease in the rate. In addition he is on tube feeds which would also provide some electrolyte support. 02/19/2018-resolved. (7) Hypokalemia Is this a current diagnosis for this admission?: Yes Plan: 02/18/2018-patient's serum potassium has been decreasing and is now below the lower limit of normal. Correction will be made per the ICU potassium replacement protocol. 2 feedings should also provide some potassium. 02/19/2018-serum potassium is back in the low normal range today. The patient is on potassium replacement protocol. (8) Malnutrition Is this a current diagnosis for this admission?: Yes Plan: 02/18/2018-likely due to his acute and chronic illnesses. We have initiated tube feeds. Appreciate the dietitian's input. 02/19/2018-the patient is on Oxepa 1.5 with a goal rate of 45 mL/h to meet his nutritional needs with his underlying critical illness. (9) Code status needs review Is this a current diagnosis for this admission?: Yes Plan: I met with the patient's parents. His mother Rose Hoffman has been the point person for discussion over the last 2 days. I reviewed the patient's condition. Reviewed the aggressive treatment plan. We also touched base on the very poor prognosis. At this point the patient's mother was very specific with regard to not wanting her son to suffer. We discussed the reasonable plan to continue aggressive therapy 3-4 more days. If there is no evidence of recovery then she will consider moving to comfort only. As of today the patient will be DO NOT RESUSCITATE. Because he is already intubated the caveat will be when extubated there will be no reintubation. 02/17/2018-at this point we are continuing his DO NOT RESUSCITATE status. If he does not show evidence of recovery the family will consider comfort measures. We will continue his aggressive treatment at this time. 02/18/2018-I did visit with the patient's mother today at the bedside. Informed her of the changes made to the treatment plan. At this point there is not been a marked change in his condition. I also told her that the pressure support trials would help us with regard to his respiratory prognosis. 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 Patient's mother has recognized a change in his behavior consistent with possible repetitive hypoxic injury and substance abuse. 02/19/2018-the patient's mother was at the bedside during this encounter. In discussing his prognosis I did tell her that I feel it is still very poor. Even though his eyes are partly open he does not have spontaneous eye movement and does not make eye contact. Continue current regimen. Discussion the patient's mother daily. If the patient requires tracheostomy with long-term weaning I believe the patient's mother would prefer comfort measures. - Time Time Spent with patient: 25-34 minutes Medications reviewed and adjusted accordingly: Yes
[2018-02-19] MEDS: MIDAZOLAM HCL 50 MG/100 ML RTUINJ IV-INFUSE PRN ×2 (09:55→17:54)
[2018-02-19] MEDS: FUROSEMIDE INJ/PF 20 MG/2 ML SDV IV SCH (09:59)
[2018-02-19] MEDS: VANCOMYCIN HCL 1,500 MG in DEXTROSE 5%-WATER 250 ML IV SCH ×2 (09:59→21:49)
[2018-02-19] MEDS: ASPIRIN 81 MG TABLET, CHEWABLE NG SCH (10:00)
[2018-02-19] MEDS: DOCUSATE SODIUM 100 MG/10 ML UDC NG SCH ×2 (10:00→17:45)
[2018-02-19 11:08] LABS: VANCOMYCIN,TROUGH 18.7 ug/mL (5.0-20.0)
[2018-02-20] MEDS: PROPOFOL 1,000 MG/100 ML INFUS..BTL IV PRN ×7 (01:45→21:59)
[2018-02-20] MEDS: IPRATROPIUM/ALBUTEROL 0.5-2.5 MG/3 ML AMPUL NEB SCH ×4 (02:03→20:15)
[2018-02-20] MEDS: MIDAZOLAM HCL 50 MG/100 ML RTUINJ IV-INFUSE PRN ×2 (03:26→16:18)
[2018-02-20] MEDS: PANTOPRAZOLE SODIUM 40 MG VIAL IV SCH (05:31)
[2018-02-20] MEDS: HYDROCORTISONE SOD SUCCINATE INJ/PF 100 MG/2 ML SDV IV SCH ×3 (05:31→21:19)
[2018-02-20] MEDS: HEPARIN SOD (PORCINE) 5,000 UNIT/ML 1 ML SYRINGE SUBCUT SCH ×3 (05:31→21:20)
[2018-02-20 06:17] LABS: ARTERIAL BLOOD BASE EXCESS 11.2 mmol/L; ARTERIAL BLOOD H2CO3 1.44 mmol/L (1.05-1.35); ARTERIAL BLOOD HCO3 35.9 mmol/L (20-24); ARTERIAL BLOOD O2 SATURATION 95.5 % (94-98); ARTERIAL BLOOD PCO2 47.8 mmHg (35-45); ARTERIAL BLOOD PH 7.49 (7.35-7.45); ARTERIAL BLOOD PO2 72.3 mmHg (80-100); ARTERIAL BLOOD TOTAL CO2 37.3 mmol/L (23-27)
[2018-02-20 06:18] LABS: ARTERIAL BLOOD FIO2 30%
[2018-02-20 06:37] LABS: ANION GAP 7 (5-19); BLOOD UREA NITROGEN 26 mg/dL (7-20); CARBON DIOXIDE 33 mmol/L (22-30); CHLORIDE 99 mmol/L (98-107); GLUCOSE 143 mg/dL (75-110); PHOSPHORUS 3.4 mg/dL (2.5-4.5); POTASSIUM 3.5 mmol/L (3.6-5.0); SODIUM 138.7 mmol/L (137-145)
[2018-02-20] MEDS: NORMAL SALINE 1000 ML 1,000 ML IV PRN ×2 (07:00→21:26)
[2018-02-20 07:14] LABS: HEMATOCRIT 30.2 % (37.9-51.0); HEMOGLOBIN 10.3 g/dL (13.5-17.0); MEAN CORPUSCULAR HEMOGLOBIN 31.4 pg (27.0-33.4); MEAN CORPUSCULAR HGB CONC 34.1 g/dL (32.0-36.0); MEAN CORPUSCULAR VOLUME 92 fl (80-97); PLATELET COUNT 133 10^3/uL (150-450); RED BLOOD COUNT 3.28 10^6/uL (4.35-5.55); RED CELL DISTRIBUTION WIDTH 16.5 % (11.5-14.0); WHITE BLOOD COUNT 12.5 10^3/uL (4.0-10.5)
--- NOTE | 2018-02-20 07:19 | RADIOLOGY REPORT (SQ) ---
CLINICAL HISTORY: resp failure COMPARISON: February 19, 2018. 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 There is a left basilar consolidation. There is there is upper lung emphysema. There are probable small pleural effusions. There is no pneumothorax. There are no acute osseous findings. Endotracheal tube and nasogastric tubes are unchanged. Right IJ central line is unchanged. IMPRESSION: Possible developing left basilar pneumonia. Otherwise no change.
[2018-02-20 07:37] LABS: ABSOLUTE LYMPHOCYTES# (MANUAL) 0.6 10^3/uL (0.5-4.7); ABSOLUTE MONOCYTES # (MANUAL) 0.3 10^3/uL (0.1-1.4); ABSOLUTE NEUTROPHILS# (MANUAL) 11.6 10^3/uL (1.7-8.2); BAND NEUTROPHILS % (MANUAL) 2 % (3-5); BASOPHILS % (MANUAL) 0 % (0-2); EOSINOPHILS % (MANUAL) 0 % (0-6); LYMPHOCYTES % (MANUAL) 5 % (13-45); METAMYELOCYTES % (MANUAL) 2 % (0); MONOCYTES % (MANUAL) 2 % (3-13); SEGMENTED NEUTROPHILS % (MAN) 89 % (42-78); TOTAL CELLS COUNTED 100
[2018-02-20 07:40] LABS: ANISOCYTOSIS 1+; POIKILOCYTOSIS SLIGHT; TEAR DROP CELLS SLIGHT
[2018-02-20 07:41] LABS: PLATELET COMMENT DECREASED
[2018-02-20] MEDS: BUDESONIDE NEB 0.5 MG/2 ML AMPUL NEB SCH ×2 (08:36→20:15)
[2018-02-20] MEDS: VANCOMYCIN HCL 1,500 MG in DEXTROSE 5%-WATER 250 ML IV SCH ×2 (10:47→21:19)
[2018-02-20] MEDS: FUROSEMIDE INJ/PF 20 MG/2 ML SDV IV SCH (10:47)
[2018-02-20] MEDS: ASPIRIN 81 MG TABLET, CHEWABLE NG SCH (10:48)
[2018-02-20] MEDS: DOCUSATE SODIUM 100 MG/10 ML UDC NG SCH ×2 (10:49→17:56)
--- NOTE | 2018-02-20 10:58 | PDOC PROGRESS REPORT ---
Subjective Progress Note for:: 02/20/18 Subjective:: This is 48 years old male patient admitted about 5 days ago with a diagnosis of acute on chronic hypoxic and hypercarbic respiratory failure. Patient brought to ER intubated at field by EMS. Patient has been on mechanical ventilation for the last 6 days. Currently patient is off pressor but still has been on Versed and propofol for sedation. He is not ready for extubation. His CODE STATUS is DNR. The computer console operator his mom does not want him to be on tracheostomy. In the coming 2 days if he does not respond she is inclined to comfort care. Reason For Visit: ACUTE HYPOXIC HYPERCANEIC RESPIRATORY FAILURE Physical Exam Vital Signs: Temp Pulse Resp BP Pulse Ox 97.7 F 77 20 117/93 H 95 02/20/18 08:00 02/20/18 08:37 02/20/18 08:37 02/20/18 08:00 02/20/18 08:37 Intake & Output 02/19/18 02/20/18 02/21/18 06:59 06:59 06:59 Intake Total 5492 2394 1097 Output Total 2385 2410 150 Balance 3107 -16 947 Weight 87.1 kg 88.6 kg General appearance: PRESENT: no acute distress Head exam: PRESENT: atraumatic Eye exam: PRESENT: conjunctiva pink Neck exam: ABSENT: carotid bruit, JVD, lymphadenopathy, thyromegaly Respiratory exam: PRESENT: clear to auscultation kevon. ABSENT: rales, rhonchi, wheezes Cardiovascular exam: PRESENT: RRR. ABSENT: diastolic murmur, rubs, systolic murmur Skin exam: PRESENT: mottled Results Laboratory Results: 02/20/18 06:55 02/20/18 06:00 02/20/18 02/20/18 02/20/18 06:00 06:00 06:00 WBC Cancelled RBC Cancelled Hgb Cancelled Hct Cancelled MCV Cancelled MCH Cancelled MCHC Cancelled RDW Cancelled Plt Count Cancelled Seg Neutrophils % Cancelled Lymphocytes % Cancelled Monocytes % Cancelled Eosinophils % Cancelled Basophils % Cancelled Absolute Neutrophils Cancelled Absolute Lymphocytes Cancelled Absolute Monocytes Cancelled Absolute Eosinophils Cancelled Absolute Basophils Cancelled Carbonic Acid 1.44 H HCO3/H2CO3 Ratio 24:1 ABG pH 7.49 H ABG pCO2 47.8 H ABG pO2 72.3 L ABG HCO3 35.9 H ABG O2 Saturation 95.5 ABG Base Excess 11.2 FiO2 30% Sodium 138.7 Potassium 3.5 L Chloride 99 Carbon Dioxide 33 H Anion Gap 7 BUN 26 H Creatinine 0.39 L Est GFR ( Amer) > 60 Est GFR (Non-Af Amer) > 60 Glucose 143 H Calcium 8.0 L Phosphorus 3.4 Magnesium 2.0 Prealbumin 17.0 L 02/20/18 06:55 WBC 12.5 H RBC 3.28 L Hgb 10.3 L Hct 30.2 L MCV 92 MCH 31.4 MCHC 34.1 RDW 16.5 H Plt Count 133 L Seg Neutrophils % Not Reportable Lymphocytes % Not Reportable Monocytes % Not Reportable Eosinophils % Not Reportable Basophils % Not Reportable Absolute Neutrophils Not Reportable Absolute Lymphocytes Not Reportable Absolute Monocytes Not Reportable Absolute Eosinophils Not Reportable Absolute Basophils Not Reportable Carbonic Acid HCO3/H2CO3 Ratio ABG pH ABG pCO2 ABG pO2 ABG HCO3 ABG O2 Saturation ABG Base Excess FiO2 Sodium Potassium Chloride Carbon Dioxide Anion Gap BUN Creatinine Est GFR ( Amer) Est GFR (Non-Af Amer) Glucose Calcium Phosphorus Magnesium Prealbumin 02/15/18 14:52 Blood Blood Culture - Final Mrsa (Meth Resis Staph Aureus) 02/15/18 14:40 Blood Blood Culture - Final Mrsa (Meth Resis Staph Aureus) 02/15/18 02/15/18 02/16/18 16:29 22:13 04:29 Creatine Kinase CK-MB (CK-2) Troponin I 0.968 1.370 1.600 NT-Pro-B Natriuret Pep 02/17/18 02/17/18 04:30 04:30 Creatine Kinase < 20 L CK-MB (CK-2) 1.13 Troponin I 0.788 NT-Pro-B Natriuret Pep 1670 H Impressions: Chest X-Ray 02/20/18 06:00 IMPRESSION: Possible developing left basilar pneumonia. Otherwise no change. Assessment & Plan - Diagnosis (1) Severe sepsis Is this a current diagnosis for this admission?: Yes Plan: Patient's blood culture, tracheal aspirate and urine culture grew MRSA. Patient has been on vancomycin. Limited echo requested to rule out vegetation. Blood culture requested (2) Acute on chronic respiratory failure with hypoxia and hypercapnia Is this a current diagnosis for this admission?: Yes Plan: Continue current regimen (3) Hypokalemia Is this a current diagnosis for this admission?: Yes Plan: Resolved (4) Hyponatremia Is this a current diagnosis for this admission?: Yes Plan: Resolved (5) Congestive heart failure Qualifiers: Heart failure type: right-sided Heart failure chronicity: chronic Qualified Code(s): I50.812 - Chronic right heart failure Is this a current diagnosis for this admission?: Yes Plan: Continue Lasix and other cardioprotective medications. (6) Pulmonary hypertension Is this a current diagnosis for this admission?: Yes Plan: Stable
--- NOTE | 2018-02-20 13:08 | XCELERA REPORT ---
[address] [address] Transthoracic Echocardiogram Report Name: SHARLENE LYNN Age: 48 yrs Gender: Male : 1970 Patient Status: Inpatient Patient Location: ICU^2^A Study Date: 02/20/2018 11:20 AM Procedure: A complete two-dimensional transthoracic echocardiogram was performed (2D, M-mode, spectral and color flow Doppler). The study was technically adequate with some images being suboptimal in quality. Reason For Study: Rule out vegetation/ Previous Echo done 01/24/18 Ordering Physician: FRANCISCO CARDONA Performed By: Sosa Palacios Interpretation Summary The left ventricular ejection fraction is normal. There is mild concentric left ventricular hypertrophy. The left ventricle is grossly normal size. LV diastolic function could not be adequately assessed. The right ventricle is moderately dilated. The right ventricle appears to be hypertrophied The right ventricular systolic function is mild to moderately reduced. The right atrium is moderately dilated. The left atrial size is normal. There is a trace amount of mitral regurgitation There is no mitral valve stenosis. There is no aortic valve stenosis No aortic regurgitation is present. There is a trace or physiologic amount of tricuspid regurgitation Tricuspid regurgitation jet envelope not well defined to measure RV systolic pressure accurately. The aortic root is not well visualized but is probably normal size. The inferior vena cava was not well visualized There is no pericardial effusion. MMode/2D Measurements & Calculations IVSd: 0.91 cm LVIDd: 4.9 cm FS: 30.6 % LVIDs: 3.4 cm EDV(Teich): 115.2 ml LVPWd: 1.0 cm ESV(Teich): 48.5 ml EF(Teich): 57.9 % Left Ventricle The left ventricle is grossly normal size. There is mild concentric left ventricular hypertrophy. The left ventricular ejection fraction is normal. LV diastolic function could not be adequately assessed. Right Ventricle The right ventricle is moderately dilated. The right ventricle appears to be hypertrophied. The right ventricular systolic function is mild to moderately reduced. Atria The right atrium is moderately dilated. The left atrial size is normal. Mitral Valve The mitral valve is grossly normal. There is no mitral valve stenosis. There is a trace amount of mitral regurgitation. Aortic Valve The aortic valve is grossly normal. There is no aortic valve stenosis. No aortic regurgitation is present. Tricuspid Valve The tricuspid valve is not well visualized, but is grossly normal. There is no tricuspid stenosis. There is a trace or physiologic amount of tricuspid regurgitation. Tricuspid regurgitation jet envelope not well defined to measure RV systolic pressure accurately. Pulmonic Valve The pulmonic valve is not well visualized. Great Vessels The aortic root is not well visualized but is probably normal size. The inferior vena cava was not well visualized. Effusions There is no pericardial effusion. Incidental Findings No definite vegetations noted but if clinical suspicion is high, then consider ADAM and multiple blood cultures. : FRANCISCO CARDONA > Saturnino Gaitan
--- NOTE | 2018-02-20 16:23 | Progress Note ---
Provider Note Provider Note: ID Consult Note Asked to review patient's chart by Pharmacy. Pt not seen or examined. Mr. Hoffman is a 48 year old man with PMH including end stage emphysema, DVT, CHF, HTN, tobacco use, prior mixed hypercapnic/hypoxemic respiratory failure requiring intubation. He was admitted on 02/15/18 after being found down at home and was intubated in the field. He was afebrile on presentation, had diminished breath sounds, no murmur on auscultation, no musculoskeletal or cutaneous abnormalities noted on exam apart from abrasion over patella of L knee and mild generalized edema. Labs were remarkable for leukocytosis to around 29k, respiratory acidosis and hypoxemia, elevated NT-pro-BNP. Empirically vancomycin and Zosyn were started due to suspicion of pneumonia with recent hospital exposure. CXR was reported as showing cardiomegaly, mildly hyperinflated lungs and vascular congestion but no evidence of acute pneumonia. Repeat CXR serially has not shown change. BCx on admission ended up growing MRSA in both sets obtained on admission. Zosyn was later discontinued as all cultures only grew Staph aureus. On 02/18/18, the patient was taken to the OR for debridement of a sacral ulcer wtih some fluctuance that was described as stage IV, roughly 2.5 cm in diameter but deep, requiring debridement down to the bone; cultures obtained from the ulcer grew E coli resistant to Zosyn. The patient had some evidence of improvement in terms of decrease in leukocytosis and increased hemodynamic stability, no longer requiring Levophed support. However, he remains ventilator dependent. Impression/Recommendations MRSA bacteremia - agree with management including IV vancomycin dosed with assistance of Pharmacy to achieve goal troughs 15-20 (as has been the case) - TTE without any definite vegetations - remain vigilant for any signs of metastatic infectious foci and workup further if present (e.g. arthrocentesis if erythematous swollen joint) - keep a low threshold for imaging the spine with MRI with contrast or CT scan with contrast (if unable to have MRI) if pt has any evidence of neurological deficit involving extremities that might suggest spinal cord impingement, persistent fever, or persistent bacteremia - Agree with repeat BCx that have been ordered - Total duration of therapy to be determined but, at a minimum, for MRSA bacteremia treatment should include a minimum of 2 weeks of IV vancomycin, starting from the date of negative blood cultures Infected sacral decubitus ulcer with E coli - Patient had a deep ulcer noted on exam with an area of fluctuance that required debridement. - Gram stain from debridement showed a mix of GPCs and GNRs. Only E coli has thus far been reported from culture growth. However, patient has also been on vancomycin and on Zosyn initially, which may complicate interpretation of culture results. - Recommend ertapenem 1 g daily IV - Duration of therapy depends upon extent of infection, whether limited to soft tissue or if impression at surgery was concerning for osteomyelitis. Depth of debridement (down to bone) implies a higher potential risk for osteomyelitis, but not all cases have osteomyelitis. If soft bone was encountered at surgery, this would be suspicious for osteomyelitis. If the patient's surgeon is suspicious based upon his impression in the OR that the patient has osteomyelitis, antibiotic therapy will need to be prolonged. Lionel Easley MD [facility] Infectious Diseases pager [phone]
[2018-02-21] MEDS: PROPOFOL 1,000 MG/100 ML INFUS..BTL IV PRN ×7 (00:45→22:13)
[2018-02-21] MEDS: IPRATROPIUM/ALBUTEROL 0.5-2.5 MG/3 ML AMPUL NEB SCH ×4 (02:35→20:07)
[2018-02-21] MEDS: MIDAZOLAM HCL 50 MG/100 ML RTUINJ IV-INFUSE PRN ×3 (03:04→22:34)
[2018-02-21] MEDS: HEPARIN SOD (PORCINE) 5,000 UNIT/ML 1 ML SYRINGE SUBCUT SCH ×3 (05:27→21:07)
[2018-02-21] MEDS: PANTOPRAZOLE SODIUM 40 MG VIAL IV SCH (05:28)
[2018-02-21] MEDS: HYDROCORTISONE SOD SUCCINATE INJ/PF 100 MG/2 ML SDV IV SCH ×3 (05:28→21:06)
[2018-02-21 06:02] LABS: ARTERIAL BLOOD BASE EXCESS 9.7 mmol/L; ARTERIAL BLOOD FIO2 30%; ARTERIAL BLOOD H2CO3 1.37 mmol/L (1.05-1.35); ARTERIAL BLOOD HCO3 34.1 mmol/L (20-24); ARTERIAL BLOOD O2 SATURATION 95.8 % (94-98); ARTERIAL BLOOD PCO2 45.6 mmHg (35-45); ARTERIAL BLOOD PH 7.49 (7.35-7.45); ARTERIAL BLOOD PO2 74.2 mmHg (80-100); ARTERIAL BLOOD TOTAL CO2 35.5 mmol/L (23-27)
[2018-02-21 06:21] LABS: ANION GAP 6 (5-19); BLOOD UREA NITROGEN 23 mg/dL (7-20); CARBON DIOXIDE 36 mmol/L (22-30); CHLORIDE 100 mmol/L (98-107); GLUCOSE 130 mg/dL (75-110); POTASSIUM 3.5 mmol/L (3.6-5.0); SODIUM 142.2 mmol/L (137-145); TRIGLYCERIDES 232 mg/dL (<150)
--- NOTE | 2018-02-21 06:44 | RADIOLOGY REPORT (SQ) ---
CLINICAL HISTORY: resp failure COMPARISON: February 20, 2018. TECHNIQUE: XR CHEST 1 VIEW 02/21/2018 6:00 AM LITIGATION COORDINATOR FINDINGS: Cardiac silhouette is normal in size. There is severe upper lung with emphysema. There may be a minimal left basilar consolidation. There is no pleural effusion. There is no pneumothorax. There are no acute osseous findings. Endotracheal tube, nasogastric tube and right IJ central line are unchanged. IMPRESSION: No change
[2018-02-21] MEDS: BUDESONIDE NEB 0.5 MG/2 ML AMPUL NEB SCH ×2 (08:02→20:07)
[2018-02-21] MEDS: VANCOMYCIN HCL 1,500 MG in DEXTROSE 5%-WATER 250 ML IV SCH ×2 (09:20→22:12)
[2018-02-21] MEDS: FUROSEMIDE INJ/PF 20 MG/2 ML SDV IV SCH (09:20)
[2018-02-21] MEDS: DOCUSATE SODIUM 100 MG/10 ML UDC NG SCH ×2 (09:20→18:44)
[2018-02-21] MEDS: ASPIRIN 81 MG TABLET, CHEWABLE NG SCH (09:20)
--- NOTE | 2018-02-21 09:52 | Progress Note ---
Provider Note Provider Note: Pt with progressive necrosis at sacral decubitus. Will make NPO after midnight and plan for debridement tomorrow.
[2018-02-21] MEDS: NORMAL SALINE 1000 ML 1,000 ML IV PRN (11:18)
[2018-02-21] MEDS: ERTAPENEM SODIUM 1 GM in NORMAL SALINE 50 ML IV SCH (11:19)
--- NOTE | 2018-02-21 11:58 | PDOC PROGRESS REPORT ---
Subjective Progress Note for:: 02/21/18 Subjective:: This is 48 years old male patient with multiple comorbidities including COPD, chronic respiratory failure, history of DVT, CHF, hypertension history of prior multiple intubation for acute on chronic respiratory failure, medical noncompliance, coronary artery disease and tobacco dependence, admitted on February 15, 2018 with acute on chronic hypercarbic hypoxic respiratory failure which required intubation in the field by EMS. His sputum urine and blood culture are positive for MRSA which is sensitive to vancomycin. Patient also found to have stage IV sacral decubitus ulcer for which debridement was done by Dr. Hawk. The sample from the debridement grew E. coli which is resistant to Zosyn. Yesterday I had a long conversation with RAJENDRA Page at [facility] and she recommended to start the patient on ertapenem. The repeat blood culture grew gram-positive cocci in cluster but the echo is negative for vegetation. This morning I seen patient lying in bed intubated. No significant event overnight. I discussed the case with Dr. Mccann who stated that patient is likely to be extubated. Reason For Visit: ACUTE HYPOXIC HYPERCANEIC RESPIRATORY FAILURE Physical Exam Vital Signs: Temp Pulse Resp BP Pulse Ox 97.2 F 93 26 H 131/81 H 96 02/21/18 11:46 02/21/18 11:46 02/21/18 11:46 02/21/18 11:46 02/21/18 11:46 Intake & Output 02/20/18 02/21/18 02/22/18 06:59 06:59 06:59 Intake Total 2394 3779 1475 Output Total 2410 2840 1148 Balance -16 939 327 Weight 88.6 kg 97.6 kg General appearance: PRESENT: no acute distress Head exam: PRESENT: atraumatic Eye exam: PRESENT: conjunctiva pink Neck exam: ABSENT: carotid bruit, JVD, lymphadenopathy, thyromegaly Respiratory exam: PRESENT: rhonchi Cardiovascular exam: PRESENT: RRR. ABSENT: diastolic murmur, rubs, systolic murmur GI/Abdominal exam: PRESENT: normal bowel sounds, soft. ABSENT: distended, guarding, mass, organolmegaly, rebound, tenderness Results Laboratory Results: 02/20/18 06:55 02/21/18 05:40 02/21/18 02/21/18 05:40 05:40 Carbonic Acid 1.37 H HCO3/H2CO3 Ratio 24:1 ABG pH 7.49 H ABG pCO2 45.6 H ABG pO2 74.2 L ABG HCO3 34.1 H ABG O2 Saturation 95.8 ABG Base Excess 9.7 FiO2 30% Sodium 142.2 Potassium 3.5 L Chloride 100 Carbon Dioxide 36 H Anion Gap 6 BUN 23 H Creatinine 0.41 L Est GFR ( Amer) > 60 Est GFR (Non-Af Amer) > 60 Glucose 130 H Calcium 8.0 L Magnesium 2.1 Triglycerides 232 H 02/15/18 02/15/18 02/16/18 16:29 22:13 04:29 Creatine Kinase CK-MB (CK-2) Troponin I 0.968 1.370 1.600 NT-Pro-B Natriuret Pep 02/17/18 02/17/18 04:30 04:30 Creatine Kinase < 20 L CK-MB (CK-2) 1.13 Troponin I 0.788 NT-Pro-B Natriuret Pep 1670 H Impressions: Chest X-Ray 02/21/18 06:00 IMPRESSION: No change Assessment & Plan - Diagnosis (1) Severe sepsis Is this a current diagnosis for this admission?: Yes Plan: I will continue the vancomycin. I will repeat the blood culture. And waiting for the sensitivity pattern. (2) Acute on chronic respiratory failure with hypoxia and hypercapnia Is this a current diagnosis for this admission?: Yes Plan: Continue current regimen (3) Hypokalemia Is this a current diagnosis for this admission?: Yes Plan: Resolved (4) Hyponatremia Is this a current diagnosis for this admission?: Yes Plan: Resolved (5) Congestive heart failure Qualifiers: Heart failure type: right-sided Heart failure chronicity: chronic Qualified Code(s): I50.812 - Chronic right heart failure Is this a current diagnosis for this admission?: Yes Plan: Continue Lasix and other cardioprotective medications. (6) Pulmonary hypertension Is this a current diagnosis for this admission?: Yes Plan: Stable
[2018-02-21] MEDS: FENTANYL CITRATE INJ/PF 100 MCG/2 ML AMPUL IV PRN (21:00)
[2018-02-22] MEDS: FENTANYL CITRATE INJ/PF 100 MCG/2 ML AMPUL IV PRN ×2 (02:10→06:34)
[2018-02-22] MEDS: PROPOFOL 1,000 MG/100 ML INFUS..BTL IV PRN ×6 (02:10→19:44)
[2018-02-22] MEDS: IPRATROPIUM/ALBUTEROL 0.5-2.5 MG/3 ML AMPUL NEB SCH ×4 (02:34→19:50)
[2018-02-22] MEDS: HYDROCORTISONE SOD SUCCINATE INJ/PF 100 MG/2 ML SDV IV SCH ×3 (05:13→22:37)
[2018-02-22] MEDS: HEPARIN SOD (PORCINE) 5,000 UNIT/ML 1 ML SYRINGE SUBCUT SCH ×3 (05:17→22:38)
[2018-02-22] MEDS: PANTOPRAZOLE SODIUM 40 MG VIAL IV SCH (05:17)
--- NOTE | 2018-02-22 06:12 | RADIOLOGY REPORT (SQ) ---
CLINICAL HISTORY: resp failure COMPARISON: February 21, 2018. TECHNIQUE: XR CHEST 1 VIEW 02/22/2018 6:00 AM ELECTRIC METER INSPECTOR FINDINGS: Cardiac silhouette is enlarged. There is severe upper lung emphysema. There is no pleural effusion. There is no pneumothorax. There are no acute osseous findings. Endotracheal tube, nasogastric tube and right central line are unchanged. IMPRESSION: No change.
[2018-02-22 06:16] LABS: HEMATOCRIT 29.3 % (37.9-51.0); HEMOGLOBIN 9.7 g/dL (13.5-17.0); MEAN CORPUSCULAR HEMOGLOBIN 30.8 pg (27.0-33.4); MEAN CORPUSCULAR HGB CONC 32.9 g/dL (32.0-36.0); MEAN CORPUSCULAR VOLUME 94 fl (80-97); PLATELET COUNT 200 10^3/uL (150-450); RED BLOOD COUNT 3.14 10^6/uL (4.35-5.55); RED CELL DISTRIBUTION WIDTH 17.2 % (11.5-14.0); WHITE BLOOD COUNT 14.4 10^3/uL (4.0-10.5)
[2018-02-22 06:29] LABS: ANION GAP 8 (5-19); BLOOD UREA NITROGEN 23 mg/dL (7-20); CALCIUM 8.2 mg/dL (8.4-10.2); CARBON DIOXIDE 35 mmol/L (22-30); CHLORIDE 99 mmol/L (98-107); GLUCOSE 126 mg/dL (75-110); POTASSIUM 3.6 mmol/L (3.6-5.0); SODIUM 142.2 mmol/L (137-145)
[2018-02-22] MEDS: MIDAZOLAM HCL 50 MG/100 ML RTUINJ IV-INFUSE PRN ×2 (06:33→16:22)
[2018-02-22 06:36] LABS: ABSOLUTE LYMPHOCYTES# (MANUAL) 1.6 10^3/uL (0.5-4.7); ABSOLUTE MONOCYTES # (MANUAL) 0.3 10^3/uL (0.1-1.4); ABSOLUTE NEUTROPHILS# (MANUAL) 12.5 10^3/uL (1.7-8.2); BAND NEUTROPHILS % (MANUAL) 2 % (3-5); BASOPHILS % (MANUAL) 0 % (0-2); EOSINOPHILS % (MANUAL) 0 % (0-6); LYMPHOCYTES % (MANUAL) 11 % (13-45); MONOCYTES % (MANUAL) 2 % (3-13); SEGMENTED NEUTROPHILS % (MAN) 85 % (42-78); TOTAL CELLS COUNTED 100
[2018-02-22 06:37] LABS: ANISOCYTOSIS 1+; PLATELET COMMENT ADEQUATE; POIKILOCYTOSIS 1+; TOXIC GRANULATION SLIGHT
[2018-02-22] MEDS: BUDESONIDE NEB 0.5 MG/2 ML AMPUL NEB SCH ×2 (08:31→19:50)
[2018-02-22 08:47] LABS: ARTERIAL BLOOD BASE EXCESS 6.2 mmol/L; ARTERIAL BLOOD FIO2 30%; ARTERIAL BLOOD H2CO3 1.19 mmol/L (1.05-1.35); ARTERIAL BLOOD HCO3 29.9 mmol/L (20-24); ARTERIAL BLOOD O2 SATURATION 95.1 % (94-98); ARTERIAL BLOOD PCO2 39.7 mmHg (35-45); ARTERIAL BLOOD PO2 68.9 mmHg (80-100); ARTERIAL BLOOD TOTAL CO2 31.1 mmol/L (23-27)
[2018-02-22] MEDS: NORMAL SALINE 1000 ML 1,000 ML IV PRN (09:46)
[2018-02-22] MEDS ORDERED: LINEZOLID 600 MG/300 ML RTUPB IV SCH (10:30)
[2018-02-22] MEDS: ASPIRIN 81 MG TABLET, CHEWABLE NG SCH (11:05)
[2018-02-22] MEDS: ERTAPENEM SODIUM 1 GM in NORMAL SALINE 50 ML IV SCH (11:05)
[2018-02-22] MEDS: FUROSEMIDE INJ/PF 20 MG/2 ML SDV IV SCH (11:05)
[2018-02-22] MEDS: DOCUSATE SODIUM 100 MG/10 ML UDC NG SCH ×2 (11:06→17:08)
--- NOTE | 2018-02-22 12:21 | PDOC PROGRESS REPORT ---
Subjective Progress Note for:: 02/22/18 Subjective:: Patient remained intubated. No significant change in patient's general condition. 2 days in a row his blood culture grew gram-positive cocci in cluster and is found to be MRSA. It is of the organism is sensitive to vancomycin his blood cultures remain positive. I discontinue his a bank and switch him to daptomycin. Reason For Visit: ACUTE HYPOXIC HYPERCANEIC RESPIRATORY FAILURE Physical Exam Vital Signs: Temp Pulse Resp BP Pulse Ox 97.3 F 59 L 18 118/74 95 02/22/18 10:00 02/22/18 08:30 02/22/18 10:10 02/22/18 10:10 02/22/18 11:18 Intake & Output 02/21/18 02/22/18 02/23/18 06:59 06:59 06:59 Intake Total 3779 4220 83 Output Total 2840 2693 160 Balance 939 1527 -77 Weight 97.6 kg 92.5 kg General appearance: PRESENT: no acute distress Head exam: PRESENT: atraumatic Eye exam: PRESENT: conjunctiva pink Neck exam: ABSENT: carotid bruit, JVD, lymphadenopathy, thyromegaly Respiratory exam: PRESENT: rhonchi Cardiovascular exam: PRESENT: RRR. ABSENT: diastolic murmur, rubs, systolic murmur GI/Abdominal exam: PRESENT: normal bowel sounds, soft. ABSENT: distended, guarding, mass, organolmegaly, rebound, tenderness Results Laboratory Results: 02/22/18 04:50 02/22/18 04:50 02/22/18 02/22/18 02/22/18 04:50 04:50 08:25 WBC 14.4 H RBC 3.14 L Hgb 9.7 L Hct 29.3 L MCV 94 MCH 30.8 MCHC 32.9 RDW 17.2 H Plt Count 200 Seg Neutrophils % Not Reportable Lymphocytes % Not Reportable Monocytes % Not Reportable Eosinophils % Not Reportable Basophils % Not Reportable Absolute Neutrophils Not Reportable Absolute Lymphocytes Not Reportable Absolute Monocytes Not Reportable Absolute Eosinophils Not Reportable Absolute Basophils Not Reportable Carbonic Acid 1.19 HCO3/H2CO3 Ratio 25:1 ABG pH 7.50 H ABG pCO2 39.7 ABG pO2 68.9 L ABG HCO3 29.9 H ABG O2 Saturation 95.1 ABG Base Excess 6.2 FiO2 30% Sodium 142.2 Potassium 3.6 Chloride 99 Carbon Dioxide 35 H Anion Gap 8 BUN 23 H Creatinine 0.44 L Est GFR ( Amer) > 60 Est GFR (Non-Af Amer) > 60 Glucose 126 H Calcium 8.2 L Magnesium 2.1 02/20/18 09:36 Blood Blood Culture - Final Mrsa (Meth Resis Staph Aureus) 02/18/18 03:50 Coccyx - Decubitis Ulcer Gram Stain - Final 02/18/18 03:50 Coccyx - Decubitis Ulcer Wound Culture - Final Escherichia Coli Mrsa (Meth Resis Staph Aureus) Skin Yaz 02/15/18 02/15/18 02/16/18 16:29 22:13 04:29 Creatine Kinase CK-MB (CK-2) Troponin I 0.968 1.370 1.600 NT-Pro-B Natriuret Pep 02/17/18 02/17/18 04:30 04:30 Creatine Kinase < 20 L CK-MB (CK-2) 1.13 Troponin I 0.788 NT-Pro-B Natriuret Pep 1670 H Impressions: Chest X-Ray 02/22/18 06:00 IMPRESSION: No change. Assessment & Plan - Diagnosis (1) Severe sepsis Is this a current diagnosis for this admission?: Yes Plan: Sepsis and bacteremia due to gram-positive cocci in cluster specifically MRSA. Despite the organism being sensitive to vancomycin his blood is still positive for MRSA. I discontinued his vancomycin switch him to daptomycin. (2) Acute on chronic respiratory failure with hypoxia and hypercapnia Is this a current diagnosis for this admission?: Yes Plan: Continue current regimen (3) Hypokalemia Is this a current diagnosis for this admission?: Yes Plan: Resolved (4) Hyponatremia Is this a current diagnosis for this admission?: Yes Plan: Resolved (5) Congestive heart failure Qualifiers: Heart failure type: right-sided Heart failure chronicity: chronic Qualified Code(s): I50.812 - Chronic right heart failure Is this a current diagnosis for this admission?: Yes Plan: Continue Lasix and other cardioprotective medications. (6) Pulmonary hypertension Is this a current diagnosis for this admission?: Yes Plan: Stable (7) History of multiple intubation Is this a current diagnosis for this admission?: Yes Plan: Patient has history of acute on chronic respiratory failure which requires multiple intubation.
[2018-02-22] MEDS ORDERED: DAPTOMYCIN IV SCH (13:00)
[2018-02-22] MEDS ORDERED: NORMAL SALINE IV SCH (13:00)
[2018-02-22] MEDS ORDERED: LIDOCAINE 1% INJ-PF (10 MG/ML) 30 ML SDV ONE (13:32)
[2018-02-22] MEDS ORDERED: LIDOCAINE 1% INJ-PF (10 MG/ML) 30 ML SDV INJ PRN (13:45)
[2018-02-22] MEDS: VANCOMYCIN HCL 1,500 MG in DEXTROSE 5%-WATER 250 ML IV SCH (13:45)
--- NOTE | 2018-02-22 16:41 | OPERATIVE REPORT E ---
Operative Report NAME: SHARLENE LYNN : 1970 AGE: 48Y DATE OF SURGERY: 02/22/2018 ROOM: 612 PREOPERATIVE DIAGNOSIS: WORSENING SACRAL DECUBITUS ULCER. POSTOPERATIVE DIAGNOSIS: WORSENING SACRAL DECUBITUS ULCER. OPERATION: Sharp debridement of sacral decubitus ulcer down to the bone. SURGEON: FRIEDA KIRKLAND M.D. ANESTHESIA: Local MAC. PROCEDURE: The patient was given slightly more propofol for sedation. The patient was intubated. He was then placed in a left lateral decubitus position and operative site was subsequently prepped and draped in the usual sterile fashion. Local anesthesia infiltrated along the borders of the sacral decubitus and also toward the area of the rectum where there appears to be undermining. Circumferential sharp dissection of necrotic skin and subcu was then performed. The tunnel was partially undermined by dividing the middle part of the skin toward the rectum to a distance of about 1 cm. Bleeders along the skin and dermis were then controlled with [id number] suture using 4-0 Prolene. Next, sharp dissection of necrotic tissue on the base of the decubitus down to the bone was then performed. Most of the necrotic tissue was removed. The signs of the ulcer after finishing the procedure remain about 5 cm long x 4 cm wide down to the bone. The area was subsequently packed with 1/2 inch Iodoform gauze. Sterile 4 x 4s were placed over the Iodoform gauze. This was then taped. The patient tolerated the procedure well. Thornton and instruments were accountable. Estimated blood loss about 30 mL. DICTATING PHYSICIAN: FRIEDA KIRKLAND M.D. [id number] Y#: [id number] ID: [id number] JOB#: [id number] ACCT: [id number] cc:FRIEDA KIRKLAND M.D. >
--- NOTE | 2018-02-22 16:51 | Progress Note ---
Provider Note Provider Note: Follow Up ID Consult Note Chart reviewed. Pt not seen or examined. Pt remains intubated, on mechanical ventilation, afebrile. Progressive necrosis at sacral decubitus was noted on 02/21/18 with plans for repeat debridement planned. Repeat BCx continued to show growth of MRSA or GPCs from one blood culture bottle in each set (2/4 bottles on 02/20 and again 2/4 bottles on 02/21). Pt had been on vancomycin with therapeutic vancomycin troughs and vancomycin INGRID reported as 1. Vancomycin was changed to daptomycin given the persistent positive blood cultures, and ertapenem is also being given, as culture from the sacral wound grew E coli with resistance to beta-lactam/beta-lactamase inhibitor combinations in addition to MRSA. Persistent MRSA bacteremia - I suspect that the inability to clear the bloodstream infection thus far is related to source control rather than a vancomycin failure, per se. However, with continued growth in the blood cultures after a week, the switch from vancomycin to daptomycin is reasonable. Recommend increasing dose of daptomycin to approximately 8-9 mg/kg/day or 800 mg IV daily and continuing daptomycin until clearance of bacteremia established. At that point, can revisit choice of daptomycin vs vancomycin. - With persistent MRSA bacteremia, attention should be given to evaluating pt for uncontrolled source. In this pt's case, the sacral wound may need repeat debridement, as suggested by last Surgery note. - However, central lines can potentially become seeded, and I would strongly consider whether discontinuing or replacing the central line can be done after pt has surgical debridement for the wound to try to eliminate this as a potential source for continued bacteremia. Avoid placing any long-term lines ( avoid placing tunneled CVL or PICC) until clearance of bacteremia x 48-72h has been demonstrated. - Other areas of the body can become hematogenously seeded. Continue to evaluate patient for any evidence of metastatic MRSA infection (e.g. red swollen joints that might indicate need for arthrocentesis, neurologic exam - e.g. DTRs, withdraw to noxious stimuli - that might indicate need for MRI or CT scan of spine) - Suggest repeat BCx on 02/24 or every 48h until clearance of bacteremia established - Check CPK at least weekly while on daptomycin - At a minimum, 4 weeks (or potentially longer) of IV daptomycin or vancomycin is indicated, starting from date of negative blood cultures - ADAM may be a consideration in the future but is not an urgent matter Sacral wound - debridement per Surgery - E coli and MRSA from prior operative culture; may be the source of the MRSA bacteremia. - For now, continue ertapenem in addition to anti-MRSA activity as above - duration of therapy depends upon extent of the infection, namely whether osteomyelitis is suspected clinically (surgical impression) or proven pathologically with bone biopsy, or whether the infection appears to be confined to soft tissues Lionel Easley MD [facility] Infectious Diseases pager [phone]
[2018-02-23] MEDS: FENTANYL CITRATE INJ/PF 100 MCG/2 ML AMPUL IV PRN (01:18)
[2018-02-23] MEDS: MIDAZOLAM HCL 50 MG/100 ML RTUINJ IV-INFUSE PRN ×3 (01:19→20:31)
[2018-02-23] MEDS: IPRATROPIUM/ALBUTEROL 0.5-2.5 MG/3 ML AMPUL NEB SCH ×4 (02:23→20:14)
[2018-02-23] MEDS: HYDROCORTISONE SOD SUCCINATE INJ/PF 100 MG/2 ML SDV IV SCH ×3 (06:28→21:44)
[2018-02-23] MEDS: PANTOPRAZOLE SODIUM 40 MG VIAL IV SCH (06:28)
[2018-02-23] MEDS: HEPARIN SOD (PORCINE) 5,000 UNIT/ML 1 ML SYRINGE SUBCUT SCH ×3 (06:31→21:45)
--- NOTE | 2018-02-23 06:36 | RADIOLOGY REPORT (SQ) ---
EXAM DESCRIPTION: XR CHEST 1 VIEW COMPLETED DATE/TME: 02/23/2018 06:00 CLINICAL HISTORY: 48 years Male, resp failure COMPARISON: One day prior. NUMBER OF VIEWS/TECHNIQUE: 1/AP FINDINGS: Small bibasilar effusion/hazy opacity, mild interstitial markings, mild central edema pattern with small patchiness of the right lower lung field, normal cardiac silhouette. Adequate appearing endotracheal tube. Likely adequate appearing enteric tube partially obscured. Adequate appearing right subclavian central line. No pneumothorax. Stable bony thorax. IMPRESSION: No significant change.
[2018-02-23] MEDS: PROPOFOL 1,000 MG/100 ML INFUS..BTL IV PRN ×5 (07:06→21:45)
[2018-02-23 07:37] LABS: HEMATOCRIT 29.4 % (37.9-51.0); HEMOGLOBIN 9.6 g/dL (13.5-17.0); MEAN CORPUSCULAR HEMOGLOBIN 30.4 pg (27.0-33.4); MEAN CORPUSCULAR HGB CONC 32.7 g/dL (32.0-36.0); MEAN CORPUSCULAR VOLUME 93 fl (80-97); PLATELET COUNT 226 10^3/uL (150-450); RED BLOOD COUNT 3.16 10^6/uL (4.35-5.55); RED CELL DISTRIBUTION WIDTH 17.3 % (11.5-14.0); WHITE BLOOD COUNT 13.7 10^3/uL (4.0-10.5)
[2018-02-23 07:55] LABS: BLOOD UREA NITROGEN 23 mg/dL (7-20); CALCIUM 8.2 mg/dL (8.4-10.2); CARBON DIOXIDE 36 mmol/L (22-30); GLUCOSE 91 mg/dL (75-110); POTASSIUM 3.2 mmol/L (3.6-5.0); SODIUM 142.5 mmol/L (137-145)
[2018-02-23 07:56] LABS: ANION GAP 6 (5-19); CHLORIDE 101 mmol/L (98-107)
[2018-02-23] MEDS: BUDESONIDE NEB 0.5 MG/2 ML AMPUL NEB SCH ×2 (08:19→20:14)
[2018-02-23 08:36] LABS: ABSOLUTE LYMPHOCYTES# (MANUAL) 1.4 10^3/uL (0.5-4.7); ABSOLUTE MONOCYTES # (MANUAL) 0.1 10^3/uL (0.1-1.4); ABSOLUTE NEUTROPHILS# (MANUAL) 12.2 10^3/uL (1.7-8.2); BAND NEUTROPHILS % (MANUAL) 1 % (3-5); BASOPHILS % (MANUAL) 0 % (0-2); EOSINOPHILS % (MANUAL) 0 % (0-6); LYMPHOCYTES % (MANUAL) 10 % (13-45); MONOCYTES % (MANUAL) 1 % (3-13); SEGMENTED NEUTROPHILS % (MAN) 88 % (42-78); TOTAL CELLS COUNTED 100
[2018-02-23 08:38] LABS: ANISOCYTOSIS 1+; OVALOCYTES SLIGHT; TOXIC GRANULATION SLIGHT
[2018-02-23 08:39] LABS: PLATELET COMMENT ADEQUATE; PLATELET LARGE PRESENT
[2018-02-23] MEDS: FUROSEMIDE INJ/PF 20 MG/2 ML SDV IV SCH (10:18)
[2018-02-23] MEDS: DAPTOMYCIN 800 MG in NORMAL SALINE 50 ML IV SCH (10:19)
[2018-02-23] MEDS: ERTAPENEM SODIUM 1 GM in NORMAL SALINE 50 ML IV SCH (10:19)
[2018-02-23] MEDS: DOCUSATE SODIUM 100 MG/10 ML UDC NG SCH ×2 (10:19→18:01)
[2018-02-23] MEDS: ASPIRIN 81 MG TABLET, CHEWABLE NG SCH (10:19)
[2018-02-23 11:22] LABS: ARTERIAL BLOOD BASE EXCESS 11.2 mmol/L; ARTERIAL BLOOD H2CO3 1.47 mmol/L (1.05-1.35)
[2018-02-23 11:23] LABS: ARTERIAL BLOOD FIO2 30%; ARTERIAL BLOOD O2 SATURATION 92.8 % (94-98); ARTERIAL BLOOD PCO2 48.8 mmHg (35-45); ARTERIAL BLOOD PH 7.49 (7.35-7.45); ARTERIAL BLOOD PO2 61.2 mmHg (80-100); ARTERIAL BLOOD TOTAL CO2 37.5 mmol/L (23-27)
--- NOTE | 2018-02-23 13:27 | PDOC PROGRESS REPORT ---
Subjective Progress Note for:: 02/23/18 Subjective:: Patient remained intubated. He is unresponsive for post verbal and noxious stimuli. His antibiotics is switched from vancomycin to daptomycin yesterday. The input of Dr. Lionel DREW at [facility] is highly appreciated. This afternoon I discussed the plan with the parent of the patient. Further explanation and information regarding hospice was explained to the family by [facility] hospice nurse. The family agreed with the hospice placement and they want the extubation to be done on coming Monday. Reason For Visit: ACUTE HYPOXIC HYPERCANEIC RESPIRATORY FAILURE Physical Exam Vital Signs: Temp Pulse Resp BP Pulse Ox 98.4 F 73 20 106/61 94 02/23/18 11:35 02/23/18 08:20 02/23/18 10:41 02/23/18 10:41 02/23/18 11:23 Intake & Output 02/22/18 02/23/18 02/24/18 06:59 06:59 06:59 Intake Total 4220 1391 154 Output Total 2693 2110 900 Balance 0777 -929 -086 Weight 92.5 kg 94.3 kg General appearance: PRESENT: no acute distress Eye exam: PRESENT: conjunctiva pink Mouth exam: PRESENT: dry mucosa Neck exam: ABSENT: carotid bruit, JVD, lymphadenopathy, thyromegaly Respiratory exam: PRESENT: rales, rhonchi, wheezes Cardiovascular exam: PRESENT: RRR. ABSENT: diastolic murmur, rubs, systolic murmur GI/Abdominal exam: PRESENT: normal bowel sounds, soft. ABSENT: distended, guarding, mass, organolmegaly, rebound, tenderness Results Laboratory Results: 02/23/18 07:15 02/23/18 07:15 02/23/18 02/23/18 02/23/18 07:15 07:15 10:35 WBC 13.7 H RBC 3.16 L Hgb 9.6 L Hct 29.4 L MCV 93 MCH 30.4 MCHC 32.7 RDW 17.3 H Plt Count 226 Seg Neutrophils % Not Reportable Lymphocytes % Not Reportable Monocytes % Not Reportable Eosinophils % Not Reportable Basophils % Not Reportable Absolute Neutrophils Not Reportable Absolute Lymphocytes Not Reportable Absolute Monocytes Not Reportable Absolute Eosinophils Not Reportable Absolute Basophils Not Reportable Carbonic Acid Cancelled HCO3/H2CO3 Ratio Cancelled ABG pH Cancelled ABG pCO2 Cancelled ABG pO2 Cancelled ABG HCO3 Cancelled ABG O2 Saturation Cancelled ABG Base Excess Cancelled FiO2 Cancelled Sodium 142.5 Potassium 3.2 L Chloride 101 Carbon Dioxide 36 H Anion Gap 6 BUN 23 H Creatinine 0.39 L Est GFR ( Amer) > 60 Est GFR (Non-Af Amer) > 60 Glucose 91 Calcium 8.2 L Magnesium 2.0 02/23/18 11:01 WBC RBC Hgb Hct MCV MCH MCHC RDW Plt Count Seg Neutrophils % Lymphocytes % Monocytes % Eosinophils % Basophils % Absolute Neutrophils Absolute Lymphocytes Absolute Monocytes Absolute Eosinophils Absolute Basophils Carbonic Acid 1.47 H HCO3/H2CO3 Ratio 24:1 ABG pH 7.49 H ABG pCO2 48.8 H ABG pO2 61.2 L ABG HCO3 36.0 H ABG O2 Saturation 92.8 L ABG Base Excess 11.2 FiO2 30% Sodium Potassium Chloride Carbon Dioxide Anion Gap BUN Creatinine Est GFR ( Amer) Est GFR (Non-Af Amer) Glucose Calcium Magnesium 02/20/18 11:02 Blood Blood Culture - Final Mrsa (Meth Resis Staph Aureus) 02/20/18 09:36 Blood Blood Culture - Final Mrsa (Meth Resis Staph Aureus) 02/15/18 02/15/18 02/16/18 16:29 22:13 04:29 Creatine Kinase CK-MB (CK-2) Troponin I 0.968 1.370 1.600 NT-Pro-B Natriuret Pep 02/17/18 02/17/18 04:30 04:30 Creatine Kinase < 20 L CK-MB (CK-2) 1.13 Troponin I 0.788 NT-Pro-B Natriuret Pep 1670 H Impressions: Chest X-Ray 02/23/18 06:00 IMPRESSION: No significant change. Assessment & Plan - Diagnosis (1) MRSA bacteremia Is this a current diagnosis for this admission?: Yes Plan: Patient has been started on daptomycin. (2) Severe sepsis Is this a current diagnosis for this admission?: Yes Plan: Vancomycin is switched to daptomycin (3) Acute on chronic respiratory failure with hypoxia and hypercapnia Is this a current diagnosis for this admission?: Yes (4) Hypokalemia Is this a current diagnosis for this admission?: Yes (5) Hyponatremia Is this a current diagnosis for this admission?: Yes (6) Congestive heart failure Qualifiers: Heart failure type: right-sided Heart failure chronicity: chronic Qualified Code(s): I50.812 - Chronic right heart failure Is this a current diagnosis for this admission?: Yes (7) Pulmonary hypertension Is this a current diagnosis for this admission?: Yes (8) History of multiple intubation Is this a current diagnosis for this admission?: Yes
[2018-02-23] MEDS: NORMAL SALINE 1000 ML 1,000 ML IV PRN (21:45)
[2018-02-24] MEDS: PROPOFOL 1,000 MG/100 ML INFUS..BTL IV PRN ×7 (00:56→21:48)
[2018-02-24] MEDS: IPRATROPIUM/ALBUTEROL 0.5-2.5 MG/3 ML AMPUL NEB SCH ×4 (02:11→20:13)
[2018-02-24] MEDS: MIDAZOLAM HCL 50 MG/100 ML RTUINJ IV-INFUSE PRN ×3 (04:05→21:48)
[2018-02-24 04:31] LABS: ARTERIAL BLOOD BASE EXCESS 9.6 mmol/L; ARTERIAL BLOOD H2CO3 1.41 mmol/L (1.05-1.35); ARTERIAL BLOOD HCO3 34.2 mmol/L (20-24); ARTERIAL BLOOD O2 SATURATION 94.2 % (94-98); ARTERIAL BLOOD PCO2 46.7 mmHg (35-45); ARTERIAL BLOOD PH 7.48 (7.35-7.45); ARTERIAL BLOOD PO2 66.1 mmHg (80-100); ARTERIAL BLOOD TOTAL CO2 35.7 mmol/L (23-27); HEMATOCRIT 30.7 % (37.9-51.0); HEMOGLOBIN 10.2 g/dL (13.5-17.0); MEAN CORPUSCULAR HEMOGLOBIN 30.6 pg (27.0-33.4); MEAN CORPUSCULAR HGB CONC 33.1 g/dL (32.0-36.0); MEAN CORPUSCULAR VOLUME 92 fl (80-97); PLATELET COUNT 229 10^3/uL (150-450); RED BLOOD COUNT 3.32 10^6/uL (4.35-5.55); RED CELL DISTRIBUTION WIDTH 17.6 % (11.5-14.0)
[2018-02-24 04:32] LABS: ARTERIAL BLOOD FIO2 30%
[2018-02-24 04:48] LABS: ABSOLUTE LYMPHOCYTES# (MANUAL) 0.8 10^3/uL (0.5-4.7); ABSOLUTE MONOCYTES # (MANUAL) 0.4 10^3/uL (0.1-1.4); ABSOLUTE NEUTROPHILS# (MANUAL) 12.7 10^3/uL (1.7-8.2); BASOPHILS % (MANUAL) 0 % (0-2); EOSINOPHILS % (MANUAL) 0 % (0-6); LYMPHOCYTES % (MANUAL) 6 % (13-45); MONOCYTES % (MANUAL) 3 % (3-13); SEGMENTED NEUTROPHILS % (MAN) 91 % (42-78); TOTAL CELLS COUNTED 100
[2018-02-24 04:49] LABS: ANISOCYTOSIS 1+; PLATELET COMMENT ADEQUATE; POLYCHROMASIA 1+
[2018-02-24 04:52] LABS: ANION GAP 5 (5-19); BLOOD UREA NITROGEN 22 mg/dL (7-20); CALCIUM 8.2 mg/dL (8.4-10.2); CARBON DIOXIDE 37 mmol/L (22-30); CHLORIDE 100 mmol/L (98-107); GLUCOSE 108 mg/dL (75-110); POTASSIUM 3.2 mmol/L (3.6-5.0); SODIUM 141.8 mmol/L (137-145); TRIGLYCERIDES 234 mg/dL (<150)
[2018-02-24] MEDS: HEPARIN SOD (PORCINE) 5,000 UNIT/ML 1 ML SYRINGE SUBCUT SCH ×3 (05:46→21:47)
[2018-02-24] MEDS: HYDROCORTISONE SOD SUCCINATE INJ/PF 100 MG/2 ML SDV IV SCH ×3 (05:46→21:48)
[2018-02-24] MEDS: PANTOPRAZOLE SODIUM 40 MG VIAL IV SCH (05:46)
[2018-02-24] MEDS ORDERED: POTASSI CL 20 MEQ/50 ML RIDER 20 MEQ/50 ML RTUPB IV ONE (06:11)
[2018-02-24] MEDS: POTASSIUM CHLORIDE 20 MEQ/50 ML RTU IV SCH ×2 (06:15→08:29)
--- NOTE | 2018-02-24 06:28 | RADIOLOGY REPORT (SQ) ---
EXAM DESCRIPTION: XR CHEST 1 VIEW COMPLETED DATE/TME: 02/24/2018 06:00 CLINICAL HISTORY: 48 years Male, resp failure COMPARISON: One day prior. NUMBER OF VIEWS/TECHNIQUE: 1/AP FINDINGS: Pulmonary vascular congestion, mild hazy opacity/effusion of the right lower medial hemithorax, small patchy opacity of the left lateral lung base. Normal cardiac silhouette size. Adequate appearing right subclavian central line. Adequate appearing endotracheal tube. Likely adequate appearing enteric tube partially obscured. No pneumothorax. Stable bony thorax. IMPRESSION: No significant change.
[2018-02-24] MEDS: BUDESONIDE NEB 0.5 MG/2 ML AMPUL NEB SCH ×2 (08:17→20:13)
[2018-02-24] MEDS: DAPTOMYCIN 800 MG in NORMAL SALINE 50 ML IV SCH (09:26)
[2018-02-24] MEDS: ASPIRIN 81 MG TABLET, CHEWABLE NG SCH (09:26)
[2018-02-24] MEDS: DOCUSATE SODIUM 100 MG/10 ML UDC NG SCH ×2 (09:26→16:59)
[2018-02-24] MEDS: ERTAPENEM SODIUM 1 GM in NORMAL SALINE 50 ML IV SCH (09:27)
[2018-02-24] MEDS: FUROSEMIDE INJ/PF 20 MG/2 ML SDV IV SCH (09:27)
--- NOTE | 2018-02-24 11:25 | PDOC PROGRESS REPORT ---
Subjective Progress Note for:: 02/24/18 Subjective:: Patient remained intubated. There is no significant change overnight. His latest blood cultures still grew MRSA. His antibiotic is switched to daptomycin. Stat blood culture requested. Patient scheduled for possible extubation on Monday. Reason For Visit: ACUTE HYPOXIC HYPERCANEIC RESPIRATORY FAILURE Physical Exam Vital Signs: Temp Pulse Resp BP Pulse Ox 97.6 F 63 20 103/68 96 02/24/18 06:00 02/24/18 08:20 02/24/18 10:00 02/24/18 09:42 02/24/18 10:00 Intake & Output 02/23/18 02/24/18 02/25/18 06:59 06:59 06:59 Intake Total 2391 771 1199 Output Total 2110 2100 225 Balance 281 -1329 974 Weight 94.3 kg 95.4 kg General appearance: PRESENT: no acute distress Eye exam: PRESENT: conjunctiva pink Mouth exam: PRESENT: dry mucosa Neck exam: ABSENT: carotid bruit, JVD, lymphadenopathy, thyromegaly Respiratory exam: PRESENT: rales, rhonchi Cardiovascular exam: PRESENT: RRR. ABSENT: diastolic murmur, rubs, systolic murmur GI/Abdominal exam: PRESENT: normal bowel sounds, soft. ABSENT: distended, guarding, mass, organolmegaly, rebound, tenderness Results Laboratory Results: 02/24/18 04:22 02/24/18 04:22 02/23/18 02/24/18 02/24/18 11:01 04:22 04:22 WBC RBC Hgb Hct MCV MCH MCHC RDW Plt Count Seg Neutrophils % Lymphocytes % Monocytes % Eosinophils % Basophils % Absolute Neutrophils Absolute Lymphocytes Absolute Monocytes Absolute Eosinophils Absolute Basophils Carbonic Acid 1.47 H 1.41 H HCO3/H2CO3 Ratio 24:1 24:1 ABG pH 7.49 H 7.48 H ABG pCO2 48.8 H 46.7 H ABG pO2 61.2 L 66.1 L ABG HCO3 36.0 H 34.2 H ABG O2 Saturation 92.8 L 94.2 ABG Base Excess 11.2 9.6 FiO2 30% 30% Sodium 141.8 Potassium 3.2 L Chloride 100 Carbon Dioxide 37 H Anion Gap 5 BUN 22 H Creatinine 0.39 L Est GFR ( Amer) > 60 Est GFR (Non-Af Amer) > 60 Glucose 108 Calcium 8.2 L Magnesium 2.0 Triglycerides 234 H 02/24/18 04:22 WBC 14.0 H RBC 3.32 L Hgb 10.2 L Hct 30.7 L MCV 92 MCH 30.6 MCHC 33.1 RDW 17.6 H Plt Count 229 Seg Neutrophils % Not Reportable Lymphocytes % Not Reportable Monocytes % Not Reportable Eosinophils % Not Reportable Basophils % Not Reportable Absolute Neutrophils Not Reportable Absolute Lymphocytes Not Reportable Absolute Monocytes Not Reportable Absolute Eosinophils Not Reportable Absolute Basophils Not Reportable Carbonic Acid HCO3/H2CO3 Ratio ABG pH ABG pCO2 ABG pO2 ABG HCO3 ABG O2 Saturation ABG Base Excess FiO2 Sodium Potassium Chloride Carbon Dioxide Anion Gap BUN Creatinine Est GFR ( Amer) Est GFR (Non-Af Amer) Glucose Calcium Magnesium Triglycerides 02/21/18 10:00 Blood Blood Culture - Final Mrsa (Meth Resis Staph Aureus) 02/21/18 09:55 Blood Blood Culture - Final Mrsa (Meth Resis Staph Aureus) 02/18/18 21:00 Decubitis Ulcer - Sacral Gram Stain - Final 02/18/18 21:00 Decubitis Ulcer - Sacral Wound Culture - Final Escherichia Coli Mrsa (Meth Resis Staph Aureus) Bacteroides Uniformis Skin Yaz 02/20/18 11:02 Blood Blood Culture - Final Mrsa (Meth Resis Staph Aureus) 02/15/18 02/15/18 02/16/18 16:29 22:13 04:29 Creatine Kinase CK-MB (CK-2) Troponin I 0.968 1.370 1.600 NT-Pro-B Natriuret Pep 02/17/18 02/17/18 04:30 04:30 Creatine Kinase < 20 L CK-MB (CK-2) 1.13 Troponin I 0.788 NT-Pro-B Natriuret Pep 1670 H Impressions: Chest X-Ray 02/24/18 06:00 IMPRESSION: No significant change. Assessment & Plan - Diagnosis (1) MRSA bacteremia Is this a current diagnosis for this admission?: Yes Plan: Patient has been started on daptomycin. (2) Severe sepsis Is this a current diagnosis for this admission?: Yes Plan: Vancomycin is switched to daptomycin (3) Acute on chronic respiratory failure with hypoxia and hypercapnia Is this a current diagnosis for this admission?: Yes Plan: Continue current regimen (4) Hypokalemia Is this a current diagnosis for this admission?: Yes Plan: Resolved (5) Hyponatremia Is this a current diagnosis for this admission?: Yes Plan: Resolved (6) Congestive heart failure Qualifiers: Heart failure type: right-sided Heart failure chronicity: chronic Qualified Code(s): I50.812 - Chronic right heart failure Is this a current diagnosis for this admission?: Yes Plan: Continue Lasix and other cardioprotective medications. (7) Pulmonary hypertension Is this a current diagnosis for this admission?: Yes Plan: Stable (8) History of multiple intubation Is this a current diagnosis for this admission?: Yes Plan: Patient has history of acute on chronic respiratory failure which requires multiple intubation.
--- NOTE | 2018-02-24 12:04 | PDOC PROGRESS REPORT ---
Subjective Progress Note for:: 02/24/18 Subjective:: intubated Reason For Visit: ACUTE HYPOXIC HYPERCANEIC RESPIRATORY FAILURE Physical Exam Vital Signs: Temp Pulse Resp BP Pulse Ox 97.6 F 63 20 103/68 96 02/24/18 06:00 02/24/18 08:20 02/24/18 10:00 02/24/18 09:42 02/24/18 10:00 Intake & Output 02/23/18 02/24/18 02/25/18 06:59 06:59 06:59 Intake Total 2391 771 1199 Output Total 2110 2100 225 Balance 281 -1329 974 Weight 94.3 kg 95.4 kg Exam: packing from sacral ulcer removed. Ulcer looks relatively clean and dry except for oozing at one area at distal site. This was then repacked with iodoform gauze which stopped the bleeding. Results Laboratory Results: 02/24/18 04:22 02/24/18 04:22 02/24/18 02/24/18 02/24/18 04:22 04:22 04:22 WBC 14.0 H RBC 3.32 L Hgb 10.2 L Hct 30.7 L MCV 92 MCH 30.6 MCHC 33.1 RDW 17.6 H Plt Count 229 Seg Neutrophils % Not Reportable Lymphocytes % Not Reportable Monocytes % Not Reportable Eosinophils % Not Reportable Basophils % Not Reportable Absolute Neutrophils Not Reportable Absolute Lymphocytes Not Reportable Absolute Monocytes Not Reportable Absolute Eosinophils Not Reportable Absolute Basophils Not Reportable Carbonic Acid 1.41 H HCO3/H2CO3 Ratio 24:1 ABG pH 7.48 H ABG pCO2 46.7 H ABG pO2 66.1 L ABG HCO3 34.2 H ABG O2 Saturation 94.2 ABG Base Excess 9.6 FiO2 30% Sodium 141.8 Potassium 3.2 L Chloride 100 Carbon Dioxide 37 H Anion Gap 5 BUN 22 H Creatinine 0.39 L Est GFR ( Amer) > 60 Est GFR (Non-Af Amer) > 60 Glucose 108 Calcium 8.2 L Magnesium 2.0 Triglycerides 234 H 02/21/18 10:00 Blood Blood Culture - Final Mrsa (Meth Resis Staph Aureus) 02/21/18 09:55 Blood Blood Culture - Final Mrsa (Meth Resis Staph Aureus) 02/18/18 21:00 Decubitis Ulcer - Sacral Gram Stain - Final 02/18/18 21:00 Decubitis Ulcer - Sacral Wound Culture - Final Escherichia Coli Mrsa (Meth Resis Staph Aureus) Bacteroides Uniformis Skin Yaz 02/20/18 11:02 Blood Blood Culture - Final Mrsa (Meth Resis Staph Aureus) 02/15/18 02/15/18 02/16/18 16:29 22:13 04:29 Creatine Kinase CK-MB (CK-2) Troponin I 0.968 1.370 1.600 NT-Pro-B Natriuret Pep 02/17/18 02/17/18 04:30 04:30 Creatine Kinase < 20 L CK-MB (CK-2) 1.13 Troponin I 0.788 NT-Pro-B Natriuret Pep 1670 H Impressions: Chest X-Ray 02/24/18 06:00 IMPRESSION: No significant change. Assessment & Plan - Diagnosis (1) Sacral decubitus ulcer, stage IV Is this a current diagnosis for this admission?: Yes - Time Time Spent with patient: 15-24 minutes - Plan Summary Plan Summary: sacral decube with oozing and controlled with iodoform packing. Will recheck wound in 48 hrs.
[2018-02-24] MEDS ORDERED: POTASSIUM CHLORIDE 20 MEQ/15 ML UDCUP GT ONE ×2 (14:30→16:30)
[2018-02-24] MEDS: NORMAL SALINE 1000 ML 1,000 ML IV PRN (18:15)
[2018-02-25] MEDS: PROPOFOL 1,000 MG/100 ML INFUS..BTL IV PRN ×7 (00:53→22:49)
[2018-02-25] MEDS: IPRATROPIUM/ALBUTEROL 0.5-2.5 MG/3 ML AMPUL NEB SCH ×4 (02:24→20:01)
[2018-02-25] MEDS: HYDROCORTISONE SOD SUCCINATE INJ/PF 100 MG/2 ML SDV IV SCH ×3 (05:20→21:40)
[2018-02-25] MEDS: PANTOPRAZOLE SODIUM 40 MG VIAL IV SCH (05:20)
[2018-02-25] MEDS: HEPARIN SOD (PORCINE) 5,000 UNIT/ML 1 ML SYRINGE SUBCUT SCH ×3 (05:21→21:41)
[2018-02-25 05:44] LABS: ABSOLUTE LYMPHOCYTES (AUTO) 1.3 10^3/uL (0.5-4.7); ABSOLUTE MONOCYTES (AUTO) 0.6 10^3/uL (0.1-1.4); ABSOLUTE NEUT (AUTO) 9.5 10^3/uL (1.7-8.2); BASOPHILS % (AUTO) 0.2 % (0-2); EOSINOPHILS % (AUTO) 0.1 % (0-6); HEMATOCRIT 26.8 % (37.9-51.0); HEMOGLOBIN 8.9 g/dL (13.5-17.0); LYMPHOCYTES % (AUTO) 11.3 % (13-45); MEAN CORPUSCULAR HEMOGLOBIN 31.1 pg (27.0-33.4); MEAN CORPUSCULAR HGB CONC 33.3 g/dL (32.0-36.0); MEAN CORPUSCULAR VOLUME 93 fl (80-97); MONOCYTES % (AUTO) 5.5 % (3-13); PLATELET COUNT 215 10^3/uL (150-450); RED BLOOD COUNT 2.87 10^6/uL (4.35-5.55); RED CELL DISTRIBUTION WIDTH 17.9 % (11.5-14.0); SEGMENTED NEUTROPHILS % (AUTO) 82.9 % (42-78); TOTAL CELLS COUNTED % (AUTO) 100 %; WHITE BLOOD COUNT 11.4 10^3/uL (4.0-10.5)
[2018-02-25 05:51] LABS: ARTERIAL BLOOD BASE EXCESS 14.5 mmol/L; ARTERIAL BLOOD FIO2 30%; ARTERIAL BLOOD HCO3 38.6 mmol/L (20-24); ARTERIAL BLOOD O2 SATURATION 93.7 % (94-98); ARTERIAL BLOOD PCO2 46.6 mmHg (35-45); ARTERIAL BLOOD PH 7.54 (7.35-7.45); ARTERIAL BLOOD PO2 61.3 mmHg (80-100)
[2018-02-25 05:56] LABS: ANION GAP 5 (5-19); BLOOD UREA NITROGEN 22 mg/dL (7-20); CARBON DIOXIDE 36 mmol/L (22-30); CHLORIDE 102 mmol/L (98-107); GLUCOSE 87 mg/dL (75-110); POTASSIUM 3.6 mmol/L (3.6-5.0); SODIUM 142.8 mmol/L (137-145)
--- NOTE | 2018-02-25 07:38 | RADIOLOGY REPORT (SQ) ---
EXAM DESCRIPTION: XR CHEST 1 VIEW COMPLETED DATE/TME: 02/25/2018 06:00 CLINICAL HISTORY: 48 years Male, resp fail/ett tube og tube position Respiratory distress. COMPARISON: One day prior. NUMBER OF VIEWS/TECHNIQUE: 1/AP FINDINGS: Moderate bibasilar opacity/effusion. Normal cardiac silhouette size. Adequate appearing endotracheal tube. Likely adequate appearing enteric tube partially obscured. Right PICC appears adequate. No pneumothorax. Stable bony thorax. IMPRESSION: No significant change.
[2018-02-25] MEDS: BUDESONIDE NEB 0.5 MG/2 ML AMPUL NEB SCH ×2 (08:11→20:00)
[2018-02-25] MEDS: MIDAZOLAM HCL 50 MG/100 ML RTUINJ IV-INFUSE PRN ×2 (09:36→18:37)
[2018-02-25] MEDS: DOCUSATE SODIUM 100 MG/10 ML UDC NG SCH ×2 (09:36→17:35)
[2018-02-25] MEDS: FUROSEMIDE INJ/PF 20 MG/2 ML SDV IV SCH (09:36)
[2018-02-25] MEDS: ASPIRIN 81 MG TABLET, CHEWABLE NG SCH (09:36)
[2018-02-25] MEDS: DAPTOMYCIN 800 MG in NORMAL SALINE 50 ML IV SCH (09:37)
[2018-02-25] MEDS: ERTAPENEM SODIUM 1 GM in NORMAL SALINE 50 ML IV SCH (09:37)
--- NOTE | 2018-02-25 10:47 | PDOC PROGRESS REPORT ---
Subjective Progress Note for:: 02/25/18 Subjective:: Patient remained intubated. No significant change in the patient's overall condition. 1 of the 2 blood cultures grew gram-positive cocci in cluster and the other is negative. Reason For Visit: ACUTE HYPOXIC HYPERCANEIC RESPIRATORY FAILURE Physical Exam Vital Signs: Temp Pulse Resp BP Pulse Ox 98.2 F 89 20 108/75 93 02/25/18 08:00 02/25/18 08:12 02/25/18 08:12 02/25/18 08:00 02/25/18 08:12 Intake & Output 02/24/18 02/25/18 02/26/18 06:59 06:59 06:59 Intake Total 771 2774 712 Output Total 2100 1995 125 Balance -1329 779 587 Weight 95.4 kg 96.1 kg General appearance: PRESENT: no acute distress Head exam: PRESENT: atraumatic Mouth exam: PRESENT: dry mucosa Respiratory exam: PRESENT: rales, rhonchi, wheezes Cardiovascular exam: PRESENT: RRR. ABSENT: diastolic murmur, rubs, systolic murmur Results Laboratory Results: 02/25/18 05:30 02/25/18 05:30 02/24/18 02/25/18 02/25/18 12:41 05:30 05:30 WBC RBC Hgb Hct MCV MCH MCHC RDW Plt Count Seg Neutrophils % Lymphocytes % Monocytes % Eosinophils % Basophils % Absolute Neutrophils Absolute Lymphocytes Absolute Monocytes Absolute Eosinophils Absolute Basophils Carbonic Acid 1.40 H HCO3/H2CO3 Ratio 27:1 ABG pH 7.54 H ABG pCO2 46.6 H ABG pO2 61.3 L ABG HCO3 38.6 H ABG O2 Saturation 93.7 L ABG Base Excess 14.5 FiO2 30% Sodium 142.8 Potassium 3.4 L 3.6 Chloride 102 Carbon Dioxide 36 H Anion Gap 5 BUN 22 H Creatinine 0.39 L Est GFR ( Amer) > 60 Est GFR (Non-Af Amer) > 60 Glucose 87 Calcium 8.0 L Magnesium 2.1 02/25/18 05:30 WBC 11.4 H RBC 2.87 L Hgb 8.9 L Hct 26.8 L MCV 93 MCH 31.1 MCHC 33.3 RDW 17.9 H Plt Count 215 Seg Neutrophils % 82.9 H Lymphocytes % 11.3 L Monocytes % 5.5 Eosinophils % 0.1 Basophils % 0.2 Absolute Neutrophils 9.5 H Absolute Lymphocytes 1.3 Absolute Monocytes 0.6 Absolute Eosinophils 0.0 Absolute Basophils 0.0 Carbonic Acid HCO3/H2CO3 Ratio ABG pH ABG pCO2 ABG pO2 ABG HCO3 ABG O2 Saturation ABG Base Excess FiO2 Sodium Potassium Chloride Carbon Dioxide Anion Gap BUN Creatinine Est GFR ( Amer) Est GFR (Non-Af Amer) Glucose Calcium Magnesium 02/21/18 10:00 Blood Blood Culture - Final Mrsa (Meth Resis Staph Aureus) 02/21/18 09:55 Blood Blood Culture - Final Mrsa (Meth Resis Staph Aureus) 02/18/18 21:00 Decubitis Ulcer - Sacral Gram Stain - Final 02/18/18 21:00 Decubitis Ulcer - Sacral Wound Culture - Final Escherichia Coli Mrsa (Meth Resis Staph Aureus) Bacteroides Uniformis Skin Yaz 02/15/18 02/15/18 02/16/18 16:29 22:13 04:29 Creatine Kinase CK-MB (CK-2) Troponin I 0.968 1.370 1.600 NT-Pro-B Natriuret Pep 02/17/18 02/17/18 04:30 04:30 Creatine Kinase < 20 L CK-MB (CK-2) 1.13 Troponin I 0.788 NT-Pro-B Natriuret Pep 1670 H Impressions: Chest X-Ray 02/25/18 06:00 IMPRESSION: No significant change. Assessment & Plan - Diagnosis (1) MRSA bacteremia Is this a current diagnosis for this admission?: Yes Plan: Continue daptomycin (2) Severe sepsis Is this a current diagnosis for this admission?: Yes Plan: Continue daptomycin (3) Acute on chronic respiratory failure with hypoxia and hypercapnia Is this a current diagnosis for this admission?: Yes Plan: Continue current regimen (4) Hypokalemia Is this a current diagnosis for this admission?: Yes Plan: Resolved (5) Hyponatremia Is this a current diagnosis for this admission?: Yes Plan: Resolved (6) Congestive heart failure Qualifiers: Heart failure type: right-sided Heart failure chronicity: chronic Qualified Code(s): I50.812 - Chronic right heart failure Is this a current diagnosis for this admission?: Yes Plan: Continue Lasix and other cardioprotective medications. (7) Pulmonary hypertension Is this a current diagnosis for this admission?: Yes Plan: Stable (8) History of multiple intubation Is this a current diagnosis for this admission?: Yes Plan: Patient has history of acute on chronic respiratory failure which requires multiple intubation.
[2018-02-26] MEDS: PROPOFOL 1,000 MG/100 ML INFUS..BTL IV PRN ×5 (01:29→22:55)
[2018-02-26] MEDS: NORMAL SALINE 1000 ML 1,000 ML IV PRN ×3 (01:30→22:55)
[2018-02-26] MEDS: IPRATROPIUM/ALBUTEROL 0.5-2.5 MG/3 ML AMPUL NEB SCH ×4 (02:27→20:24)
[2018-02-26] MEDS: MIDAZOLAM HCL 50 MG/100 ML RTUINJ IV-INFUSE PRN ×2 (04:18→14:36)
[2018-02-26] MEDS: HEPARIN SOD (PORCINE) 5,000 UNIT/ML 1 ML SYRINGE SUBCUT SCH ×3 (05:30→22:54)
[2018-02-26] MEDS: PANTOPRAZOLE SODIUM 40 MG VIAL IV SCH (05:31)
[2018-02-26] MEDS: HYDROCORTISONE SOD SUCCINATE INJ/PF 100 MG/2 ML SDV IV SCH ×3 (05:31→22:54)
[2018-02-26 06:03] LABS: ARTERIAL BLOOD HCO3 38.6 mmol/L (20-24); ARTERIAL BLOOD PCO2 56.4 mmHg (35-45); ARTERIAL BLOOD PH 7.45 (7.35-7.45); ARTERIAL BLOOD PO2 65.2 mmHg (80-100); ARTERIAL BLOOD TOTAL CO2 40.3 mmol/L (23-27)
[2018-02-26 06:04] LABS: ABSOLUTE LYMPHOCYTES (AUTO) 0.9 10^3/uL (0.5-4.7); ABSOLUTE MONOCYTES (AUTO) 0.4 10^3/uL (0.1-1.4); ABSOLUTE NEUT (AUTO) 8.9 10^3/uL (1.7-8.2); ARTERIAL BLOOD BASE EXCESS 12.8 mmol/L; ARTERIAL BLOOD FIO2 30%; ARTERIAL BLOOD O2 SATURATION 93.2 % (94-98); BASOPHILS % (AUTO) 0.2 % (0-2); HEMATOCRIT 28.9 % (37.9-51.0); HEMOGLOBIN 9.7 g/dL (13.5-17.0); LYMPHOCYTES % (AUTO) 8.9 % (13-45); MEAN CORPUSCULAR HEMOGLOBIN 31.3 pg (27.0-33.4); MEAN CORPUSCULAR HGB CONC 33.5 g/dL (32.0-36.0); MEAN CORPUSCULAR VOLUME 94 fl (80-97); MONOCYTES % (AUTO) 4.2 % (3-13); PLATELET COUNT 205 10^3/uL (150-450); RED BLOOD COUNT 3.09 10^6/uL (4.35-5.55); RED CELL DISTRIBUTION WIDTH 18.1 % (11.5-14.0); SEGMENTED NEUTROPHILS % (AUTO) 86.7 % (42-78); TOTAL CELLS COUNTED % (AUTO) 100 %; WHITE BLOOD COUNT 10.3 10^3/uL (4.0-10.5)
[2018-02-26 06:28] LABS: BLOOD UREA NITROGEN 24 mg/dL (7-20); CALCIUM 8.1 mg/dL (8.4-10.2); CARBON DIOXIDE 38 mmol/L (22-30); GLUCOSE 121 mg/dL (75-110); POTASSIUM 3.5 mmol/L (3.6-5.0)
--- NOTE | 2018-02-26 06:30 | RADIOLOGY REPORT (SQ) ---
CLINICAL HISTORY: resp failure COMPARISON: February 25, 2018. TECHNIQUE: XR CHEST 1 VIEW 02/26/2018 6:00 AM SURGICAL SERVICES COORDINATOR FINDINGS: Cardiac silhouette is normal in size. There is probable upper lung emphysema. There are trace pleural effusions. There is no pneumothorax. There are no acute osseous findings. Endotracheal tube, nasogastric tube and right PICC line are unchanged. IMPRESSION: No change.
[2018-02-26 06:33] LABS: CHLORIDE 100 mmol/L (98-107); SODIUM 142.4 mmol/L (137-145)
[2018-02-26 06:40] LABS: ANION GAP 4 (5-19)
[2018-02-26] MEDS: BUDESONIDE NEB 0.5 MG/2 ML AMPUL NEB SCH ×2 (08:31→20:24)
--- NOTE | 2018-02-26 09:26 | PDOC PROGRESS REPORT ---
Subjective Subjective:: Patient remained intubated. No significant change overnight. He is unresponsive for both verbal and noxious stimuli. His antibiotics is switched from vancomycin to daptomycin yesterday. Still his blood culture is positive for gram-positive cocci in cluster. The input from Dr. Lionel DREW at [facility] is highly appreciated. The parents of the patient agreed for hospice care. Patient is scheduled for extubation on Monday. Reason For Visit: ACUTE HYPOXIC HYPERCANEIC RESPIRATORY FAILURE Physical Exam Vital Signs: Temp Pulse Resp BP Pulse Ox 97.5 F 76 18 137/82 H 100 02/26/18 05:19 02/26/18 08:00 02/26/18 06:13 02/26/18 06:13 02/26/18 08:31 Intake & Output 02/25/18 02/26/18 02/27/18 06:59 06:59 06:59 Intake Total 2774 2961 Output Total 1994 1555 Balance 779 1406 Weight 96.1 kg 97.6 kg General appearance: PRESENT: no acute distress Eye exam: PRESENT: conjunctiva pink Mouth exam: PRESENT: dry mucosa Respiratory exam: PRESENT: rales, rhonchi, wheezes Cardiovascular exam: PRESENT: RRR. ABSENT: diastolic murmur, rubs, systolic murmur Results Laboratory Results: 02/26/18 05:49 02/26/18 05:49 02/26/18 02/26/18 02/26/18 05:49 05:49 05:49 WBC 10.3 RBC 3.09 L Hgb 9.7 L Hct 28.9 L MCV 94 MCH 31.3 MCHC 33.5 RDW 18.1 H Plt Count 205 Seg Neutrophils % 86.7 H Lymphocytes % 8.9 L Monocytes % 4.2 Eosinophils % 0.0 Basophils % 0.2 Absolute Neutrophils 8.9 H Absolute Lymphocytes 0.9 Absolute Monocytes 0.4 Absolute Eosinophils 0.0 Absolute Basophils 0.0 Carbonic Acid 1.70 H HCO3/H2CO3 Ratio 22:1 ABG pH 7.45 ABG pCO2 56.4 H ABG pO2 65.2 L ABG HCO3 38.6 H ABG O2 Saturation 93.2 L ABG Base Excess 12.8 FiO2 30% Sodium 142.4 Potassium 3.5 L Chloride 100 Carbon Dioxide 38 H Anion Gap 4 L BUN 24 H Creatinine 0.37 L Est GFR ( Amer) > 60 Est GFR (Non-Af Amer) > 60 Glucose 121 H Calcium 8.1 L Magnesium 2.1 02/15/18 02/15/18 02/16/18 16:29 22:13 04:29 Creatine Kinase CK-MB (CK-2) Troponin I 0.968 1.370 1.600 NT-Pro-B Natriuret Pep 02/17/18 02/17/18 04:30 04:30 Creatine Kinase < 20 L CK-MB (CK-2) 1.13 Troponin I 0.788 NT-Pro-B Natriuret Pep 1670 H Impressions: Chest X-Ray 02/26/18 06:00 IMPRESSION: No change. Assessment & Plan - Diagnosis (1) MRSA bacteremia Is this a current diagnosis for this admission?: Yes Plan: Continue daptomycin (2) Severe sepsis Is this a current diagnosis for this admission?: Yes Plan: Continue daptomycin (3) Acute on chronic respiratory failure with hypoxia and hypercapnia Is this a current diagnosis for this admission?: Yes Plan: Continue current regimen (4) Hypokalemia Is this a current diagnosis for this admission?: Yes Plan: Resolved (5) Hyponatremia Is this a current diagnosis for this admission?: Yes Plan: Resolved (6) Congestive heart failure Qualifiers: Heart failure type: right-sided Heart failure chronicity: chronic Qualified Code(s): I50.812 - Chronic right heart failure Is this a current diagnosis for this admission?: Yes Plan: Continue Lasix and other cardioprotective medications. (7) Pulmonary hypertension Is this a current diagnosis for this admission?: Yes Plan: Stable (8) History of multiple intubation Is this a current diagnosis for this admission?: Yes Plan: Patient has history of acute on chronic respiratory failure which requires multiple intubation.
[2018-02-26] MEDS: DOCUSATE SODIUM 100 MG/10 ML UDC NG SCH ×2 (09:33→17:19)
[2018-02-26] MEDS: ASPIRIN 81 MG TABLET, CHEWABLE NG SCH (09:33)
[2018-02-26] MEDS: FUROSEMIDE INJ/PF 20 MG/2 ML SDV IV SCH (09:36)
[2018-02-26] MEDS: ERTAPENEM SODIUM 1 GM in NORMAL SALINE 50 ML IV SCH (09:36)
--- NOTE | 2018-02-26 11:37 | RADIOLOGY REPORT (SQ) ---
EXAM DESCRIPTION: CT HEAD WITHOUT COMPLETED DATE/TIME: 02/26/2018 10:46 am REASON FOR STUDY: new L weakness COMPARISON: None. TECHNIQUE: Axial images acquired through the brain without intravenous contrast. Images reviewed wi th bone, brain and subdural windows. Additional sagittal and coronal reconstructions were generated. Images stored on PACS. All CT scanners at this facility use dose modulation, iterative reconstruction, and/or weight based d osing when appropriate to reduce radiation dose to as low as reasonably achievable (ALARA). [facility]: Dose Right [facility]: CareDose [facility]: Dose Right [facility]: Teradose 4D [facility]: Smart [employer] RADIATION DOSE: CT Rad equipment meets quality standard of care and radiation dose reduction techniq ues were employed. CTDIvol: 48.6 mGy. DLP: 929 mGy-cm. mGy. LIMITATIONS: None. FINDINGS: VENTRICLES: Normal size and contour. CEREBRUM: No hemorrhage. No midline shift. There is a somewhat ill-defined area of relative decreas ed density in the left parietal lobe which could represent an evolving area of cerebral infarction. No definite associated mass is identified. Otherwise there is normal martinez/white matter differentiatio n. CEREBELLUM: No masses. No hemorrhage. No alteration of density. No evidence for acute infarction. EXTRAAXIAL SPACES: No fluid collections. No masses. ORBITS AND GLOBE: No intra- or extraconal masses. Normal contour of globe without masses. CALVARIUM: No fracture. PARANASAL SINUSES: No fluid or mucosal thickening. SOFT TISSUES: No mass or hematoma. OTHER: No other significant finding. IMPRESSION: Go somewhat ill-defined area of relative decreased density in the left parietal lobe as noted above which could represent an evolving area of cerebral infarction. No definite associated ma ss is identified. Clinical correlation is recommended. If further workup is deemed clinically warra nted I would recommend MRI. Other findings as noted above EVIDENCE OF ACUTE STROKE: Possible evolving area of cerebral infarction. COMMENT: Quality ID # [id number]: Final reports with documentation of one or more dose reduction techniques (e.g., Automated exposure control, adjustment of the mA and/or kV according to patient size, use of iterative reconstruction technique) TECHNICAL DOCUMENTATION: JOB ID: [id number] [employer] All Rights Reserved Reading location - IP/workstation name: [email or web address]
[2018-02-26] MEDS: DAPTOMYCIN 800 MG in NORMAL SALINE 50 ML IV SCH (14:33)
[2018-02-27] MEDS: IPRATROPIUM/ALBUTEROL 0.5-2.5 MG/3 ML AMPUL NEB SCH ×4 (01:58→20:50)
[2018-02-27] MEDS: PROPOFOL 1,000 MG/100 ML INFUS..BTL IV PRN ×5 (01:58→23:18)
[2018-02-27] MEDS: MIDAZOLAM HCL 50 MG/100 ML RTUINJ IV-INFUSE PRN ×2 (02:21→18:45)
--- NOTE | 2018-02-27 06:31 | RADIOLOGY REPORT (SQ) ---
EXAM DESCRIPTION: XR CHEST 1 VIEW COMPLETED DATE/TME: 02/27/2018 06:00 CLINICAL HISTORY: 48 years, Male, resp failure COMPARISON: Prior chest x-ray 02/26/2018 NUMBER OF VIEWS: 1 TECHNIQUE: Frontal view the chest LIMITATIONS: None. FINDINGS: The heart size is stable. Grossly stable indwelling lines and catheters. Underlying emphysema. No pneumothorax. Patchy opacities over each lung base. IMPRESSION: Little interval change 2010 [employer]- All Rights Reserved
[2018-02-27] MEDS: HYDROCORTISONE SOD SUCCINATE INJ/PF 100 MG/2 ML SDV IV SCH ×3 (06:38→22:03)
[2018-02-27] MEDS: HEPARIN SOD (PORCINE) 5,000 UNIT/ML 1 ML SYRINGE SUBCUT SCH ×3 (06:38→22:04)
[2018-02-27 06:51] LABS: ABSOLUTE MONOCYTES (AUTO) 0.4 10^3/uL (0.1-1.4); ABSOLUTE NEUT (AUTO) 8.4 10^3/uL (1.7-8.2); BASOPHILS % (AUTO) 0.2 % (0-2); HEMATOCRIT 27.8 % (37.9-51.0); HEMOGLOBIN 9.3 g/dL (13.5-17.0); LYMPHOCYTES % (AUTO) 9.7 % (13-45); MEAN CORPUSCULAR HEMOGLOBIN 31.6 pg (27.0-33.4); MEAN CORPUSCULAR HGB CONC 33.6 g/dL (32.0-36.0); MEAN CORPUSCULAR VOLUME 94 fl (80-97); MONOCYTES % (AUTO) 4.3 % (3-13); PLATELET COUNT 209 10^3/uL (150-450); RED BLOOD COUNT 2.96 10^6/uL (4.35-5.55); RED CELL DISTRIBUTION WIDTH 18.3 % (11.5-14.0); SEGMENTED NEUTROPHILS % (AUTO) 85.8 % (42-78); TOTAL CELLS COUNTED % (AUTO) 100 %; WHITE BLOOD COUNT 9.9 10^3/uL (4.0-10.5)
[2018-02-27 07:09] LABS: ARTERIAL BLOOD BASE EXCESS 13.3 mmol/L; ARTERIAL BLOOD H2CO3 1.62 mmol/L (1.05-1.35); ARTERIAL BLOOD HCO3 38.5 mmol/L (20-24); ARTERIAL BLOOD PCO2 53.9 mmHg (35-45); ARTERIAL BLOOD PH 7.47 (7.35-7.45); ARTERIAL BLOOD PO2 69.4 mmHg (80-100); ARTERIAL BLOOD TOTAL CO2 40.2 mmol/L (23-27)
[2018-02-27 07:10] LABS: ARTERIAL BLOOD FIO2 30%; ARTERIAL BLOOD O2 SATURATION 94.6 % (94-98)
[2018-02-27 07:35] LABS: BLOOD UREA NITROGEN 23 mg/dL (7-20); CALCIUM 7.9 mg/dL (8.4-10.2); CHLORIDE 100 mmol/L (98-107); GLUCOSE 105 mg/dL (75-110); POTASSIUM 3.2 mmol/L (3.6-5.0); TRIGLYCERIDES 153 mg/dL (<150)
[2018-02-27 07:40] LABS: CARBON DIOXIDE 39 mmol/L (22-30); SODIUM 141.5 mmol/L (137-145)
[2018-02-27 07:44] LABS: ANION GAP 3 (5-19)
[2018-02-27] MEDS: BUDESONIDE NEB 0.5 MG/2 ML AMPUL NEB SCH ×2 (08:43→20:50)
[2018-02-27] MEDS: NORMAL SALINE 1000 ML 1,000 ML IV PRN (09:40)
[2018-02-27] MEDS: ASPIRIN 81 MG TABLET, CHEWABLE NG SCH (09:43)
[2018-02-27] MEDS: FUROSEMIDE INJ/PF 20 MG/2 ML SDV IV SCH (09:43)
[2018-02-27] MEDS: ERTAPENEM SODIUM 1 GM in NORMAL SALINE 50 ML IV SCH (09:43)
[2018-02-27] MEDS: DAPTOMYCIN 800 MG in NORMAL SALINE 50 ML IV SCH (09:45)
[2018-02-27] MEDS: DOCUSATE SODIUM 100 MG/10 ML UDC NG SCH (09:46)
--- NOTE | 2018-02-27 13:32 | PDOC PROGRESS REPORT ---
Subjective Progress Note for:: 02/27/18 Subjective:: Patient is intubated. Parents at the bedside. Plans for terminal extubation tomorrow. Reason For Visit: ACUTE HYPOXIC HYPERCANEIC RESPIRATORY FAILURE Physical Exam Vital Signs: Temp Pulse Resp BP Pulse Ox 97.9 F 116 H 19 163/107 H 93 02/27/18 12:00 02/27/18 12:00 02/27/18 12:00 02/27/18 12:00 02/27/18 12:05 Intake & Output 02/26/18 02/27/18 02/28/18 06:59 06:59 06:59 Intake Total 2961 2425 715 Output Total 1555 3065 215 Balance 1406 -640 500 Weight 215 lb 2.738 oz 215 lb 9.793 oz Exam: Patient is intubated There is right side hemiparesis Heart is regular rate Lungs with very poor air radiation Abdomen is soft Results Laboratory Results: 02/27/18 06:25 02/27/18 06:25 02/27/18 02/27/18 02/27/18 06:25 06:25 06:25 WBC 9.9 RBC 2.96 L Hgb 9.3 L Hct 27.8 L MCV 94 MCH 31.6 MCHC 33.6 RDW 18.3 H Plt Count 209 Seg Neutrophils % 85.8 H Lymphocytes % 9.7 L Monocytes % 4.3 Eosinophils % 0.0 Basophils % 0.2 Absolute Neutrophils 8.4 H Absolute Lymphocytes 1.0 Absolute Monocytes 0.4 Absolute Eosinophils 0.0 Absolute Basophils 0.0 Carbonic Acid 1.62 H HCO3/H2CO3 Ratio 23:1 ABG pH 7.47 H ABG pCO2 53.9 H ABG pO2 69.4 L ABG HCO3 38.5 H ABG O2 Saturation 94.6 ABG Base Excess 13.3 FiO2 30% Sodium 141.5 Potassium 3.2 L Chloride 100 Carbon Dioxide 39 H Anion Gap 3 L BUN 23 H Creatinine 0.39 L Est GFR ( Amer) > 60 Est GFR (Non-Af Amer) > 60 Glucose 105 Calcium 7.9 L Magnesium 2.1 Triglycerides 153 H 02/24/18 08:42 Blood Blood Culture - Final Mrsa (Meth Resis Staph Aureus) 02/24/18 08:33 Blood Blood Culture - Final Mrsa (Meth Resis Staph Aureus) 1102/15/18 02/16/18 16:29 22:13 04:29 Creatine Kinase CK-MB (CK-2) Troponin I 0.968 1.370 1.600 NT-Pro-B Natriuret Pep 02/17/18 02/17/18 04:30 04:30 Creatine Kinase < 20 L CK-MB (CK-2) 1.13 Troponin I 0.788 NT-Pro-B Natriuret Pep 1670 H Impressions: Head CT 02/26/18 00:00 IMPRESSION: Go somewhat ill-defined area of relative decreased density in the left parietal lobe as noted above which could represent an evolving area of cerebral infarction. No definite associated mass is identified. Clinical correlation is recommended. If further workup is deemed clinically warranted I would recommend MRI. Other findings as noted above EVIDENCE OF ACUTE STROKE: Possible evolving area of cerebral infarction. Chest X-Ray 02/27/18 06:00 IMPRESSION: Little interval change 2010 [employer]- All Rights Reserved Assessment & Plan - Diagnosis (1) Acute and chronic respiratory failure Qualifiers: Respiratory failure complication: hypoxia and hypercapnia Qualified Code(s) : J96.21 - Acute and chronic respiratory failure with hypoxia; J96.22 - Acute and chronic respiratory failure with hypercapnia; J96.22 - Acute and chronic respiratory failure with hypercapnia; J96.22 - Acute and chronic respiratory failure with hypercapnia Is this a current diagnosis for this admission?: Yes Plan: Continue mechanical ventilation Terminal extubation tomorrow (2) History of multiple intubation Is this a current diagnosis for this admission?: Yes Plan: Hospice consulted and the patient will be terminally extubated tomorrow (3) MRSA bacteremia Is this a current diagnosis for this admission?: Yes Plan: Continue daptomycin (4) Sacral decubitus ulcer, stage IV Is this a current diagnosis for this admission?: Yes Plan: Status post debridement. Positive for E. coli. Continue Invanz. (5) Severe sepsis Is this a current diagnosis for this admission?: Yes Plan: On daptomycin and Invanz (6) Pneumonia Qualifiers: Pneumonia type: due to unspecified organism Laterality: right Lung location: lower lobe of lung Qualified Code(s): J18.1 - Lobar pneumonia, unspecified organism Is this a current diagnosis for this admission?: Yes Plan: Continue Invanz (7) Pulmonary hypertension Is this a current diagnosis for this admission?: Yes (8) Chronic obstructive pulmonary disease with acute exacerbation Is this a current diagnosis for this admission?: Yes Plan: Continue Pulmicort (9) Congestive heart failure Qualifiers: Heart failure type: right-sided Heart failure chronicity: chronic Qualified Code(s): I50.812 - Chronic right heart failure Is this a current diagnosis for this admission?: Yes Plan: Patient is on Lasix
[2018-02-27] MEDS: POTASSIUM CHLORIDE 20 MEQ/50 ML RTU IV SCH ×2 (16:21→18:28)
[2018-02-28] MEDS: IPRATROPIUM/ALBUTEROL 0.5-2.5 MG/3 ML AMPUL NEB SCH ×2 (02:21→08:35)
[2018-02-28] MEDS: PROPOFOL 1,000 MG/100 ML INFUS..BTL IV PRN (03:46)
[2018-02-28] MEDS ORDERED: PANTOPRAZOLE SODIUM 40 MG VIAL IV SCH (06:00)
[2018-02-28 06:36] LABS: ABSOLUTE LYMPHOCYTES (AUTO) 0.9 10^3/uL (0.5-4.7); ABSOLUTE MONOCYTES (AUTO) 0.4 10^3/uL (0.1-1.4); ABSOLUTE NEUT (AUTO) 6.9 10^3/uL (1.7-8.2); BASOPHILS % (AUTO) 0.1 % (0-2); EOSINOPHILS % (AUTO) 0.1 % (0-6); HEMATOCRIT 27.7 % (37.9-51.0); HEMOGLOBIN 9.3 g/dL (13.5-17.0); LYMPHOCYTES % (AUTO) 11.3 % (13-45); MEAN CORPUSCULAR HEMOGLOBIN 31.6 pg (27.0-33.4); MEAN CORPUSCULAR HGB CONC 33.5 g/dL (32.0-36.0); MEAN CORPUSCULAR VOLUME 94 fl (80-97); MONOCYTES % (AUTO) 4.9 % (3-13); PLATELET COUNT 197 10^3/uL (150-450); RED BLOOD COUNT 2.94 10^6/uL (4.35-5.55); RED CELL DISTRIBUTION WIDTH 18.4 % (11.5-14.0); SEGMENTED NEUTROPHILS % (AUTO) 83.6 % (42-78); TOTAL CELLS COUNTED % (AUTO) 100 %; WHITE BLOOD COUNT 8.2 10^3/uL (4.0-10.5)
[2018-02-28] MEDS: HEPARIN SOD (PORCINE) 5,000 UNIT/ML 1 ML SYRINGE SUBCUT SCH (06:50)
[2018-02-28] MEDS: HYDROCORTISONE SOD SUCCINATE INJ/PF 100 MG/2 ML SDV IV SCH (06:50)
[2018-02-28 07:14] LABS: ARTERIAL BLOOD BASE EXCESS 11.5 mmol/L; ARTERIAL BLOOD FIO2 30%; ARTERIAL BLOOD H2CO3 1.51 mmol/L (1.05-1.35); ARTERIAL BLOOD HCO3 36.6 mmol/L (20-24); ARTERIAL BLOOD PCO2 50.1 mmHg (35-45); ARTERIAL BLOOD PH 7.48 (7.35-7.45); ARTERIAL BLOOD PO2 70.8 mmHg (80-100); ARTERIAL BLOOD TOTAL CO2 38.1 mmol/L (23-27)
[2018-02-28] MEDS: BUDESONIDE NEB 0.5 MG/2 ML AMPUL NEB SCH (08:35)
[2018-02-28 08:39] LABS: BLOOD UREA NITROGEN 25 mg/dL (7-20); CALCIUM 8.3 mg/dL (8.4-10.2); CHLORIDE 99 mmol/L (98-107); GLUCOSE 111 mg/dL (75-110); POTASSIUM 3.4 mmol/L (3.6-5.0); SODIUM 141.7 mmol/L (137-145)
[2018-02-28] MEDS: FENTANYL CITRATE INJ/PF 100 MCG/2 ML AMPUL IV PRN (08:44)
[2018-02-28 08:48] LABS: ANION GAP 3 (5-19); CARBON DIOXIDE 40 mmol/L (22-30)
[2018-02-28] MEDS ORDERED: MIDAZOLAM 2 MG/2 ML INJ IV PRN (10:29)
[2018-02-28] MEDS: MIDAZOLAM 2 MG/2 ML INJ IV SCH ×7 (10:50→23:26)
[2018-02-28 11:39] VITALS: BP 156/101
[2018-02-28] MEDS: MORPHINE SULFATE 10 MG/ML INJ IV SCH ×6 (12:13→22:10)
[2018-02-28] MEDS: DAPTOMYCIN 800 MG in NORMAL SALINE 50 ML IV SCH (12:27)
[2018-02-28] MEDS: ASPIRIN 81 MG TABLET, CHEWABLE NG SCH (12:27)
[2018-02-28] MEDS: FUROSEMIDE INJ/PF 20 MG/2 ML SDV IV SCH (12:27)
--- NOTE | 2018-02-28 15:30 | PDOC PROGRESS REPORT ---
Subjective Progress Note for:: 02/28/18 Subjective:: Patient is terminally extubated. Family at the bedside. Reason For Visit: ACUTE HYPOXIC HYPERCANEIC RESPIRATORY FAILURE Physical Exam Vital Signs: Temp Pulse Resp BP Pulse Ox 98.1 F 71 21 H 156/101 H 93 02/28/18 11:55 02/28/18 08:38 02/28/18 14:00 02/28/18 10:15 02/28/18 14:00 Intake & Output 02/27/18 02/28/18 03/01/18 06:59 06:59 06:59 Intake Total 2425 1993 100 Output Total 3065 1420 315 Balance -640 573 -215 Weight 215 lb 9.793 oz General appearance: PRESENT: obese Head exam: PRESENT: atraumatic, normocephalic Respiratory exam: PRESENT: accessory muscle use Results Laboratory Results: 02/28/18 05:35 02/28/18 05:35 02/27/18 02/28/18 02/28/18 22:00 05:35 05:35 WBC RBC Hgb Hct MCV MCH MCHC RDW Plt Count Seg Neutrophils % Lymphocytes % Monocytes % Eosinophils % Basophils % Absolute Neutrophils Absolute Lymphocytes Absolute Monocytes Absolute Eosinophils Absolute Basophils Carbonic Acid 1.51 H HCO3/H2CO3 Ratio 24:1 ABG pH 7.48 H ABG pCO2 50.1 H ABG pO2 70.8 L ABG HCO3 36.6 H ABG O2 Saturation 95.0 ABG Base Excess 11.5 FiO2 30% Sodium 141.7 Potassium 3.5 L 3.4 L Chloride 99 Carbon Dioxide 40 H* Anion Gap 3 L BUN 25 H Creatinine 0.36 L Est GFR ( Amer) > 60 Est GFR (Non-Af Amer) > 60 Glucose 111 H Calcium 8.3 L Magnesium 2.1 02/28/18 05:35 WBC 8.2 RBC 2.94 L Hgb 9.3 L Hct 27.7 L MCV 94 MCH 31.6 MCHC 33.5 RDW 18.4 H Plt Count 197 Seg Neutrophils % 83.6 H Lymphocytes % 11.3 L Monocytes % 4.9 Eosinophils % 0.1 Basophils % 0.1 Absolute Neutrophils 6.9 Absolute Lymphocytes 0.9 Absolute Monocytes 0.4 Absolute Eosinophils 0.0 Absolute Basophils 0.0 Carbonic Acid HCO3/H2CO3 Ratio ABG pH ABG pCO2 ABG pO2 ABG HCO3 ABG O2 Saturation ABG Base Excess FiO2 Sodium Potassium Chloride Carbon Dioxide Anion Gap BUN Creatinine Est GFR ( Amer) Est GFR (Non-Af Amer) Glucose Calcium Magnesium 02/15/18 02/15/18 02/16/18 16:29 22:13 04:29 Creatine Kinase CK-MB (CK-2) Troponin I 0.968 1.370 1.600 NT-Pro-B Natriuret Pep 02/17/18 02/17/18 04:30 04:30 Creatine Kinase < 20 L CK-MB (CK-2) 1.13 Troponin I 0.788 NT-Pro-B Natriuret Pep 1670 H Impressions: Head CT 02/26/18 00:00 IMPRESSION: Go somewhat ill-defined area of relative decreased density in the left parietal lobe as noted above which could represent an evolving area of cerebral infarction. No definite associated mass is identified. Clinical correlation is recommended. If further workup is deemed clinically warranted I would recommend MRI. Other findings as noted above EVIDENCE OF ACUTE STROKE: Possible evolving area of cerebral infarction. Chest X-Ray 02/27/18 06:00 IMPRESSION: Little interval change 2010 [employer]- All Rights Reserved Assessment & Plan - Diagnosis (1) Acute and chronic respiratory failure Qualifiers: Respiratory failure complication: hypoxia and hypercapnia Qualified Code(s) : J96.21 - Acute and chronic respiratory failure with hypoxia; J96.22 - Acute and chronic respiratory failure with hypercapnia; J96.22 - Acute and chronic respiratory failure with hypercapnia; J96.22 - Acute and chronic respiratory failure with hypercapnia Is this a current diagnosis for this admission?: Yes Plan: Terminally extubated Consult hospice (2) History of multiple intubation Is this a current diagnosis for this admission?: Yes Plan: Hospice consulted and the patient will is terminally extubated (3) MRSA bacteremia Is this a current diagnosis for this admission?: Yes Plan: Patient is on comfort care measures only (4) Sacral decubitus ulcer, stage IV Is this a current diagnosis for this admission?: Yes Plan: Status post debridement. Positive for E. coli. (5) Severe sepsis Is this a current diagnosis for this admission?: Yes Plan: Comfort measures only (6) Pneumonia Qualifiers: Pneumonia type: due to unspecified organism Laterality: right Lung location: lower lobe of lung Qualified Code(s): J18.1 - Lobar pneumonia, unspecified organism Is this a current diagnosis for this admission?: Yes Plan: Terminally extubated today (7) Pulmonary hypertension Is this a current diagnosis for this admission?: Yes (8) Chronic obstructive pulmonary disease with acute exacerbation Is this a current diagnosis for this admission?: Yes (9) Congestive heart failure Qualifiers: Heart failure type: right-sided Heart failure chronicity: chronic Qualified Code(s): I50.812 - Chronic right heart failure Is this a current diagnosis for this admission?: Yes
[2018-03-01] MEDS: MIDAZOLAM 2 MG/2 ML INJ IV SCH (01:01)
[2018-03-01] MEDS: MORPHINE SULFATE 10 MG/ML INJ IV SCH (01:01)
--- NOTE | 2018-03-01 07:14 | Progress Note ---
Provider Note Provider Note: Nurse called me to let me know that the patient at 00:05 on 2017
--- NOTE | 2018-03-01 07:41 | Death Summary ---
Summary Date : 03/01/18 Time of :: 00:05 Resuscitation Status: Do Not Resuscitate - Final Diagnosis (1) Acute and chronic respiratory failure Is this a current diagnosis for this admission?: Yes (2) History of multiple intubation Is this a current diagnosis for this admission?: Yes (3) MRSA bacteremia Is this a current diagnosis for this admission?: Yes (4) Sacral decubitus ulcer, stage IV Is this a current diagnosis for this admission?: Yes (5) Severe sepsis Is this a current diagnosis for this admission?: Yes (6) Pneumonia Is this a current diagnosis for this admission?: Yes (7) Pulmonary hypertension Is this a current diagnosis for this admission?: Yes (8) Chronic obstructive pulmonary disease with acute exacerbation Is this a current diagnosis for this admission?: Yes (9) Congestive heart failure Is this a current diagnosis for this admission?: Yes Hospital Course:: HPI on admission: SHARLENE LYNN is a 48 year old male who was just discharged from this hospital on 01/30/2018. He is currently intubated and sedated so was not able to participate in this discussion. At that time he was intubated and on the ventilator as well. Evidently he has a history of multiple admissions with poor compliance. By report the patient evidently has been declining over the last several days. Hospital course: This patient is 48 years old who is very unfortunate and has multiple medical problems along with severe noncompliance. Patient has CHF and severe COPD along with severe pulmonary hypertension who apparently was in and out of the hospital and intubated multiple times recently. He came to the hospital at this time and was intubated again. His stay in ICU intubated for the whole duration of the hospital stay. He developed MRSA bacteremia and sepsis along with pneumonia. He also had a sacral ulcer that was treated by surgery during hospitalization. Patient was not doing well and the family decided for terminal extubation and comfort measures. Patient was extubated on February around 10 AM and he was on March 01, 2018 at 12:05 AM.
--- NOTE | 2018-03-02 10:42 | PDOC PROGRESS REPORT ---
Subjective Progress Note for:: 02/16/18 Subjective:: Intubated and sedated Reason For Visit: ACUTE HYPOXIC HYPERCANEIC RESPIRATORY FAILURE Physical Exam Vital Signs: Temp Pulse Resp BP Pulse Ox 98.8 F 81 20 99/67 L 98 02/17/18 12:00 02/17/18 12:00 02/17/18 12:00 02/17/18 12:00 02/17/18 12:00 Intake & Output 02/16/18 02/17/18 02/18/18 06:59 06:59 05:59 Intake Total 3925 6766 180 Output Total 540 1235 610 Balance 3384 5531 -201 Weight 76.8 kg 80.6 kg General appearance: PRESENT: no acute distress, disheveled, well-developed, well -nourished Head exam: PRESENT: atraumatic, normocephalic Eye exam: PRESENT: conjunctiva pale. ABSENT: nystagmus, periorbital swelling, scleral icterus Mouth exam: PRESENT: dry mucosa, neck supple, tongue midline, other - ET tube in place Neck exam: ABSENT: carotid bruit, JVD, lymphadenopathy, thyromegaly, tracheal deviation, tracheostomy Respiratory exam: PRESENT: decreased breath sounds, prolonged expiratory phas, rales, rhonchi, symmetrical, unlabored, wheezes. ABSENT: retraction, stridor, tachypnea Cardiovascular exam: PRESENT: RRR, +S1, +S2, tachycardia Pulses: PRESENT: normal radial pulses GI/Abdominal exam: PRESENT: soft Gentrourinary exam: PRESENT: indwelling catheter Extremities exam: ABSENT: calf tenderness, clubbing, joint swelling, pedal edema Musculoskeletal exam: ABSENT: ambulatory, deformity, dislocation Neurological exam: ABSENT: awake Skin exam: PRESENT: dry, warm Results Laboratory Results: 02/17/18 04:30 02/17/18 04:30 02/16/18 02/17/18 02/17/18 16:03 04:30 04:30 WBC 15.3 H RBC 3.21 L Hgb 10.3 L Hct 29.3 L MCV 91 MCH 32.0 MCHC 35.1 RDW 16.3 H Plt Count 106 L Seg Neutrophils % Not Reportable Lymphocytes % Not Reportable Monocytes % Not Reportable Eosinophils % Not Reportable Basophils % Not Reportable Absolute Neutrophils Not Reportable Absolute Lymphocytes Not Reportable Absolute Monocytes Not Reportable Absolute Eosinophils Not Reportable Absolute Basophils Not Reportable Carbonic Acid HCO3/H2CO3 Ratio ABG pH ABG pCO2 ABG pO2 ABG HCO3 ABG O2 Saturation ABG Base Excess FiO2 Sodium 130.7 L 133.7 L Potassium 4.0 3.8 Chloride 83 L 88 L Carbon Dioxide 38 H 37 H Anion Gap 10 9 BUN 47 H 43 H Creatinine 0.83 0.82 Est GFR ( Amer) > 60 > 60 Est GFR (Non-Af Amer) > 60 > 60 Glucose 164 H 130 H Calcium 7.9 L 7.8 L Phosphorus 4.1 Magnesium 1.9 Albumin 2.1 L 02/17/18 05:20 WBC RBC Hgb Hct MCV MCH MCHC RDW Plt Count Seg Neutrophils % Lymphocytes % Monocytes % Eosinophils % Basophils % Absolute Neutrophils Absolute Lymphocytes Absolute Monocytes Absolute Eosinophils Absolute Basophils Carbonic Acid 1.45 H HCO3/H2CO3 Ratio 25:1 ABG pH 7.51 H ABG pCO2 48.3 H ABG pO2 82.6 ABG HCO3 37.2 H ABG O2 Saturation 96.8 ABG Base Excess 12.6 FiO2 35% Sodium Potassium Chloride Carbon Dioxide Anion Gap BUN Creatinine Est GFR ( Amer) Est GFR (Non-Af Amer) Glucose Calcium Phosphorus Magnesium Albumin 02/15/18 02/15/18 02/16/18 16:29 22:13 04:29 Creatine Kinase CK-MB (CK-2) Troponin I 0.968 1.370 1.600 NT-Pro-B Natriuret Pep 02/17/18 02/17/18 04:30 04:30 Creatine Kinase < 20 L CK-MB (CK-2) 1.13 Troponin I 0.788 NT-Pro-B Natriuret Pep 1670 H Impressions: Chest X-Ray 02/17/18 06:00 IMPRESSION: There is new blunting of the left lateral costophrenic sulcus which may be due to a small effusion. Otherwise, grossly stable appearance of the chest when compared to the prior studies. There are probable atelectatic changes in the lung bases. Assessment & Plan - Diagnosis (1) Acute on chronic respiratory failure with hypoxia and hypercapnia Is this a current diagnosis for this admission?: Yes Plan: Increase PEEP higher FiO2 and baseline (2) Congestive heart failure Qualifiers: Heart failure type: right-sided Heart failure chronicity: chronic Qualified Code(s): I50.812 - Chronic right heart failure Is this a current diagnosis for this admission?: Yes Plan: Stable at this time (3) Pneumonia Qualifiers: Pneumonia type: due to methicillin-resistant Staphylococcus aureus (MRSA) Laterality: right Lung location: lower lobe of lung Qualified Code(s): J15.212 - Pneumonia due to Methicillin resistant Staphylococcus aureus Is this a current diagnosis for this admission?: Yes Plan: The wound and sputum cultures all positive for MRSA patient placed on daptomycin (4) Pulmonary hypertension Is this a current diagnosis for this admission?: Yes Plan: Unchanged at this time - Time Total Critical Time (Minutes): 45
--- NOTE | 2018-03-02 10:44 | PDOC PROGRESS REPORT ---
Subjective Progress Note for:: 02/17/18 Subjective:: Intubated and sedated Reason For Visit: ACUTE HYPOXIC HYPERCANEIC RESPIRATORY FAILURE Physical Exam Vital Signs: Temp Pulse Resp BP Pulse Ox 98.8 F 81 20 99/67 L 98 02/17/18 12:00 02/17/18 12:00 02/17/18 12:00 02/17/18 12:00 02/17/18 12:00 Intake & Output 02/16/18 02/17/18 02/18/18 06:59 06:59 05:59 Intake Total 3925 6766 180 Output Total 540 1235 610 Balance 3380 5531 -187 Weight 76.8 kg 80.6 kg General appearance: PRESENT: no acute distress, disheveled, well-developed, well -nourished Head exam: PRESENT: atraumatic, normocephalic Eye exam: PRESENT: conjunctiva pale. ABSENT: nystagmus, periorbital swelling, scleral icterus Mouth exam: PRESENT: dry mucosa, neck supple, tongue midline, other - ET tube in place Neck exam: ABSENT: carotid bruit, JVD, lymphadenopathy, thyromegaly, tracheal deviation, tracheostomy Respiratory exam: PRESENT: decreased breath sounds, prolonged expiratory phas, rales, rhonchi, unlabored, wheezes. ABSENT: retraction, stridor, tachypnea Cardiovascular exam: PRESENT: RRR, +S1, +S2, tachycardia Pulses: PRESENT: normal radial pulses GI/Abdominal exam: PRESENT: soft Gentrourinary exam: PRESENT: indwelling catheter Extremities exam: PRESENT: pedal edema. ABSENT: calf tenderness, clubbing, full ROM, joint swelling Musculoskeletal exam: ABSENT: ambulatory, deformity, dislocation Neurological exam: ABSENT: awake Skin exam: PRESENT: dry, warm Results Laboratory Results: 02/17/18 04:30 02/17/18 04:30 02/16/18 02/17/18 02/17/18 16:03 04:30 04:30 WBC 15.3 H RBC 3.21 L Hgb 10.3 L Hct 29.3 L MCV 91 MCH 32.0 MCHC 35.1 RDW 16.3 H Plt Count 106 L Seg Neutrophils % Not Reportable Lymphocytes % Not Reportable Monocytes % Not Reportable Eosinophils % Not Reportable Basophils % Not Reportable Absolute Neutrophils Not Reportable Absolute Lymphocytes Not Reportable Absolute Monocytes Not Reportable Absolute Eosinophils Not Reportable Absolute Basophils Not Reportable Carbonic Acid HCO3/H2CO3 Ratio ABG pH ABG pCO2 ABG pO2 ABG HCO3 ABG O2 Saturation ABG Base Excess FiO2 Sodium 130.7 L 133.7 L Potassium 4.0 3.8 Chloride 83 L 88 L Carbon Dioxide 38 H 37 H Anion Gap 10 9 BUN 47 H 43 H Creatinine 0.83 0.82 Est GFR ( Amer) > 60 > 60 Est GFR (Non-Af Amer) > 60 > 60 Glucose 164 H 130 H Calcium 7.9 L 7.8 L Phosphorus 4.1 Magnesium 1.9 Albumin 2.1 L 02/17/18 05:20 WBC RBC Hgb Hct MCV MCH MCHC RDW Plt Count Seg Neutrophils % Lymphocytes % Monocytes % Eosinophils % Basophils % Absolute Neutrophils Absolute Lymphocytes Absolute Monocytes Absolute Eosinophils Absolute Basophils Carbonic Acid 1.45 H HCO3/H2CO3 Ratio 25:1 ABG pH 7.51 H ABG pCO2 48.3 H ABG pO2 82.6 ABG HCO3 37.2 H ABG O2 Saturation 96.8 ABG Base Excess 12.6 FiO2 35% Sodium Potassium Chloride Carbon Dioxide Anion Gap BUN Creatinine Est GFR ( Amer) Est GFR (Non-Af Amer) Glucose Calcium Phosphorus Magnesium Albumin 02/15/18 02/15/18 02/16/18 16:29 22:13 04:29 Creatine Kinase CK-MB (CK-2) Troponin I 0.968 1.370 1.600 NT-Pro-B Natriuret Pep 02/17/18 02/17/18 04:30 04:30 Creatine Kinase < 20 L CK-MB (CK-2) 1.13 Troponin I 0.788 NT-Pro-B Natriuret Pep 1670 H Impressions: Chest X-Ray 02/17/18 06:00 IMPRESSION: There is new blunting of the left lateral costophrenic sulcus which may be due to a small effusion. Otherwise, grossly stable appearance of the chest when compared to the prior studies. There are probable atelectatic changes in the lung bases. Assessment & Plan - Diagnosis (1) Acute on chronic respiratory failure with hypoxia and hypercapnia Is this a current diagnosis for this admission?: Yes Plan: Increase PEEP higher FiO2 over baseline (2) Congestive heart failure Qualifiers: Heart failure type: right-sided Heart failure chronicity: chronic Qualified Code(s): I50.812 - Chronic right heart failure Is this a current diagnosis for this admission?: Yes (3) Pneumonia Qualifiers: Pneumonia type: due to methicillin-resistant Staphylococcus aureus (MRSA) Laterality: right Lung location: lower lobe of lung Qualified Code(s): J15.212 - Pneumonia due to Methicillin resistant Staphylococcus aureus Is this a current diagnosis for this admission?: Yes Plan: The wound and sputum cultures all positive for MRSA patient placed on daptomycin (4) Pulmonary hypertension Is this a current diagnosis for this admission?: Yes Plan: Unchanged at this time - Time Total Critical Time (Minutes): 40
--- NOTE | 2018-03-02 10:48 | PDOC PROGRESS REPORT ---
Subjective Progress Note for:: 02/18/18 Subjective:: Intubated and sedated Reason For Visit: ACUTE HYPOXIC HYPERCANEIC RESPIRATORY FAILURE Physical Exam Vital Signs: Temp Pulse Resp BP Pulse Ox 97.0 F 65 20 115/77 96 02/18/18 11:25 02/18/18 11:25 02/18/18 11:25 02/18/18 11:25 02/18/18 11:25 Intake & Output 02/17/18 02/18/18 02/19/18 07:59 06:59 06:59 Intake Total 1494 Output Total 900 Balance 594 Weight General appearance: PRESENT: no acute distress, disheveled, well-developed, well -nourished Head exam: PRESENT: atraumatic, normocephalic Eye exam: PRESENT: conjunctiva pale. ABSENT: nystagmus, periorbital swelling, scleral icterus Mouth exam: PRESENT: dry mucosa, neck supple, tongue midline, other - ET tube in place Neck exam: ABSENT: carotid bruit, JVD, lymphadenopathy, thyromegaly, tracheal deviation, tracheostomy Respiratory exam: PRESENT: decreased breath sounds, prolonged expiratory phas, rales, rhonchi, symmetrical, unlabored, wheezes. ABSENT: retraction, stridor, tachypnea Cardiovascular exam: PRESENT: irregular rhythm Pulses: PRESENT: normal radial pulses GI/Abdominal exam: PRESENT: soft Gentrourinary exam: PRESENT: indwelling catheter Extremities exam: PRESENT: pedal edema. ABSENT: clubbing, joint swelling Musculoskeletal exam: ABSENT: ambulatory, deformity, dislocation Neurological exam: ABSENT: awake Skin exam: PRESENT: dry, warm Results Laboratory Results: 02/18/18 05:15 02/18/18 05:15 02/18/18 02/18/18 02/18/18 05:15 05:15 05:15 WBC 9.2 RBC 3.14 L Hgb 10.1 L Hct 28.8 L MCV 92 MCH 32.0 MCHC 35.0 RDW 15.9 H Plt Count 112 L Seg Neutrophils % Not Reportable Lymphocytes % Not Reportable Monocytes % Not Reportable Eosinophils % Not Reportable Basophils % Not Reportable Absolute Neutrophils Not Reportable Absolute Lymphocytes Not Reportable Absolute Monocytes Not Reportable Absolute Eosinophils Not Reportable Absolute Basophils Not Reportable Carbonic Acid HCO3/H2CO3 Ratio ABG pH ABG pCO2 ABG pO2 ABG HCO3 ABG O2 Saturation ABG Base Excess FiO2 Sodium 137.5 Potassium 3.4 L Chloride 95 L Carbon Dioxide 36 H Anion Gap 7 BUN 38 H Creatinine 0.72 Est GFR ( Amer) > 60 Est GFR (Non-Af Amer) > 60 Glucose 138 H Calcium 8.1 L Phosphorus 3.8 Cancelled Magnesium 2.1 Triglycerides 361 H 02/18/18 05:20 WBC RBC Hgb Hct MCV MCH MCHC RDW Plt Count Seg Neutrophils % Lymphocytes % Monocytes % Eosinophils % Basophils % Absolute Neutrophils Absolute Lymphocytes Absolute Monocytes Absolute Eosinophils Absolute Basophils Carbonic Acid 1.62 H HCO3/H2CO3 Ratio 21:1 ABG pH 7.43 ABG pCO2 53.7 H ABG pO2 72.6 L ABG HCO3 34.7 H ABG O2 Saturation 94.7 ABG Base Excess 8.9 FiO2 30% Sodium Potassium Chloride Carbon Dioxide Anion Gap BUN Creatinine Est GFR ( Amer) Est GFR (Non-Af Amer) Glucose Calcium Phosphorus Magnesium Triglycerides 02/15/18 13:40 Tracheal Aspirate Gram Stain - Final 02/15/18 13:40 Tracheal Aspirate Sputum Culture - Final NORMAL CHIKIS 02/15/18 02/15/18 02/16/18 16:29 22:13 04:29 Creatine Kinase CK-MB (CK-2) Troponin I 0.968 1.370 1.600 NT-Pro-B Natriuret Pep 02/17/18 02/17/18 04:30 04:30 Creatine Kinase < 20 L CK-MB (CK-2) 1.13 Troponin I 0.788 NT-Pro-B Natriuret Pep 1670 H Impressions: Chest X-Ray 02/18/18 06:00 IMPRESSION: NO CHANGE IN APPEARANCE OF THE CHEST. Assessment & Plan - Diagnosis (1) Acute on chronic respiratory failure with hypoxia and hypercapnia Is this a current diagnosis for this admission?: Yes Plan: Backing off on PEEP higher FiO2 over baseline remains (2) Congestive heart failure Qualifiers: Heart failure type: right-sided Heart failure chronicity: chronic Qualified Code(s): I50.812 - Chronic right heart failure Is this a current diagnosis for this admission?: Yes Plan: Stable at this time (3) Pneumonia Qualifiers: Pneumonia type: due to methicillin-resistant Staphylococcus aureus (MRSA) Laterality: right Lung location: lower lobe of lung Qualified Code(s): J15.212 - Pneumonia due to Methicillin resistant Staphylococcus aureus Is this a current diagnosis for this admission?: Yes Plan: The wound and sputum cultures all positive for MRSA patient placed on daptomycin (4) Pulmonary hypertension Is this a current diagnosis for this admission?: Yes Plan: Unchanged at this time - Time Total Critical Time (Minutes): 45
--- NOTE | 2018-03-02 10:51 | PDOC PROGRESS REPORT ---
Subjective Progress Note for:: 02/19/18 Subjective:: Intubated and sedated Reason For Visit: ACUTE HYPOXIC HYPERCANEIC RESPIRATORY FAILURE Physical Exam Vital Signs: Temp Pulse Resp BP Pulse Ox 98.2 F 62 20 121/85 97 02/19/18 08:00 02/19/18 08:07 02/19/18 08:07 02/19/18 05:41 02/19/18 08:07 Intake & Output 02/18/18 02/19/18 02/20/18 06:59 06:59 06:59 Intake Total 5492 67 Output Total 2385 100 Balance 3107 -33 Weight 87.1 kg General appearance: PRESENT: no acute distress, disheveled, well-developed, well -nourished Head exam: PRESENT: atraumatic, normocephalic Eye exam: PRESENT: conjunctiva pale. ABSENT: nystagmus, periorbital swelling, scleral icterus Mouth exam: PRESENT: dry mucosa, neck supple, tongue midline, other - ET tube Neck exam: ABSENT: carotid bruit, JVD, lymphadenopathy, thyromegaly, tracheal deviation, tracheostomy Respiratory exam: PRESENT: decreased breath sounds, prolonged expiratory phas, rales, rhonchi, symmetrical, unlabored, wheezes. ABSENT: retraction, stridor, tachypnea Cardiovascular exam: PRESENT: irregular rhythm Pulses: PRESENT: normal radial pulses GI/Abdominal exam: PRESENT: soft Gentrourinary exam: PRESENT: indwelling catheter Extremities exam: ABSENT: calf tenderness, clubbing, joint swelling, pedal edema Musculoskeletal exam: ABSENT: ambulatory, deformity, dislocation Neurological exam: ABSENT: awake Skin exam: PRESENT: dry, warm Results Laboratory Results: 02/19/18 05:15 02/19/18 05:15 02/18/18 02/18/18 02/19/18 05:15 17:50 05:15 WBC RBC Hgb Hct MCV MCH MCHC RDW Plt Count Carbonic Acid HCO3/H2CO3 Ratio ABG pH ABG pCO2 ABG pO2 ABG HCO3 ABG O2 Saturation ABG Base Excess FiO2 Sodium 140.1 Potassium 3.5 L 3.6 Chloride 98 Carbon Dioxide 36 H Anion Gap 6 BUN 29 H Creatinine 0.53 Est GFR ( Amer) > 60 Est GFR (Non-Af Amer) > 60 Glucose 136 H Calcium 8.2 L Phosphorus Cancelled 3.5 Magnesium 2.1 2.1 Total Bilirubin 0.6 AST 20 ALT 22 Alkaline Phosphatase 104 Total Protein 5.1 L Albumin 2.3 L 02/19/18 02/19/18 05:15 05:15 WBC 13.8 H RBC 3.16 L Hgb 10.1 L Hct 29.0 L MCV 92 MCH 31.9 MCHC 34.8 RDW 16.1 H Plt Count 121 L Carbonic Acid 1.47 H HCO3/H2CO3 Ratio 22:1 ABG pH 7.44 ABG pCO2 49.0 H ABG pO2 79.3 L ABG HCO3 32.8 H ABG O2 Saturation 96.0 ABG Base Excess 7.6 FiO2 30% Sodium Potassium Chloride Carbon Dioxide Anion Gap BUN Creatinine Est GFR ( Amer) Est GFR (Non-Af Amer) Glucose Calcium Phosphorus Magnesium Total Bilirubin AST ALT Alkaline Phosphatase Total Protein Albumin 02/15/18 02/15/18 02/16/18 16:29 22:13 04:29 Creatine Kinase CK-MB (CK-2) Troponin I 0.968 1.370 1.600 NT-Pro-B Natriuret Pep 02/17/18 02/17/18 04:30 04:30 Creatine Kinase < 20 L CK-MB (CK-2) 1.13 Troponin I 0.788 NT-Pro-B Natriuret Pep 1670 H Impressions: Chest X-Ray 02/19/18 06:00 IMPRESSION: 1. No definite acute intrathoracic disease. 2. Life support lines and tubes grossly stable. Assessment & Plan - Diagnosis (1) Acute on chronic respiratory failure with hypoxia and hypercapnia Is this a current diagnosis for this admission?: Yes Plan: Backing off on PEEP decreasing FiO2 towards baseline (2) Congestive heart failure Qualifiers: Heart failure type: right-sided Heart failure chronicity: chronic Qualified Code(s): I50.812 - Chronic right heart failure Is this a current diagnosis for this admission?: Yes Plan: Stable at this time (3) Pneumonia Qualifiers: Pneumonia type: due to methicillin-resistant Staphylococcus aureus (MRSA) Laterality: right Lung location: lower lobe of lung Qualified Code(s): J15.212 - Pneumonia due to Methicillin resistant Staphylococcus aureus Is this a current diagnosis for this admission?: Yes Plan: The wound and sputum cultures all positive for MRSA patient placed on daptomycin (4) Pulmonary hypertension Is this a current diagnosis for this admission?: Yes Plan: Primary pulmonary hypertension. COPD; therefore pulmonary hypertension clinic would be inappropriate - Time Total Critical Time (Minutes): 50
--- NOTE | 2018-03-02 10:53 | PDOC PROGRESS REPORT ---
Subjective Progress Note for:: 02/20/18 Subjective:: Intubated and sedated Reason For Visit: ACUTE HYPOXIC HYPERCANEIC RESPIRATORY FAILURE Physical Exam Vital Signs: Temp Pulse Resp BP Pulse Ox 98.8 F 97 18 107/65 93 02/20/18 12:00 02/20/18 12:00 02/20/18 12:00 02/20/18 12:00 02/20/18 12:44 Intake & Output 02/19/18 02/20/18 02/21/18 06:59 06:59 06:59 Intake Total 5492 2394 1197 Output Total 2385 5060 1325 Balance 3107 -16 -128 Weight 87.1 kg 88.6 kg General appearance: PRESENT: no acute distress, disheveled, well-developed, well -nourished Head exam: PRESENT: normocephalic Eye exam: PRESENT: conjunctiva pale. ABSENT: nystagmus, periorbital swelling, scleral icterus Mouth exam: PRESENT: dry mucosa, neck supple, tongue midline, other - ET tube in place Neck exam: ABSENT: carotid bruit, JVD, lymphadenopathy, thyromegaly, tracheal deviation, tracheostomy Respiratory exam: PRESENT: decreased breath sounds, prolonged expiratory phas, rales, rhonchi, symmetrical, unlabored, wheezes. ABSENT: retraction, stridor, tachypnea Cardiovascular exam: PRESENT: irregular rhythm, tachycardia Pulses: PRESENT: normal radial pulses GI/Abdominal exam: PRESENT: soft Gentrourinary exam: PRESENT: indwelling catheter Extremities exam: PRESENT: calf tenderness, clubbing, pedal edema. ABSENT: joint swelling Musculoskeletal exam: ABSENT: ambulatory, deformity, dislocation Neurological exam: ABSENT: awake Skin exam: PRESENT: dry, warm Results Laboratory Results: 02/20/18 06:55 02/20/18 06:00 02/20/18 02/20/18 02/20/18 06:00 06:00 06:00 WBC Cancelled RBC Cancelled Hgb Cancelled Hct Cancelled MCV Cancelled MCH Cancelled MCHC Cancelled RDW Cancelled Plt Count Cancelled Seg Neutrophils % Cancelled Lymphocytes % Cancelled Monocytes % Cancelled Eosinophils % Cancelled Basophils % Cancelled Absolute Neutrophils Cancelled Absolute Lymphocytes Cancelled Absolute Monocytes Cancelled Absolute Eosinophils Cancelled Absolute Basophils Cancelled Carbonic Acid 1.44 H HCO3/H2CO3 Ratio 24:1 ABG pH 7.49 H ABG pCO2 47.8 H ABG pO2 72.3 L ABG HCO3 35.9 H ABG O2 Saturation 95.5 ABG Base Excess 11.2 FiO2 30% Sodium 138.7 Potassium 3.5 L Chloride 99 Carbon Dioxide 33 H Anion Gap 7 BUN 26 H Creatinine 0.39 L Est GFR ( Amer) > 60 Est GFR (Non-Af Amer) > 60 Glucose 143 H Calcium 8.0 L Phosphorus 3.4 Magnesium 2.0 Prealbumin 17.0 L 02/20/18 06:55 WBC 12.5 H RBC 3.28 L Hgb 10.3 L Hct 30.2 L MCV 92 MCH 31.4 MCHC 34.1 RDW 16.5 H Plt Count 133 L Seg Neutrophils % Not Reportable Lymphocytes % Not Reportable Monocytes % Not Reportable Eosinophils % Not Reportable Basophils % Not Reportable Absolute Neutrophils Not Reportable Absolute Lymphocytes Not Reportable Absolute Monocytes Not Reportable Absolute Eosinophils Not Reportable Absolute Basophils Not Reportable Carbonic Acid HCO3/H2CO3 Ratio ABG pH ABG pCO2 ABG pO2 ABG HCO3 ABG O2 Saturation ABG Base Excess FiO2 Sodium Potassium Chloride Carbon Dioxide Anion Gap BUN Creatinine Est GFR ( Amer) Est GFR (Non-Af Amer) Glucose Calcium Phosphorus Magnesium Prealbumin 02/15/18 14:52 Blood Blood Culture - Final Mrsa (Meth Resis Staph Aureus) 02/15/18 14:40 Blood Blood Culture - Final Mrsa (Meth Resis Staph Aureus) 02/15/18 02/15/18 02/16/18 16:29 22:13 04:29 Creatine Kinase CK-MB (CK-2) Troponin I 0.968 1.370 1.600 NT-Pro-B Natriuret Pep 02/17/18 02/17/18 04:30 04:30 Creatine Kinase < 20 L CK-MB (CK-2) 1.13 Troponin I 0.788 NT-Pro-B Natriuret Pep 1670 H Impressions: Chest X-Ray 02/20/18 06:00 IMPRESSION: Possible developing left basilar pneumonia. Otherwise no change. Assessment & Plan - Diagnosis (1) Acute on chronic respiratory failure with hypoxia and hypercapnia Is this a current diagnosis for this admission?: Yes Plan: Backing off on PEEP decreasing FiO2 towards baseline (2) Congestive heart failure Qualifiers: Heart failure type: right-sided Heart failure chronicity: chronic Qualified Code(s): I50.812 - Chronic right heart failure Is this a current diagnosis for this admission?: Yes Plan: Stable at this time (3) Pneumonia Qualifiers: Pneumonia type: due to methicillin-resistant Staphylococcus aureus (MRSA) Laterality: right Lung location: lower lobe of lung Qualified Code(s): J15.212 - Pneumonia due to Methicillin resistant Staphylococcus aureus Is this a current diagnosis for this admission?: Yes Plan: The wound and sputum cultures all positive for MRSA patient placed on daptomycin (4) Pulmonary hypertension Is this a current diagnosis for this admission?: Yes Plan: Primary pulmonary hypertension. COPD; therefore pulmonary hypertension clinic would be inappropriate - Time Total Critical Time (Minutes): 45
--- NOTE | 2018-03-02 10:55 | PDOC PROGRESS REPORT ---
Subjective Progress Note for:: 02/21/18 Subjective:: Intubated and sedated Reason For Visit: ACUTE HYPOXIC HYPERCANEIC RESPIRATORY FAILURE Physical Exam Vital Signs: Temp Pulse Resp BP Pulse Ox 97.7 F 54 L 0 L 93/63 L 96 02/21/18 07:47 02/21/18 08:00 02/21/18 06:00 02/21/18 05:43 02/21/18 06:00 Intake & Output 02/20/18 02/21/18 02/22/18 06:59 06:59 06:59 Intake Total 2394 3779 Output Total 2410 2840 128 Balance -16 939 -128 Weight 88.6 kg 97.6 kg General appearance: PRESENT: no acute distress, disheveled, well-developed, well -nourished Head exam: PRESENT: atraumatic, normocephalic Eye exam: PRESENT: conjunctiva pale. ABSENT: nystagmus, periorbital swelling, scleral icterus Mouth exam: PRESENT: dry mucosa, neck supple, tongue midline, other - ET tube in place Neck exam: ABSENT: carotid bruit, JVD, lymphadenopathy, thyromegaly, tracheal deviation, tracheostomy Respiratory exam: PRESENT: decreased breath sounds, prolonged expiratory phas, rales, rhonchi, symmetrical, unlabored, wheezes. ABSENT: retraction, stridor, tachypnea Cardiovascular exam: PRESENT: irregular rhythm Pulses: PRESENT: normal radial pulses GI/Abdominal exam: PRESENT: soft Gentrourinary exam: PRESENT: indwelling catheter Extremities exam: PRESENT: pedal edema. ABSENT: calf tenderness, clubbing, joint swelling Musculoskeletal exam: ABSENT: ambulatory, deformity, dislocation Neurological exam: ABSENT: awake Skin exam: PRESENT: dry, warm Results Laboratory Results: 02/20/18 06:55 02/21/18 05:40 02/21/18 02/21/18 05:40 05:40 Carbonic Acid 1.37 H HCO3/H2CO3 Ratio 24:1 ABG pH 7.49 H ABG pCO2 45.6 H ABG pO2 74.2 L ABG HCO3 34.1 H ABG O2 Saturation 95.8 ABG Base Excess 9.7 FiO2 30% Sodium 142.2 Potassium 3.5 L Chloride 100 Carbon Dioxide 36 H Anion Gap 6 BUN 23 H Creatinine 0.41 L Est GFR ( Amer) > 60 Est GFR (Non-Af Amer) > 60 Glucose 130 H Calcium 8.0 L Magnesium 2.1 Triglycerides 232 H 02/15/18 02/15/18 02/16/18 16:29 22:13 04:29 Creatine Kinase CK-MB (CK-2) Troponin I 0.968 1.370 1.600 NT-Pro-B Natriuret Pep 02/17/18 02/17/18 04:30 04:30 Creatine Kinase < 20 L CK-MB (CK-2) 1.13 Troponin I 0.788 NT-Pro-B Natriuret Pep 1670 H Impressions: Chest X-Ray 02/21/18 06:00 IMPRESSION: No change Assessment & Plan - Diagnosis (1) Acute on chronic respiratory failure with hypoxia and hypercapnia Is this a current diagnosis for this admission?: Yes Plan: Backing off on PEEP decreasing FiO2 towards baseline (2) Congestive heart failure Qualifiers: Heart failure type: right-sided Heart failure chronicity: chronic Qualified Code(s): I50.812 - Chronic right heart failure Is this a current diagnosis for this admission?: Yes Plan: Stable at this time (3) Pneumonia Qualifiers: Pneumonia type: due to methicillin-resistant Staphylococcus aureus (MRSA) Laterality: right Lung location: lower lobe of lung Qualified Code(s): J15.212 - Pneumonia due to Methicillin resistant Staphylococcus aureus Is this a current diagnosis for this admission?: Yes Plan: The wound and sputum cultures all positive for MRSA patient placed on daptomycin (4) Pulmonary hypertension Is this a current diagnosis for this admission?: Yes Plan: Primary pulmonary hypertension. COPD; therefore pulmonary hypertension clinic would be inappropriate - Time Total Critical Time (Minutes): 45
--- NOTE | 2018-03-02 10:56 | PDOC PROGRESS REPORT ---
Subjective Progress Note for:: 02/22/18 Subjective:: Intubated and sedated Reason For Visit: ACUTE HYPOXIC HYPERCANEIC RESPIRATORY FAILURE Physical Exam Vital Signs: Temp Pulse Resp BP Pulse Ox 97.3 F 59 L 20 110/77 96 02/22/18 07:37 02/22/18 08:30 02/22/18 08:30 02/22/18 06:10 02/22/18 08:30 Intake & Output 02/21/18 02/22/18 02/23/18 06:59 06:59 06:59 Intake Total 3779 3170 Output Total 2840 2693 60 Balance 939 477 -60 Weight 97.6 kg 92.5 kg General appearance: PRESENT: no acute distress, disheveled, well-developed, well -nourished Head exam: PRESENT: atraumatic, normocephalic Eye exam: PRESENT: conjunctiva pale. ABSENT: nystagmus, periorbital swelling, scleral icterus Mouth exam: PRESENT: dry mucosa, neck supple, tongue midline, other - ET tube Neck exam: ABSENT: carotid bruit, JVD, lymphadenopathy, thyromegaly, tracheal deviation, tracheostomy Respiratory exam: PRESENT: decreased breath sounds, prolonged expiratory phas, rales, rhonchi, symmetrical, unlabored, wheezes. ABSENT: retraction, stridor, tachypnea Cardiovascular exam: PRESENT: irregular rhythm, tachycardia Pulses: PRESENT: normal radial pulses GI/Abdominal exam: PRESENT: soft Gentrourinary exam: PRESENT: indwelling catheter Extremities exam: PRESENT: pedal edema. ABSENT: calf tenderness, clubbing, joint swelling Musculoskeletal exam: ABSENT: ambulatory, deformity, dislocation Neurological exam: ABSENT: awake Skin exam: PRESENT: dry, warm Results Laboratory Results: 02/22/18 04:50 02/22/18 04:50 02/22/18 02/22/18 02/22/18 04:50 04:50 08:25 WBC 14.4 H RBC 3.14 L Hgb 9.7 L Hct 29.3 L MCV 94 MCH 30.8 MCHC 32.9 RDW 17.2 H Plt Count 200 Seg Neutrophils % Not Reportable Lymphocytes % Not Reportable Monocytes % Not Reportable Eosinophils % Not Reportable Basophils % Not Reportable Absolute Neutrophils Not Reportable Absolute Lymphocytes Not Reportable Absolute Monocytes Not Reportable Absolute Eosinophils Not Reportable Absolute Basophils Not Reportable Carbonic Acid 1.19 HCO3/H2CO3 Ratio 25:1 ABG pH 7.50 H ABG pCO2 39.7 ABG pO2 68.9 L ABG HCO3 29.9 H ABG O2 Saturation 95.1 ABG Base Excess 6.2 FiO2 30% Sodium 142.2 Potassium 3.6 Chloride 99 Carbon Dioxide 35 H Anion Gap 8 BUN 23 H Creatinine 0.44 L Est GFR ( Amer) > 60 Est GFR (Non-Af Amer) > 60 Glucose 126 H Calcium 8.2 L Magnesium 2.1 02/18/18 03:50 Coccyx - Decubitis Ulcer Gram Stain - Final 02/18/18 03:50 Coccyx - Decubitis Ulcer Wound Culture - Final Escherichia Coli Mrsa (Meth Resis Staph Aureus) Skin Yaz 02/15/18 02/15/18 02/16/18 16:29 22:13 04:29 Creatine Kinase CK-MB (CK-2) Troponin I 0.968 1.370 1.600 NT-Pro-B Natriuret Pep 02/17/18 02/17/18 04:30 04:30 Creatine Kinase < 20 L CK-MB (CK-2) 1.13 Troponin I 0.788 NT-Pro-B Natriuret Pep 1670 H Impressions: Chest X-Ray 02/22/18 06:00 IMPRESSION: No change. Assessment & Plan - Diagnosis (1) Acute on chronic respiratory failure with hypoxia and hypercapnia Is this a current diagnosis for this admission?: Yes Plan: Backing off on PEEP decreasing FiO2 towards baseline (2) Congestive heart failure Qualifiers: Heart failure type: right-sided Heart failure chronicity: chronic Qualified Code(s): I50.812 - Chronic right heart failure Is this a current diagnosis for this admission?: Yes Plan: Stable at this time (3) Pneumonia Qualifiers: Pneumonia type: due to methicillin-resistant Staphylococcus aureus (MRSA) Laterality: right Lung location: lower lobe of lung Qualified Code(s): J15.212 - Pneumonia due to Methicillin resistant Staphylococcus aureus Is this a current diagnosis for this admission?: Yes Plan: The wound and sputum cultures all positive for MRSA patient placed on daptomycin (4) Pulmonary hypertension Is this a current diagnosis for this admission?: Yes Plan: Primary pulmonary hypertension. COPD; therefore pulmonary hypertension clinic would be inappropriate - Time Total Critical Time (Minutes): 45
--- NOTE | 2018-03-02 10:58 | PDOC PROGRESS REPORT ---
Subjective Progress Note for:: 02/23/18 Subjective:: Intubated and sedated Reason For Visit: ACUTE HYPOXIC HYPERCANEIC RESPIRATORY FAILURE Physical Exam Vital Signs: Temp Pulse Resp BP Pulse Ox 98.2 F 73 20 109/79 93 02/23/18 07:44 02/23/18 08:20 02/23/18 08:41 02/23/18 08:41 02/23/18 08:41 Intake & Output 02/22/18 02/23/18 02/24/18 06:59 06:59 06:59 Intake Total 4220 1391 Output Total 2693 2110 300 Balance 1451 -840 -300 Weight 92.5 kg 94.3 kg General appearance: PRESENT: no acute distress, disheveled, well-developed, well -nourished Head exam: PRESENT: normocephalic Eye exam: PRESENT: conjunctiva pale. ABSENT: nystagmus, periorbital swelling, scleral icterus Mouth exam: PRESENT: dry mucosa, neck supple, tongue midline, other - ET tube Neck exam: ABSENT: carotid bruit, JVD, lymphadenopathy, thyromegaly, tracheal deviation, tracheostomy Respiratory exam: PRESENT: decreased breath sounds, prolonged expiratory phas, rales, rhonchi, symmetrical, unlabored, wheezes. ABSENT: retraction, stridor, tachypnea Cardiovascular exam: PRESENT: irregular rhythm Pulses: PRESENT: normal radial pulses GI/Abdominal exam: PRESENT: soft Gentrourinary exam: PRESENT: indwelling catheter Extremities exam: PRESENT: pedal edema. ABSENT: calf tenderness, clubbing, joint swelling Musculoskeletal exam: ABSENT: ambulatory, deformity, dislocation Neurological exam: ABSENT: awake Skin exam: PRESENT: dry, warm Results Laboratory Results: 02/23/18 07:15 02/23/18 07:15 02/23/18 02/23/18 07:15 07:15 WBC 13.7 H RBC 3.16 L Hgb 9.6 L Hct 29.4 L MCV 93 MCH 30.4 MCHC 32.7 RDW 17.3 H Plt Count 226 Seg Neutrophils % Not Reportable Lymphocytes % Not Reportable Monocytes % Not Reportable Eosinophils % Not Reportable Basophils % Not Reportable Absolute Neutrophils Not Reportable Absolute Lymphocytes Not Reportable Absolute Monocytes Not Reportable Absolute Eosinophils Not Reportable Absolute Basophils Not Reportable Sodium 142.5 Potassium 3.2 L Chloride 101 Carbon Dioxide 36 H Anion Gap 6 BUN 23 H Creatinine 0.39 L Est GFR ( Amer) > 60 Est GFR (Non-Af Amer) > 60 Glucose 91 Calcium 8.2 L Magnesium 2.0 02/20/18 11:02 Blood Blood Culture - Final Mrsa (Meth Resis Staph Aureus) 02/20/18 09:36 Blood Blood Culture - Final Mrsa (Meth Resis Staph Aureus) 02/15/18 02/15/18 02/16/18 16:29 22:13 04:29 Creatine Kinase CK-MB (CK-2) Troponin I 0.968 1.370 1.600 NT-Pro-B Natriuret Pep 02/17/18 02/17/18 04:30 04:30 Creatine Kinase < 20 L CK-MB (CK-2) 1.13 Troponin I 0.788 NT-Pro-B Natriuret Pep 1670 H Impressions: Chest X-Ray 02/23/18 06:00 IMPRESSION: No significant change. Assessment & Plan - Diagnosis (1) Acute on chronic respiratory failure with hypoxia and hypercapnia Is this a current diagnosis for this admission?: Yes Plan: Backing off on PEEP decreasing FiO2 towards baseline (2) Congestive heart failure Qualifiers: Heart failure type: right-sided Heart failure chronicity: chronic Qualified Code(s): I50.812 - Chronic right heart failure Is this a current diagnosis for this admission?: Yes Plan: Stable at this time (3) Pneumonia Qualifiers: Pneumonia type: due to methicillin-resistant Staphylococcus aureus (MRSA) Laterality: right Lung location: lower lobe of lung Qualified Code(s): J15.212 - Pneumonia due to Methicillin resistant Staphylococcus aureus Is this a current diagnosis for this admission?: Yes Plan: The wound and sputum cultures all positive for MRSA patient placed on daptomycin (4) Pulmonary hypertension Is this a current diagnosis for this admission?: Yes Plan: Primary pulmonary hypertension. COPD; therefore pulmonary hypertension clinic would be inappropriate - Time Total Critical Time (Minutes): 40
--- NOTE | 2018-03-02 11:01 | PDOC PROGRESS REPORT ---
Subjective Progress Note for:: 02/25/18 Subjective:: Intubated and sedated Reason For Visit: ACUTE HYPOXIC HYPERCANEIC RESPIRATORY FAILURE Physical Exam Vital Signs: Temp Pulse Resp BP Pulse Ox 98.2 F 89 20 108/75 93 02/25/18 08:00 02/25/18 08:12 02/25/18 08:12 02/25/18 08:00 02/25/18 08:12 Intake & Output 02/24/18 02/25/18 02/26/18 06:59 06:59 06:59 Intake Total 771 2774 912 Output Total 2099 1994 125 Balance -1329 779 787 Weight 95.4 kg 96.1 kg General appearance: PRESENT: no acute distress, disheveled, well-developed, well -nourished, other - Combative during sedation vacation Head exam: PRESENT: atraumatic, normocephalic Eye exam: PRESENT: conjunctiva pale, EOMI. ABSENT: nystagmus, periorbital swelling, scleral icterus Mouth exam: PRESENT: dry mucosa, neck supple, tongue midline, other - ET tube Neck exam: ABSENT: carotid bruit, JVD, lymphadenopathy, thyromegaly, tracheal deviation, tracheostomy Respiratory exam: PRESENT: decreased breath sounds, prolonged expiratory phas, rales, rhonchi, symmetrical, unlabored, wheezes. ABSENT: retraction, stridor, tachypnea Cardiovascular exam: PRESENT: irregular rhythm Pulses: PRESENT: normal radial pulses GI/Abdominal exam: PRESENT: soft Gentrourinary exam: PRESENT: indwelling catheter Extremities exam: PRESENT: pedal edema. ABSENT: calf tenderness, clubbing, joint swelling Musculoskeletal exam: ABSENT: ambulatory Neurological exam: ABSENT: awake Skin exam: PRESENT: dry, vesicles Results Laboratory Results: 02/25/18 05:30 02/25/18 05:30 02/24/18 02/25/18 02/25/18 12:41 05:30 05:30 WBC RBC Hgb Hct MCV MCH MCHC RDW Plt Count Seg Neutrophils % Lymphocytes % Monocytes % Eosinophils % Basophils % Absolute Neutrophils Absolute Lymphocytes Absolute Monocytes Absolute Eosinophils Absolute Basophils Carbonic Acid 1.40 H HCO3/H2CO3 Ratio 27:1 ABG pH 7.54 H ABG pCO2 46.6 H ABG pO2 61.3 L ABG HCO3 38.6 H ABG O2 Saturation 93.7 L ABG Base Excess 14.5 FiO2 30% Sodium 142.8 Potassium 3.4 L 3.6 Chloride 102 Carbon Dioxide 36 H Anion Gap 5 BUN 22 H Creatinine 0.39 L Est GFR ( Amer) > 60 Est GFR (Non-Af Amer) > 60 Glucose 87 Calcium 8.0 L Magnesium 2.1 02/25/18 05:30 WBC 11.4 H RBC 2.87 L Hgb 8.9 L Hct 26.8 L MCV 93 MCH 31.1 MCHC 33.3 RDW 17.9 H Plt Count 215 Seg Neutrophils % 82.9 H Lymphocytes % 11.3 L Monocytes % 5.5 Eosinophils % 0.1 Basophils % 0.2 Absolute Neutrophils 9.5 H Absolute Lymphocytes 1.3 Absolute Monocytes 0.6 Absolute Eosinophils 0.0 Absolute Basophils 0.0 Carbonic Acid HCO3/H2CO3 Ratio ABG pH ABG pCO2 ABG pO2 ABG HCO3 ABG O2 Saturation ABG Base Excess FiO2 Sodium Potassium Chloride Carbon Dioxide Anion Gap BUN Creatinine Est GFR ( Amer) Est GFR (Non-Af Amer) Glucose Calcium Magnesium 02/21/18 10:00 Blood Blood Culture - Final Mrsa (Meth Resis Staph Aureus) 02/21/18 09:55 Blood Blood Culture - Final Mrsa (Meth Resis Staph Aureus) 02/18/18 21:00 Decubitis Ulcer - Sacral Gram Stain - Final 02/18/18 21:00 Decubitis Ulcer - Sacral Wound Culture - Final Escherichia Coli Mrsa (Meth Resis Staph Aureus) Bacteroides Uniformis Skin Yaz 02/15/18 02/15/18 02/16/18 16:29 22:13 04:29 Creatine Kinase CK-MB (CK-2) Troponin I 0.968 1.370 1.600 NT-Pro-B Natriuret Pep 02/17/18 02/17/18 04:30 04:30 Creatine Kinase < 20 L CK-MB (CK-2) 1.13 Troponin I 0.788 NT-Pro-B Natriuret Pep 1670 H Impressions: Chest X-Ray 02/25/18 06:00 IMPRESSION: No significant change. Assessment & Plan - Diagnosis (1) Acute on chronic respiratory failure with hypoxia and hypercapnia Is this a current diagnosis for this admission?: Yes Plan: Backing off on PEEP decreasing FiO2 towards baseline (2) Congestive heart failure Qualifiers: Heart failure type: right-sided Heart failure chronicity: chronic Qualified Code(s): I50.812 - Chronic right heart failure Is this a current diagnosis for this admission?: Yes Plan: Stable at this time (3) Pneumonia Qualifiers: Pneumonia type: due to methicillin-resistant Staphylococcus aureus (MRSA) Laterality: right Lung location: lower lobe of lung Qualified Code(s): J15.212 - Pneumonia due to Methicillin resistant Staphylococcus aureus Is this a current diagnosis for this admission?: Yes Plan: The wound and sputum cultures all positive for MRSA patient placed on daptomycin (4) Pulmonary hypertension Is this a current diagnosis for this admission?: Yes Plan: Primary pulmonary hypertension. COPD; therefore pulmonary hypertension clinic would be inappropriate - Time Total Critical Time (Minutes): 40
--- NOTE | 2018-03-02 11:03 | PDOC PROGRESS REPORT ---
Subjective Progress Note for:: 02/26/18 Subjective:: Intubated and sedated Reason For Visit: ACUTE HYPOXIC HYPERCANEIC RESPIRATORY FAILURE Physical Exam Vital Signs: Temp Pulse Resp BP Pulse Ox 97.5 F 76 18 137/82 H 100 02/26/18 05:19 02/26/18 08:00 02/26/18 06:13 02/26/18 06:13 02/26/18 08:31 Intake & Output 02/25/18 02/26/18 02/27/18 06:59 06:59 06:59 Intake Total 2774 2961 Output Total 1994 155 Balance 779 1406 Weight 96.1 kg 97.6 kg General appearance: PRESENT: no acute distress, disheveled, well-developed, well -nourished, other - Combative during sedation vacation Head exam: PRESENT: atraumatic, normocephalic Eye exam: PRESENT: conjunctiva pale. ABSENT: nystagmus, periorbital swelling, scleral icterus Mouth exam: PRESENT: dry mucosa, neck supple, tongue midline, other - ET tube Neck exam: ABSENT: carotid bruit, JVD, lymphadenopathy, thyromegaly, tracheal deviation, tracheostomy Respiratory exam: PRESENT: decreased breath sounds, prolonged expiratory phas, rales, rhonchi, symmetrical, unlabored, wheezes. ABSENT: retraction, stridor, tachypnea Cardiovascular exam: PRESENT: irregular rhythm, tachycardia Pulses: PRESENT: normal radial pulses GI/Abdominal exam: PRESENT: soft Gentrourinary exam: PRESENT: indwelling catheter Extremities exam: PRESENT: pedal edema. ABSENT: calf tenderness, clubbing, joint swelling Musculoskeletal exam: ABSENT: ambulatory, deformity, dislocation Neurological exam: ABSENT: awake Skin exam: PRESENT: dry, warm Results Laboratory Results: 02/26/18 05:49 02/26/18 05:49 02/26/18 02/26/18 02/26/18 05:49 05:49 05:49 WBC 10.3 RBC 3.09 L Hgb 9.7 L Hct 28.9 L MCV 94 MCH 31.3 MCHC 33.5 RDW 18.1 H Plt Count 205 Seg Neutrophils % 86.7 H Lymphocytes % 8.9 L Monocytes % 4.2 Eosinophils % 0.0 Basophils % 0.2 Absolute Neutrophils 8.9 H Absolute Lymphocytes 0.9 Absolute Monocytes 0.4 Absolute Eosinophils 0.0 Absolute Basophils 0.0 Carbonic Acid 1.70 H HCO3/H2CO3 Ratio 22:1 ABG pH 7.45 ABG pCO2 56.4 H ABG pO2 65.2 L ABG HCO3 38.6 H ABG O2 Saturation 93.2 L ABG Base Excess 12.8 FiO2 30% Sodium 142.4 Potassium 3.5 L Chloride 100 Carbon Dioxide 38 H Anion Gap 4 L BUN 24 H Creatinine 0.37 L Est GFR ( Amer) > 60 Est GFR (Non-Af Amer) > 60 Glucose 121 H Calcium 8.1 L Magnesium 2.1 02/15/18 02/15/18 02/16/18 16:29 22:13 04:29 Creatine Kinase CK-MB (CK-2) Troponin I 0.968 1.370 1.600 NT-Pro-B Natriuret Pep 02/17/18 02/17/18 04:30 04:30 Creatine Kinase < 20 L CK-MB (CK-2) 1.13 Troponin I 0.788 NT-Pro-B Natriuret Pep 1670 H Impressions: Chest X-Ray 02/26/18 06:00 IMPRESSION: No change. Assessment & Plan - Diagnosis (1) Acute on chronic respiratory failure with hypoxia and hypercapnia Is this a current diagnosis for this admission?: Yes Plan: Backing off on PEEP decreasing FiO2 towards baseline (2) Congestive heart failure Qualifiers: Heart failure type: right-sided Heart failure chronicity: chronic Qualified Code(s): I50.812 - Chronic right heart failure Is this a current diagnosis for this admission?: Yes Plan: Stable at this time (3) Pneumonia Qualifiers: Pneumonia type: due to methicillin-resistant Staphylococcus aureus (MRSA) Laterality: right Lung location: lower lobe of lung Qualified Code(s): J15.212 - Pneumonia due to Methicillin resistant Staphylococcus aureus Is this a current diagnosis for this admission?: Yes Plan: The wound and sputum cultures all positive for MRSA patient placed on daptomycin (4) Pulmonary hypertension Is this a current diagnosis for this admission?: Yes Plan: Primary pulmonary hypertension. COPD; therefore pulmonary hypertension clinic would be inappropriate - Time Total Critical Time (Minutes): 40
--- NOTE | 2018-03-02 11:07 | PDOC PROGRESS REPORT ---
Subjective Progress Note for:: 02/27/18 Subjective:: Intubated and sedated Reason For Visit: ACUTE HYPOXIC HYPERCANEIC RESPIRATORY FAILURE Physical Exam Vital Signs: Temp Pulse Resp BP Pulse Ox 97.5 F 64 16 119/79 95 02/27/18 08:00 02/27/18 08:43 02/27/18 08:43 02/27/18 08:00 02/27/18 08:43 Intake & Output 02/26/18 02/27/18 02/28/18 06:59 06:59 06:59 Intake Total 2961 2425 Output Total 1555 3065 60 Balance 1406 -640 -60 Weight 97.6 kg 97.8 kg General appearance: PRESENT: no acute distress, disheveled, well-developed, well -nourished, other - Right-sided weakness noted during sedation vacation Head exam: PRESENT: atraumatic, normocephalic Eye exam: PRESENT: conjunctiva pale, EOMI. ABSENT: nystagmus, periorbital swelling, scleral icterus Mouth exam: PRESENT: dry mucosa, neck supple, tongue midline, other - ET tube in place Neck exam: ABSENT: carotid bruit, JVD, lymphadenopathy, thyromegaly, tracheal deviation, tracheostomy Respiratory exam: PRESENT: decreased breath sounds, prolonged expiratory phas, rales, rhonchi, symmetrical, unlabored, wheezes. ABSENT: retraction, stridor, tachypnea Cardiovascular exam: PRESENT: irregular rhythm Pulses: PRESENT: normal radial pulses GI/Abdominal exam: PRESENT: soft Gentrourinary exam: PRESENT: indwelling catheter Extremities exam: PRESENT: pedal edema. ABSENT: calf tenderness, clubbing, joint swelling Musculoskeletal exam: ABSENT: ambulatory, deformity, dislocation Neurological exam: ABSENT: awake Skin exam: PRESENT: dry Results Laboratory Results: 02/27/18 06:25 02/27/18 06:25 02/27/18 02/27/18 02/27/18 06:25 06:25 06:25 WBC 9.9 RBC 2.96 L Hgb 9.3 L Hct 27.8 L MCV 94 MCH 31.6 MCHC 33.6 RDW 18.3 H Plt Count 209 Seg Neutrophils % 85.8 H Lymphocytes % 9.7 L Monocytes % 4.3 Eosinophils % 0.0 Basophils % 0.2 Absolute Neutrophils 8.4 H Absolute Lymphocytes 1.0 Absolute Monocytes 0.4 Absolute Eosinophils 0.0 Absolute Basophils 0.0 Carbonic Acid 1.62 H HCO3/H2CO3 Ratio 23:1 ABG pH 7.47 H ABG pCO2 53.9 H ABG pO2 69.4 L ABG HCO3 38.5 H ABG O2 Saturation 94.6 ABG Base Excess 13.3 FiO2 30% Sodium 141.5 Potassium 3.2 L Chloride 100 Carbon Dioxide 39 H Anion Gap 3 L BUN 23 H Creatinine 0.39 L Est GFR ( Amer) > 60 Est GFR (Non-Af Amer) > 60 Glucose 105 Calcium 7.9 L Magnesium 2.1 Triglycerides 153 H 02/15/18 02/15/18 02/16/18 16:29 22:13 04:29 Creatine Kinase CK-MB (CK-2) Troponin I 0.968 1.370 1.600 NT-Pro-B Natriuret Pep 02/17/18 02/17/18 04:30 04:30 Creatine Kinase < 20 L CK-MB (CK-2) 1.13 Troponin I 0.788 NT-Pro-B Natriuret Pep 1670 H Impressions: Head CT 02/26/18 00:00 IMPRESSION: Go somewhat ill-defined area of relative decreased density in the left parietal lobe as noted above which could represent an evolving area of cerebral infarction. No definite associated mass is identified. Clinical correlation is recommended. If further workup is deemed clinically warranted I would recommend MRI. Other findings as noted above EVIDENCE OF ACUTE STROKE: Possible evolving area of cerebral infarction. Chest X-Ray 02/27/18 06:00 IMPRESSION: Little interval change 2010 [employer]- All Rights Reserved Assessment & Plan - Diagnosis (1) Acute on chronic respiratory failure with hypoxia and hypercapnia Is this a current diagnosis for this admission?: Yes Plan: Backing off on PEEP decreasing FiO2 towards baseline Sedation vacation patient noted to be weak on right side will proceed with CT of the head (2) Congestive heart failure Qualifiers: Heart failure type: right-sided Heart failure chronicity: chronic Qualified Code(s): I50.812 - Chronic right heart failure Is this a current diagnosis for this admission?: Yes Plan: Stable at this time (3) Pneumonia Qualifiers: Pneumonia type: due to methicillin-resistant Staphylococcus aureus (MRSA) Laterality: right Lung location: lower lobe of lung Qualified Code(s): J15.212 - Pneumonia due to Methicillin resistant Staphylococcus aureus Is this a current diagnosis for this admission?: Yes Plan: The wound and sputum cultures all positive for MRSA patient placed on daptomycin (4) Pulmonary hypertension Is this a current diagnosis for this admission?: Yes Plan: Primary pulmonary hypertension. COPD; therefore pulmonary hypertension clinic would be inappropriate
--- NOTE | 2018-03-02 11:11 | PDOC PROGRESS REPORT ---
Subjective Progress Note for:: 02/28/18 Subjective:: Intubated and sedated Reason For Visit: ACUTE HYPOXIC HYPERCANEIC RESPIRATORY FAILURE Physical Exam Vital Signs: Temp Pulse Resp BP Pulse Ox 97.7 F 71 5 L 156/101 H 93 02/28/18 16:00 02/28/18 08:38 02/28/18 22:00 02/28/18 10:15 02/28/18 22:00 Intake & Output 03/01/18 03/02/18 03/03/18 06:59 06:59 06:59 Intake Total 100 Output Total 990 Balance -890 General appearance: PRESENT: no acute distress, disheveled, well-developed, well -nourished Head exam: PRESENT: atraumatic, normocephalic Eye exam: PRESENT: conjunctiva pale, EOMI. ABSENT: nystagmus, periorbital swelling, scleral icterus Mouth exam: PRESENT: dry mucosa, neck supple, tongue midline, other - ET tube in place Neck exam: ABSENT: carotid bruit, JVD, lymphadenopathy, thyromegaly, tracheal deviation, tracheostomy Respiratory exam: PRESENT: decreased breath sounds, prolonged expiratory phas, rales, rhonchi, symmetrical, unlabored. ABSENT: retraction, stridor, tachypnea , wheezes Cardiovascular exam: PRESENT: irregular rhythm Pulses: PRESENT: normal radial pulses GI/Abdominal exam: PRESENT: soft Extremities exam: PRESENT: pedal edema. ABSENT: calf tenderness, clubbing, joint swelling Musculoskeletal exam: ABSENT: ambulatory, deformity, dislocation Neurological exam: ABSENT: awake Skin exam: PRESENT: dry, warm Results Laboratory Results: 02/28/18 05:35 02/28/18 05:35 02/15/18 02/15/18 02/16/18 16:29 22:13 04:29 Creatine Kinase CK-MB (CK-2) Troponin I 0.968 1.370 1.600 NT-Pro-B Natriuret Pep 02/17/18 02/17/18 04:30 04:30 Creatine Kinase < 20 L CK-MB (CK-2) 1.13 Troponin I 0.788 NT-Pro-B Natriuret Pep 1670 H Impressions: Head CT 02/26/18 00:00 IMPRESSION: Go somewhat ill-defined area of relative decreased density in the left parietal lobe as noted above which could represent an evolving area of cerebral infarction. No definite associated mass is identified. Clinical correlation is recommended. If further workup is deemed clinically warranted I would recommend MRI. Other findings as noted above EVIDENCE OF ACUTE STROKE: Possible evolving area of cerebral infarction. Chest X-Ray 02/27/18 06:00 IMPRESSION: Little interval change 2010 [employer]- All Rights Reserved Assessment & Plan - Diagnosis (1) Acute on chronic respiratory failure with hypoxia and hypercapnia Is this a current diagnosis for this admission?: Yes Plan: Backing off on PEEP decreasing FiO2 towards baseline Sedation vacation patient noted to be weak on right side will proceed with CT of the head (2) Congestive heart failure Qualifiers: Heart failure type: right-sided Heart failure chronicity: chronic Qualified Code(s): I50.812 - Chronic right heart failure Is this a current diagnosis for this admission?: Yes Plan: Stable at this time (3) Pneumonia Qualifiers: Pneumonia type: due to methicillin-resistant Staphylococcus aureus (MRSA) Laterality: right Lung location: lower lobe of lung Qualified Code(s): J15.212 - Pneumonia due to Methicillin resistant Staphylococcus aureus Is this a current diagnosis for this admission?: Yes Plan: The wound and sputum cultures all positive for MRSA patient placed on daptomycin (4) Pulmonary hypertension Is this a current diagnosis for this admission?: Yes Plan: Primary pulmonary hypertension. COPD; therefore pulmonary hypertension clinic would be inappropriate (5) CVA (cerebral vascular accident) Is this a current diagnosis for this admission?: Yes Plan: New onset (6) Sacral decubitus ulcer, stage IV Is this a current diagnosis for this admission?: Yes Plan: 02/18/18 21:00 Gram Stain - Final Decubitis Ulcer - Sacral Wound Culture - Final Escherichia Coli Mrsa (Meth Resis Staph Aureus) Bacteroides Uniformis Skin Yaz 02/18/18 03:50 Gram Stain - Final Coccyx - Decubitis Ulcer Wound Culture - Final Escherichia Coli Mrsa (Meth Resis Staph Aureus) Skin Yaz - Time Total Critical Time (Minutes): 55 - Plan Summary Plan Summary: Long discussion with primary care and family with plans to keep patient comfort care
--- NOTE | 2018-03-02 11:13 | PDOC PROGRESS REPORT ---
Subjective Progress Note for:: 02/24/18 Subjective:: Intubated and sedated Reason For Visit: ACUTE HYPOXIC HYPERCANEIC RESPIRATORY FAILURE Physical Exam Vital Signs: Temp Pulse Resp BP Pulse Ox 97.7 F 71 5 L 156/101 H 93 02/28/18 16:00 02/28/18 08:38 02/28/18 22:00 02/28/18 10:15 02/28/18 22:00 Intake & Output 03/01/18 03/02/18 03/03/18 06:59 06:59 06:59 Intake Total 100 Output Total 990 Balance -890 General appearance: PRESENT: no acute distress, disheveled, well-developed, well -nourished Head exam: PRESENT: atraumatic, normocephalic Eye exam: PRESENT: conjunctiva pale. ABSENT: nystagmus, periorbital swelling, scleral icterus Mouth exam: PRESENT: dry mucosa, neck supple, tongue midline, other - ET tube in place Neck exam: ABSENT: carotid bruit, JVD, lymphadenopathy, thyromegaly, tracheal deviation, tracheostomy Respiratory exam: PRESENT: decreased breath sounds, prolonged expiratory phas, rales, rhonchi, symmetrical, unlabored. ABSENT: retraction, stridor, tachypnea , wheezes Cardiovascular exam: PRESENT: irregular rhythm Pulses: PRESENT: normal radial pulses GI/Abdominal exam: PRESENT: soft Gentrourinary exam: PRESENT: indwelling catheter Extremities exam: PRESENT: pedal edema. ABSENT: calf tenderness, clubbing, joint swelling Musculoskeletal exam: ABSENT: ambulatory, deformity, dislocation Neurological exam: ABSENT: awake Skin exam: PRESENT: dry, warm Results Laboratory Results: 02/28/18 05:35 02/28/18 05:35 02/15/18 02/15/18 02/16/18 16:29 22:13 04:29 Creatine Kinase CK-MB (CK-2) Troponin I 0.968 1.370 1.600 NT-Pro-B Natriuret Pep 02/17/18 02/17/18 04:30 04:30 Creatine Kinase < 20 L CK-MB (CK-2) 1.13 Troponin I 0.788 NT-Pro-B Natriuret Pep 1670 H Impressions: Head CT 02/26/18 00:00 IMPRESSION: Go somewhat ill-defined area of relative decreased density in the left parietal lobe as noted above which could represent an evolving area of cerebral infarction. No definite associated mass is identified. Clinical correlation is recommended. If further workup is deemed clinically warranted I would recommend MRI. Other findings as noted above EVIDENCE OF ACUTE STROKE: Possible evolving area of cerebral infarction. Chest X-Ray 02/27/18 06:00 IMPRESSION: Little interval change 2010 [employer]- All Rights Reserved Assessment & Plan - Diagnosis (1) Acute on chronic respiratory failure with hypoxia and hypercapnia Is this a current diagnosis for this admission?: Yes Plan: Backing off on PEEP decreasing FiO2 towards baseline Sedation vacation patient noted to be weak on right side will proceed with CT of the head (2) Congestive heart failure Qualifiers: Heart failure type: right-sided Heart failure chronicity: chronic Qualified Code(s): I50.812 - Chronic right heart failure Is this a current diagnosis for this admission?: Yes Plan: Stable at this time (3) Pneumonia Qualifiers: Pneumonia type: due to methicillin-resistant Staphylococcus aureus (MRSA) Laterality: right Lung location: lower lobe of lung Qualified Code(s): J15.212 - Pneumonia due to Methicillin resistant Staphylococcus aureus Is this a current diagnosis for this admission?: Yes Plan: The wound and sputum cultures all positive for MRSA patient placed on daptomycin (4) Pulmonary hypertension Is this a current diagnosis for this admission?: Yes Plan: Primary pulmonary hypertension. COPD; therefore pulmonary hypertension clinic would be inappropriate (5) Sacral decubitus ulcer, stage IV Is this a current diagnosis for this admission?: Yes Plan: 02/18/18 21:00 Gram Stain - Final Decubitis Ulcer - Sacral Wound Culture - Final Escherichia Coli Mrsa (Meth Resis Staph Aureus) Bacteroides Uniformis Skin Yaz 02/18/18 03:50 Gram Stain - Final Coccyx - Decubitis Ulcer Wound Culture - Final Escherichia Coli Mrsa (Meth Resis Staph Aureus) Skin Yaz - Time Total Critical Time (Minutes): 50
--- NOTE | 2018-03-28 19:09 | Progress Note ---
Provider Note Provider Note: this is a response to department of medical records. it appears that MRSA was positive in urine and blood since admission I assume that he was septic on admission but will leave this to the admitting physician for comment urine culture on admission appears to be obtained from Prakash catheyer. I'm not sure if he presented with Prakash or it was inserted in ER I will also leave this to admitting physician for comment. my first encounter with the patient, he was intubated and there were already plans to terminally extubate him the next day.
--- NOTE | 2018-04-03 13:11 | Progress Note ---
Provider Note Provider Note: This is an addendum to the patient record for Mr. Curt Hoffman. The patient at 12:05 AM March 01, 2018. He was terminally extubated at the wishes of his parents due to his terminal prognosis. This note is specifically regarding the stage IV decubitus ulcer. At the time of his passing the patient still had an open ulcer to the bone. He had undergone several surgical debridements. Surgery was actively treating the lesion with iodoform gauze dressings after the last debridement. Due to the terminal extubation the stage IV ulcer was still active at the time of .
== END 2018-03-01 00:05 | DRG 853 ==
LOC: ER 10:12 → EH 12:31 → ICU 13:32
PROVIDERS: ADMIT Hospitalist; ATTEND Hospitalist
PROC: 5A1955Z Respiratory Ventilation, Greater than 96 Consecutive Hours (ICD-10-PCS; 2018-02-15)
PROC: 02HV33Z Insertion of Infusion Device into Superior Vena Cava, Percutaneous Approach (ICD-10-PCS; 2018-02-16)
PROC: 0JD70ZZ Extraction of Back Subcutaneous Tissue and Fascia, Open Approach (ICD-10-PCS; principal; 2018-02-18)
PROC: 0JD70ZZ Extraction of Back Subcutaneous Tissue and Fascia, Open Approach (ICD-10-PCS; 2018-02-22)
DX: A41.02 Sepsis due to Methicillin resistant Staphylococcus aureus (principal); J96.02 Acute respiratory failure with hypercapnia; J96.01 Acute respiratory failure with hypoxia; J15.212 Pneumonia due to Methicillin resistant Staphylococcus aureus; L89.154 Pressure ulcer of sacral region, stage 4; E87.1 Hypo-osmolality and hyponatremia; E46 Unspecified protein-calorie malnutrition; J44.1 Chronic obstructive pulmonary disease with (acute) exacerbation; J44.0 Chronic obstructive pulmonary disease with (acute) lower respiratory infection; N30.00 Acute cystitis without hematuria; Z51.5 Encounter for palliative care; B96.20 Unspecified Escherichia coli [E. coli] as the cause of diseases classified elsewhere; R65.20 Severe sepsis without septic shock; Z66 Do not resuscitate; I50.812 Chronic right heart failure; E87.6 Hypokalemia; I25.10 Atherosclerotic heart disease of native coronary artery without angina pectoris; I95.9 Hypotension, unspecified; F17.210 Nicotine dependence, cigarettes, uncomplicated; B95.62 Methicillin resistant Staphylococcus aureus infection as the cause of diseases classified elsewhere; M19.90 Unspecified osteoarthritis, unspecified site; Z79.899 Other long term (current) drug therapy; Z68.30 Body mass index [BMI] 30.0-30.9, adult; Z86.711 Personal history of pulmonary embolism; Z91.19 Patient's noncompliance with other medical treatment and regimen
CPT/HCPCS: 36415; 51702; 70450; 71045; 80048; 80053; 80069; 80076; 80202; 81001; 82550; 82553; 82803; 83605; 83735; 83880; 84100; 84132; 84134; 84478; 84484; 85025; 85027; 85610; 85730; 87040; 87070; 87075; 87077; 87086; 87088; 87186; 87205; 90715; 93005; 93010; 93321; 94002; 94003; 94640; 96374; 99291; 99292; A6266; C1751; J0878; J1335; J1642; J1644; J1720; J1940; J2250; J2270; J2543; J2704; J2920; J2930; J3010; J3370; J3480; J3490; J7030; J7060; J7120; J7620; P9047; S0164